=== PATIENT | male | born 1970 | race Caucasian/White ===

== ENCOUNTER 2022-04-13 22:28 | Emergency (ER) | payer MEDICARE, MEDICAID, SELFPAY ==
--- NOTE | 2022-04-13 22:36 | ED_ITS ---
HPI - Alcohol General Chief Complaint: ETOH/Substance Use Stated Complaint: ETOH Source: patient and EMS Mode of arrival: EMS Limitations: no limitations History of Present Illness HPI narrative: 51-year-old male presents via EMS for alcohol intoxication. Patient was walking around in public, visibly intoxicated, PD called EMS to have patient brought to the emergency department for evaluation. Patient has no medical complaints. Is not suicidal or homicidal. MD complaint: alcohol intoxication Last drink: Just prior to admission Chronic alcohol use: Yes Previous visits for alcohol intoxication: No Recent trauma: No Associated symptoms: denies other symptoms Treatments prior to arrival: none Related Data Allergies Allergy/AdvReac Type Severity Reaction Status Date / Time No Known Allergies Allergy Unverified 07/02/20 15:14 Review of Systems Review of Systems: Constitutional: No Fever, No Chills, visibly intoxicated ENT/Mouth: No Ear Pain, No Hoarseness, No sore throat Eyes: No Eye Pain, No Swelling, No Redness, No Foreign Body Cardiovascular: No Chest Pain, No SOB Respiratory: No Cough, No Dyspnea Gastrointestinal: No Nausea, No Vomiting, No Diarrhea, No abdominal Pain Genitourinary: No Dysuria, No Hematuria Musculoskeletal: No joint pain, No Myalgias, No Joint Swelling Skin: No Skin lacerations, No rash Neuro: No Weakness, No Numbness, No Paresthesias, No Loss of Consciousness, No Dizziness, No Headache Psych: No Anxiety/Panic, No Depression Heme/Lymph: no easy bruising, no Lymphadenopathy Endocrine: No Polyuria, No Polydipsia Yes all other systems are reviewed and are negative [facility] Past Medical History Attestation statement: The following information was validated with the patient. Source: old records reviewed Social History Social History Alcohol intake: current Advance Directives: No Physical Exam ED Vital Signs: Vital Signs - 24 hr 04/13/22 22:53 04/13/22 23:33 Temperature 99 F 98.9 F Pulse Rate 70 133 H Respiratory Rate 16 Blood Pressure 118/80 140/72 H Pulse Oximetry 99 95 Oxygen Delivery Method Room Air Room Air BMI result Body Mass Index 33.0 Appearance: Alert. Oriented X3. No acute distress. Visibly intoxicated. Eyes: Pupils equal, round and reactive to light. Sclera nonicteric. ENT: Pharynx normal. Moist mucous membranes. Neck: Normal inspection. Neck supple. CVS: Normal heart rate and rhythm. Pulses normal. Respiratory: No respiratory distress. Breath sounds normal. Abdomen: Soft and nontender. Skin: Skin warm and dry. Normal skin color. Normal skin turgor. Extremities: No lower extremity edema. Gait balanced and coordinated. Neuro: No motor deficit. No sensory deficit. Cranial nerves 2-12 intact. Course Course Course Narrative: 51-year-old male presents via EMS for public intoxication. PD called EMS to have patient brought to the emergency department for evaluation. Patient states that he drank a lot of alcohol today because his girlfriend is upset with him. He does not report suicidal or homicidal ideation. Does not want detox. Patient states that he does not have anyone that he can call for a ride home. Plan of care is to [facility]. Patient is polite, cooperative, and easily redirectable. 23:34 patient ambulatory about the unit. Gait is awkward but steady. States that he does not want detox. Even unlabored respirations. O2 sat 99% on room air. Vital signs stable and within normal limits. Patient does not have a ride home [place] [address] Plan of care is to discharge home. MDM - Alcohol Differential Diagnosis Differential diagnosis: Likely alcohol intoxication Medical Records Attestation: I reviewed the patient's medical records. Discharge Plan Discharge Clinical Impression: Alcoholic intoxication Patient Disposition: Home, Self-Care Instructions: Alcohol Intoxication (ED) Additional Instructions: Please consider detox. Thank you for choosing this emergency department for evaluation. Please follow-up with primary care physician as needed. Return to the emergency department for any new, concerning, or worsening symptoms. Interventions: ED Discharge Assessment Last Done: 04/13/22 23:48 Discharge Date/Time: 04/13/22 23:50
[2022-04-13 22:53] VITALS: BP 118/80; PULSE 70; RESP 16; TEMP 37.2; O2SAT 99; BMI 33.0
[2022-04-13 23:33] VITALS: BP 140/72; PULSE 133; TEMP 37.2; O2SAT 95
== END 2022-04-13 23:50 | disposition home or self-care (01) ==
PROVIDERS: Emergency Provider Internal Medicine
DX: F10.920 Alcohol use, unspecified with intoxication, uncomplicated (principal); Y90.9 Presence of alcohol in blood, level not specified
CPT/HCPCS: 99282; 99284

== ENCOUNTER 2022-04-17 09:11 | Inpatient (IN) | payer MEDICARE, MEDICAID, SELFPAY ==
[2022-04-17 09:24] VITALS: BP 157/92; BP 170/108; PULSE 76; PULSE 82; RESP 18; TEMP 36.9; O2SAT 98; BMI 33.0
--- NOTE | 2022-04-17 10:19 | ED.PSYCH ---
HPI - Psych General Chief Complaint: Psychiatric Symptoms Stated Complaint: PSYCH EMERGENCY PER EMS Time Seen by Provider: 04/17/22 10:19 Source: patient Mode of arrival: EMS Limitations: no limitations History of Present Illness HPI Narrative: 51-year-old male presents for feeling depressed and like she ?can not do it anymore?. There have been recent in his family, his mother past 7 months ago. Patient tells me he was on risperidone and Celexa, but stopped these meds after his mother passed. Denies suicidal ideation or homicidal ideation, but endorses hallucinations which he describes as ?hard to explain?. Patient has had a prior psychiatric hospitalization here, although he is unclear of his psychiatric diagnosis. Patient denies having a psychiatrist or therapist. Patient does endorse drinking more than 15 drinks a day, using cocaine and marijuana. Patient's last drink was last night, states that he has never had alcohol withdrawal or alcohol seizures Patient would like to get help for feeling like he can not go on in his life Related Data Allergies Allergy/AdvReac Type Severity Reaction Status Date / Time No Known Allergies Allergy Verified 04/17/22 09:30 Review of Systems Constitutional: Constitutional: Denies body ache(s), Denies chills, Denies fatigue, Denies fever(s), Denies headache(s), Denies malaise and Denies weakness Eyes: Eyes: Denies diplopia ENT: Reports Normal hearing present, Denies dizziness and Denies headache(s) Cardiovascular: Cardiovascular: Denies chest pain, Denies syncope, Denies leg edema, Denies lightheadedness, Denies Loss of Consciousness, Denies palpitations and Denies dyspnea Respiratory: Respiratory: Denies chest congestion, Denies cough and Denies dyspnea Gastrointestinal: Gastrointestinal: Denies abdominal pain, Denies hematochezia, Denies constipation, Denies diarrhea, Denies nausea and Denies vomiting Musculoskeletal: Musculoskeletal: Reports no additional musculoskeletal complaints Neurologic: Reports Normal hearing present, Denies Abnormal speech present, Denies confusion, Denies dizziness, Denies syncope, Denies headache(s), Denies Sensory deficit (Neuro) and Denies weakness Psychiatric: Psychiatric: Denies anxiety, Denies confusion, Reports depression, Reports auditory hallucinations, Reports hopelessness, Reports anhedonia, Reports visual hallucinations, Denies homicidal ideation and Denies suicidal ideation Endocrine: Endocrine: Denies fatigue and Denies palpitations PMFSH Social History Social History Alcohol intake: current Alcohol intake frequency: a few times a week Alcohol type: beer and hard liquor Patient Tobacco Use Status: Former Tobacco user Use of substances other than those prescribed or required for medical reasons: Yes Substance Use Type: Crack/Cocaine and Marijuana Substance Use Frequency: Weekly Advance Directives: No Advance Directives Information Provided: Yes Physical Exam Vital Signs: Vital Signs: Last Vital Signs Temp 98.5 F 04/17/22 09:24 Pulse 80 04/17/22 11:29 Resp 18 04/17/22 11:29 BP 147/91 H 04/17/22 11:29 Pulse Ox 97 04/17/22 11:29 O2 Del Method 04/17/22 11:29 BMI result Body Mass Index 33.0 Const: General: No confusion Nutritional Appearance: well nourished Orientation/consciousness: patient oriented x3 and No confusion Limitations: no limitations HEENT: Head: Yes normal to inspection, Yes normocephalic and Yes atraumatic Ears: hearing grossly normal bilaterally, external ears normal, TM's normal bilaterally and EAC's normal General nose exam: Normal external nose present Face and sinus: Yes normal facial exam and Yes sinuses nontender Mouth: Normal oral and palatal mucosa present Throat: Yes posterior oropharynx normal Eyes: Conjunctivae: conjunctivae normal Pupils: Equal, round and reactive pupils present EOM: EOMs intact bilaterally and No Nystagmus present Neck: Neck: Yes full ROM, Yes no lymphadenopathy and Yes supple Resp: Effort & Inspection: normal respiratory effort and able to speak in complete sentences Auscultation: clear to auscultation bilaterally, no crackles, no rales, no rhonchi and no wheezes Cardio: Rate: regular rate Rhythm: regular rhythm Heart sounds: S1 normal heart sound present and S2 normal heart sound present GI: Inspection: Yes normal to inspection Palpation (GI): Soft to palpation, nontender, no guarding and not rigid Percussion: Yes normal to percussion Auscultation: normal bowel sounds Skin: General skin exam: no rashes or lesions noted Neuro: General: patient oriented x3, gait normal, tone normal, moves all extremities and No confusion Cranial nerves: Yes CN's II-XII intact bilaterally, Yes Facial sensation intact/muscles of mastication intact, Yes Equal, round and reactive pupils present, Yes Normal accommodation reflex present, Yes Bilaterally intact EOM present, Yes Nystagmus not present, Yes Normal facial strength present, Yes Midline tongue present, Yes Normal hearing present, Yes Ability to bilaterally rotate head present, Yes Ability to bilaterally elevate shoulders present and No Nystagmus present Cognition (Neuro): normal cognition Speech: No Abnormal speech present Gait exam (Neuro): Normal gait present Motor exam (neuro): 5/5 motor strength present throughout and Pronator motor function not present Sensory Exam: No Sensory deficit (Neuro) Coordination: [id number] test normal and [id number] test normal Pupils: Normal pupillary reactivity/response: bilateral Extrem: General: Yes normal to inspection and Yes full ROM Psych: Appearance: grossly normal Mental Status: mental status grossly normal Speech and movement: Normal speech and movement present Affect: Sad affect present, Depressed mood present and Blunted affect present Attitude: cooperative Thought content: suicidality, no homicidality and Hallucination(s) present Course Course Course Narrative: 51-year-old male with a known psychiatric diagnosis who has been off his medications for 7 months since the of his mother presents for feeling depressed and like he can not go on living. Will order labs, urine, COVID consult with crisis Patient COVID negative, labs are unremarkable, urine tox screen positive for cocaine, urine shows trace blood, trace bacteria, leukocyte esterase. Will treat for UTI, will consult crisis. Reevaluation(s) Reevaluation #1: Patient placed in physician observation at this time, pending crisis evaluation Time: 13:57 MDM - Psych Lab Data Result diagrams: 04/17/22 11:16 04/17/22 11:16 Labs: Lab Results 04/17/22 04/17/22 04/17/22 Range/Units 11:16 11:16 11:16 WBC 7.0 (4.8-10.8) X10*3/uL RBC 4.73 (4.60-5.80) X10*6/uL Hgb 14.6 (14.0-18.0) g/dl Hct 42.5 (42.0-52.0) % MCV 89.9 (80.0-98.0) fL MCH 30.9 (27.0-33.0) pg MCHC 34.4 (31.0-36.0) g/dl RDW 12.3 (11.0-16.0) % Plt Count 197 (160-400) X10*3/uL MPV 10.1 (9.4-12.4) fL Immature Gran % (Auto) 0.3 (0.0-0.4) % Neut % (Auto) 58.8 (45-73) % Lymph % (Auto) 31.3 (20-40) % [place] % (Auto) 6.5 (2-11) % Eos % (Auto) 2.8 (0-4) % Baso % (Auto) 0.3 (0-2) % Lymph # (Auto) 2.2 (1.2-4.9) X10*3/uL [place] # (Auto) 0.5 (0.1-1.2) X10*3/uL Eos # (Auto) 0.2 (0.0-0.4) X10*3/uL Baso # (Auto) 0.0 (0.0-0.2) X10*3/uL Abs Immat Gran (auto) 0.02 (0.00-0.03) X10*3/uL Absolute Neuts (auto) 4.1 (2.0-8.3) x10*3/uL Absolute Nucleated RBC 0.000 (0.0-0.012) X10*3/uL Nucleated RBC % (auto) 0.0 (0.0-0.2) /100WBC Sodium 138 (135-145) mmol/L Potassium 4.4 (3.3-5.1) mmol/L Chloride 102 (96-108) mmol/L Carbon Dioxide 30 H (22-29) mmol/L Anion Gap 10 L (12-20) BUN 13 (9-16) mg/dL Creatinine 0.84 (0.5-1.4) mg/dL Estim Creat Clear Calc 127.2 Estimated GFR > 60 Random Glucose 107 (60-115) mg/dL Calcium 9.3 (8.4-10.2) mg/dL Total Bilirubin 0.7 (0.0-1.0) mg/dL AST 64 H (5-37) U/L ALT 61 H (0-40) U/L Alkaline Phosphatase 67 (39-117) U/L Total Protein 6.6 (6.5-8.0) g/dL Albumin 4.1 (3.5-5.0) g/dL Urine Color Urine Appearance Urine pH (5.0-8.0) Ur Specific Adrian (1.005-1.025) Urine Protein (NEG-TRACE) MG/DL Urine Glucose (UA) (NEG) MG/DL Urine Ketones (NEG) MG/DL Urine Blood (NEG) Urine Nitrite (NEG) Ur Leukocyte Esterase (NEG) Urine RBC (0) /HPF Urine WBC (0-4) /HPF Ur Squamous Epith Cells /LPF Urine Bacteria /LPF Urine Opiates Screen (Not Detect) Urine Fentanyl Screen (Not Detect) Ur Barbiturates Screen (Not Detect) Ur Phencyclidine Scrn (Not Detect) Ur Amphetamines Screen (Not Detect) U Benzodiazepines Scrn (Not Detect) Urine Cocaine Screen (Not Detect) U Marijuana (THC) Screen (Not Detect) COVID-19 (LESLIE) Negative (Negative) COVID-19 Clin Com See Note 04/17/22 04/17/22 Range/Units 12:49 12:49 WBC (4.8-10.8) X10*3/uL RBC (4.60-5.80) X10*6/uL Hgb (14.0-18.0) g/dl Hct (42.0-52.0) % MCV (80.0-98.0) fL MCH (27.0-33.0) pg MCHC (31.0-36.0) g/dl RDW (11.0-16.0) % Plt Count (160-400) X10*3/uL MPV (9.4-12.4) fL Immature Gran % (Auto) (0.0-0.4) % Neut % (Auto) (45-73) % Lymph % (Auto) (20-40) % [place] % (Auto) (2-11) % Eos % (Auto) (0-4) % Baso % (Auto) (0-2) % Lymph # (Auto) (1.2-4.9) X10*3/uL [place] # (Auto) (0.1-1.2) X10*3/uL Eos # (Auto) (0.0-0.4) X10*3/uL Baso # (Auto) (0.0-0.2) X10*3/uL Abs Immat Gran (auto) (0.00-0.03) X10*3/uL Absolute Neuts (auto) (2.0-8.3) x10*3/uL Absolute Nucleated RBC (0.0-0.012) X10*3/uL Nucleated RBC % (auto) (0.0-0.2) /100WBC Sodium (135-145) mmol/L Potassium (3.3-5.1) mmol/L Chloride (96-108) mmol/L Carbon Dioxide (22-29) mmol/L Anion Gap (12-20) BUN (9-16) mg/dL Creatinine (0.5-1.4) mg/dL Estim Creat Clear Calc Estimated GFR Random Glucose (60-115) mg/dL Calcium (8.4-10.2) mg/dL Total Bilirubin (0.0-1.0) mg/dL AST (5-37) U/L ALT (0-40) U/L Alkaline Phosphatase (39-117) U/L Total Protein (6.5-8.0) g/dL Albumin (3.5-5.0) g/dL Urine Color YELLOW Urine Appearance CLEAR Urine pH 6.5 (5.0-8.0) Ur Specific Adrian 1.010 (1.005-1.025) Urine Protein NEG (NEG-TRACE) MG/DL Urine Glucose (UA) NEG (NEG) MG/DL Urine Ketones NEG (NEG) MG/DL Urine Blood 1+ H (NEG) Urine Nitrite NEG (NEG) Ur Leukocyte Esterase 1+ H (NEG) Urine RBC 5-9 H (0) /HPF Urine WBC 10-14 H (0-4) /HPF Ur Squamous Epith Cells TRACE /LPF Urine Bacteria TRACE /LPF Urine Opiates Screen Not Detected (Not Detect) Urine Fentanyl Screen Not Detected (Not Detect) Ur Barbiturates Screen Not Detected (Not Detect) Ur Phencyclidine Scrn Not Detected (Not Detect) Ur Amphetamines Screen Not Detected (Not Detect) U Benzodiazepines Scrn Not Detected (Not Detect) Urine Cocaine Screen POSITIVE H (Not Detect) U Marijuana (THC) Screen Not Detected (Not Detect) COVID-19 (LESLIE) (Negative) COVID-19 Clin Com Discharge Plan Discharge Clinical Impression: Depression, Acute UTI
[2022-04-17 11:21] LABS: MANUAL DIFF FLAG NO
[2022-04-17 11:22] LABS: Basophils Percent Auto 0.3 % (0-2); Eosinophils Absolute Auto 0.2 X10*3/uL (0.0-0.4); Eosinophils Percent Auto 2.8 % (0-4); Hematocrit 42.5 % (42.0-52.0); Hemoglobin 14.6 g/dl (14.0-18.0); Imm Gran Abs Auto 0.02 X10*3/uL (0.00-0.03); Imm Gran Pct Auto 0.3 % (0.0-0.4); Lymphocytes Absolute Auto 2.2 X10*3/uL (1.2-4.9); Lymphocytes Percent Auto 31.3 % (20-40); Mean Corpuscular HGB Conc 34.4 g/dl (31.0-36.0); Mean Corpuscular Hemoglobin 30.9 pg (27.0-33.0); Mean Corpuscular Volume 89.9 fL (80.0-98.0); Mean Platelet Volume 10.1 fL (9.4-12.4); Monocytes Absolute Auto 0.5 X10*3/uL (0.1-1.2); Monocytes Percent Auto 6.5 % (2-11); Neutrophils Absolute Auto 4.1 x10*3/uL (2.0-8.3); Neutrophils Percent Auto 58.8 % (45-73); Platelet Count 197 X10*3/uL (160-400); Red Blood Count 4.73 X10*6/uL (4.60-5.80); Red Cell Distribution Width 12.3 % (11.0-16.0)
[2022-04-17 11:29] VITALS: BP 147/91; PULSE 80; RESP 18; O2SAT 97
[2022-04-17 11:37] LABS: COVID-19 Test Negative (Negative); IDNOW Serial# 16C4AD1C
[2022-04-17 11:41] LABS: Alanine Aminotransferase 61 U/L (0-40); Albumin Level 4.1 g/dL (3.5-5.0); Alkaline Phosphatase 67 U/L (39-117); Anion Gap 10 (12-20); Aspartate Amino Transferase 64 U/L (5-37); Bilirubin Total 0.7 mg/dL (0.0-1.0); Blood Urea Nitrogen 13 mg/dL (9-16); Calcium 9.3 mg/dL (8.4-10.2); Carbon Dioxide 30 mmol/L (22-29); Chloride 102 mmol/L (96-108); Creatinine Clr Calc Pharmacy 127.2; Estimated Glomerular Filt Rate > 60; Glucose Random 107 mg/dL (60-115); Potassium 4.4 mmol/L (3.3-5.1); Sodium 138 mmol/L (135-145); Total Protein 6.6 g/dL (6.5-8.0)
--- NOTE | 2022-04-17 11:54 | PC.NURSE ---
pt is alert and oriented, skin appropriate fro ethnicity, respirations even and unlabored. when pt was asked if he would like to go to sleep and not wake up pt did state that would be a nice way to go but then asked if he wanted to kill himself the pt states no. pt is speaking in a very soft quiet voice, pt is calm and cooperative
[2022-04-17 13:00] LABS: Appearance Urine CLEAR; Color Urine YELLOW; Glucose Urine UA NEG (NEG); Leukocyte Esterase Urine 1+ (NEG); Nitrite Urine NEG (NEG); PH 6.5 (5.0-8.0); UACC Culture Trigger YES; Urine Blood 1+ (NEG); Urine Ketones NEG (NEG); Urine Protein NEG (NEG-TRACE)
[2022-04-17 13:15] LABS: Amphetamine Screen Urine Not Detected (Not Detect); Barbiturates, Urine Not Detected (Not Detect); Benzodiazepines Screen Urine Not Detected (Not Detect); Cannabinoid Screen Urine Not Detected (Not Detect); Cocaine Screen Urine POSITIVE (Not Detect); Fentanyl, urine Not Detected (Not Detect); Opiate Screen Urine Not Detected (Not Detect); Phencyclidine Screen Urine Not Detected (Not Detect)
[2022-04-17 13:17] LABS: Bacteria Urine TRACE /LPF; Squamous Epithelial Cell Urine TRACE /LPF
--- NOTE | 2022-04-17 15:43 | PC.NURSE ---
smart sheet sent over to [facility]
--- NOTE | 2022-04-17 16:01 | PC.NURSE ---
care team at bedside
--- NOTE | 2022-04-17 16:34 | MHC.CARE ---
Pt was evaluated by [facility] with disposition for voluntary inpatient psychiatric admission. Per [facility] clinician- a request for an urgent med appointment will also be made on pt's behalf in the event that he opts out of inpatient admission.
[2022-04-17] MEDS: cephALEXin 500 MG CAPSULE PO ×2 (16:46→20:21)
[2022-04-18 01:38] VITALS: BP 143/87; PULSE 76; RESP 17; TEMP 36.9; O2SAT 98
--- NOTE | 2022-04-18 05:38 | PC.NURSE ---
Patient slept through the night, no distress observed/reported, behavior appropriate, off his medication, currently on antibiotic for UTI, disposition per [facility] is inpatient bed search, VSS, will continue to monitor.
--- NOTE | 2022-04-18 07:01 | PC.NURSE ---
patient appears to remain asleep at present respirations are even and unlabored patient appears in no distress
[2022-04-18] MEDS: cephALEXin 500 MG CAPSULE PO ×4 (08:30→21:04)
[2022-04-18 15:28] VITALS: BP 149/86; PULSE 87; RESP 16; TEMP 36.4; O2SAT 97
[2022-04-18 23:46] VITALS: BP 137/92; PULSE 83; RESP 16; TEMP 36; O2SAT 96
--- NOTE | 2022-04-19 | ECG_ITS ---
Test Reason : medical clearance Blood Pressure : / mmHG Vent. Rate : 093 BPM Atrial Rate : 093 BPM P-R Int : 126 ms QRS Dur : 082 ms QT Int : 330 ms P-R-T Axes : 012 025 -08 degrees QTc Int : 410 ms Normal sinus rhythm Nonspecific T wave abnormality Abnormal ECG When compared with ECG of 04-NOV-2011 19:59, Vent. rate has decreased BY 52 BPM Referred By: Angelina Santos Electronically Signed By:Colten Travis
--- NOTE | 2022-04-19 06:44 | PC.NURSE ---
Patient slept through the night, no distress observed/reported, behavior appropriate, off his medication, currently on Keflex for UTI, disposition per [facility] is inpatient bed search, VSS, will continue to monitor.
--- NOTE | 2022-04-19 07:19 | PC.NURSE ---
patient appears to remain asleep at prsent respirations are even and unlabored patient appears in no distress
--- NOTE | 2022-04-19 09:21 | PHA.MEDREC ---
Pharmacy Consult ? Medication Reconciliation Pharmacy has reviewed the medication reconciliation by Bulmaro. Called [facility] to confirm patient is on no medications. Annemarie Orta, PharmD
[2022-04-19 09:24] VITALS: BP 139/91; PULSE 106; RESP 16; TEMP 36.8; O2SAT 95
[2022-04-19] MEDS: cephALEXin 500 MG CAPSULE PO ×4 (09:56→20:46)
[2022-04-19 10:24] LABS: COVID-19 Test Negative (Negative); IDNOW Serial# 16C4AD1C
[2022-04-19] MEDS: Thiamine HCL 100 MG TABLET PO (14:43)
[2022-04-19 16:26] VITALS: BMI 32.1
[2022-04-19 16:39] VITALS: BP 164/95; PULSE 88; RESP 16; TEMP 36.5; O2SAT 96
[2022-04-19] MEDS: LORazepam 1 MG TABLET PO (16:44)
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
[2022-04-19 20:50] VITALS: BP 116/78; PULSE 94; TEMP 36.4
[2022-04-20 06:00] VITALS: BP 119/82; PULSE 91; TEMP 36.4; O2SAT 99
[2022-04-20] MEDS: Folic Acid 1 MG TABLET PO (08:45)
[2022-04-20] MEDS: cephALEXin 500 MG CAPSULE PO ×4 (08:45→20:58)
[2022-04-20] MEDS: Thiamine HCL 100 MG TABLET PO (08:45)
--- NOTE | 2022-04-20 10:25 | P.HPPS_ITS ---
HPI Date of Service: 04/20/22 Chief Complaint: DEPRESSION Sources of Information: patient interviewed, chart reviewed and crisis/core team assessment reviewed HPI Subjective Notes: [place] Warning and Conditional Voluntary Narrative: Patient is a 51-year-old male with history bipolar/schizoaffective disorder who presents for depression with vague SI in the face of being off medications and with recent significant losses. Patient says he does not want to talk about the people he recently lost (3 family members have within the past 3 months). Patient is somewhat of a vague historian. He says he was diagnosed with bipolar disorder in 2020 and Risperdal helped. Whenever he stopped it he said he would end up needing it and get on it again. Patient said he stopped taking about 7 or 8 months ago. He is unclear about when his depression started, if it was prior to losing loved ones or afterward however he endorses feeling depressed and endorses auditory hallucinations and says it is creep P when you think you at home all by yourself and that happens... He also talked about some visual hallucinations where out of no where he will see a person, but it was difficult to get patient to explain this further. When asked about SI, he said I do not know. Patient said he was on Risperdal 2 mg b.i.d. which felt enough and would like to get back on it. Patient was somewhat vague on his substance abuse. It seems that he has been drinking heavily for a few weeks possibly months. Also intermittent use of cocaine. He says he has never had any withdrawal symptoms in the past and denies any now. Patient became tearful and quiet and interview was concluded Past Psychiatric History: Past psychiatric hospitalizations likely Started on Risperdal 2 mg b.i.d. in 2020 which he says was helpful Medical Evaluation Reviewed: Yes [facility] Medical History (Updated 04/20/22 @ 17:11 by Ponce Christy MD) Alcohol abuse Cocaine abuse Schizoaffective disorder, depressive type Family History: Patient said no family psychiatric history that he knows of Social History: Born in [place]; father left when he was young and family was in poverty with little food Came to the [place] around 11 or 12 years old completed the 7th grade Substance History: Alcohol abuse since he was 12 years old; has been drinking heavily daily for weeks to months Intermittent cocaine abuse Trauma History: Deferred Diagnostics Vital Signs (24Hr): Vital Signs - 24 hr 04/19/22 16:39 04/19/22 20:50 04/20/22 06:00 Temperature 97.7 F 97.5 F 97.5 F Pulse Rate 88 94 91 Respiratory Rate 16 Blood Pressure 164/95 H 116/78 119/82 Pulse Oximetry 96 99 Oxygen Delivery Method Room Air Room Air BMI result Body Mass Index 32.1 Labs Results: 04/17/22 11:16 04/17/22 11:16 Labs: Laboratory Results - last 48 hr 04/19/22 09:59 COVID-19 ([facility]) Negative COVID-19 Clin Com See Note EKG EKG: reviewed EKG Comment: 04/19 ?QTc Int : 410 ms Meds/Allergies Meds Home Medications Medication Instructions Recorded Confirmed Type No Known Home Meds 04/17/22 04/17/22 History Allergies Allergies Allergy/AdvReac Type Severity Reaction Status Date / Time No Known Allergies Allergy Verified 04/17/22 09:30 Mental Status Exam Mental Status Exam Narrative: Pt is alert and oriented; behavior is marginally cooperative, not facing or l ooking at journalists and other writers; dressed in casual attire adequately groomed with adequate hygiene; mood is described as depressed and affect congruent, downcast, constricted, tearful and anxious; no eye contact; Speech is low volume sometimes moderating his sentences; some psychomotor retardation present; thought process is goal directed; Thought content is sadness, AH, on tx; otherwise pertinent to relevant topics; not clear about delusional content or paranoid ideations; regarding SI, says i don't know. No HI. AH present; Patients insight and judgment are impaired. Assessment & Plan Assessment & Plan (1) Schizoaffective disorder, depressive type: Status: Acute Code(s): F25.1 - Schizoaffective disorder, depressive type (2) Alcohol abuse: Status: Acute Code(s): F10.10 - Alcohol abuse, uncomplicated (3) Cocaine abuse: Status: Acute Code(s): F14.10 - Cocaine abuse, uncomplicated (4) Acute UTI: Status: Acute Code(s): N39.0 - Urinary tract infection, site not specified Plan Patient is a 51-year-old male with history bipolar/schizoaffective disorder who presents for depression with vague SI in the face of being off medications and with recent significant losses. Patient says he does not want to talk about the people he recently lost (3 family members have within the past 3 months). Patient is somewhat of a vague historian. -patient is depressed with AH; it is not clear if patient has psychotic symptoms independent of depression and schizoaffective disorder will be provisional diagnosis for now -patient wants to restart Risperdal; will titrate to 2 mg b.i.d. -no withdrawal symptoms for days now Plan: CV Q 15 minute checks Titrate Risperdal to 2 mg b.i.d. Will gather collateral Will discontinue CIWA since patient has not had any withdrawal symptoms for days now; denies history of alcohol withdrawal symptoms Patient educated on: diagnosis, medication risk/benefits and substance abuse Informed Consent: understands Reason for continued inpatient stay Substantial Risk for: harm to self and rapid decompensation
[2022-04-20 10:41] LABS: Alanine Aminotransferase 72 U/L (0-40); Albumin Level 4.7 g/dL (3.5-5.0); Alkaline Phosphatase 77 U/L (39-117); Aspartate Amino Transferase 43 U/L (5-37); Bilirubin Direct 0.3 mg/dL (0.0-0.5); Bilirubin Total 0.6 mg/dL (0.0-1.0); Cholesterol 168 mg/dL; HDL Cholesterol 50 mg/dL; LDL Cholesterol Calculated 99 mg/dl; Total Protein 7.7 g/dL (6.5-8.0); Triglycerides 99 mg/dL
[2022-04-20 10:57] LABS: Thyroid Stimulating Hormone 1.24 uIU/mL (0.32-4.0)
[2022-04-20 18:00] VITALS: BP 136/82; PULSE 102; TEMP 36.7; O2SAT 96
[2022-04-20] MEDS: risperiDONE 1 MG TABLET PO (20:58)
[2022-04-21 06:00] VITALS: BP 139/80; PULSE 98; TEMP 36.2; O2SAT 96
[2022-04-21 07:00] VITALS: BMI 32.2
[2022-04-21] MEDS: Folic Acid 1 MG TABLET PO (08:21)
[2022-04-21] MEDS: risperiDONE 1 MG TABLET PO ×2 (08:22→13:40)
[2022-04-21] MEDS: Thiamine HCL 100 MG TABLET PO (08:22)
[2022-04-21] MEDS: cephALEXin 500 MG CAPSULE PO ×4 (08:22→20:33)
--- NOTE | 2022-04-21 10:48 | P.PNPSI_ITS ---
Subjective Subjective Date of Service: 04/21/22 Reason For Visit: DEPRESSION Interim History: Patient says that he is doing a little better. He says no to suicidal ideation. He still having some auditory hallucinations but he says now it is just in the right side of his ear. He said this morning it was okay but the voices kind of crept up. Of note, patient is more spontaneously communicative and with brighter affect, better eye contact. Mental Status Exam Mental Status Exam Narrative: Pt is alert and oriented; behavior is cooperative, more engaged; dressed in casual attire adequately groomed with adequate hygiene; mood is described as little better and affect congruent, calmer, brighter; better eye contact; Speech is regular volume, rate, prosody; no psychomotor retardation present; thought process is goal directed, little distracted; Thought content is on medication, tx; otherwise pertinent to relevant topics; no delusional content or paranoid ideations expressed; denies SI/HI; AH still present; Patients insight and judgment are impaired but improving. Diagnostics Vital Signs (24Hr): Vital Signs - 24 hr 04/20/22 18:00 04/21/22 06:00 Temperature 98.0 F 97.2 F Pulse Rate 102 H 98 Blood Pressure 136/82 139/80 Pulse Oximetry 96 96 Oxygen Delivery Method Room Air Room Air BMI result Body Mass Index 32.1 Labs Results: 04/17/22 11:16 04/17/22 11:16 Labs: Laboratory Results - last 48 hr 04/20/22 08:16 Total Bilirubin 0.6 Direct Bilirubin 0.3 AST 43 H ALT 72 H Alkaline Phosphatase 77 Total Protein 7.7 Albumin 4.7 Triglycerides 99 Cholesterol 168 LDL Cholesterol, Calc 99 HDL Cholesterol 50 TSH 1.24 Free T4 1.00 Medications Medications Current Medications Acetaminophen (Acetaminophen 325 Mg Tablet) 650 mg PO Q6H PRN PRN Reason: Headache/Pain Mild Scale (1-3) Al Hydroxide/Mg Hydroxide (Magnesium Hydrox/Alum Hydrox 30 Ml Oral.Susp) 30 ml PO Q6H PRN PRN Reason: Heartburn/Nausea Cephalexin HCl (Cephalexin 500 Mg Capsule) 500 mg PO QID [facility] Stop: 04/23/22 00:00 Last Admin: 04/21/22 08:22 Dose: 500 mg Folic Acid (Folic Acid 1 Mg Tablet) 1 mg PO DAILY [facility] Last Admin: 04/21/22 08:21 Dose: 1 mg Hydroxyzine HCl (Hydroxyzine Hcl 25 Mg Tablet) 25 mg PO Q6H PRN PRN Reason: Anxiety Magnesium Hydroxide (Milk Of Magnesia 30 Ml Oral.Susp) 30 ml PO DAILY PRN PRN Reason: Constipation Nicotine Polacrilex (Nicotine Polacrilex 2 Mg Gum) 4 mg BUCCAL Q2H PRN PRN Reason: Nicotine Cravings Risperidone (Risperidone 0.5 Mg Tablet) 0.5 mg PO Q4H PRN PRN Reason: anxiety/AH Thiamine HCl (Thiamine Hcl 100 Mg Tablet) 100 mg PO DAILY [facility] Last Admin: 04/21/22 08:22 Dose: 100 mg Trazodone HCl (Trazodone Hcl 50 Mg Tablet) 50 mg PO BEDTIME PRN PRN Reason: Insomnia Allergies Allergies Allergy/AdvReac Type Severity Reaction Status Date / Time No Known Allergies Allergy Verified 04/17/22 09:30 Assessment & Plan Assessment & Plan (1) Schizoaffective disorder, depressive type: Status: Acute Code(s): F25.1 - Schizoaffective disorder, depressive type (2) Alcohol abuse: Status: Acute Code(s): F10.10 - Alcohol abuse, uncomplicated (3) Cocaine abuse: Status: Acute Code(s): F14.10 - Cocaine abuse, uncomplicated (4) Acute UTI: Status: Acute Code(s): N39.0 - Urinary tract infection, site not specified Plan Patient is a 51-year-old male with history bipolar/schizoaffective disorder who presents for depression with vague SI in the face of being off medications and with recent significant losses. Patient says he does not want to talk about the people he recently lost (3 family members have within the past 3 months). Patient is somewhat of a vague historian. -patient is depressed with AH; it is not clear if patient has psychotic symptoms independent of depression and schizoaffective disorder will be provisional diagnosis for now -patient wants to restart Risperdal; will titrate to 2 mg b.i.d. -no withdrawal symptoms for days now 04/21 Patient reports being a little better and has a noticeably brighter affect and is more willing to engage. Tolerating medications. AH remains. Talks about discharge wondering if the auditory hallucinations will ever decrease but was reminded that they were better and the past. No SI. Plan: CV Q 15 minute checks Risperdal to 2 mg b.i.d. Will gather collateral Will discontinue CIWA since patient has not had any withdrawal symptoms for days now; denies history of alcohol withdrawal symptoms I spent minutes with the patient and/or on the patient floor today, greater than?50% of which was spent counseling/coordinating care. Patient educated on: diagnosis and medication risk/benefits Informed Consent: understands Reason for contiued inpatient stay Substantial Risk for: rapid decompensation
--- NOTE | 2022-04-21 13:12 | PC.NURSE ---
Pt submitted 3 day note
[2022-04-21 18:00] VITALS: BP 127/73; PULSE 98; TEMP 35.8; O2SAT 95
[2022-04-21] MEDS: risperiDONE 2 MG TABLET PO (20:33)
[2022-04-22 06:00] VITALS: BP 131/79; PULSE 103; RESP 18; TEMP 36.3; O2SAT 97
[2022-04-22 09:26] LABS: Alanine Aminotransferase 80 U/L (0-40); Albumin Level 4.8 g/dL (3.5-5.0); Alkaline Phosphatase 75 U/L (39-117); Aspartate Amino Transferase 44 U/L (5-37); Bilirubin Direct 0.3 mg/dL (0.0-0.5); Bilirubin Total 0.4 mg/dL (0.0-1.0); Cholesterol 156 mg/dL; HDL Cholesterol 43 mg/dL; LDL Cholesterol Calculated 90 mg/dl; Total Protein 7.8 g/dL (6.5-8.0); Triglycerides 117 mg/dL
[2022-04-22 09:31] LABS: Estimated Average Glucose 111 mg/dL; Hemoglobin A1c % 5.5 %
[2022-04-22] MEDS: Folic Acid 1 MG TABLET PO (09:35)
[2022-04-22] MEDS: risperiDONE 2 MG TABLET PO ×2 (09:36→20:13)
[2022-04-22] MEDS: cephALEXin 500 MG CAPSULE PO ×4 (09:36→20:12)
[2022-04-22] MEDS: Thiamine HCL 100 MG TABLET PO (09:36)
--- NOTE | 2022-04-22 10:39 | P.PNPSI_ITS ---
Subjective Subjective Date of Service: 04/22/22 Reason For Visit: DEPRESSION Interim History: Patient reports that he is feeling better. He is still sad about the of loved ones but says he is coping with it. Still does not want to talk about it but acknowledges that staff is available if he changes his mind. Patient denies any SI and says he is sleeping well. He also says that auditory hallucinations have resolved. Mental Status Exam Mental Status Exam Narrative: Pt is alert and oriented; behavior is cooperative, more engaged; dressed in casual attire adequately groomed with adequate hygiene; mood is described as better and affect congruent, calmer, brighter; better eye contact; Speech is regular volume, rate, prosody; no psychomotor retardation present; thought process is goal directed, little distracted; Thought content is on medication, tx; otherwise pertinent to relevant topics; no delusional content or paranoid ideations expressed; denies SI/HI; No AH; Patients insight and judgment are fair. Diagnostics Vital Signs (24Hr): Vital Signs - 24 hr 04/21/22 18:00 04/22/22 06:00 Temperature 96.4 F L 97.4 F Pulse Rate 98 103 H Respiratory Rate 18 Blood Pressure 127/73 131/79 Pulse Oximetry 95 97 Oxygen Delivery Method Room Air BMI result Body Mass Index 32.2 Labs Results: 04/17/22 11:16 04/17/22 11:16 Labs: Laboratory Results - last 48 hr 04/20/22 04/22/22 04/22/22 08:16 08:15 08:15 Estimat Average Glucose 111 Hemoglobin A1c % 5.5 Total Bilirubin 0.6 0.4 Direct Bilirubin 0.3 0.3 AST 43 H 44 H ALT 72 H 80 H Alkaline Phosphatase 77 75 Total Protein 7.7 7.8 Albumin 4.7 4.8 Triglycerides 99 117 Cholesterol 168 156 LDL Cholesterol, Calc 99 90 HDL Cholesterol 50 43 TSH 1.24 Free T4 1.00 Medications Medications Current Medications Acetaminophen (Acetaminophen 325 Mg Tablet) 650 mg PO Q6H PRN PRN Reason: Headache/Pain Mild Scale (1-3) Al Hydroxide/Mg Hydroxide (Magnesium Hydrox/Alum Hydrox 30 Ml Oral.Susp) 30 ml PO Q6H PRN PRN Reason: Heartburn/Nausea Cephalexin HCl (Cephalexin 500 Mg Capsule) 500 mg PO QID [facility] Stop: 04/23/22 00:00 Last Admin: 04/22/22 09:36 Dose: 500 mg Folic Acid (Folic Acid 1 Mg Tablet) 1 mg PO DAILY [facility] Last Admin: 04/22/22 09:35 Dose: 1 mg Hydroxyzine HCl (Hydroxyzine Hcl 25 Mg Tablet) 25 mg PO Q6H PRN PRN Reason: Anxiety Magnesium Hydroxide (Milk Of Magnesia 30 Ml Oral.Susp) 30 ml PO DAILY PRN PRN Reason: Constipation Nicotine Polacrilex (Nicotine Polacrilex 2 Mg Gum) 4 mg BUCCAL Q2H PRN PRN Reason: Nicotine Cravings Risperidone (Risperidone 0.5 Mg Tablet) 0.5 mg PO Q4H PRN PRN Reason: anxiety/AH Risperidone (Risperidone 2 Mg Tablet) 2 mg PO BID [facility] Last Admin: 04/22/22 09:36 Dose: 2 mg Thiamine HCl (Thiamine Hcl 100 Mg Tablet) 100 mg PO DAILY [facility] Last Admin: 04/22/22 09:36 Dose: 100 mg Trazodone HCl (Trazodone Hcl 50 Mg Tablet) 50 mg PO BEDTIME PRN PRN Reason: Insomnia Allergies Allergies Allergy/AdvReac Type Severity Reaction Status Date / Time No Known Allergies Allergy Verified 04/17/22 09:30 Assessment & Plan Assessment & Plan (1) Schizoaffective disorder, depressive type: Status: Acute Code(s): F25.1 - Schizoaffective disorder, depressive type (2) Alcohol abuse: Status: Acute Code(s): F10.10 - Alcohol abuse, uncomplicated (3) Cocaine abuse: Status: Acute Code(s): F14.10 - Cocaine abuse, uncomplicated (4) Acute UTI: Status: Acute Code(s): N39.0 - Urinary tract infection, site not specified Plan Patient is a 51-year-old male with history bipolar/schizoaffective disorder who presents for depression with vague SI in the face of being off medications and with recent significant losses. Patient says he does not want to talk about the people he recently lost (3 family members have within the past 3 months). Patient is somewhat of a vague historian. -patient is depressed with AH; it is not clear if patient has psychotic symptoms independent of depression and schizoaffective disorder will be provisional diagnosis for now -patient wants to restart Risperdal; will titrate to 2 mg b.i.d. -no withdrawal symptoms for days now 04/21 Patient reports being a little better and has a noticeably brighter affect and is more willing to engage. Tolerating medications. AH remains. Talks about discharge wondering if the auditory hallucinations will ever decrease but was reminded that they were better and the past. No SI. 04/22 mood improving, no SI; no AH today. Patient talks about discharging Monday and if patient remains stable, assembly instructions writer agrees patient entered 3 day notice. Plan: 3 day notice Q 15 minute checks Risperdal to 2 mg b.i.d. Will discontinue CIWA since patient has not had any withdrawal symptoms for days now; denies history of alcohol withdrawal symptoms I spent minutes with the patient and/or on the patient floor today, greater than?50% of which was spent counseling/coordinating care. Reason for contiued inpatient stay Substantial Risk for: med/psych decompensation
[2022-04-22] MEDS: Acetaminophen 325 MG TABLET 650 MG PO (10:54)
[2022-04-22 11:21] LABS: Reflex LDLD? No
[2022-04-22 17:36] VITALS: BP 140/68; PULSE 102; TEMP 37.2; O2SAT 97
[2022-04-23 06:00] VITALS: BP 134/82; PULSE 100; RESP 18; TEMP 36.8; O2SAT 97
[2022-04-23] MEDS: Thiamine HCL 100 MG TABLET PO (08:41)
[2022-04-23] MEDS: Folic Acid 1 MG TABLET PO (08:41)
[2022-04-23] MEDS: risperiDONE 2 MG TABLET PO ×2 (08:41→20:06)
--- NOTE | 2022-04-23 17:08 | HO.PSYCHPN ---
Subjective Subjective Date of Service: 04/23/22 Reason For Visit: DEPRESSION Interim History: Patient continues to report mood has improved. He denies any AVH and says he is sleeping and eating well. No SI. He also feels that he is more clear minded. Staff concurs says that his affect has been brighter and he is more engaged. Patient asks about discharge Monday Mental Status Exam Mental Status Exam Narrative: Pt is alert and oriented; behavior is cooperative, more engaged; dressed in casual attire adequately groomed with adequate hygiene; mood is described as better and affect congruent, calmer, brighter; better eye contact; Speech is regular volume, rate, prosody; no psychomotor retardation present; thought process is goal directed, little distracted; Thought content is on medication, tx; otherwise pertinent to relevant topics; no delusional content or paranoid ideations expressed; denies SI/HI; No AH; Patients insight and judgment are fair. Diagnostics Vital Signs (24Hr): Vital Signs - 24 hr 04/22/22 17:36 04/23/22 06:00 Temperature 98.9 F 98.2 F Pulse Rate 102 H 100 Respiratory Rate 18 Blood Pressure 140/68 H 134/82 Pulse Oximetry 97 97 BMI result Body Mass Index 32.2 Labs Results: 04/17/22 11:16 04/17/22 11:16 Labs: Laboratory Results - last 48 hr 04/22/22 04/22/22 08:15 08:15 Estimat Average Glucose 111 Hemoglobin A1c % 5.5 Total Bilirubin 0.4 Direct Bilirubin 0.3 AST 44 H ALT 80 H Alkaline Phosphatase 75 Total Protein 7.8 Albumin 4.8 Triglycerides 117 Cholesterol 156 LDL Cholesterol, Calc 90 HDL Cholesterol 43 Medications Medications Current Medications Acetaminophen (Acetaminophen 325 Mg Tablet) 650 mg PO Q6H PRN PRN Reason: Headache/Pain Mild Scale (1-3) Last Admin: 04/22/22 10:54 Dose: 650 mg Al Hydroxide/Mg Hydroxide (Magnesium Hydrox/Alum Hydrox 30 Ml Oral.Susp) 30 ml PO Q6H PRN PRN Reason: Heartburn/Nausea Folic Acid (Folic Acid 1 Mg Tablet) 1 mg PO DAILY [facility] Last Admin: 04/23/22 08:41 Dose: 1 mg Hydroxyzine HCl (Hydroxyzine Hcl 25 Mg Tablet) 25 mg PO Q6H PRN PRN Reason: Anxiety Magnesium Hydroxide (Milk Of Magnesia 30 Ml Oral.Susp) 30 ml PO DAILY PRN PRN Reason: Constipation Nicotine Polacrilex (Nicotine Polacrilex 2 Mg Gum) 4 mg BUCCAL Q2H PRN PRN Reason: Nicotine Cravings Risperidone (Risperidone 0.5 Mg Tablet) 0.5 mg PO Q4H PRN PRN Reason: anxiety/AH Risperidone (Risperidone 2 Mg Tablet) 2 mg PO BID [facility] Last Admin: 04/23/22 08:41 Dose: 2 mg Thiamine HCl (Thiamine Hcl 100 Mg Tablet) 100 mg PO DAILY [facility] Last Admin: 04/23/22 08:41 Dose: 100 mg Trazodone HCl (Trazodone Hcl 50 Mg Tablet) 50 mg PO BEDTIME PRN PRN Reason: Insomnia Allergies Allergies Allergy/AdvReac Type Severity Reaction Status Date / Time No Known Allergies Allergy Verified 04/17/22 09:30 Assessment & Plan Assessment & Plan (1) Schizoaffective disorder, depressive type: Status: Acute Code(s): F25.1 - Schizoaffective disorder, depressive type (2) Alcohol abuse: Status: Acute Code(s): F10.10 - Alcohol abuse, uncomplicated (3) Cocaine abuse: Status: Acute Code(s): F14.10 - Cocaine abuse, uncomplicated (4) Acute UTI: Status: Acute Code(s): N39.0 - Urinary tract infection, site not specified Plan Patient is a 51-year-old male with history bipolar/schizoaffective disorder who presents for depression with vague SI in the face of being off medications and with recent significant losses. Patient says he does not want to talk about the people he recently lost (3 family members have within the past 3 months). Patient is somewhat of a vague historian. -patient is depressed with AH; it is not clear if patient has psychotic symptoms independent of depression and schizoaffective disorder will be provisional diagnosis for now -patient wants to restart Risperdal; will titrate to 2 mg b.i.d. -no withdrawal symptoms for days now 04/21 Patient reports being a little better and has a noticeably brighter affect and is more willing to engage. Tolerating medications. AH remains. Talks about discharge wondering if the auditory hallucinations will ever decrease but was reminded that they were better and the past. No SI. 04/22 mood improving, no SI; no AH today. Patient talks about discharging Monday and if patient remains stable, typewriter assembly and parts inspector agrees patient entered 3 day notice. 04/23 patient remains improving, no SI or HI or AVH. If remains stable will proceed with discharge for Monday Plan: 3 day notice Q 15 minute checks Risperdal to 2 mg b.i.d. Will discontinue CIWA since patient has not had any withdrawal symptoms for days now; denies history of alcohol withdrawal symptoms I spent minutes with the patient and/or on the patient floor today, greater than?50% of which was spent counseling/coordinating care. Patient educated on: diagnosis and medication risk/benefits Informed Consent: understands Reason for contiued inpatient stay Substantial Risk for: rapid decompensation
[2022-04-23 18:00] VITALS: BP 130/74; PULSE 99; TEMP 36.8; O2SAT 95
[2022-04-24 06:00] VITALS: BP 122/77; PULSE 98; RESP 16; TEMP 36.4; O2SAT 98
[2022-04-24] MEDS: Folic Acid 1 MG TABLET PO (08:15)
[2022-04-24] MEDS: risperiDONE 2 MG TABLET PO ×2 (08:15→20:35)
[2022-04-24] MEDS: Thiamine HCL 100 MG TABLET PO (08:15)
[2022-04-24 16:04] VITALS: BP 130/73; PULSE 119; TEMP 36.6; O2SAT 96
--- NOTE | 2022-04-24 16:12 | P.PNPSI_ITS ---
Subjective Subjective Date of Service: 04/24/22 Reason For Visit: DEPRESSION Interim History: Patient reports that he is in a good enough mood and that depression has resolved. Denies any SI; denies any AVH. Would like to leave tomorrow Mental Status Exam Mental Status Exam Narrative: Pt is alert and oriented; behavior is cooperative, more engaged; dressed in casual attire adequately groomed with adequate hygiene; mood is described as good and affect congruent, calmer, brighter; better eye contact; Speech is regular volume, rate, prosody; no psychomotor retardation present; thought process is goal directed, little distracted; Thought content is on medication, tx; otherwise pertinent to relevant topics; no delusional content or paranoid ideations expressed; denies SI/HI; No AH; Patients insight and judgment are fair. Diagnostics Vital Signs (24Hr): Vital Signs - 24 hr 04/23/22 18:00 04/24/22 06:00 04/24/22 16:04 Temperature 98.2 F 97.5 F 97.8 F Pulse Rate 99 98 119 H Respiratory Rate 16 Blood Pressure 130/74 122/77 130/73 Pulse Oximetry 95 98 96 BMI result Body Mass Index 32.2 Labs Results: 04/17/22 11:16 04/17/22 11:16 Medications Medications Current Medications Acetaminophen (Acetaminophen 325 Mg Tablet) 650 mg PO Q6H PRN PRN Reason: Headache/Pain Mild Scale (1-3) Last Admin: 04/22/22 10:54 Dose: 650 mg Al Hydroxide/Mg Hydroxide (Magnesium Hydrox/Alum Hydrox 30 Ml Oral.Susp) 30 ml PO Q6H PRN PRN Reason: Heartburn/Nausea Folic Acid (Folic Acid 1 Mg Tablet) 1 mg PO DAILY [facility] Last Admin: 04/24/22 08:15 Dose: 1 mg Hydroxyzine HCl (Hydroxyzine Hcl 25 Mg Tablet) 25 mg PO Q6H PRN PRN Reason: Anxiety Magnesium Hydroxide (Milk Of Magnesia 30 Ml Oral.Susp) 30 ml PO DAILY PRN PRN Reason: Constipation Nicotine Polacrilex (Nicotine Polacrilex 2 Mg Gum) 4 mg BUCCAL Q2H PRN PRN Reason: Nicotine Cravings Risperidone (Risperidone 0.5 Mg Tablet) 0.5 mg PO Q4H PRN PRN Reason: anxiety/AH Risperidone (Risperidone 2 Mg Tablet) 2 mg PO BID [facility] Last Admin: 04/24/22 08:15 Dose: 2 mg Thiamine HCl (Thiamine Hcl 100 Mg Tablet) 100 mg PO DAILY [facility] Last Admin: 04/24/22 08:15 Dose: 100 mg Trazodone HCl (Trazodone Hcl 50 Mg Tablet) 50 mg PO BEDTIME PRN PRN Reason: Insomnia Allergies Allergies Allergy/AdvReac Type Severity Reaction Status Date / Time No Known Allergies Allergy Verified 04/17/22 09:30 Assessment & Plan Assessment & Plan (1) Schizoaffective disorder, depressive type: Status: Acute Code(s): F25.1 - Schizoaffective disorder, depressive type (2) Alcohol abuse: Status: Acute Code(s): F10.10 - Alcohol abuse, uncomplicated (3) Cocaine abuse: Status: Acute Code(s): F14.10 - Cocaine abuse, uncomplicated (4) Acute UTI: Status: Acute Code(s): N39.0 - Urinary tract infection, site not specified Plan Patient is a 51-year-old male with history bipolar/schizoaffective disorder who presents for depression with vague SI in the face of being off medications and with recent significant losses. Patient says he does not want to talk about the people he recently lost (3 family members have within the past 3 months). Patient is somewhat of a vague historian. -patient is depressed with AH; it is not clear if patient has psychotic symptoms independent of depression and schizoaffective disorder will be provisional diagnosis for now -patient wants to restart Risperdal; will titrate to 2 mg b.i.d. -no withdrawal symptoms for days now 04/21 Patient reports being a little better and has a noticeably brighter affect and is more willing to engage. Tolerating medications. AH remains. Talks about discharge wondering if the auditory hallucinations will ever decrease but was reminded that they were better and the past. No SI. 04/22 mood improving, no SI; no AH today. Patient talks about discharging Monday and if patient remains stable, bond underwriter agrees patient entered 3 day notice. 04/23 patient remains improving, no SI or HI or AVH. If remains stable will proceed with discharge for Tuesday 04/24 depression seems to have resolved and he continued to deny any SI or AVH. Patient is not in imminent risk for harm to self or others and request for discharge honored Plan: 3 day notice Q 15 minute checks Risperdal to 2 mg b.i.d. Will discontinue CIWA since patient has not had any withdrawal symptoms for days now; denies history of alcohol withdrawal symptoms I spent minutes with the patient and/or on the patient floor today, greater than?50% of which was spent counseling/coordinating care. Patient educated on: diagnosis Informed Consent: understands Reason for contiued inpatient stay Substantial Risk for: stable for discharge
[2022-04-25] MEDS: hydrOXYzine HCL 25 MG TABLET PO (02:20)
[2022-04-25 06:00] VITALS: BP 128/82; PULSE 100; RESP 16; TEMP 36.3; O2SAT 97
[2022-04-25] MEDS: risperiDONE 2 MG TABLET PO (08:24)
[2022-04-25] MEDS: Thiamine HCL 100 MG TABLET PO (08:24)
[2022-04-25] MEDS: Folic Acid 1 MG TABLET PO (08:24)
--- NOTE | 2022-04-25 12:39 | PM.PSYDC ---
DS: Providers Provider Date of Service: 04/25/22 Date of admission: 04/19/22 13:08 Date of discharge: 04/25/22 Primary care physician: None Physician Attending physician on admission: Ponce Christy Attending physician on discharge: Ponce Christy DS: Diagnosis Discharge Diagnosis (1) Schizoaffective disorder, depressive type: Status: Acute (2) Alcohol abuse: Status: Acute (3) Cocaine abuse: Status: Acute (4) Acute UTI: Status: Acute DS: Medications Discharge Medications Home Medications: Previous Rx's Medication Instructions Recorded risperidone 2 mg tablet 2 mg PO BID 30 days #60 tabs 04/24/22 Mental Status Exam Mental Status Exam Narrative: Pt is alert and oriented; behavior is cooperative, more engaged; dressed in casual attire adequately groomed with adequate hygiene; mood is described as good and affect congruent, calmer, brighter; better eye contact; Speech is regular volume, rate, prosody; no psychomotor retardation present; thought process is goal directed, little distracted; Thought content is on medication, tx; otherwise pertinent to relevant topics; no delusional content or paranoid ideations expressed; denies SI/HI; No AH; Patients insight and judgment are fair. Data Data Completed and Pending Completed studies during hospitalization [Text1]: 04/19/22 04/20/22 04/22/22 09:59 08:16 08:15 Estimat Average Glucose Hemoglobin A1c % Total Bilirubin 0.6 0.4 Direct Bilirubin 0.3 0.3 AST 43 H 44 H ALT 72 H 80 H Alkaline Phosphatase 77 75 Total Protein 7.7 7.8 Albumin 4.7 4.8 Triglycerides 99 117 Cholesterol 168 156 LDL Cholesterol, Calc 99 90 HDL Cholesterol 50 43 TSH 1.24 Free T4 1.00 COVID-19 ([facility]) Negative COVID-19 Clin Com See Note 04/22/22 08:15 Estimat Average Glucose 111 Hemoglobin A1c % 5.5 Total Bilirubin Direct Bilirubin AST ALT Alkaline Phosphatase Total Protein Albumin Triglycerides Cholesterol LDL Cholesterol, Calc HDL Cholesterol TSH Free T4 COVID-19 ([facility]) COVID-19 Clin Com 04/17/22 Unknown Urine clean catch - Urine drew top Urine Culture - Final No growth. DS: Summary Hospital Course Hospital Course: Patient is a 51-year-old male with history bipolar/schizoaffective disorder who presents for depression with vague SI in the face of being off medications and with recent significant losses.? Patient says he does not want to talk about the people he recently lost (3 family members have within the past 3 months).? Patient is somewhat of a vague historian. On admission, patient is difficult to engage. He reports depression and auditory hallucinations. Although patient was drinking heavily prior to admission, he had no withdrawal symptoms throughout his stay. Initially he was vague about SI but this soon fully resolved. However he agreed to restart Risperdal 2 mg b.i.d. which he says has helped in the past and soon Patient symptoms began to resolve. His mood improved affect was significantly brighter and patient was willing to engage. Auditory hallucinations also resolved. Patient said that although he still sad about his loved ones having , he feels he is able to cope. Patient put in a 3 day notice wanting discharge. He mostly Kept himself on the unit but remained in Good behavioral and impulse control and was appropriate with peers and staff. Patient reported eating and sleeping well. He remained without any SI and felt ready to go home. Patient did not want any treatment for substance abuse. Patient was not in imminent risk for harm to self or others and his request for discharge honored. Time spent discussing smoking cessation with patient: 3 to 10 minutes Status at Discharge Functional status at discharge: independent ambulation Overall status at discharge: patient is back to baseline Time Spent with Patient Time attestation: Total time spent providing and/or coordinating discharge services: Time spent: Less than 30 minutes Discharge Plan Discharge Patient Disposition: Home, Self-Care Discharge Diagnosis: schizoaffective disorder, depressed type Referrals: Primary Care Physician: Dr. Grey [Other] - 04/27/22 2:15 pm (The PCP office will call you with the follow-up appointment information) Discharge Medications: New risperidone 2 mg Tablet 2 mg PO BID 30 Days Qty: 60 0RF Discharge Orders: Discharge Order (Routine); Ordered 04/25/22 Ordered By: Ponce Christy Diet: Regular diet Activity on Discharge: As tolerated Stand Alone Forms: Patient Portal Discharge page, Community Support Care Plan Goals: Maintain mood and safe behaviors Take medications as prescribed Continue to pursue sobriety Practice coping skills Continue with outpatient providers and reach out to them as needed Health Concerns: Mood stability and behaviors Sobriety Plan of Treatment: Follow up with your PCP, psychiatric provider and other outpatient providers regarding above concerns Take medications as prescribed Assessment: Risk assessment at time of discharge:? Patient was interviewed prior to discharge and found to be fully oriented and without any SI or HI. Patient has insight and demonstrates good judgment in terms of wanting to pursue treatment. Patient is not in imminent risk of harm to self or others and has a safety plan that includes presenting to the closest ER or calling 911 if feeling unsafe.? Patient has been observed closely by nursing and unit staff throughout admission; patient has not engaged in any behaviors that suggest dangerousness to self or others and has demonstrated appropriate behaviors and impulse control Discharge Date/Time: 04/25/22 13:27
== END 2022-04-25 13:27 | disposition home or self-care (01) | DRG 885 ==
LOC: HO.ED 04-19 11:28 → HO.PM5 04-19 13:13
PROVIDERS: Physician Assistant; Physician Assistant Medical; Admitting Provider Psychiatry & Neurology Psychiatry; Emergency Provider Emergency Medicine Emergency Medical Services; Visit Provider Psychiatry & Neurology Psychiatry
DX: F25.1 Schizoaffective disorder, depressive type (principal); R45.851 Suicidal ideations; N39.0 Urinary tract infection, site not specified; F10.10 Alcohol abuse, uncomplicated; F14.10 Cocaine abuse, uncomplicated; Z20.822 Contact with and (suspected) exposure to COVID-19; Z87.891 Personal history of nicotine dependence; Z79.899 Other long term (current) drug therapy
CPT/HCPCS: 36415; 80053; 80061; 80076; 80307; 81001; 81003; 83036; 84439; 84443; 85025; 87086; 87635; 93005; 99285

== ENCOUNTER 2022-05-28 17:57 | Emergency (ER) | payer MEDICARE, MEDICAID, SELFPAY ==
--- NOTE | 2022-05-28 08:49 | ECG_ITS ---
Test Reason : OVERDOSED Blood Pressure : / mmHG Vent. Rate : 108 BPM Atrial Rate : 108 BPM P-R Int : 148 ms QRS Dur : 088 ms QT Int : 344 ms P-R-T Axes : 028 016 062 degrees QTc Int : 460 ms Sinus tachycardia Nonspecific T wave abnormality Abnormal ECG When compared with ECG of 19-APR-2022 09:50, Nonspecific T wave abnormality no longer evident in Inferior leads QT has lengthened Referred By: Dontrell Nolan Electronically Signed By:MARLEN FARIAS
--- NOTE | 2022-05-28 18:13 | ED_ITS ---
HPI - Overdose General Chief Complaint: Overdose Stated Complaint: overdose/4 mg of narcan bagged Time Seen by Provider: 05/28/22 18:07 Source: patient and EMS Mode of arrival: EMS History of Present Illness HPI Narrative: 51-year-old male with past medical history of ETOH abuse, cocaine abuse, schizoaffective disorder, BIBA s/p being found unresponsive at home by . 4 mg of intranasal Narcan given by EMS with good response. Patient admits to snorting heroin, denies other illicit substances or EtOH. Denies SI/HI. Denies fall/head trauma, CP/SOB, abdominal pain, nausea/vomiting, auditory/visual hallucinations, depression complaint: accidental overdose Onset (ago): hour(s) Related Data Previous Rx's Medication Instructions Recorded risperidone 2 mg tablet 2 mg PO BID 30 days #60 tabs 04/24/22 Allergies Allergy/AdvReac Type Severity Reaction Status Date / Time No Known Allergies Allergy Verified 04/17/22 09:30 Review of Systems Review of Systems: Constitutional: No Fever, No Chills, No Night Sweats, No Fatigue, No Malaise ENT/Mouth: No Ear Pain, No Nasal Congestion, No sore throat, No Rhinorrhea Eyes: No Eye Pain, No Swelling, No Redness Cardiovascular: No Chest Pain, No SOB, No Dyspnea on Exertion, No Palpitations Respiratory: No Cough, No Sputum, No Dyspnea Gastrointestinal: No Nausea, No Vomiting, No Diarrhea, No Constipation, No Abdominal pain Genitourinary: No Dysuria, No Urinary Frequency, No Hematuria, No Flank Pain Musculoskeletal: No joint pain, No Myalgias, No Joint Swelling Skin: No Skin Lesions, No rash Neuro: No Weakness, No Dizziness, No Headache Psych: No Anxiety/Panic, No Depression, No SI/HI/AH/VH, No Social Issues Yes all other systems are reviewed and are negative Constitutional: Constitutional: Reports as per [facility] Past Medical History Attestation statement: The following information was validated with the patient. Medical History (Updated 05/28/22 @ 19:49 by MIGUEL A Small) Alcohol abuse Cocaine abuse Schizoaffective disorder, depressive type Social History Social History Household Members: Significant Other Housing: Apartment Do you presently have visiting nurse or other home services: No Alcohol intake: current Alcohol intake frequency: a few times a week Alcohol type: beer and hard liquor Patient Tobacco Use Status: Former Tobacco user Quit Date: 08/2021 Tobacco use type: Cigarette e-Cigarette/Vaping Use: Former Use Second Hand Smoke Exposure: No (girlfriend currently smokes) Substance Use Type: Crack/Cocaine and Marijuana Advance Directives: No Advance Directives Information Provided: No service: No Sexual orientation: Did not discuss Physical Exam Vital Signs: Vital Signs: Last Vital Signs Temp 98.0 F 05/28/22 18:19 Pulse 110 H 05/28/22 18:19 Resp 18 05/28/22 18:19 BP 132/60 05/28/22 18:19 Pulse Ox 96 05/28/22 18:19 O2 Del Method 05/28/22 18:19 BMI result Body Mass Index 35.2 Const: General: cooperative, no acute distress, alert and awake Orientation/consciousness: oriented to person and oriented to place Limitations: no limitations HEENT: Head: Yes normal to inspection and Yes atraumatic Ears: hearing grossly normal bilaterally General nose exam: Normal external nose present Face and sinus: Yes normal facial exam Mouth: Normal oral and palatal mucosa present Eyes: General: appearance normal, both eyes and all related structures Pupils: Pinpoint pupils bilaterally EOM: EOMs intact bilaterally Neck: Neck: Yes normal visual inspection and Yes no meningeal signs Resp: Effort & Inspection: normal respiratory effort and no respiratory distress Auscultation: clear to auscultation bilaterally, no crackles, no rales, no rhonchi and no wheezes Cardio: Rate: regular rate and tachycardic Heart sounds: S1 normal heart sound present and S2 normal heart sound present GI: Inspection: Yes normal to inspection Palpation (GI): Soft to palpation, nontender, no guarding and not rigid Skin: Rashes: no rashes Wounds: no wounds Neuro: General: oriented to person, oriented to place, gait normal, tone normal, moves all extremities, no meningeal signs and no focal motor deficits Extrem: General: Yes normal to inspection Psych: Attitude: cooperative Thought content: suicidality and no homicidality Insight: Good insight present (Psych) Course Course Course Narrative: -ethanol --patient has remained awake and alert, deferred speaking with oil recovery operator at this time. Feels safe for discharge home will call for ride. Will discharge with intranasal Narcan to go MDM - Overdose MDM Narrative Medical decision making narrative: 51-year-old male with past medical history of ETOH abuse, cocaine abuse, schizoaffective disorder, BIBA s/p being found unresponsive at home by . 4 mg of intranasal Narcan given by EMS with good response. On exam tachycardic, NAD, awake and alert, appears under the influence, no evidence of trauma. Concern for accidental overdose. Patient denies SI/HI at present. Plan: KIM, Observe and reassess Will discharge with Narcan to go Differential Diagnosis Differential diagnosis: Likely drug overdose Medical Records Attestation: I reviewed the patient's medical records. Lab Data Attestation: I reviewed the patient's lab results. Labs: Lab Results 05/28/22 Range/Units 19:31 Ethyl Alcohol 26 mg/dL Discharge Plan Discharge Clinical Impression: Accidental overdose Patient Disposition: Home, Self-Care Instructions: Adult Overdose (ED) Additional Instructions: Do not take drugs or alcohol this can kill you Follow-up with her doctor. Continue taking home prescribed medications Prescriptions: No Action risperidone 2 mg Tablet 2 mg PO BID 30 Days Qty: 60 0RF Referrals: [facility] [Provider Group]
[2022-05-28 18:19] VITALS: BP 132/60; PULSE 110; RESP 18; TEMP 36.7; O2SAT 96; BMI 35.2
[2022-05-28 19:47] LABS: Ethanol 26 mg/dL
--- NOTE | 2022-05-28 20:42 | MHC.RECOVSUP ---
? Reason for consult:Overdose o? Current location:[facility]? o? Identified substance use concern:? -? Overdose ?? Intervention: o? Community resources provided o? Harm reduction discussion ? Plan: o? Bed search in progress, detox won't accept anyone unless self sufficient. ? Additional information:RC spoke to pt agreed on detox, pt isn't able to walk currently, so detox isn't an option at this time. Pt will be provided with recovery resources that can assist in his recovery.
[2022-05-28 21:18] VITALS: BP 108/71; PULSE 93; RESP 14; O2SAT 96
[2022-05-28] MEDS: Naloxone HCl Nasal TAKE HOME 4 MG SPRAY NOSTRILALT (21:21)
--- NOTE | 2022-05-28 21:30 | PC.NURSE ---
Pt feeling dizzy, vs rechecked, vs wnl, Pt to rest on stretcher, this RN continues to monitor.
[2022-05-28 22:00] VITALS: BP 112/67; PULSE 91; RESP 16; O2SAT 97
--- NOTE | 2022-05-28 22:55 | PC.NURSE ---
Pt A+Ox3, reports feeling well and ready to go home, Pt walks with steady gait, vs wnl.
[2022-05-28 23:15] VITALS: BP 121/68; PULSE 89; RESP 14; O2SAT 98
== END 2022-05-28 23:09 | disposition home or self-care (01) ==
PROVIDERS: Physician Assistant; Emergency Provider Emergency Medicine Emergency Medical Services
DX: T40.1X1A Poisoning by heroin, accidental (unintentional), initial encounter (principal); R40.4 Transient alteration of awareness; R00.0 Tachycardia, unspecified; F14.10 Cocaine abuse, uncomplicated; F10.10 Alcohol abuse, uncomplicated; Y90.1 Blood alcohol level of 20-39 mg/100 ml; Y92.009 Unspecified place in unspecified non-institutional (private) residence as the place of occurrence of the external cause; F25.1 Schizoaffective disorder, depressive type; Z87.891 Personal history of nicotine dependence; Z79.899 Other long term (current) drug therapy
CPT/HCPCS: 36415; 82077; 93005; 99283

== ENCOUNTER 2022-06-09 19:45 | Emergency (ER) | payer MEDICARE, MEDICAID, SELFPAY ==
[2022-06-09 20:33] VITALS: BP 119/85; BP 148/88; PULSE 93; PULSE 95; RESP 16; TEMP 37.1; O2SAT 94; O2SAT 97; BMI 32.1
== END 2022-06-09 23:34 | disposition left against medical advice (07) ==
LOC: HO.ED 23:32
PROVIDERS: Emergency Provider Emergency Medicine
DX: U07.1 COVID-19 (principal); R51.9 Headache, unspecified
CPT/HCPCS: 99281

== ENCOUNTER 2022-09-27 12:59 | Emergency (ER) | payer MEDICARE, MEDICAID, SELFPAY ==
[2022-09-27 13:19] VITALS: BP 144/95; PULSE 105; RESP 18; TEMP 36.4; O2SAT 98; BMI 33.0
--- NOTE | 2022-09-27 13:21 | ED.SKABFB ---
HPI - Skin/Abscess/Foreign Bdy General Chief complaint: General Medical <MIGUEL A Soto - Last Filed: 09/27/22 13:22> Stated complaint: Lump on R Wrist No Injury <MIGUEL A Soto - Last Filed: 09/27/22 13:22> Time Seen by Provider: 09/27/22 13:38 <MIGUEL A Soto - Last Filed: 09/27/22 13:22> Source: patient <Melony Morrison NP - Last Filed: 09/27/22 14:05> Mode of arrival: ambulatory <Melony Morrison NP - Last Filed: 09/27/22 14:05> Limitations: no limitations <CRISTIAN Ghotra Last Filed: 09/27/22 14:05> History of Present Illness HPI narrative: 52-year-old male with a history of schizoaffective disorder presents with 2 months of right wrist swelling and bump noted on the wrist. Patient denies any redness, injury, trauma, paresthesias, fevers or chills. He does have pain occasionally. He is right-handed. <Melony Morrison NP - Last Filed: 09/27/22 14:05> Related Data Home medications: Previous Rx's Medication Instructions Recorded risperidone 2 mg tablet 2 mg PO BID 30 days #60 tabs 04/24/22 <MIGUEL A Soto - Last Filed: 09/27/22 13:22> Allergies/Adverse reactions: Allergies Allergy/AdvReac Type Severity Reaction Status Date / Time No Known Allergies Allergy Verified 04/17/22 09:30 <MIGUEL A Soto - Last Filed: 09/27/22 13:22> Review of Systems Review of Systems: Yes all other systems are reviewed and are negative <CRISTIAN Ghotra Last Filed: 09/27/22 14:05> Constitutional: Constitutional: Reports no additional constitutional complaints, Denies body ache(s), Denies chills, Denies fever(s), Denies headache(s) and Denies weakness <CRISTIAN Ghotra Last Filed: 09/27/22 14:05> Eyes: Eyes: Reports no additional eye complaints and Denies change in vision <Melony Morrison NP - Last Filed: 09/27/22 14:05> ENT: Reports system reviewed and no additional complaints, except as documented, Denies dizziness, Denies headache(s), Denies nasal congestion, Denies nasal discharge and Denies neck pain <Melnoy Morrison NP - Last Filed: 09/27/22 14:05> Cardiovascular: Cardiovascular: Reports no additional cardiovascular complaints, Denies chest pain, Denies leg edema and Denies dyspnea <Melony Morrison TAXONOMY TEACHER - Last Filed: 09/27/22 14:05> Respiratory: Respiratory: Reports no additional respiratory complaints, Denies cough and Denies dyspnea <Melony Morrison NP - Last Filed: 09/27/22 14:05> Gastrointestinal: Gastrointestinal: Reports no additional gastrointestinal complaints, Denies abdominal pain, Denies diarrhea, Denies nausea and Denies vomiting <Melony Morrison NP - Last Filed: 09/27/22 14:05> Genitourinary: Genitourinary: Denies urinary incontinence <Melony Morrison TAXONOMY TEACHER - Last Filed: 09/27/22 14:05> Musculoskeletal: Musculoskeletal: Reports no additional musculoskeletal complaints, Denies back pain, Denies arthralgias, Denies joint swelling, Denies neck pain, Denies numbness and Denies tingling <Melony Morrison NP - Last Filed: 09/27/22 14:05> Integumentary/Breasts: Skin/Breast: Reports system reviewed and no additional complaints, except as docu, Reports swelling, Denies erythema and Denies rash <Melony Morrison NP - Last Filed: 09/27/22 14:05> Neurologic: Reports system reviewed and no additional complaints, except as documented, Denies Abnormal speech present, Denies dizziness, Denies headache(s), Denies numbness, Denies tingling and Denies weakness <Melony Morrison NP - Last Filed: 09/27/22 14:05> PMFSH Past Medical History Attestation statement: The following information was validated with the patient. <Melony Morrison NP - Last Filed: 09/27/22 14:05> Source: old records reviewed and nursing notes reviewed <Melony Morrison NP - Last Filed: 09/27/22 14:05> Medical History: Medical History Alcohol abuse Cocaine abuse Schizoaffective disorder, depressive type <MIGUEL A Soto - Last Filed: 09/27/22 13:22> Social History Social History: Social History Household Members: Significant Other Housing: Apartment Do you presently have visiting nurse or other home services: No Alcohol intake: current Alcohol intake frequency: a few times a week Alcohol type: beer and hard liquor Patient Tobacco Use Status: Former Tobacco user Quit Date: 08/2021 Tobacco use type: Cigarette e-Cigarette/Vaping Use: Former Use Second Hand Smoke Exposure: No (girlfriend currently smokes) Substance Use Type: Crack/Cocaine and Marijuana Advance Directives: No service: No Sexual orientation: Did not discuss <MIGUEL A Soto - Last Filed: 09/27/22 13:22> Physical Exam Vital Signs: Vital Signs: Last Vital Signs Temp 97.5 F 09/27/22 13:19 Pulse 105 H 09/27/22 13:19 Resp 18 09/27/22 13:19 BP 144/95 H 09/27/22 13:19 Pulse Ox 98 09/27/22 13:19 O2 Del Method 09/27/22 13:19 BMI result Body Mass Index 33.0 <MIGUEL A Soto - Last Filed: 09/27/22 13:22> Vital Signs: Last Vital Signs Temp 97.5 F 09/27/22 13:19 Pulse 105 H 09/27/22 13:19 Resp 18 09/27/22 13:19 BP 144/95 H 09/27/22 13:19 Pulse Ox 98 09/27/22 13:19 O2 Del Method 09/27/22 13:19 BMI result Body Mass Index 33.0 <Melony Morrison NP - Last Filed: 09/27/22 14:05> Const: General: cooperative, healthy appearing, comfortable and no acute distress <Melony Morrison NP - Last Filed: 09/27/22 14:05> Orientation/consciousness: patient oriented x3 <Melony Morrison NP - Last Filed: 09/27/22 14:05> Limitations: no limitations <Melony Morrison NP - Last Filed: 09/27/22 14:05> HEENT: Head: Yes normal to inspection <Melony Morrison NP - Last Filed: 09/27/22 14:05> Ears: hearing grossly normal bilaterally <Melony Morrison NP - Last Filed: 09/27/22 14:05> General nose exam: Normal external nose present <Melony Morrison NP - Last Filed: 09/27/22 14:05> Face and sinus: Yes normal facial exam <Melony Morrison NP - Last Filed: 09/27/22 14:05> Mouth: Normal oral and palatal mucosa present <Melony Morrison NP - Last Filed: 09/27/22 14:05> Throat: Yes posterior oropharynx normal <Melony Morrison NP - Last Filed: 09/27/22 14:05> Eyes: General: appearance normal, both eyes and all related structures <Melony Morrison NP - Last Filed: 09/27/22 14:05> Pupils: Equal, round and reactive pupils present <Melony Morrison NP - Last Filed: 09/27/22 14:05> Neck: Neck: Yes normal visual inspection <Melony Morrison NP - Last Filed: 09/27/22 14:05> Chest: Chest palpation & inspection: normal inspection of the chest <Melony Morrison NP - Last Filed: 09/27/22 14:05> Resp: Effort & Inspection: normal respiratory effort <Melony Morrison NP - Last Filed: 09/27/22 14:05> Auscultation: clear to auscultation bilaterally <Melony Morrison NP - Last Filed: 09/27/22 14:05> Cardio: Rate: regular rate <Melony Morrison NP - Last Filed: 09/27/22 14:05> Rhythm: regular rhythm <Melony Morrison NP - Last Filed: 09/27/22 14:05> Peripheral pulses: Peripheral pulses 2+ throughout <Melony Morrison TAXONOMY TEACHER - Last Filed: 09/27/22 14:05> GI: Inspection: Yes normal to inspection <Melony Morrison TAXONOMY TEACHER - Last Filed: 09/27/22 14:05> Palpation (GI): Soft to palpation and nontender <Melony Morrison TAXONOMY TEACHER - Last Filed: 09/27/22 14:05> Auscultation: normal bowel sounds <Melony Morrison TAXONOMY TEACHER - Last Filed: 09/27/22 14:05> Back/Spine/Pelvis: Thoracic/Lumbar Spine: thoracic and lumbar spine normal to inspection <Melony Morrison TAXONOMY TEACHER - Last Filed: 09/27/22 14:05> Skin: General skin exam: no rashes or lesions noted <Melony Mrorison NP - Last Filed: 09/27/22 14:05> Neuro: General: patient oriented x3, no focal motor deficits and normal sensation to monofilament <Melony Morrison TAXONOMY TEACHER - Last Filed: 09/27/22 14:05> Cranial nerves: Yes Equal, round and reactive pupils present <Melony Morrison TAXONOMY TEACHER - Last Filed: 09/27/22 14:05> Cognition (Neuro): normal cognition <Melony Morrison TAXONOMY TEACHER - Last Filed: 09/27/22 14:05> Speech: No Abnormal speech present <Melony Morrison TAXONOMY TEACHER - Last Filed: 09/27/22 14:05> Gait exam (Neuro): Normal gait present <Melony Morrison TAXONOMY TEACHER - Last Filed: 09/27/22 14:05> Motor exam (neuro): 5/5 motor strength present throughout <Melony Morrison TAXONOMY TEACHER - Last Filed: 09/27/22 14:05> Extrem: Other: Over the right volar wrist there is a ganglion cyst noted 2+ radial/ulnar pulses noted. FROM of the wrist <Melony Morrison TAXONOMY TEACHER - Last Filed: 09/27/22 14:05> General: Yes normal to inspection <Melony Morrison NP - Last Filed: 09/27/22 14:05> Course Course Course Narrative: 13:20pm - 52yoM presenting to the ED c c/o of a lump to his right wrist that is progressively growing over the past few months. Nonpainful. Plan: Will order soft tissue ultrasound to evaluate for possible cyst. Patient will be sent back to the waiting room for Emergency minor care. Patient is stable. <MIGUEL A Soto - Last Filed: 09/27/22 13:22> Medical Decision Making Medical Decision Making MDM Narrative: 52-year-old male [id number] here with the swelling to the right volar wrist for several months. Exam is consistent with right ganglion wrist cyst. Patient should follow-up outpatient with Hand Orthopedics for removal if desired. In the meantime he can use Motrin or Tylenol for pain and use an Emmanuel wrap for discomfort as well. I did discuss the ultrasound was ordered from triage with the patient. At this time I do not feel that is necessary. I did offer to the patient regardless and he declined it. <Melony Morrison NP - Last Filed: 09/27/22 14:05> Differential Diagnosis Differential Diagnoses: The differential diagnosis associated with the presentation includes <Melony Morrison NP - Last Filed: 09/27/22 14:05> ganglion cyst <Melony Morrison NP - Last Filed: 09/27/22 14:05> Discharge Plan Discharge Clinical Impression: Ganglion cyst of volar aspect of right wrist <MIGUEL A Soto Last Filed: 09/27/22 13:22> Patient Disposition: Home, Self-Care <MIGUEL A Soto Last Filed: 09/27/22 13:22> Instructions: Ganglion Cysts (ED) <MIGUEL A Soto Last Filed: 09/27/22 13:22> Additional Instructions: Motrin or tylenol for pain Emmanuel wrap for discomfort Follow-up with hand surgery <MIGUEL A Soto Last Filed: 09/27/22 13:22> Prescriptions: No Action risperidone 2 mg Tablet 2 mg PO BID 30 Days Qty: 60 0RF <MIGUEL A Soto Last Filed: 09/27/22 13:22> Referrals: Edna Douglas MD [Physician] - 2 weeks <MIGUEL A Soto - Last Filed: 09/27/22 13:22> Interventions: ED Discharge Assessment Last Done: 09/27/22 13:56 <MIGUEL A Soto - Last Filed: 09/27/22 13:22> Discharge Date/Time: 09/27/22 13:58 <MIGUEL A Soto - Last Filed: 09/27/22 13:22>
== END 2022-09-27 13:58 | disposition home or self-care (01) ==
PROVIDERS: Emergency Provider Emergency Medicine
DX: M67.431 Ganglion, right wrist (principal); Z87.891 Personal history of nicotine dependence
CPT/HCPCS: 99282

== ENCOUNTER → 2022-10-19 08:26 | Outpatient (BNVA) | payer MEDICARE, MEDICAID, SELFPAY | PROVIDERS: Visit Provider Orthopaedic Surgery | DX: M67.431 Ganglion, right wrist (principal); R20.0 Anesthesia of skin | CPT/HCPCS: 99202 ==

== ENCOUNTER 2024-05-01 15:59 | Inpatient (IN) | payer MEDICARE, SELFPAY ==
--- NOTE | 2024-05-01 | ECG_ITS ---
Test Reason : chest pain Blood Pressure : / mmHG Vent. Rate : 117 BPM Atrial Rate : 117 BPM P-R Int : 132 ms QRS Dur : 096 ms QT Int : 320 ms P-R-T Axes : 046 -04 081 degrees QTc Int : 446 ms Sinus tachycardia Possible Left atrial enlargement Left ventricular hypertrophy ( R in aVL , Mehran product ) Abnormal ECG When compared with ECG of 28-MAY-2022 19:03, No significant change was found Referred By: Generic ED Physician Electronically Signed By:KASI PEREZ MD
--- NOTE | ~2024-05-01 | XR_ITS ---
EXAMINATION: CHEST 2 VIEWS CLINICAL INFORMATION: pain. COMPARISON: 10/08/2008. TECHNIQUE: PA and lateral views of the chest obtained. FINDINGS: The lungs are well expanded. No focal infiltrate, effusion, edema, or pneumothorax. Cardiac and mediastinal silhouettes are within normal limits for technique. No acute bony abnormality seen XR/XR chest 2V IMPRESSION: No evidence of acute disease
[2024-05-01 16:11] VITALS: BP 144/88; BP 147/82; PULSE 112; PULSE 126; RESP 18; TEMP 36.8; O2SAT 95; O2SAT 98; BMI 30.1
[2024-05-01 16:36] LABS: Appearance Urine Clear; Color Urine Dark Yellow; Glucose Urine UA Negative (Negative); Leukocyte Esterase Urine Small (1+) (Negative); Nitrite Urine Negative (Negative); PH 5.5 (5.0-9.0); Specific Gravity - Urine >= 1.030 (1.005-1.025); UMIC TRIGGER UACC YES; Urine Blood Trace (Negative); Urine Ketones 40 mg/dL (Negative); Urine Protein Trace mg/dL (Neg-Trace)
[2024-05-01 16:42] LABS: MANUAL DIFF FLAG NO
--- NOTE | 2024-05-01 16:42 | PC.NURSE ---
Pt belongings placed in pod locker #6
--- NOTE | 2024-05-01 16:44 | ED_ITS ---
HPI - General Adult General Chief complaint: Psychiatric Symptoms Stated complaint: SI NO PLAN Time Seen by Provider: 05/01/24 16:05 Source: patient, RN notes reviewed and old records reviewed Mode of arrival: ambulatory Limitations: no limitations History of Present Illness ED Provider: Amalia VERGARA narrative: 53-year-old male who denies any known medical issues presents for evaluation of depression and chest pain. Patient's chief complaint is increased depression with suicidal thoughts over the last few days. He states that he is feeling depression emergency because he has been feeling down after he lost his mother 1-2 years ago around this time of year Patient reports he is having suicidal thoughts but does not wish to act on them Patient states that he has had midsternal chest pain for the last 2 days. He rates the pain as dull, 6/10 The pain is constant, worse when he pushes on his chest He denies any fevers, chills, cough, shortness of breath, abdominal pain, nausea vomiting Pain does not radiate. He denies any history of cardiac disease Related Data Allergies Allergy/AdvReac Type Severity Reaction Status Date / Time No Known Allergies Allergy Verified 05/01/24 16:17 Review of Systems 2 Constitutional: Constitutional: Denies body ache(s), Denies chills and Denies fever(s) Eyes: Eyes: Denies blurry vision, Denies exophthalmos and Denies floaters ENT: Denies vertigo, Denies dizziness and Denies sore throat Cardiovascular: Cardiovascular: Reports chest pain, Reports chest pain at rest, Denies rapid heart rate, Denies edema and Denies dyspnea Respiratory: Respiratory: Denies cough and Denies dyspnea Gastrointestinal: Gastrointestinal: Denies abdominal pain, Denies nausea and Denies vomiting Genitourinary: Genitourinary: Denies dysuria Musculoskeletal: Musculoskeletal: Denies back pain Integumentary/Breasts: Skin/Breast: Denies rash Neurologic: Denies vertigo and Denies dizziness Psychiatric: Psychiatric: Reports depression and Reports suicidal ideation [facility] Past Medical History Medical History Alcohol abuse Cocaine abuse Schizoaffective disorder, depressive type Social History Social History (Updated 10/19/22 @ 08:41 by FAUSTINO Marrero) Household Members: Significant Other Housing: Apartment Do you presently have visiting nurse or other home services: No Alcohol intake: current Alcohol intake frequency: a few times a week Alcohol type: beer and hard liquor Patient Tobacco Use Status: Former Tobacco user Tobacco use type: Cigarette e-Cigarette/Vaping Use: Former Use Second Hand Smoke Exposure: No (girlfriend currently smokes) Substance Use Type: Crack/Cocaine and Marijuana Advance Directives: No Do you have a plan to hurt others: No Plan service: No Current occupational status: unemployed Current occupation: rt hand Sexual orientation: Did not discuss Physical Exam ED Vital Signs: Vital Signs - 24 hr 05/01/24 16:11 05/01/24 18:00 Temperature 98.2 F 98.7 F Pulse Rate 112 H 93 Respiratory Rate 18 18 Blood Pressure 144/88 H 109/70 Pulse Oximetry 98 95 Oxygen Delivery Method Room Air Room Air BMI result Body Mass Index 30.1 Const General: healthy appearing, comfortable, no acute distress, alert and awake Nutritional Appearance: well nourished Orientation/consciousness: patient oriented x3 HENMT Head: Yes normocephalic and Yes atraumatic Eyes Eyelids: Yes eyelids normal Conjunctivae: conjunctivae normal Sclerae: sclerae normal Corneas: corneas normal Pupils: Equal, round and reactive pupils present EOM: EOMs intact bilaterally Neck Neck: Yes full ROM Chest Other: Tenderness to palpation of the mid chest without crepitus Chest palpation & inspection: normal inspection of the chest and no crepitus Resp Effort & Inspection: normal respiratory effort, able to speak in complete sentences and not labored Cardio Rate: regular rate Rhythm: regular rhythm GI Inspection: No distended Palpation (GI): Soft to palpation, not firm, nontender, no guarding and not rigid Skin General skin exam: elasticity normal Neuro General: patient oriented x3 Cranial nerves: Yes Equal, round and reactive pupils present and Yes Bilaterally intact EOM present Cognition (Neuro): normal cognition Extrem Other: Moving all extremities well without any obvious deformities Course Reevaluation(s) Reevaluation #1: Patient's repeat troponin flat, he is medically cleared for care team evaluation at this time Time: 20:24 Medical Decision Making Medical Decision Making MDM Narrative: 53-year-old male who denies any known past medical history presents for evaluation of depression and chest pain. Patient reports increasing depression with suicidal thoughts he does not wish to act on but nevertheless is experiencing. He reports chest pain over last 2 days. Plan for cardiac workup and if and when medically cleared the patient will require care team evaluation. Differential Diagnosis Differential Diagnoses: The differential diagnosis associated with the presentation includes Depression Suicidal ideation Anxiety Chest pain Chest wall pain Lab Data 05/01/24 16:36 05/01/24 16:36 Labs: Lab Results 05/01/24 05/01/24 05/01/24 Range/Units 16:28 16:36 18:38 WBC 14.8 H (4.8-10.8) X10*3/uL RBC 5.01 (4.60-5.80) X10*6/uL Hgb 16.0 (14.0-18.0) g/dl Hct 45.7 (42.0-52.0) % MCV 91.2 (80.0-98.0) fL MCH 31.9 (27.0-33.0) pg MCHC 35.0 (31.0-36.0) g/dl RDW 13.0 (11.0-16.0) % Plt Count 205 (160-400) X10*3/uL MPV 10.3 (9.4-12.4) fL Immature Gran % (Auto) 0.2 (0.0-0.4) % Neut % (Auto) 72.2 (45-73) % Lymph % (Auto) 20.0 (20-40) % [place] % (Auto) 6.0 (2-11) % Eos % (Auto) 1.4 (0-4) % Baso % (Auto) 0.2 (0-2) % Lymph # (Auto) 3.0 (1.2-4.9) X10*3/uL [place] # (Auto) 0.9 (0.1-1.2) X10*3/uL Eos # (Auto) 0.2 (0.0-0.4) X10*3/uL Baso # (Auto) 0.0 (0.0-0.2) X10*3/uL Abs Immat Gran (auto) 0.03 (0.00-0.03) X10*3/uL Absolute Neuts (auto) 10.7 H (2.0-8.3) x10*3/uL Absolute Nucleated RBC 0.000 (0.0-0.012) X10*3/uL Nucleated RBC % (auto) 0.0 (0.0-0.2) /100WBC Sodium 143 (135-145) mmol/L Potassium 4.2 (3.3-5.1) mmol/L Chloride 107 (96-108) mmol/L Carbon Dioxide 22 (22-29) mmol/L Anion Gap 18 (12-20) BUN 19 H (9-16) mg/dL Creatinine 1.05 (0.5-1.4) mg/dL Estim Creat Clear Calc 95.3 Estimated GFR > 60 Random Glucose 88 (60-115) mg/dL Calcium 9.9 D (8.4-10.2) mg/dL Magnesium 2.0 (1.6-2.6) mg/dL Total Bilirubin 0.5 (0.0-1.0) mg/dL AST 30 (5-37) U/L ALT 31 (0-40) U/L Alkaline Phosphatase 71 (39-117) U/L Troponin I High Sens 20.6 22.6 (<3.5-35.0) ng/L Total Protein 7.5 (6.5-8.0) g/dL Albumin 4.6 (3.5-5.0) g/dL Urine Color Dark Yellow Urine Appearance Clear Urine pH 5.5 (5.0-9.0) Ur Specific [place] >= 1.030 H (1.005-1.025) Urine Protein Trace (Neg-Trace) mg/dL Urine Glucose (UA) Negative (Negative) mg/dL Urine Ketones 40 (Negative) mg/dL Urine Blood Trace H (Negative) Urine Nitrite Negative (Negative) Ur Leukocyte Esterase Small (1+) H (Negative) Urine RBC 0-2 (0-2) /HPF Urine WBC 6-10 (0-5) /HPF Ur Squamous Epith Cells 0-2 (0-2) /HPF Urine Bacteria None Seen (None Seen) Hyaline Casts >20 (0-2) /LPF Salicylates < 5.0 L (15-30) mg/dL Urine Opiates Screen Not Detected (Not Detect) Ur Buprenorphine Scrn Not Detected (Not Detect) ng/mL Ur Oxycodone Screen Not Detected (Not Detect) ng/mL Urine Methadone Screen Not Detected (Not Detect) ng/mL Urine Fentanyl Screen Not Detected (Not Detect) Acetaminophen < 3 (<30) mcg/mL Ur Barbiturates Screen Not Detected (Not Detect) Ur Phencyclidine Scrn Not Detected (Not Detect) Ur Amphetamines Screen Not Detected (Not Detect) U Benzodiazepines Scrn Not Detected (Not Detect) Urine Cocaine Screen Not Detected (Not Detect) U Marijuana (THC) Screen Not Detected (Not Detect) Ethyl Alcohol < 10 mg/dL Discharge Plan Discharge Clinical Impression: Depression with suicidal ideation, Chest pain Patient Disposition: Still a Patient Interventions: [place]-Suicide Risk Severity Scale Last Done: 05/01/24 18:57 Print Language: Uzbek
[2024-05-01 16:45] LABS: Amphetamine Screen Urine Not Detected (Not Detect); Barbiturates, Urine Not Detected (Not Detect); Benzodiazepines Screen Urine Not Detected (Not Detect); Buprenorphine Scr Not Detected (Not Detect); Cannabinoid Screen Urine Not Detected (Not Detect); Cocaine Screen Urine Not Detected (Not Detect); Fentanyl, urine Not Detected (Not Detect); Methadone Screen, Urine Not Detected (Not Detect); Opiate Screen Urine Not Detected (Not Detect); Oxycodone Screen Urine Not Detected (Not Detect); Phencyclidine Screen Urine Not Detected (Not Detect)
[2024-05-01 16:47] LABS: Basophils Percent Auto 0.2 % (0-2); Eosinophils Absolute Auto 0.2 X10*3/uL (0.0-0.4); Eosinophils Percent Auto 1.4 % (0-4); Hematocrit 45.7 % (42.0-52.0); Imm Gran Abs Auto 0.03 X10*3/uL (0.00-0.03); Imm Gran Pct Auto 0.2 % (0.0-0.4); Mean Corpuscular Hemoglobin 31.9 pg (27.0-33.0); Mean Corpuscular Volume 91.2 fL (80.0-98.0); Mean Platelet Volume 10.3 fL (9.4-12.4); Monocytes Absolute Auto 0.9 X10*3/uL (0.1-1.2); Neutrophils Absolute Auto 10.7 x10*3/uL (2.0-8.3); Neutrophils Percent Auto 72.2 % (45-73); Platelet Count 205 X10*3/uL (160-400); Red Blood Count 5.01 X10*6/uL (4.60-5.80); White Blood Count 14.8 X10*3/uL (4.8-10.8)
[2024-05-01 16:56] LABS: Bacteria Urine None Seen (None Seen); Hyaline Casts Urine >20 /LPF (0-2); RBC Urine 0-2 /HPF (0-2); Squamous Epithelial Cell Urine 0-2 /HPF (0-2); UACC Culture Trigger YES
[2024-05-01 16:59] LABS: Acetaminophen LAB < 3 mcg/mL (<30); Alanine Aminotransferase 31 U/L (0-40); Albumin Level 4.6 g/dL (3.5-5.0); Alkaline Phosphatase 71 U/L (39-117); Anion Gap 18 (12-20); Aspartate Amino Transferase 30 U/L (5-37); Bilirubin Total 0.5 mg/dL (0.0-1.0); Blood Urea Nitrogen 19 mg/dL (9-16); Calcium 9.9 mg/dL (8.4-10.2); Carbon Dioxide 22 mmol/L (22-29); Chloride 107 mmol/L (96-108); Creatinine Clr Calc Pharmacy 95.3; Estimated Glomerular Filt Rate > 60; Ethanol < 10 mg/dL; Glucose Random 88 mg/dL (60-115); Potassium 4.2 mmol/L (3.3-5.1); Salicylate < 5.0 mg/dL (15-30); Sodium 143 mmol/L (135-145); Total Protein 7.5 g/dL (6.5-8.0)
[2024-05-01 17:05] LABS: Troponin-I High Sensitivity 20.6 ng/L (<3.5-35.0)
[2024-05-01 18:00] VITALS: BP 109/70; PULSE 93; RESP 18; TEMP 37.1; O2SAT 95
[2024-05-01 19:05] LABS: Troponin-I High Sensitivity 22.6 ng/L (<3.5-35.0)
--- NOTE | 2024-05-01 19:38 | PC.NURSE ---
this rn assumed care of pt, pt a&ox4, respirations even and unlabored. pt denying si/hi at this time, reports having a bad day prior to arrival and denies these thoughts at this time.
[2024-05-02 03:34] VITALS: BP 118/68; PULSE 85; RESP 16; TEMP 36.8; O2SAT 97
[2024-05-02 09:30] VITALS: BP 133/76; PULSE 82; RESP 18; TEMP 36.5; O2SAT 97
--- NOTE | 2024-05-02 10:44 | PC.NURSE ---
assumed care of pt at 0700, pt calm and resting quietly in room, requested items for shower - pt showered and changed into clean sravan. reporting vague SI, plan for inpt bedsearch.
[2024-05-02 14:44] VITALS: BP 115/71; PULSE 78; RESP 18; TEMP 37.2; O2SAT 96
--- NOTE | 2024-05-02 15:08 | PC.NURSE ---
RN-RN report given.
[2024-05-02 16:01] VITALS: BP 138/83; PULSE 83; RESP 18; TEMP 36.8; O2SAT 96
[2024-05-02 16:02] VITALS: BMI 30.7
--- NOTE | 2024-05-02 17:56 | PC.ADMIT ---
Pt admitted to [facility] from ED pod with diagnosis of schizoaffective disorder and depression. Per crisis? he arrived at? [facility] ED? 05/01 by ambulance? endorsing suicidal ideation with no plan or intent. He denies current suicidal ideation but reports it has been something on his mind lately and that the thoughts ?come and go?.? He was last on [facility] in 2021 for SI secondary to the of his mother. Pt has a hx of suicide attempt ?years ago? but declined to elaborate. He is not taking? any medication, seeing a psychiatrist, or therapist. Per crisis he also? engages in binge drinking episodes once per month, and reported that for 1 week out of the month he drinks an 18 packs of beer. Pt told TW that he last had 1 nip 3 days ago. Tox screen and BAL negative but reports having a history of cocaine use though not recently.? Pt reports he recently got off? probation for domestic violence. Pt participative in the admission process. Skin and safety check done and unremarkable. He is? calm, soft spoken, avoiding? eye contact and looking down when speaking with TW.? He declined to sign a CV with Dr Christy and is here on a 12B. Currently denies SI/HI/AVH. On 15 min checks for safety.?
[2024-05-02 21:00] VITALS: BP 129/78; PULSE 64; RESP 16; TEMP 36.4; O2SAT 97
[2024-05-03 08:00] VITALS: BP 123/80; PULSE 60; RESP 18; TEMP 36.4; O2SAT 97
[2024-05-03 09:45] LABS: Magnesium 2.1 mg/dL (1.6-2.6); Triglycerides 83 mg/dL (<150)
[2024-05-03 09:46] LABS: Cholesterol 159 mg/dL (<200); HDL Cholesterol 45 mg/dL (>40); LDL Cholesterol Calculated 98 mg/dL (<100)
[2024-05-03 10:13] LABS: Free T4 (Free Thyroxine) 0.86 ng/dL (0.71-1.85); Thyroid Stimulating Hormone 0.65 uIU/mL (0.32-4.0)
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
[2024-05-03 14:58] LABS: Estimated Average Glucose 103 mg/dL; Hemoglobin A1c % 5.2 % (<6.0)
[2024-05-03 15:20] LABS: Folate 14.1 ng/mL (> or = 4.0); Vitamin B12 418 pg/mL (200-900)
[2024-05-03 20:00] VITALS: BP 133/69; PULSE 86; RESP 18; TEMP 36.4; O2SAT 97
[2024-05-04 08:00] VITALS: BP 121/69; PULSE 72; RESP 16; TEMP 36.3; O2SAT 96
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
[2024-05-04 20:00] VITALS: PULSE 75; RESP 16; TEMP 36.4; O2SAT 97
[2024-05-05 08:00] VITALS: BP 105/67; PULSE 76; RESP 18; TEMP 36.9; O2SAT 97
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
[2024-05-05 20:00] VITALS: BP 128/71; PULSE 74; TEMP 36.4; O2SAT 98
[2024-05-06 08:00] VITALS: BP 146/79; PULSE 68; RESP 16; TEMP 36.4; O2SAT 97
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
[2024-05-06 20:00] VITALS: BP 121/88; PULSE 88; TEMP 36.9; O2SAT 96
[2024-05-07 08:00] VITALS: BP 131/72; PULSE 77; RESP 18; TEMP 36.4; O2SAT 98
--- NOTE | 2024-05-07 11:42 | PM.PSYDC ---
DS: Providers Provider Date of Service: 05/07/24 Date of admission: 05/02/24 14:36 Date of discharge: 05/07/24 Primary care physician: Marion Grey MD Admitting clinician: Carola Soliz Attending physician on admission: Marshall Draper Attending physician on discharge: Marshall Draper Discharging clinician: Carola Soliz DS: Diagnosis Discharge Diagnosis (1) Schizoaffective disorder, depressive type: Status: Acute (2) Alcohol abuse: Status: Acute DS: Medications Discharge Medications Home Medications: Home Medications ?Medication ?Instructions ?Recorded ?Confirmed No Known Home Meds 05/02/24 05/02/24 Mental Status Exam Mental Status Exam Patient Appearance: Appropriate Patient Orientation: Person, Place, Time and Situation Level of Consciousness: Alert Patient Behavior: Talkative Mood Description: Flat Affect Description: Flat Patient Cognition Impaired: No Ability to Follow Directions: Fair Speech Pattern: Spontaneous Speech and Soft-Spoken Memory Description: Episodic Impaired Hallucinations: None (denies) Delusions: Not Present Thought Content: positive for [place] and positive for Circumstantial Judgement: Good Data Data Completed and Pending Completed studies during hospitalization [Text1]: 05/01/24 05/01/24 05/01/24 16:28 16:36 18:38 WBC 14.8 H RBC 5.01 Hgb 16.0 Hct 45.7 MCV 91.2 MCH 31.9 MCHC 35.0 RDW 13.0 Plt Count 205 MPV 10.3 Immature Gran % (Auto) 0.2 Neut % (Auto) 72.2 Lymph % (Auto) 20.0 [place]ison % (Auto) 6.0 Eos % (Auto) 1.4 Baso % (Auto) 0.2 Lymph # (Auto) 3.0 Addison # (Auto) 0.9 Eos # (Auto) 0.2 Baso # (Auto) 0.0 Abs Immat Gran (auto) 0.03 Absolute Neuts (auto) 10.7 H Absolute Nucleated RBC 0.000 Nucleated RBC % (auto) 0.0 Sodium 143 Potassium 4.2 Chloride 107 Carbon Dioxide 22 Anion Gap 18 BUN 19 H Creatinine 1.05 Estim Creat Clear Calc 95.3 Estimated GFR > 60 Random Glucose 88 Estimat Average Glucose Hemoglobin A1c % Calcium 9.9 D Magnesium 2.0 Total Bilirubin 0.5 AST 30 ALT 31 Alkaline Phosphatase 71 Troponin I High Sens 20.6 22.6 Total Protein 7.5 Albumin 4.6 Triglycerides Cholesterol LDL Cholesterol, Calc HDL Cholesterol Vitamin B12 Folate TSH Free T4 Urine Color Dark Yellow Urine Appearance Clear Urine pH 5.5 Ur Specific [place] >= 1.030 H Urine Protein Trace Urine Glucose (UA) Negative Urine Ketones 40 Urine Blood Trace H Urine Nitrite Negative Ur Leukocyte Esterase Small (1+) H Urine RBC 0-2 Urine WBC 6-10 Ur Squamous Epith Cells 0-2 Urine Bacteria None Seen Hyaline Casts >20 Salicylates < 5.0 L Urine Opiates Screen Not Detected Ur Buprenorphine Scrn Not Detected Ur Oxycodone Screen Not Detected Urine Methadone Screen Not Detected Urine Fentanyl Screen Not Detected Acetaminophen < 3 Ur Barbiturates Screen Not Detected Ur Phencyclidine Scrn Not Detected Ur Amphetamines Screen Not Detected U Benzodiazepines Scrn Not Detected Urine Cocaine Screen Not Detected U Marijuana (THC) Screen Not Detected Ethyl Alcohol < 10 05/03/24 08:30 WBC RBC Hgb Hct MCV MCH MCHC RDW Plt Count MPV Immature Gran % (Auto) Neut % (Auto) Lymph % (Auto) [place] % (Auto) Eos % (Auto) Baso % (Auto) Lymph # (Auto) [place] # (Auto) Eos # (Auto) Baso # (Auto) Abs Immat Gran (auto) Absolute Neuts (auto) Absolute Nucleated RBC Nucleated RBC % (auto) Sodium Potassium Chloride Carbon Dioxide Anion Gap BUN Creatinine Estim Creat Clear Calc Estimated GFR Random Glucose Estimat Average Glucose 103 Hemoglobin A1c % 5.2 Calcium Magnesium 2.1 Total Bilirubin AST ALT Alkaline Phosphatase Troponin I High Sens Total Protein Albumin Triglycerides 83 Cholesterol 159 LDL Cholesterol, Calc 98 HDL Cholesterol 45 Vitamin B12 418 Folate 14.1 TSH 0.65 Free T4 0.86 Urine Color Urine Appearance Urine pH Ur Specific [place] Urine Protein Urine Glucose (UA) Urine Ketones Urine Blood Urine Nitrite Ur Leukocyte Esterase Urine RBC Urine WBC Ur Squamous Epith Cells Urine Bacteria Hyaline Casts Salicylates Urine Opiates Screen Ur Buprenorphine Scrn Ur Oxycodone Screen Urine Methadone Screen Urine Fentanyl Screen Acetaminophen Ur Barbiturates Screen Ur Phencyclidine Scrn Ur Amphetamines Screen U Benzodiazepines Scrn Urine Cocaine Screen U Marijuana (THC) Screen Ethyl Alcohol 05/01/24 16:59 Urine clean catch - Clean Catch Midstream Urine Culture - Final No growth. Imaging Diagnostic Imaging Impressions Chest X-Ray 05/01/24 17:51 IMPRESSION: No evidence of acute disease DS: Summary Hospital Course Hospital Course: Admission to adult psychiatry for exacerbation of schizoaffective disorder, depressed, alcohol abuse with SI. Identifies precipitants as of mother in 2021 and recent of sister's which has brought back some of the grief of mothers passing. Pt has had some discord with partner Nilay (she is currently in respite with [facility]) and pt reports he is completing probation for anger issues which is stressful. Pt admitted on a Section XIIB. He declined medication and left upon expiration of Section XIIB. He denied SI/HI/AH/VH sx of psychosis or gabo. Status at Discharge Functional status at discharge: independent ambulation Overall status at discharge: patient is progressing back to baseline Time Spent with Patient Time attestation: Total time managing care of this patient today ____ minutes. Time spent: Less than 30 minutes Discharge Plan Discharge Anticipated Discharge Date/Time: 05/07/24 12:00 Patient Disposition: Home, Self-Care Discharge Diagnosis: Schizoaffective Disorder, Depressed Alcohol Use Disorder Referrals: Marion Grey MD [Primary Care Provider] - 1 Week (pt. refused pcp appointment.) Discharge Medications: No Action No Known Home Meds Discharge Orders: Discharge Order (Routine); Ordered 05/07/24 Ordered By: Carola Soliz Diet: Advance to usual diet Activity on Discharge: As tolerated Stand Alone Forms: Patient Portal Discharge page, Community Support Print Language: Upper Sorbian Care Plan Goals: Mood and Behavioral Stabilization Health Concerns: Mood and Behavioral Stabilization Plan of Treatment: Declines at this time Assessment: Scheduled discharge as Section XIIB expires. Discharge Date/Time: 05/07/24 11:22
== END 2024-05-07 11:22 | disposition home or self-care (01) | DRG 885 ==
LOC: HO.ED 05-02 06:19 → HO.PM5 05-02 14:49
PROVIDERS: Physician Assistant; Admitting Provider Clinical Nurse Specialist Psychiatric/Mental Health, Adult; Emergency Provider Internal Medicine; PCP Internal Medicine; Visit Provider Clinical Nurse Specialist Psychiatric/Mental Health, Adult
DX: F25.1 Schizoaffective disorder, depressive type (principal); R45.851 Suicidal ideations; F10.10 Alcohol abuse, uncomplicated; Z87.891 Personal history of nicotine dependence
CPT/HCPCS: 36415; 71046; 80053; 80061; 80143; 80179; 80307; 81001; 82607; 82746; 83036; 83735; 84439; 84443; 84484; 85025; 87086; 93005; 99285; S9485

== ENCOUNTER → 2024-05-01 16:32 | Outpatient (BNV) | payer MEDICARE, SELFPAY | PROVIDERS: Emergency Provider Internal Medicine; PCP Internal Medicine; Visit Provider Internal Medicine Cardiovascular Disease | DX: R07.9 Chest pain, unspecified (principal) | CPT/HCPCS: 93010 ==

== ENCOUNTER → 2024-05-02 14:36 | Outpatient (BNV) | payer OTHER, SELFPAY | PROVIDERS: Admitting Provider Clinical Nurse Specialist Psychiatric/Mental Health, Adult; Emergency Provider Internal Medicine; PCP Internal Medicine; Visit Provider Clinical Nurse Specialist Psychiatric/Mental Health, Adult | DX: F25.1 Schizoaffective disorder, depressive type (principal); F10.10 Alcohol abuse, uncomplicated | CPT/HCPCS: 90792; 99231; 99238 ==

== ENCOUNTER 2024-06-28 17:54 | Inpatient (IN) | payer MEDICARE, OTHER, SELFPAY ==
[2024-06-28 17:59] VITALS: BP 114/74; PULSE 129; RESP 20; TEMP 37; O2SAT 95; BMI 28.1
--- NOTE | 2024-06-28 17:59 | ED.PSYCH ---
HPI - Psych General Chief Complaint: Psychiatric Symptoms Stated Complaint: crisis Time Seen by Provider: 06/28/24 22:10 Source: patient Mode of arrival: ambulatory Limitations: no limitations History of Present Illness ED Provider: Dr. Laxmi Hathaway HPI Narrative: Patient comes to the emergency room complaining of suicidal ideation. Patient denies plan. Patient states that he has been drinking daily. Patient states that he has a lot of life stressors. Patient avoiding to talk and avoiding eye contact. Related Data Home Medications ?Medication ?Instructions ?Recorded ?Confirmed No Known Home Meds 05/02/24 05/02/24 Allergies Allergy/AdvReac Type Severity Reaction Status Date / Time No Known Allergies Allergy Verified 06/28/24 18:03 Review of Systems Review of Systems: Constitutional : No Weight loss, No Fever, No Chills, No Night Sweats, No Fatigue, No Malaise ENT/Mouth : No Hearing loss, No Ear Pain, No Nasal Congestion, No Sinus Pain, No Hoarseness, No sore throat, No Rhinorrhea, No Swallowing Difficulty Eyes: No Eye Pain, No Swelling, No Redness, No Foreign Body, No Discharge, No Vision Changes Cardiovascular : No Chest Pain, No SOB, No Dyspnea on Exertion, No Orthopnea, No Edema, No Palpitations Respiratory : No Cough, No Sputum, No Wheezing, No Smoke Exposure, No Dyspnea Gastrointestinal : No Nausea, No Vomiting, No Diarrhea, No Constipation, No abdominal Pain, No Hematochezia, No Melena Genitourinary : no irregular bleeding, No Dysuria, No Urinary Frequency, No Hematuria, No Urinary Incontinence, No Urgency, No Flank Pain, No Urinary Flow Changes, No Hesitancy Musculoskeletal : No joint pain, No Myalgias, No Joint Swelling Skin : No Skin Lesions, No rash Neuro : No Weakness, No Numbness, No Paresthesias, No Loss of Consciousness, No Dizziness, No Headache Psych : No Anxiety/Panic, complaining of vague SI with no plan, no HI, admits to ETOH Heme/Lymph: No Bruising, No Bleeding,No Lymphadenopathy Endocrine : No Polyuria, No Polydipsia, No Temperature Intolerance PMFSH Past Medical History Medical History Alcohol abuse Schizoaffective disorder, depressive type Cocaine abuse Social History Social History (Updated 10/19/22 @ 08:41 by NICHOLAS Marrero Household Members: Significant Other Housing: Apartment Do you presently have visiting nurse or other home services: No Alcohol intake: current Alcohol intake frequency: 3 or more drinks per day Alcohol type: beer Patient Tobacco Use Status: Former Tobacco user Tobacco use type: Cigarette Smoked in Last 30 Days: Yes e-Cigarette/Vaping Use: Former Use Second Hand Smoke Exposure: No (girlfriend currently smokes) Use of substances other than those prescribed or required for medical reasons: Yes Substance Use Type: Marijuana Advance Directives: No Advance Directives Information Provided: No Do you have a plan to hurt others: No Plan service: No Current occupational status: unemployed Current occupation: rt hand Sexual orientation: Straight/Heterosexual Physical Exam Vital Signs: Vital Signs: Last Vital Signs Temp 98 F 06/28/24 21:22 Pulse 89 06/28/24 21:22 Resp 16 06/28/24 21:22 BP 106/67 06/28/24 21:22 Pulse Ox 96 06/28/24 21:22 O2 Del Method Room Air 06/28/24 21:22 BMI result Body Mass Index 28.1 Const: Other: Appearance: Alert. Oriented X3. No acute distress. Eyes: Pupils equal, round and reactive to light. ENT: Pharynx normal. Neck: Normal inspection. Neck supple. No lymph nodes noted. No crepitus CVS: Normal heart rate and rhythm. Pulses normal. Normal S1 and S2 Respiratory: No respiratory distress. Breath sounds normal. No Wheezing. No rales Abdomen: Soft and nontender. No rigidity. No distention. Skin: Skin warm and dry. Normal skin color. Normal skin turgor. Extremities: No lower extremity edema. No Lacerations. No Rash Neuro: Oriented X 3. No motor deficit. No sensory deficit. Moving all extremities. No slurred speech. CN 2 through 12 grossly intact Psych: calm, cooperative with the voices talking, avoids eye contact Course Course Course Narrative: This is a Rapid Medical Examination (RME) performed by Dilan Reyes PA-C in triage. Full HPI, ROS, assessment and treatment plan per primary provider in the Main ED. 53 yo male hx of schizoaffective disorder, alcohol use disorder, cocaine use disorder here w/ depression and SI. reports recent eviction from his house. Admits to daily etoh consumption. cannot quantify amount, states as much as I can get my hands on . reports last drink [employer] in ED. denies physical concerns. +avoiding eye contact. whispering to self. Plan: labs, UA, UDS, care team eval Medical Decision Making Medical Decision Making MDM Narrative: My interpretation of labs, normal hematology and chemistry. Patient's urinalysis has blood white blood cells and trace leukocyte esterase. However, patient has had this in the past, microbiology report did not show any bacterial growth. Patient has no UTI symptoms. Antibiotic is not indicated at this time. -, care team consult pending -physician observation started at 22:40 Differential Diagnosis Differential Diagnoses: The differential diagnosis associated with the presentation includes (Anxiety, depression, schizophrenia, polysubstance abuse) Admission/Observation Consideration of admission/observation: Escalation of care including admission/observation considered (Patient is under physician observation) Lab Data 06/28/24 18:30 06/28/24 18:30 Labs: Lab Results 06/28/24 Range/Units 18:30 WBC 10.9 H (4.8-10.8) X10*3/uL RBC 5.03 (4.60-5.80) X10*6/uL Hgb 16.1 (14.0-18.0) g/dl Hct 46.2 (42.0-52.0) % MCV 91.8 (80.0-98.0) fL MCH 32.0 (27.0-33.0) pg MCHC 34.8 (31.0-36.0) g/dl RDW 13.0 (11.0-16.0) % Plt Count 230 (160-400) X10*3/uL MPV 10.0 (9.4-12.4) fL Immature Gran % (Auto) 0.2 (0.0-0.4) % Neut % (Auto) 58.2 (45-73) % Lymph % (Auto) 34.8 (20-40) % [place] % (Auto) 5.4 (2-11) % Eos % (Auto) 1.0 (0-4) % Baso % (Auto) 0.4 (0-2) % Lymph # (Auto) 3.8 (1.2-4.9) X10*3/uL [place] # (Auto) 0.6 (0.1-1.2) X10*3/uL Eos # (Auto) 0.1 (0.0-0.4) X10*3/uL Baso # (Auto) 0.0 (0.0-0.2) X10*3/uL Abs Immat Gran (auto) 0.02 (0.00-0.03) X10*3/uL Absolute Neuts (auto) 6.3 (2.0-8.3) x10*3/uL Absolute Nucleated RBC 0.000 (0.0-0.012) X10*3/uL Nucleated RBC % (auto) 0.0 (0.0-0.2) /100WBC Sodium 142 (135-145) mmol/L Potassium 4.0 (3.3-5.1) mmol/L Chloride 106 (96-108) mmol/L Carbon Dioxide 25 (22-29) mmol/L Anion Gap 15 (12-20) BUN 15 (9-16) mg/dL Creatinine 1.02 (0.5-1.4) mg/dL Estim Creat Clear Calc 89.3 Estimated GFR > 60 Random Glucose 84 (60-115) mg/dL Calcium 10.4 H (8.4-10.2) mg/dL Magnesium 2.0 (1.6-2.6) mg/dL Total Bilirubin 0.4 (0.0-1.0) mg/dL AST 65 H (5-37) U/L ALT 61 H (0-40) U/L Alkaline Phosphatase 69 (39-117) U/L Total Protein 7.7 (6.5-8.0) g/dL Albumin 4.7 (3.5-5.0) g/dL Urine Color Dark Yellow Urine Appearance Clear Urine pH 5.5 (5.0-9.0) Ur Specific [place] >= 1.030 H (1.005-1.025) Urine Protein Negative (Neg-Trace) mg/dL Urine Glucose (UA) Negative (Negative) mg/dL Urine Ketones Trace (Negative) mg/dL Urine Blood Small (1+) H (Negative) Urine Nitrite Negative (Negative) Ur Leukocyte Esterase Trace H (Negative) Urine RBC 11-20 H (0-2) /HPF Urine WBC 11-20 H (0-5) /HPF Ur Squamous Epith Cells 0-2 (0-2) /HPF Urine Bacteria None Seen (None Seen) Hyaline Casts 3-5 (0-2) /LPF Salicylates < 5.0 L (15-30) mg/dL Urine Opiates Screen Not Detected (Not Detect) Ur Buprenorphine Scrn Not Detected (Not Detect) ng/mL Ur Oxycodone Screen Not Detected (Not Detect) ng/mL Urine Methadone Screen Not Detected (Not Detect) ng/mL Urine Fentanyl Screen Not Detected (Not Detect) Acetaminophen < 3 (<30) mcg/mL Ur Barbiturates Screen Not Detected (Not Detect) Ur Phencyclidine Scrn Not Detected (Not Detect) Ur Amphetamines Screen Not Detected (Not Detect) U Benzodiazepines Scrn Not Detected (Not Detect) Urine Cocaine Screen Not Detected (Not Detect) U Marijuana (THC) Screen Not Detected (Not Detect) Ethyl Alcohol 54 mg/dL Critical Care Time Critical Care Time Critical Care Time: Yes Total Critical Care Time: 30 Attestation: I have personally provided critical care time. Time includes review of lab data, radiology results, discussion with consultants, and monitoring for potential decompensation. Intervention performed as documented. Discharge Plan Discharge Clinical Impression: Suicidal ideation Patient Disposition: Still a Patient Prescriptions: No Action No Known Home Meds Interventions: [place]-Suicide Risk Severity Scale Last Done: 06/28/24 18:35 Print Language: Kinyarwanda
[2024-06-28 18:43] LABS: MANUAL DIFF FLAG NO
[2024-06-28 18:46] LABS: Basophils Percent Auto 0.4 % (0-2); Eosinophils Absolute Auto 0.1 X10*3/uL (0.0-0.4); Hematocrit 46.2 % (42.0-52.0); Hemoglobin 16.1 g/dl (14.0-18.0); Imm Gran Abs Auto 0.02 X10*3/uL (0.00-0.03); Imm Gran Pct Auto 0.2 % (0.0-0.4); Lymphocytes Absolute Auto 3.8 X10*3/uL (1.2-4.9); Lymphocytes Percent Auto 34.8 % (20-40); Mean Corpuscular HGB Conc 34.8 g/dl (31.0-36.0); Mean Corpuscular Volume 91.8 fL (80.0-98.0); Monocytes Absolute Auto 0.6 X10*3/uL (0.1-1.2); Monocytes Percent Auto 5.4 % (2-11); Neutrophils Absolute Auto 6.3 x10*3/uL (2.0-8.3); Neutrophils Percent Auto 58.2 % (45-73); Platelet Count 230 X10*3/uL (160-400); Red Blood Count 5.03 X10*6/uL (4.60-5.80); White Blood Count 10.9 X10*3/uL (4.8-10.8)
[2024-06-28 18:48] LABS: Appearance Urine Clear; Color Urine Dark Yellow; Glucose Urine UA Negative (Negative); Leukocyte Esterase Urine Trace (Negative); Nitrite Urine Negative (Negative); PH 5.5 (5.0-9.0); Specific Gravity - Urine >= 1.030 (1.005-1.025); UMIC TRIGGER UACC YES; Urine Blood Small (1+) (Negative); Urine Ketones Trace mg/dL (Negative); Urine Protein Negative (Neg-Trace)
[2024-06-28 18:50] LABS: Bacteria Urine None Seen (None Seen); Squamous Epithelial Cell Urine 0-2 /HPF (0-2); UACC Culture Trigger YES
[2024-06-28 19:01] LABS: Amphetamine Screen Urine Not Detected (Not Detect); Barbiturates, Urine Not Detected (Not Detect); Benzodiazepines Screen Urine Not Detected (Not Detect); Buprenorphine Scr Not Detected (Not Detect); Cannabinoid Screen Urine Not Detected (Not Detect); Cocaine Screen Urine Not Detected (Not Detect); Fentanyl, urine Not Detected (Not Detect); Methadone Screen, Urine Not Detected (Not Detect); Opiate Screen Urine Not Detected (Not Detect); Oxycodone Screen Urine Not Detected (Not Detect); Phencyclidine Screen Urine Not Detected (Not Detect)
[2024-06-28 19:02] LABS: Alanine Aminotransferase 61 U/L (0-40); Albumin Level 4.7 g/dL (3.5-5.0); Alkaline Phosphatase 69 U/L (39-117); Anion Gap 15 (12-20); Aspartate Amino Transferase 65 U/L (5-37); Bilirubin Total 0.4 mg/dL (0.0-1.0); Blood Urea Nitrogen 15 mg/dL (9-16); Calcium 10.4 mg/dL (8.4-10.2); Carbon Dioxide 25 mmol/L (22-29); Chloride 106 mmol/L (96-108); Creatinine Clr Calc Pharmacy 89.3; Estimated Glomerular Filt Rate > 60; Ethanol 54 mg/dL; Glucose Random 84 mg/dL (60-115); Sodium 142 mmol/L (135-145); Total Protein 7.7 g/dL (6.5-8.0)
[2024-06-28 19:04] LABS: Acetaminophen LAB < 3 mcg/mL (<30); Salicylate < 5.0 mg/dL (15-30)
[2024-06-28 21:22] VITALS: BP 106/67; PULSE 89; RESP 16; TEMP 36.6; O2SAT 96
[2024-06-29 02:14] VITALS: BP 114/68; PULSE 72; RESP 16; TEMP 36.7; O2SAT 95
[2024-06-29 06:41] VITALS: RESP 16
--- NOTE | 2024-06-29 11:29 | MHC.EDTECH ---
Patient ambulated to bathroom, showered .ADL done , lined cleaned. RN aware
[2024-06-29 14:00] VITALS: BP 128/80; PULSE 72; RESP 16; TEMP 37.1; O2SAT 97
--- NOTE | 2024-06-29 17:00 | MHC.EDTECH ---
Patient ambulate to bathroom, patient ask for towels and soap to shower while patient showered, I clean patient room and changed bedding. Nurse aware
[2024-06-30 06:07] VITALS: BP 126/79; PULSE 69; RESP 17; TEMP 36.3; O2SAT 94
--- NOTE | 2024-06-30 15:43 | PHA.MEDREC ---
Addendum entered by Laurence Mendiola RPh 06/30/24 15:45: reviewed by [facility]. Original Note: Pharmacy Consult ? Medication Reconciliation Pharmacy has completed the medication reconciliation. Reviewed med rec done by nursing. Care team assessment note reports patient has not taken his psychiatric medications for 2 years.
[2024-06-30 16:02] VITALS: BP 127/78; PULSE 80; RESP 18; TEMP 36.6; O2SAT 100
[2024-06-30 21:04] VITALS: BP 115/67; PULSE 76; RESP 18; TEMP 36.3; O2SAT 96
[2024-06-30] MEDS: Acetaminophen 325 MG TABLET 650 MG PO (21:18)
[2024-06-30 22:43] VITALS: RESP 18
--- NOTE | 2024-06-30 23:26 | PC.NURSE ---
Assumed care of pt. Pt sleeping, easily rousable, no acute distress at this time.
--- NOTE | 2024-07-01 | ECG_ITS ---
Test Reason : check for qt prolongation Blood Pressure : / mmHG Vent. Rate : 071 BPM Atrial Rate : 071 BPM P-R Int : 144 ms QRS Dur : 096 ms QT Int : 370 ms P-R-T Axes : 016 -02 024 degrees QTc Int : 402 ms Normal sinus rhythm Nonspecific T wave abnormality Abnormal ECG When compared with ECG of 01-MAY-2024 16:32, Vent. rate has decreased BY 46 BPM Nonspecific T wave abnormality now evident in Referred By: Generic ED Physician Electronically Signed By:KASI PEREZ MD
[2024-07-01 06:00] VITALS: RESP 16
[2024-07-01 12:46] VITALS: BP 120/82; PULSE 71; RESP 14; TEMP 36.2; O2SAT 98
[2024-07-01] MEDS: Thiamine HCL 100 MG TABLET PO (15:58)
[2024-07-01 16:29] VITALS: BMI 30.5
[2024-07-01 16:38] VITALS: BP 141/76; PULSE 83; RESP 20; TEMP 36.6; O2SAT 97
--- NOTE | 2024-07-01 17:58 | PC.ADMIT ---
This is one of multiple admissions for this 53 y.o. male to a Behavioral Health unit at [facility]. Has had 4 previous admissions to , with last admission April 2024; 1st admission to this unit. Referred by [facility] Care Team with Dx of Schizoaffective D.O, depressive type, Unspecified Anxiety D/O, Alcohol Use D/O, severe. Nurse to nurse done with [facility] ED Pod prior to admission. Arrived on unit at 1630 and placed on 15 min safety checks. Admission orders received from Heather Lewis. Arrived on unit on Section 12A. Signed Conditional Voluntary after meeting with Dr Christy. Skin check/supervisor policy change clerks done upon admission to unit with 2 staff present. Precipitating events to admission: pt presented to [facility] ED due to increasing depression and SI. Reports stressors as homelessness and separation from long time significant other. States [facility] has placed girlfriend/ in an unknown facility to separate them; intake indicates [facility]. Reports often feeling neglected, not appreciated by girlfriend. States [facility] frequently tells him he needs to leave place where girlfriend is, knowing he has no where to go. States this upsets him, causing him tears. Reports daily etoh use prior to admission to ED. last use 06/28/24. Difficulty during admission process remaining on topic, responding to questions asked. Required questions to be asked multiple ways and stated at times, I'm not answering right am I. Denies need for endocrinology physician, stating mind doesn't always work right. Reports use of 12-18 beers daily. States on 06/28/24 drank 2 25 ounce beers and 1 20/20 wine. CIWA score of 1, denies s/sx etoh withdrawal. ETOH 54 in ED 06/28/24. Reports daily marijuana use, last use 06/22/24 per pt. Reports no meds x 2-3 yrs. Med reconciliation done in ED. Denies current SI/HI, denies AH/VH. States few months ago he had dropped his phone in water, phone but he still heard conversation in right ear. States it sometimes gets feeling it may happen in left ear, but it always happens in right ear. States this is not AH. Rates depression #2, anxiety #4 on scale 1-10(10 worse).
[2024-07-01 20:00] VITALS: BP 128/65; PULSE 82; RESP 16; TEMP 36.3; O2SAT 96
[2024-07-01] MEDS: Acetaminophen 325 MG TABLET 650 MG PO (20:31)
[2024-07-01] MEDS: LORazepam 1 MG TABLET PO (20:32)
--- NOTE | 2024-07-01 23:31 | PC.NURSE ---
CRISSYWA repeated. 0 score. decline risperdal ''I need to think about it''
[2024-07-02 08:00] VITALS: BP 129/73; PULSE 86; RESP 16; TEMP 36.7; O2SAT 97
[2024-07-02] MEDS: Thiamine HCL 100 MG TABLET PO (08:16)
[2024-07-02 09:12] LABS: Estimated Average Glucose 108 mg/dL; Hemoglobin A1c % 5.4 % (<6.0)
[2024-07-02 09:21] LABS: Alanine Aminotransferase 42 U/L (0-40); Albumin Level 4.6 g/dL (3.5-5.0); Alkaline Phosphatase 67 U/L (39-117); Anion Gap 11 (12-20); Aspartate Amino Transferase 28 U/L (5-37); Bilirubin Total 0.5 mg/dL (0.0-1.0); Blood Urea Nitrogen 15 mg/dL (9-16); Calcium 9.7 mg/dL (8.4-10.2); Carbon Dioxide 28 mmol/L (22-29); Chloride 106 mmol/L (96-108); Cholesterol 160 mg/dL (<200); Estimated Glomerular Filt Rate > 60; Glucose Fasting 94 mg/dL (60-99); HDL Cholesterol 48 mg/dL (>40); LDL Cholesterol Calculated 94 mg/dL (<100); Potassium 4.5 mmol/L (3.3-5.1); Sodium 140 mmol/L (135-145); Total Protein 7.7 g/dL (6.5-8.0); Triglycerides 90 mg/dL (<150)
[2024-07-02 09:37] LABS: Thyroid Stimulating Hormone 1.13 uIU/mL (0.32-4.0)
[2024-07-02 09:43] LABS: Vitamin B12 534 pg/mL (200-900)
--- NOTE | 2024-07-02 11:46 | P.HPPS_ITS ---
HPI Date of Service: 07/02/24 Chief Complaint: SI HPI Narrative: per CARE team rosangela pt self-presented to [facility] c/o depression with SI, no plan (but later endorsed plan but would not divulge what it was). c/o homelessness and separation from long-term partner as stressors. states he has been off psych meds for two years and has no outpt treaters. reported excessive alcohol consumption as coping strategy. reporting seeing angry faces all around him and feeling that someone or something is out to get him. on interview with MD, pt presents as above. c/o paranoid delusions as well as VH. Hx is taken, medications for Sx are discussed. for unknown reasons pt does not wish to take risperidone. he does agree to zyprexa for psychotic Sx and lithium for mood instability and lability. Past Psychiatric History: Past psychiatric hospitalizations : Reports most recent in 2021. about 10-15 lifetime. SA: reports more than 3. MRE 3-4 yrs ago. SIB: reports h/o cutting, MRE more than 10 years ago. HIB: denies Started on Risperdal 2 mg b.i.d. in 2020 which he says was helpful OP: Denies current treaters. has been off meds for the past 2 years, so has been out of Tx for more than 2 years. states he was last being seen at [facility]. Sx hx: AH, VH, Paranoia Medical Evaluation Reviewed: Yes [facility] Medical History Alcohol abuse Schizoaffective disorder, depressive type Cocaine abuse Family History: Patient said no family psychiatric history that he knows of Reports maternal family is prone to CVA types of illness Social History: Born in [place]; father left when he was young and family was in poverty with little food Came to the [place] around 11 or 12 years old completed the 7th grade Currently not working, on SSI Has one living brother and one child in his 30's whom he has met x 2 Relationship with Madelyn since age 19, whose daughter works with [facility]-states he is not close with her daughter. recently lost his apartment, about a month [employer], per his report. Substance History: tobacco - 1-2 ppd alcohol - daily, 6+ drinks. cannabis - daily cocaine - occasional use opioids - denies benzos - denies states, i don't use any illegal drugs. Trauma History: Affirms through and family losses Diagnostics Vital Signs (24Hr): Vital Signs - 24 hr 07/01/24 12:46 07/01/24 16:38 07/01/24 20:00 Temperature 97.2 F 97.8 F 97.3 F Pulse Rate 71 83 82 Respiratory Rate 14 20 16 Blood Pressure 120/82 141/76 H 128/65 Pulse Oximetry 98 97 96 Oxygen Delivery Method Room Air Room Air Room Air 07/02/24 08:00 Temperature 98.0 F Pulse Rate 86 Respiratory Rate 16 Blood Pressure 129/73 Pulse Oximetry 97 Oxygen Delivery Method Room Air BMI result Body Mass Index 30.5 Labs 06/28/24 18:30 07/02/24 08:34 Labs: Laboratory Results - last 48 hr 07/02/24 08:34 Sodium 140 Potassium 4.5 Chloride 106 Carbon Dioxide 28 Anion Gap 11 L BUN 15 Creatinine 0.89 Estim Creat Clear Calc 113.0 Estimated GFR > 60 Fasting Glucose 94 Estimat Average Glucose 108 Hemoglobin A1c % 5.4 Calcium 9.7 D Total Bilirubin 0.5 AST 28 ALT 42 H Alkaline Phosphatase 67 Total Protein 7.7 Albumin 4.6 Triglycerides 90 Cholesterol 160 LDL Cholesterol, Calc 94 HDL Cholesterol 48 Vitamin B12 534 TSH 1.13 Meds/Allergies Meds Home Medications ?Medication ?Instructions ?Recorded ?Confirmed ?Type No Known Home Meds 05/02/24 06/29/24 History Allergies Allergies Allergy/AdvReac Type Severity Reaction Status Date / Time No Known Allergies Allergy Verified 06/28/24 18:03 Mental Status Exam Mental Status Exam Narrative: Pt is alert and oriented; behavior is marginally cooperative, poor eye contact; dressed in casual attire adequately groomed with adequate hygiene; mood is described as it's been fine. a lot better, and affect constricted; Speech is low loudness sometimes moderating his sentences; thought process is goal directed; Thought content is notable for paranoid delusions; denies SI/SIBI/HI/AVH. Assessment & Plan Assessment & Plan (1) Schizoaffective disorder, depressive type: Status: Acute Code(s): F25.1 - Schizoaffective disorder, depressive type (2) Alcohol abuse: Status: Acute Code(s): F10.10 - Alcohol abuse, uncomplicated (3) Cocaine abuse: Status: Acute Code(s): F14.10 - Cocaine abuse, uncomplicated Plan ativan per CIWA for alcohol withdrawal. start lithium 600 BID for mood instability. start zyprexa 10 at HS for psychotic Sx. Patient educated on: medication risk/benefits and substance abuse Reason for continued inpatient stay Substantial Risk for: harm to self and inability to function Statement Statement: I have reviewed the history and physical and performed a pertinent examination on my patient. No changes have occurred unless specified. If the History and Physical was not performed prior to admission, the Hospitalist's service will be consulted for completing the admission physical. Time Spent With Patient Time: Total time managing care of this patient today __55__ minutes.
[2024-07-02] MEDS: Lithium Carbonate ER 300 MG TABLET.ER 600 MG PO ×2 (12:42→20:35)
[2024-07-02] MEDS: OLANZapine 10 MG TABLET PO (20:36)
[2024-07-02] MEDS: Acetaminophen 325 MG TABLET 650 MG PO (20:36)
[2024-07-02 20:39] VITALS: BP 124/72; PULSE 82; RESP 14; TEMP 36.7; O2SAT 97
[2024-07-03 07:10] VITALS: BP 120/69; PULSE 82; RESP 18; TEMP 36.3; O2SAT 98
[2024-07-03] MEDS: Thiamine HCL 100 MG TABLET PO (09:13)
[2024-07-03] MEDS: Lithium Carbonate ER 300 MG TABLET.ER 600 MG PO ×2 (09:13→21:33)
[2024-07-03 09:18] VITALS: BP 120/69; PULSE 82; RESP 18; TEMP 36.3; O2SAT 98
--- NOTE | 2024-07-03 10:20 | MHC.RECOVRN ---
?AUDIT-C Brief Intervention this audit was done on 07/02 Pt had positive screen for unhealthy alcohol use on admission, subsequently met with t/w to discuss alcohol use and recovery supports/options. Pt voices concern regarding alcohol use and is aware that drinking at unhealthy levels is known to increase risk of alcohol related health problems. Pt reports 1 liter a day of vodka. Pt expresses how alcohol use has impacted health, including negative impact on life . Discussed risk reduction strategies including drinking below the recommended limit. Provided pt with written resources including information on inpatient and outpatient treatment, MARIS[facility], harm reduction, and recovery coaching. Pt refuses to talk about dischcarge plan placing blanket over his head. Pt provided with t/w contact information if questions or concerns arise. Denies other questions or concerns at this time.
--- NOTE | 2024-07-03 15:33 | P.PNPSI_ITS ---
Subjective Subjective Date of Service: 07/03/24 Reason For Visit: SI Interim History: calm, cooperative. reports he slept well and feels fine. terse, evasive. per staff, blunted. took meds. disorganized thoughts. c/o AVH, vague. difficult to engage with in conversation. low CIWA scores. Mental Status Exam Mental Status Exam Narrative: Pt is alert and oriented; behavior is superficially cooperative, fair eye contact; dressed in casual attire adequately groomed with adequate hygiene; mood is described as fine, and affect constricted; Speech is low loudness; thought process is goal directed and linear; Thought content is notable for no paranoid delusions today; no SI/SIBI/HI/AVH expressed. Diagnostics Vital Signs (24Hr): Vital Signs - 24 hr 07/02/24 20:39 07/03/24 07:10 07/03/24 09:18 Temperature 98.1 F 97.3 F 97.3 F Pulse Rate 82 82 82 Respiratory Rate 14 18 18 Blood Pressure 124/72 120/69 120/69 Pulse Oximetry 97 98 98 Oxygen Delivery Method Room Air Room Air Room Air BMI result Body Mass Index 30.5 Labs 06/28/24 18:30 07/02/24 08:34 Labs: Laboratory Results - last 48 hr 07/02/24 08:34 Sodium 140 Potassium 4.5 Chloride 106 Carbon Dioxide 28 Anion Gap 11 L BUN 15 Creatinine 0.89 Estim Creat Clear Calc 113.0 Estimated GFR > 60 Fasting Glucose 94 Estimat Average Glucose 108 Hemoglobin A1c % 5.4 Calcium 9.7 D Total Bilirubin 0.5 AST 28 ALT 42 H Alkaline Phosphatase 67 Total Protein 7.7 Albumin 4.6 Triglycerides 90 Cholesterol 160 LDL Cholesterol, Calc 94 HDL Cholesterol 48 Vitamin B12 534 TSH 1.13 Medications Medications Current Medications Acetaminophen (Acetaminophen 325 Mg Tablet) 650 mg PO Q6H PRN PRN Reason: Headache/Pain Mild Scale (1-3) Last Admin: 07/02/24 20:36 Dose: 650 mg Al Hydroxide/Mg Hydroxide (Magnesium Hydrox/Alum Hydrox 30 Ml Oral.Susp) 30 ml PO Q6H PRN PRN Reason: Heartburn/Nausea Hydroxyzine HCl (Hydroxyzine Hcl 25 Mg Tablet) 25 mg PO Q6H PRN PRN Reason: Anxiety [place] Carbonate ([place] Carbonate Er 300 Mg Tablet.Er) 600 mg PO BID [facility] Last Admin: 07/03/24 09:13 Dose: 600 mg Magnesium Hydroxide (Milk Of Magnesia 30 Ml Oral.Susp) 30 ml PO DAILY PRN PRN Reason: Constipation Olanzapine (Olanzapine 5 Mg Tablet) 5 mg PO TID PRN PRN Reason: agitation Olanzapine (Olanzapine 10 Mg Tablet) 10 mg PO BEDTIME [facility] Last Admin: 07/02/24 20:36 Dose: 10 mg Thiamine HCl (Thiamine Hcl 100 Mg Tablet) 100 mg PO DAILY [facility] Last Admin: 07/03/24 09:13 Dose: 100 mg Allergies Allergies Allergy/AdvReac Type Severity Reaction Status Date / Time No Known Allergies Allergy Verified 06/28/24 18:03 Assessment & Plan Assessment & Plan (1) Schizoaffective disorder, depressive type: Status: Acute Code(s): F25.1 - Schizoaffective disorder, depressive type (2) Alcohol abuse: Status: Acute Code(s): F10.10 - Alcohol abuse, uncomplicated (3) Cocaine abuse: Status: Acute Code(s): F14.10 - Cocaine abuse, uncomplicated Plan 07/02: ativan per CIWA for alcohol withdrawal. start lithium 600 BID for mood instability. start zyprexa 10 at HS for psychotic Sx. 07/03: terse, evasive. less irritable than yesterday, perhaps a tad less paranoid. CIWAs very low; DC ativan PRN and CIWA protocol. Reason for continued inpatient stay Substantial Risk for: harm to self, harm to others, inability to function and rapid decompensation Time Spent With Patient Time: Total time managing care of this patient today __25__ minutes.
[2024-07-03 20:00] VITALS: BP 115/67; PULSE 87; RESP 16; TEMP 36.7; O2SAT 97
[2024-07-03] MEDS: OLANZapine 10 MG TABLET PO (21:33)
[2024-07-04 07:00] VITALS: BMI 30.2
[2024-07-04 07:45] VITALS: BP 139/77; PULSE 89; RESP 16; TEMP 36.8; O2SAT 98
[2024-07-04] MEDS: Lithium Carbonate ER 300 MG TABLET.ER 600 MG PO ×2 (08:53→21:30)
[2024-07-04] MEDS: Thiamine HCL 100 MG TABLET PO (08:54)
--- NOTE | 2024-07-04 14:11 | HO.PSYCHPN ---
Subjective Subjective Date of Service: 07/04/24 Reason For Visit: SI Interim History: calm, cooperative. denies AH. reports only when he is alone now does he have some paranoia that something else malevolent is in the room. per staff, endorsing anx/dep. flat, withdrawn. +AH, seeing shadows. watching TV, peasant. social. slept 8 hours. Mental Status Exam Mental Status Exam Narrative: Pt is alert and oriented; behavior is superficially cooperative, fair eye contact; dressed in casual attire adequately groomed with adequate hygiene; mood is euthymic, and affect mildly flexible; Speech is low loudness; thought process is goal directed and linear; Thought content is notable for paranoid delusions today; no SI/SIBI/HI/VH expressed. denies AH. Diagnostics Vital Signs (24Hr): Vital Signs - 24 hr 07/03/24 20:00 07/04/24 07:45 Temperature 98.0 F 98.2 F Pulse Rate 87 89 Respiratory Rate 16 16 Blood Pressure 115/67 139/77 Pulse Oximetry 97 98 Oxygen Delivery Method Room Air Room Air BMI result Body Mass Index 30.2 Labs 06/28/24 18:30 07/02/24 08:34 Medications Medications Current Medications Acetaminophen (Acetaminophen 325 Mg Tablet) 650 mg PO Q6H PRN PRN Reason: Headache/Pain Mild Scale (1-3) Last Admin: 07/02/24 20:36 Dose: 650 mg Al Hydroxide/Mg Hydroxide (Magnesium Hydrox/Alum Hydrox 30 Ml Oral.Susp) 30 ml PO Q6H PRN PRN Reason: Heartburn/Nausea Hydroxyzine HCl (Hydroxyzine Hcl 25 Mg Tablet) 25 mg PO Q6H PRN PRN Reason: Anxiety [place] Carbonate ([place] Carbonate Er 300 Mg Tablet.Er) 600 mg PO BID COUNT [facility]CLUDES [facility] Last Admin: 07/04/24 08:53 Dose: 600 mg Magnesium Hydroxide (Milk Of Magnesia 30 Ml Oral.Susp) 30 ml PO DAILY PRN PRN Reason: Constipation Olanzapine (Olanzapine 5 Mg Tablet) 5 mg PO TID PRN PRN Reason: agitation Olanzapine (Olanzapine 10 Mg Tablet) 10 mg PO BEDTIME [facility] Last Admin: 07/03/24 21:33 Dose: 10 mg Thiamine HCl (Thiamine Hcl 100 Mg Tablet) 100 mg PO DAILY COUNT [facility]CLUD[facility] Last Admin: 07/04/24 08:54 Dose: 100 mg Allergies Allergies Allergy/AdvReac Type Severity Reaction Status Date / Time No Known Allergies Allergy Verified 06/28/24 18:03 Assessment & Plan Assessment & Plan (1) Schizoaffective disorder, depressive type: Status: Acute Code(s): F25.1 - Schizoaffective disorder, depressive type (2) Alcohol abuse: Status: Acute Code(s): F10.10 - Alcohol abuse, uncomplicated (3) Cocaine abuse: Status: Acute Code(s): F14.10 - Cocaine abuse, uncomplicated Plan 07/02: ativan per CIWA for alcohol withdrawal. start lithium 600 BID for mood instability. start zyprexa 10 at HS for psychotic Sx. 07/03: terse, evasive. less irritable than yesterday, perhaps a tad less paranoid. CIWAs very low; DC ativan PRN and CIWA protocol. 07/04: more engageable today. denies AH, only senses malevolent entity in the room, or similar, when he is alone. continue current mgmt. Reason for continued inpatient stay Substantial Risk for: harm to self, inability to function and rapid decompensation Time Spent With Patient Time: Total time managing care of this patient today __25__ minutes.
[2024-07-04] MEDS: Acetaminophen 325 MG TABLET 650 MG PO ×2 (15:01→21:31)
[2024-07-04 19:55] VITALS: BP 135/77; PULSE 89; RESP 18; TEMP 36.5; O2SAT 98
[2024-07-04] MEDS: OLANZapine 10 MG TABLET PO (21:30)
[2024-07-04] MEDS: OLANZapine 5 MG TABLET PO (21:31)
[2024-07-05 07:38] VITALS: BP 129/79; PULSE 80; RESP 14; TEMP 37.2; O2SAT 99
[2024-07-05] MEDS: Lithium Carbonate ER 300 MG TABLET.ER 600 MG PO ×2 (09:24→20:32)
[2024-07-05] MEDS: Thiamine HCL 100 MG TABLET PO (09:24)
--- NOTE | 2024-07-05 14:28 | HO.PSYCHPN ---
Subjective Subjective Date of Service: 07/05/24 Reason For Visit: SI Interim History: c/o cramps in his legs at night. agreeable to start Mg supplementation. agreeable to monday labs. may want D on monday. per staff, taking meds. watching TV. using headphones. soft speech. attend 1 group. slept 7 hours. c/o leg cramps. Mental Status Exam Mental Status Exam Narrative: Pt is alert and oriented; behavior is superficially cooperative, fair eye contact; dressed in casual attire adequately groomed with adequate hygiene; mood is euthymic, and affect mildly flexible; Speech is low loudness; thought process is goal directed and linear; Thought content is notable for no expressed paranoid delusions; no SI/SIBI/HI/AVH expressed. Diagnostics Vital Signs (24Hr): Vital Signs - 24 hr 07/04/24 19:55 07/05/24 07:38 Temperature 97.7 F 99.0 F Pulse Rate 89 80 Respiratory Rate 18 14 Blood Pressure 135/77 129/79 Pulse Oximetry 98 99 Oxygen Delivery Method Room Air Room Air BMI result Body Mass Index 30.2 Labs 06/28/24 18:30 07/02/24 08:34 Medications Medications Current Medications Acetaminophen (Acetaminophen 325 Mg Tablet) 650 mg PO Q6H PRN PRN Reason: Headache/Pain Mild Scale (1-3) Last Admin: 07/04/24 21:31 Dose: 650 mg Al Hydroxide/Mg Hydroxide (Magnesium Hydrox/Alum Hydrox 30 Ml Oral.Susp) 30 ml PO Q6H PRN PRN Reason: Heartburn/Nausea Hydroxyzine HCl (Hydroxyzine Hcl 25 Mg Tablet) 25 mg PO Q6H PRN PRN Reason: Anxiety [place] Carbonate ([place] Carbonate Er 300 Mg Tablet.Er) 600 mg PO BID [facility] Last Admin: 07/05/24 09:24 Dose: 600 mg Magnesium Hydroxide (Milk Of Magnesia 30 Ml Oral.Susp) 30 ml PO DAILY PRN PRN Reason: Constipation Magnesium Oxide (Magnesium Oxide 400 Mg Tablet) 400 mg PO BEDTIME [facility] Olanzapine (Olanzapine 5 Mg Tablet) 5 mg PO TID PRN PRN Reason: agitation Last Admin: 07/04/24 21:31 Dose: 5 mg Olanzapine (Olanzapine 10 Mg Tablet) 10 mg PO BEDTIME [facility] Last Admin: 07/04/24 21:30 Dose: 10 mg Thiamine HCl (Thiamine Hcl 100 Mg Tablet) 100 mg PO DAILY [facility] Last Admin: 07/05/24 09:24 Dose: 100 mg Trolamine Salicylate (Trolamine Salicylate 10 % Cream 85 Gm Tube) 1 appl TOPICAL QID PRN; Protocol PRN Reason: ache/spasm Allergies Allergies Allergy/AdvReac Type Severity Reaction Status Date / Time No Known Allergies Allergy Verified 06/28/24 18:03 Assessment & Plan Assessment & Plan (1) Schizoaffective disorder, depressive type: Status: Acute Code(s): F25.1 - Schizoaffective disorder, depressive type (2) Alcohol abuse: Status: Acute Code(s): F10.10 - Alcohol abuse, uncomplicated (3) Cocaine abuse: Status: Acute Code(s): F14.10 - Cocaine abuse, uncomplicated Plan 07/02: ativan per CIWA for alcohol withdrawal. start lithium 600 BID for mood instability. start zyprexa 10 at HS for psychotic Sx. 07/03: terse, evasive. less irritable than yesterday, perhaps a tad less paranoid. CIWAs very low; DC ativan PRN and CIWA protocol. 07/04: more engageable today. denies AH, only senses malevolent entity in the room, or similar, when he is alone. continue current mgmt. 07/05: continues more engageable. c/o leg cramps, started Mg. no other complaints or requests. possibly will discharge monday. labs ordered for monday NOC. Reason for continued inpatient stay Substantial Risk for: harm to self, inability to function and rapid decompensation Time Spent With Patient Time: Total time managing care of this patient today __25__ minutes.
[2024-07-05 20:00] VITALS: BP 140/72; PULSE 88; RESP 16; TEMP 36.6; O2SAT 98
[2024-07-05] MEDS: Magnesium Oxide 400 MG TABLET PO (20:31)
[2024-07-05] MEDS: OLANZapine 10 MG TABLET PO (20:32)
[2024-07-06 08:11] VITALS: BP 132/77; PULSE 80; RESP 18; TEMP 36.8; O2SAT 97
[2024-07-06 08:25] VITALS: BP 132/77; PULSE 80; RESP 18; TEMP 36.8; O2SAT 97
[2024-07-06] MEDS: Thiamine HCL 100 MG TABLET PO (08:43)
[2024-07-06] MEDS: Lithium Carbonate ER 300 MG TABLET.ER 600 MG PO ×2 (08:43→20:22)
--- NOTE | 2024-07-06 09:29 | P.PNPSI_ITS ---
Subjective Subjective Date of Service: 07/06/24 Reason For Visit: SI Subjective Notes: Conditional Voluntary Interim History: Patient was seen and discussed in rounds today. Records and plans were reviewed. He has been stable and is doing better and magnesium has been of some help with his cramps. Mostly isolative with minimal social interactions. He is compliant with meds. No complaints or side effects. No changes were made today Review of Systems Review of Systems Leg cramps Yes all other systems are reviewed and are negative Mental Status Exam Mental Status Exam Narrative: In today's visit he is alert, oriented and pleasant. Soft-spoken speech. Minimal eye contact. Affect is appropriate and constricted. No acute signs of psychosis. No delusions. No SI/HI. Cognitively intact. Judgment is intact Diagnostics Vital Signs (24Hr): Vital Signs - 24 hr 07/05/24 20:00 07/06/24 08:11 07/06/24 08:25 Temperature 97.9 F 98.2 F 98.2 F Pulse Rate 88 80 80 Respiratory Rate 16 18 18 Blood Pressure 140/72 H 132/77 132/77 Pulse Oximetry 98 97 97 Oxygen Delivery Method Room Air Room Air BMI result Body Mass Index 30.2 Labs 06/28/24 18:30 07/02/24 08:34 Medications Medications Current Medications Acetaminophen (Acetaminophen 325 Mg Tablet) 650 mg PO Q6H PRN PRN Reason: Headache/Pain Mild Scale (1-3) Last Admin: 07/04/24 21:31 Dose: 650 mg Al Hydroxide/Mg Hydroxide (Magnesium Hydrox/Alum Hydrox 30 Ml Oral.Susp) 30 ml PO Q6H PRN PRN Reason: Heartburn/Nausea Hydroxyzine HCl (Hydroxyzine Hcl 25 Mg Tablet) 25 mg PO Q6H PRN PRN Reason: Anxiety [place] Carbonate ([place] Carbonate Er 300 Mg Tablet.Er) 600 mg PO BID [facility] Last Admin: 07/06/24 08:43 Dose: 600 mg Magnesium Hydroxide (Milk Of Magnesia 30 Ml Oral.Susp) 30 ml PO DAILY PRN PRN Reason: Constipation Magnesium Oxide (Magnesium Oxide 400 Mg Tablet) 400 mg PO BEDTIME [facility] Last Admin: 07/05/24 20:31 Dose: 400 mg Olanzapine (Olanzapine 5 Mg Tablet) 5 mg PO TID PRN PRN Reason: agitation Last Admin: 07/04/24 21:31 Dose: 5 mg Olanzapine (Olanzapine 10 Mg Tablet) 10 mg PO BEDTIME [facility] Last Admin: 07/05/24 20:32 Dose: 10 mg Thiamine HCl (Thiamine Hcl 100 Mg Tablet) 100 mg PO DAILY [facility] Last Admin: 07/06/24 08:43 Dose: 100 mg Trolamine Salicylate (Trolamine Salicylate 10 % Cream 85 Gm Tube) 1 appl TOPICAL QID PRN; Protocol PRN Reason: ache/spasm Allergies Allergies Allergy/AdvReac Type Severity Reaction Status Date / Time No Known Allergies Allergy Verified 06/28/24 18:03 Assessment & Plan Assessment & Plan (1) Schizoaffective disorder, depressive type: Status: Acute Code(s): F25.1 - Schizoaffective disorder, depressive type (2) Alcohol abuse: Status: Acute Code(s): F10.10 - Alcohol abuse, uncomplicated (3) Cocaine abuse: Status: Acute Code(s): F14.10 - Cocaine abuse, uncomplicated Plan 07/02: ativan per CIWA for alcohol withdrawal. start lithium 600 BID for mood instability. start zyprexa 10 at HS for psychotic Sx. 07/03: terse, evasive. less irritable than yesterday, perhaps a tad less paranoid. CIWAs very low; DC ativan PRN and CIWA protocol. 07/04: more engageable today. denies AH, only senses malevolent entity in the room, or similar, when he is alone. continue current mgmt. 07/05: continues more engageable. c/o leg cramps, started Mg. no other complaints or requests. possibly will discharge monday. labs ordered for monday NOC. 07/06: Continue current regimen and plans Reason for continued inpatient stay Substantial Risk for: med/psych decompensation Time Spent With Patient Time: Total time managing care of this patient today ____ minutes.
[2024-07-06 20:00] VITALS: BP 149/77; PULSE 94; RESP 16; TEMP 36.9; O2SAT 96
[2024-07-06] MEDS: OLANZapine 10 MG TABLET PO (20:22)
[2024-07-06] MEDS: Magnesium Oxide 400 MG TABLET PO (20:22)
[2024-07-07 08:00] VITALS: BP 119/67; PULSE 87; RESP 16; TEMP 36.6; O2SAT 98
[2024-07-07] MEDS: Thiamine HCL 100 MG TABLET PO (08:52)
[2024-07-07] MEDS: Lithium Carbonate ER 300 MG TABLET.ER 600 MG PO ×2 (08:52→20:44)
--- NOTE | 2024-07-07 09:59 | HO.PSYCHPN ---
Subjective Subjective Date of Service: 07/07/24 Reason For Visit: SI Subjective Notes: Conditional Voluntary Interim History: Patient was seen and discussed in rounds today. Records and plans were reviewed. He has been stable with blunt affect. He is med compliant. No complaints or side effects. Using his headphones at most times. No behavioral issues. Eating and sleeping adequately. No changes were made today Review of Systems Review of Systems Yes all other systems are reviewed and are negative Mental Status Exam Mental Status Exam Narrative: In today's visit he is alert, oriented and pleasant. Soft-spoken speech. Minimal eye contact. Affect is appropriate and constricted. No acute signs of psychosis. No delusions. No SI/HI. Cognitively intact. Judgment is intact Diagnostics Vital Signs (24Hr): Vital Signs - 24 hr 07/06/24 20:00 07/07/24 08:00 Temperature 98.5 F 97.8 F Pulse Rate 94 87 Respiratory Rate 16 16 Blood Pressure 149/77 H 119/67 Pulse Oximetry 96 98 Oxygen Delivery Method Room Air Room Air BMI result Body Mass Index 30.2 Labs 06/28/24 18:30 07/02/24 08:34 Medications Medications Current Medications Acetaminophen (Acetaminophen 325 Mg Tablet) 650 mg PO Q6H PRN PRN Reason: Headache/Pain Mild Scale (1-3) Last Admin: 07/04/24 21:31 Dose: 650 mg Al Hydroxide/Mg Hydroxide (Magnesium Hydrox/Alum Hydrox 30 Ml Oral.Susp) 30 ml PO Q6H PRN PRN Reason: Heartburn/Nausea Hydroxyzine HCl (Hydroxyzine Hcl 25 Mg Tablet) 25 mg PO Q6H PRN PRN Reason: Anxiety [place] Carbonate ([place] Carbonate Er 300 Mg Tablet.Er) 600 mg PO BID [facility] Last Admin: 07/07/24 08:52 Dose: 600 mg Magnesium Hydroxide (Milk Of Magnesia 30 Ml Oral.Susp) 30 ml PO DAILY PRN PRN Reason: Constipation Magnesium Oxide (Magnesium Oxide 400 Mg Tablet) 400 mg PO BEDTIME [facility] Last Admin: 07/06/24 20:22 Dose: 400 mg Olanzapine (Olanzapine 5 Mg Tablet) 5 mg PO TID PRN PRN Reason: agitation Last Admin: 07/04/24 21:31 Dose: 5 mg Olanzapine (Olanzapine 10 Mg Tablet) 10 mg PO BEDTIME [facility] Last Admin: 07/06/24 20:22 Dose: 10 mg Thiamine HCl (Thiamine Hcl 100 Mg Tablet) 100 mg PO DAILY [facility] Last Admin: 07/07/24 08:52 Dose: 100 mg Trolamine Salicylate (Trolamine Salicylate 10 % Cream 85 Gm Tube) 1 appl TOPICAL QID PRN; Protocol PRN Reason: ache/spasm Allergies Allergies Allergy/AdvReac Type Severity Reaction Status Date / Time No Known Allergies Allergy Verified 06/28/24 18:03 Assessment & Plan Assessment & Plan (1) Schizoaffective disorder, depressive type: Status: Acute Code(s): F25.1 - Schizoaffective disorder, depressive type (2) Alcohol abuse: Status: Acute Code(s): F10.10 - Alcohol abuse, uncomplicated (3) Cocaine abuse: Status: Acute Code(s): F14.10 - Cocaine abuse, uncomplicated Plan 07/02: ativan per CIWA for alcohol withdrawal. start lithium 600 BID for mood instability. start zyprexa 10 at HS for psychotic Sx. 07/03: terse, evasive. less irritable than yesterday, perhaps a tad less paranoid. CIWAs very low; DC ativan PRN and CIWA protocol. 07/04: more engageable today. denies AH, only senses malevolent entity in the room, or similar, when he is alone. continue current mgmt. 07/05: continues more engageable. c/o leg cramps, started Mg. no other complaints or requests. possibly will discharge monday. labs ordered for monday NOC. 07/06: Continue current regimen and plans 07/07: Continue current regimen and plans 07/07: Continue current regimen and plans Reason for continued inpatient stay Substantial Risk for: med/psych decompensation Time Spent With Patient Time: Total time managing care of this patient today ____ minutes.
[2024-07-07 20:00] VITALS: BP 136/78; PULSE 89; RESP 18; TEMP 36.6; O2SAT 96
[2024-07-07] MEDS: Magnesium Oxide 400 MG TABLET PO (20:44)
[2024-07-07] MEDS: OLANZapine 10 MG TABLET PO (20:46)
[2024-07-07 20:56] LABS: Lithium 0.51 mmol/L (0.60-1.20)
[2024-07-07 21:07] LABS: Anion Gap 17 (12-20); Blood Urea Nitrogen 18 mg/dL (9-16); Calcium 9.8 mg/dL (8.4-10.2); Carbon Dioxide 21 mmol/L (22-29); Chloride 105 mmol/L (96-108); Creatinine Clr Calc Pharmacy 100.2; Estimated Glomerular Filt Rate > 60; Glucose Random 143 mg/dL (60-115); Potassium 3.6 mmol/L (3.3-5.1); Sodium 139 mmol/L (135-145)
[2024-07-08 08:00] VITALS: BP 136/84; PULSE 64; RESP 16; TEMP 36.7; O2SAT 99
[2024-07-08] MEDS: Lithium Carbonate ER 300 MG TABLET.ER 600 MG PO (09:06)
[2024-07-08] MEDS: Thiamine HCL 100 MG TABLET PO (09:07)
--- NOTE | 2024-07-08 10:17 | PM.PSYDC ---
DS: Providers Provider Date of Service: 07/08/24 Date of admission: 07/01/24 15:56 Primary care physician: None Physician Consults: 07/01/24 17:21 Addiction Medicine Routine Consulting Provider: Addiction Covering Reason for consultation: Scored high on etoh assessment Has provider been notified: Yes DS: Diagnosis Discharge Diagnosis (1) Schizoaffective disorder, depressive type: Status: Acute (2) Alcohol abuse: Status: Acute (3) Cocaine abuse: Status: Acute DS: Medications Discharge Medications Home Medications: Home Medications ?Medication ?Instructions ?Recorded ?Confirmed No Known Home Meds 05/02/24 06/29/24 Previous Rx's ?Medication ?Instructions ?Recorded lithium carbonate 300 mg 600 mg (2 x 300 mg) PO BID 30 days 07/08/24 tablet,extended release #120 tabs magnesium oxide 400 mg (241.3 mg 400 mg PO BEDTIME 30 days #30 tabs 07/08/24 magnesium) tablet olanzapine 10 mg tablet 10 mg PO BEDTIME 30 days #30 tabs 07/08/24 Mental Status Exam Mental Status Exam Narrative: Pt is alert and oriented; behavior is superficially cooperative, fair eye contact; dressed in casual attire adequately groomed with adequate hygiene; mood is regular, and affect mildly flexible; Speech is low loudness; thought process is goal directed and linear; Thought content is notable for no expressed paranoid delusions; no SI/SIBI/HI/AVH. Data Data Completed and Pending Completed studies during hospitalization [Text1]: 07/02/24 07/07/24 08:34 20:31 Sodium 140 139 Potassium 4.5 3.6 Chloride 106 105 Carbon Dioxide 28 21 L Anion Gap 11 L 17 BUN 15 18 H Creatinine 0.89 1.00 Estim Creat Clear Calc 113.0 100.2 Estimated GFR > 60 > 60 Random Glucose 143 H Fasting Glucose 94 Estimat Average Glucose 108 Hemoglobin A1c % 5.4 Calcium 9.7 D 9.8 Total Bilirubin 0.5 AST 28 ALT 42 H Alkaline Phosphatase 67 Total Protein 7.7 Albumin 4.6 Triglycerides 90 Cholesterol 160 LDL Cholesterol, Calc 94 HDL Cholesterol 48 Vitamin B12 534 TSH 1.13 [place] 0.51 L 06/28/24 18:51 Urine clean catch - Clean Catch Midstream Urine Culture - Final No growth. DS: Summary Hospital Course Hospital Course: per 07/02 admission note: HPI Narrative: per CARE team eval, pt self-presented to [facility] c/o depression with SI, no plan (but later endorsed plan but would not divulge what it was). c/o homelessness and separation from long-term partner as stressors. states he has been off psych meds for two years and has no outpt treaters. reported excessive alcohol consumption as coping strategy. reporting seeing angry faces all around him and feeling that someone or something is out to get him. on interview with , pt presents as above. c/o paranoid delusions as well as VH. Hx is taken, medications for Sx are discussed. for unknown reasons pt does not wish to take risperidone. he does agree to zyprexa for psychotic Sx and lithium for mood instability and lability. Past Psychiatric History: Past psychiatric hospitalizations : Reports most recent in 2021. about 10-15 lifetime. SA: reports more than 3. MRE 3-4 yrs ago. SIB: reports h/o cutting, MRE more than 10 years ago. HIB: denies Started on Risperdal 2 mg b.i.d. in 2020 which he says was helpful OP: Denies current treaters. has been off meds for the past 2 years, so has been out of Tx for more than 2 years. states he was last being seen at [facility]. Sx hx: AH, VH, Paranoia Medical Evaluation Reviewed: Yes [facility] Medical History Alcohol abuse Schizoaffective disorder, depressive type Cocaine abuse Family History: Patient said no family psychiatric history that he knows of Reports maternal family is prone to CVA types of illness Social History: Born in [place]; father left when he was young and family was in poverty with little food Came to the [place] around 11 or 12 years old completed the 7th grade Currently not working, on SSI Has one living brother and one child in his 30's whom he has met x 2 Relationship with Madelyn since age 19, whose daughter works with [facility]-states he is not close with her daughter. recently lost his apartment, about a month [employer], per his report. Substance History: tobacco - 1-2 ppd alcohol - daily, 6+ drinks. cannabis - daily cocaine - occasional use opioids - denies benzos - denies states, i don't use any illegal drugs. Trauma History: Affirms through and family losses Precis: 07/02: ativan per CIWA for alcohol withdrawal. start lithium 600 BID for mood instability. start zyprexa 10 at HS for psychotic Sx. 07/03: terse, evasive. less irritable than yesterday, perhaps a tad less paranoid. CIWAs very low; DC ativan PRN and CIWA protocol. 07/04: more engageable today. denies AH, only senses malevolent entity in the room, or similar, when he is alone. continue current mgmt. 07/05: continues more engageable. c/o leg cramps, started Mg. no other complaints or requests. possibly will discharge monday. labs ordered for monday NOC. 07/06: Continue current regimen and plans 07/07: Continue current regimen and plans 07/08: calm, cooperative, pleasant. planning to discharge tomorrow. meds reviewed, reconciled, prescribed. 07/09: continues safe and stable. discharged as per plan. Time Spent with Patient Time attestation: Total time managing care of this patient today __35__ minutes. Discharge Plan Discharge Anticipated Discharge Date/Time: 07/08/24 13:30 Patient Disposition: Half-Way Discharge Diagnosis: Schizoaffective Disorder, Bipolar Type Referrals: Half-Way: [facility] [Other] - 07/08/24 3:00 pm (Knock on the door when you arrive; you will have to complete an application, do an interview and complete a tox screen/breathalyzer . If all goes well, you are able to stay up to 60 days. ) Count Includes [facility]: [facility] [Other] - 1 Week (Walk-in or call anytime, M- 8am-8pm, or Mon and Monday 9am-5pm, to request to complete an intake four outpatient services ) [facility] [Provider Group] - 1 Week ([facility] has been added to patients chart. Please call [phone] for follow up appt.) Discharge Medications: New olanzapine 10 mg Tablet 10 mg PO BEDTIME 30 Days Qty: 30 0RF lithium carbonate 300 mg Tablet Extended Release 600 mg PO BID 30 Days Qty: 120 0RF magnesium oxide 400 mg (241.3 mg magnesium) Tablet 400 mg PO BEDTIME 30 Days Qty: 30 0RF No Action No Known Home Meds Discharge Orders: Discharge Order (Routine); Ordered 07/08/24 Ordered By: Salvador Avila Diet: Advance to usual diet Activity on Discharge: As tolerated Stand Alone Forms: Patient Portal Discharge page, Community Support Print Language: Ethiopian Care Plan Goals: remain safe and stable in the outpatient treatment setting Health Concerns: none Plan of Treatment: take medications as prescribed, attend appointments as scheduled Assessment: not at imminent risk of harm to self or others Discharge Date/Time: 07/08/24 13:40
== END 2024-07-08 13:40 | disposition home or self-care (01) | DRG 885 ==
LOC: HO.ED 06-29 03:07 → HO.PADLT16 07-01 16:12
PROVIDERS: Physician Assistant Medical; Admitting Provider Social Worker; Emergency Provider Emergency Medicine; Visit Provider Psychiatry & Neurology Psychiatry
DX: F25.1 Schizoaffective disorder, depressive type (principal); R45.851 Suicidal ideations; F10.10 Alcohol abuse, uncomplicated; F14.10 Cocaine abuse, uncomplicated; F17.210 Nicotine dependence, cigarettes, uncomplicated; Z71.6 Tobacco abuse counseling; Y90.2 Blood alcohol level of 40-59 mg/100 ml; Z91.52 Personal history of nonsuicidal self-harm; Z91.51 Personal history of suicidal behavior; Z79.899 Other long term (current) drug therapy
CPT/HCPCS: 36415; 80048; 80053; 80061; 80143; 80178; 80179; 80307; 81001; 82607; 83036; 83735; 84443; 85025; 87086; 93005; 99285; S9485

== ENCOUNTER → 2024-07-01 07:39 | Outpatient (BNV) | payer MEDICARE, SELFPAY | PROVIDERS: Emergency Provider Emergency Medicine; Visit Provider Internal Medicine Cardiovascular Disease | DX: R94.31 Abnormal electrocardiogram [ECG] [EKG] (principal) | CPT/HCPCS: 93010 ==

== ENCOUNTER → 2024-07-01 15:56 | Outpatient (BNV) | payer MEDICARE, SELFPAY | PROVIDERS: Admitting Provider Social Worker; Emergency Provider Emergency Medicine; Visit Provider Psychiatry & Neurology Psychiatry | DX: F25.1 Schizoaffective disorder, depressive type (principal); F14.10 Cocaine abuse, uncomplicated; F10.10 Alcohol abuse, uncomplicated | CPT/HCPCS: 90792; 99231; 99232; 99239 ==

== ENCOUNTER 2024-07-11 09:11 | Emergency (ER) | payer MEDICARE, SELFPAY ==
--- NOTE | 2024-07-11 09:22 | ED.ALCOHOL ---
HPI - Alcohol General Chief Complaint: Psychiatric Symptoms Stated Complaint: Crisis Time Seen by Provider: 07/11/24 09:20 Source: patient and EMS Mode of arrival: EMS Limitations: no limitations History of Present Illness HPI narrative: 53 year old female PMH alcoholism, schizophrenia, bipolar presents to the ER for SI and and alcohol intoxication recently discharged from . He has been homeless only been home for 4 days he denies SI but states he has had some bad thoughts does not that things are going well and feels like he needs a re-evaluation. MD complaint: alcohol intoxication Related Data Previous Rx's ?Medication ?Instructions ?Recorded lithium carbonate 300 mg 600 mg (2 x 300 mg) PO BID 30 days 07/08/24 tablet,extended release #120 tabs magnesium oxide 400 mg (241.3 mg 400 mg PO BEDTIME 30 days #30 tabs 07/08/24 magnesium) tablet olanzapine 10 mg tablet 10 mg PO BEDTIME 30 days #30 tabs 07/08/24 Allergies Allergy/AdvReac Type Severity Reaction Status Date / Time No Known Allergies Allergy Verified 07/11/24 09:25 Review of Systems Review of Systems: Review of systems: General: Patient denies any fever chills recent illness or falls Musculoskeletal: Denies back pain or body aches or other injuries HEENT: denies headache, runny nose, ear pain Respiratory: denies shortness of breath, cough Cardiovascular: no chest pain or palpitations : denies dysuria, frequency Abdomen: no nausea vomiting denies abdominal pain Extremities: no swelling, no pain Skin: no diaphoresis Yes all other systems are reviewed and are negative [facility] Past Medical History Medical History Alcohol abuse Schizoaffective disorder, depressive type Cocaine abuse Social History Social History (Updated 10/19/22 @ 08:41 by Sinai Hayward CCM) Household Members: None Housing: Homeless Do you presently have visiting nurse or other home services: No Alcohol intake: current Alcohol intake frequency: 3 or more drinks per day Alcohol type: beer Patient Tobacco Use Status: Current everyday Tobacco user Tobacco use type: Cigarette Smoked in Last 30 Days: Yes e-Cigarette/Vaping Use: Former Use Second Hand Smoke Exposure: Yes (yes when spouse smokes) Use of substances other than those prescribed or required for medical reasons: No Substance Use Type: Marijuana Advance Directives: No Advance Directives Information Provided: Yes Do you have a plan to hurt others: No Plan service: No Current occupational status: unemployed Current occupation: rt hand Sexual orientation: Straight/Heterosexual Physical Exam ED Vital Signs: Vital Signs - 24 hr 07/11/24 09:24 07/11/24 09:27 Temperature 99.7 F Pulse Rate 106 H Respiratory Rate 16 16 Blood Pressure 158/96 H Pulse Oximetry 95 Oxygen Delivery Method Room Air BMI result Body Mass Index 27.4 General: Well-appearing well-nourished in no signs of distress HEENT: Normocephalic atraumatic Neck: No signs of JVD, no masses no tenderness or lymphadenopathy Cardiovascular: Regular rate and rhythm Respiratory: Clear to auscultation bilaterally Abdomen: Soft nontender no masses Extremities: Normal pedal pulses no signs of edema Skin: Dry warm no rashes Back: No tenderness full ROM Course Course Course Narrative: Patient was seen by care team around 11:00 o'clock and was deemed safe to go for respite care. Patient will have a ride around 16 30 today patient is happy with the plan Medical Decision Making Medical Decision Making [facility] Narrative: Flu like his homelessness is playing a big role in this he denies any recent alcohol use I will have the patient evaluated Differential Diagnosis Differential Diagnoses: The differential diagnosis associated with the presentation includes I will check labs and have the patient seen by care team Consult Healthcare Provider Management of the patient was discussed with: Bicycle [facility] and Behavioral Health Provider Lab Data [facility] Lab Attestation statement: I reviewed the patient's lab results. 07/11/24 09:19 07/11/24 09:19 Labs: Lab Results 07/11/24 Range/Units 09:19 WBC 10.5 (4.8-10.8) X10*3/uL RBC 4.63 (4.60-5.80) X10*6/uL Hgb 14.9 (14.0-18.0) g/dl Hct 41.4 L (42.0-52.0) % MCV 89.4 (80.0-98.0) fL MCH 32.2 (27.0-33.0) pg MCHC 36.0 (31.0-36.0) g/dl RDW 12.6 (11.0-16.0) % Plt Count 205 (160-400) X10*3/uL MPV 10.0 (9.4-12.4) fL Immature Gran % (Auto) 0.3 (0.0-0.4) % Neut % (Auto) 61.9 (45-73) % Lymph % (Auto) 29.7 (20-40) % [place] % (Auto) 5.8 (2-11) % Eos % (Auto) 2.0 (0-4) % Baso % (Auto) 0.3 (0-2) % Lymph # (Auto) 3.1 (1.2-4.9) X10*3/uL [place] # (Auto) 0.6 (0.1-1.2) X10*3/uL Eos # (Auto) 0.2 (0.0-0.4) X10*3/uL Baso # (Auto) 0.0 (0.0-0.2) X10*3/uL Abs Immat Gran (auto) 0.03 (0.00-0.03) X10*3/uL Absolute Neuts (auto) 6.5 (2.0-8.3) x10*3/uL Absolute Nucleated RBC 0.000 (0.0-0.012) X10*3/uL Nucleated RBC % (auto) 0.0 (0.0-0.2) /100WBC Sodium 142 (135-145) mmol/L Potassium 3.6 (3.3-5.1) mmol/L Chloride 106 (96-108) mmol/L Carbon Dioxide 29 (22-29) mmol/L Anion Gap 11 L (12-20) BUN 14 (9-16) mg/dL Creatinine 0.88 (0.5-1.4) mg/dL Estim Creat Clear Calc 96.0 Estimated GFR > 60 Random Glucose 100 (60-115) mg/dL Calcium 9.1 D (8.4-10.2) mg/dL Total Bilirubin 0.4 (0.0-1.0) mg/dL AST 96 H (5-37) U/L ALT 111 H (0-40) U/L Alkaline Phosphatase 72 (39-117) U/L Total Protein 6.9 (6.5-8.0) g/dL Albumin 4.2 (3.5-5.0) g/dL Ethyl Alcohol < 10 mg/dL Discharge Plan Discharge Clinical Impression: Schizoaffective disorder, depressive type, Homeless Patient Disposition: Xfer Other Transfer Details: Respite care Prescriptions: No Action olanzapine 10 mg Tablet 10 mg PO BEDTIME 30 Days Qty: 30 0RF lithium carbonate 300 mg Tablet Extended Release 600 mg PO BID 30 Days Qty: 120 0RF magnesium oxide 400 mg (241.3 mg magnesium) Tablet 400 mg PO BEDTIME 30 Days Qty: 30 0RF Interventions: [place]-Suicide Risk Severity Scale Last Done: 07/11/24 09:28 Print Language: Frisian
[2024-07-11 09:24] VITALS: BP 158/96; PULSE 106; RESP 16; TEMP 37.6; O2SAT 95; BMI 27.4
[2024-07-11 09:26] LABS: MANUAL DIFF FLAG NO
[2024-07-11 09:27] VITALS: RESP 16
[2024-07-11 09:27] LABS: Basophils Percent Auto 0.3 % (0-2); Eosinophils Absolute Auto 0.2 X10*3/uL (0.0-0.4); Hematocrit 41.4 % (42.0-52.0); Hemoglobin 14.9 g/dl (14.0-18.0); Imm Gran Abs Auto 0.03 X10*3/uL (0.00-0.03); Imm Gran Pct Auto 0.3 % (0.0-0.4); Lymphocytes Absolute Auto 3.1 X10*3/uL (1.2-4.9); Lymphocytes Percent Auto 29.7 % (20-40); Mean Corpuscular Hemoglobin 32.2 pg (27.0-33.0); Mean Corpuscular Volume 89.4 fL (80.0-98.0); Monocytes Absolute Auto 0.6 X10*3/uL (0.1-1.2); Monocytes Percent Auto 5.8 % (2-11); Neutrophils Absolute Auto 6.5 x10*3/uL (2.0-8.3); Neutrophils Percent Auto 61.9 % (45-73); Platelet Count 205 X10*3/uL (160-400); Red Blood Count 4.63 X10*6/uL (4.60-5.80); Red Cell Distribution Width 12.6 % (11.0-16.0); White Blood Count 10.5 X10*3/uL (4.8-10.8)
[2024-07-11 09:56] LABS: Alanine Aminotransferase 111 U/L (0-40); Albumin Level 4.2 g/dL (3.5-5.0); Alkaline Phosphatase 72 U/L (39-117); Anion Gap 11 (12-20); Aspartate Amino Transferase 96 U/L (5-37); Bilirubin Total 0.4 mg/dL (0.0-1.0); Blood Urea Nitrogen 14 mg/dL (9-16); Calcium 9.1 mg/dL (8.4-10.2); Carbon Dioxide 29 mmol/L (22-29); Chloride 106 mmol/L (96-108); Estimated Glomerular Filt Rate > 60; Ethanol < 10 mg/dL; Glucose Random 100 mg/dL (60-115); Potassium 3.6 mmol/L (3.3-5.1); Sodium 142 mmol/L (135-145); Total Protein 6.9 g/dL (6.5-8.0)
--- NOTE | 2024-07-11 10:58 | PC.NURSE ---
Pts bike is located under the stairs of [address] [place] [address]
--- NOTE | 2024-07-11 11:22 | MHC.CARE ---
Pt does not meet IPLOC at this time. He will be referred to [facility] as they have 2 male beds today. If Pt is not accepted to ACCS he may be re-evaluated and/or discharged with referrals as he does not currently present as an imminent risk at this time and denies SI, HI, and LINDA
--- NOTE | 2024-07-11 12:34 | MHC.CARE ---
Pt has been accepted to [facility] for 4:30pm. He will need a Lyft to [address] at that time.
[2024-07-11 16:23] VITALS: BP 139/77; PULSE 67; RESP 16; TEMP 37.2; O2SAT 98
== END 2024-07-11 16:25 | disposition other institution (70) ==
PROVIDERS: Emergency Provider Student in an Organized Health Care Education/Training Program
DX: F25.1 Schizoaffective disorder, depressive type (principal); F10.129 Alcohol abuse with intoxication, unspecified; Z51.81 Encounter for therapeutic drug level monitoring; Z59.00 Homelessness unspecified; Z79.899 Other long term (current) drug therapy
CPT/HCPCS: 36415; 80053; 80307; 85025; 99285; S9485

== ENCOUNTER 2024-07-22 17:02 | Emergency (ER) | payer MEDICARE, SELFPAY ==
[2024-07-22 17:18] VITALS: BP 137/83; PULSE 100; RESP 19; TEMP 36.8; O2SAT 99; BMI 32.6
--- NOTE | 2024-07-22 17:20 | ED.SKABFB ---
HPI - Skin/Abscess/Foreign Bdy General Chief complaint: General Medical Stated complaint: facial rash Time Seen by Provider: 07/22/24 17:20 Source: patient Mode of arrival: ambulatory Limitations: no limitations History of Present Illness ED Provider: Kateryna Hughes PA-C HPI narrative: 53-year-old male with history of schizoaffective disorder, cocaine use, alcohol use who presents to the ER for evaluation of a burning, itching, red and yellow colored rash on his face, mostly located on either side of his nose. He reports it started a couple of days ago and has been getting worse. no new lotions, soaps, detergents or exposures that he can think of. no fevers. no drainage. MD complaint: rash Onset (ago): day(s) Location: face Severity: moderate Quality: burning and pruritic Relieving factors: none Exacerbating factors: none Context: none Associated symptoms: denies other symptoms Treatments prior to arrival: none Related Data Previous Rx's ?Medication ?Instructions ?Recorded lithium carbonate 300 mg 600 mg (2 x 300 mg) PO BID 30 days 07/08/24 tablet,extended release #120 tabs magnesium oxide 400 mg (241.3 mg 400 mg PO BEDTIME 30 days #30 tabs 07/08/24 magnesium) tablet olanzapine 10 mg tablet 10 mg PO BEDTIME 30 days #30 tabs 07/08/24 doxycycline hyclate 100 mg tablet 100 mg PO BID #14 tabs 07/22/24 mupirocin 2 % topical ointment 1 appl topical BID #22 grams 07/22/24 Allergies Allergy/AdvReac Type Severity Reaction Status Date / Time No Known Allergies Allergy Verified 07/22/24 17:19 Review of Systems Review of Systems: Yes all other systems are reviewed and are negative [facility] Past Medical History Medical History Alcohol abuse Schizoaffective disorder, depressive type Cocaine abuse Social History Social History (Updated 10/19/22 @ 08:41 by FAUSTINO Marrero) Household Members: None Housing: Homeless Do you presently have visiting nurse or other home services: No Alcohol intake: current Alcohol intake frequency: 3 or more drinks per day Alcohol type: beer Patient Tobacco Use Status: Current everyday Tobacco user Tobacco use type: Cigarette e-Cigarette/Vaping Use: Former Use Second Hand Smoke Exposure: Yes (yes when spouse smokes) Substance Use Type: Marijuana Advance Directives: No Advance Directives Information Provided: No Do you have a plan to hurt others: No Plan service: No Current occupational status: unemployed Current occupation: rt hand Sexual orientation: Straight/Heterosexual Physical Exam Vital Signs: Vital Signs: Last Vital Signs Temp 98.3 F 07/22/24 17:25 Pulse 100 07/22/24 17:25 Resp 19 07/22/24 17:25 BP 137/83 07/22/24 17:25 Pulse Ox 99 07/22/24 17:25 O2 Del Method Room Air 07/22/24 17:25 BMI result Body Mass Index 32.6 Appearance: Alert. Oriented X3. No acute distress. HEENT: normoephalic, atraumatic, normal inspection of the eyes and surrounding structures. CVS: Normal heart rate and rhythm. Pulses normal. Respiratory: No respiratory distress. Skin: Skin warm and dry. Normal skin color. Normal skin turgor. nasolabial folds with a yellow crusting rash with underlying red flat, raw base. mildly warm to touch and tender Extremities: normal external inspection, no peripheral edema Neuro: Oriented X 3. grossly normal, flat affect Medical Decision Making Medical Decision Making MDM Narrative: 53-year-old male presents to the ER for evaluation of a dry, burning, itchy rash on his nasolabial folds for the last few days. There is yellow crusting on examination. No known exposures. Examination and clinical presentation are most consistent with impetigo. No urticarial rash or significant swelling to suggest allergic reaction or contact dermatitis. Will treat with p.o. and oral antibiotics. Encouraged follow-up with his primary care doctor as well as Dermatology if no improvement. Differential Diagnosis Differential Diagnoses: The differential diagnosis associated with the presentation includes roseaca, impetigo, cellulitis, malar rash, contact dermatitis External Record Review External record reviewed: Outpatient record and Prior outpatient labs Prescription Management I considered prescription management with: Antibiotic Chronic Conditions Patient?s care impacted by: Other (Schizoaffective disorder) Critical Care Time Critical Care Time Critical Care Time: No Discharge Plan Discharge Clinical Impression: Impetigo Patient Disposition: Home, Self-Care Instructions: Impetigo (DC) Additional Instructions: Use the prescribed ointment on your face for the next 1 week, use it 2 to 3 times a day. Take the prescribed antibiotic as directed. Take the antibiotic with food. Do not be in the direct sunlight wire on this antibiotic, it can cause worsening rash. You can take Benadryl as needed for itching. Use cool compresses to the area as needed for itching and burning. Recommend following up with Dermatology if no improvement in your symptoms. [facility] is in [place] - phone # If you develop new or worsening symptoms call 911 or come back to the ER for further evaluation. Prescriptions: New doxycycline hyclate 100 mg tablet 100 mg PO BID Qty: 14 0RF mupirocin 2 % ointment 1 appl topical BID Qty: 22 0RF No Action olanzapine 10 mg Tablet 10 mg PO BEDTIME 30 Days Qty: 30 0RF lithium carbonate 300 mg Tablet Extended Release 600 mg PO BID 30 Days Qty: 120 0RF magnesium oxide 400 mg (241.3 mg magnesium) Tablet 400 mg PO BEDTIME 30 Days Qty: 30 0RF Interventions: ED Discharge Assessment Last Done: 07/22/24 17:25 Discharge Date/Time: 07/22/24 17:26 Print Language: Bengali
[2024-07-22 17:25] VITALS: BP 137/83; PULSE 100; RESP 19; TEMP 36.8; O2SAT 99
== END 2024-07-22 17:26 | disposition home or self-care (01) ==
PROVIDERS: Emergency Provider Emergency Medicine
DX: L01.00 Impetigo, unspecified (principal); F17.210 Nicotine dependence, cigarettes, uncomplicated
CPT/HCPCS: 99282; 99283

== ENCOUNTER 2024-08-03 09:24 | Emergency (ER) | payer MEDICARE, SELFPAY ==
[2024-08-03 09:28] VITALS: BP 127/92; PULSE 92; RESP 16; TEMP 36.9; O2SAT 98; BMI 31.2
--- NOTE | 2024-08-03 09:58 | ED_ITS ---
HPI - Psych General Chief Complaint: Psychiatric Symptoms Stated Complaint: requesting eval Time Seen by Provider: 08/03/24 09:58 Source: patient Mode of arrival: ambulatory Limitations: no limitations History of Present Illness ED Provider: Kateryna Hughes PA-C HPI Narrative: 53-year-old male with history of polysubstance abuse, schizoaffective disorder who is recently admitted to in June presents the ER for evaluation of worsening depression. He states he has been overwhelmed being homeless for the last few months. He is currently sleeping in someone's car. He states he has been overwhelmed with his medications and stopped taking them several days ago. Unsure of the medications that he takes. He goes to several pharmacies. He denies any current suicidal or homicidal thoughts. MD complaint: feels depressed and anxiety Onset (ago): week(s) Duration: constant and getting worse History of same: Yes Relieving factors: medication Exacerbating factors: none Context: not taking psychiatric medications and significant life stressor Associated psychiatric symptoms: depression Associated symptoms: confusion Treatments prior to arrival: none Related Data Previous Rx's ?Medication ?Instructions ?Recorded lithium carbonate 300 mg 600 mg (2 x 300 mg) PO BID 30 days 07/08/24 tablet,extended release #120 tabs magnesium oxide 400 mg (241.3 mg 400 mg PO BEDTIME 30 days #30 tabs 07/08/24 magnesium) tablet olanzapine 10 mg tablet 10 mg PO BEDTIME 30 days #30 tabs 07/08/24 doxycycline hyclate 100 mg tablet 100 mg PO BID #14 tabs 07/22/24 mupirocin 2 % topical ointment 1 appl topical BID #22 grams 07/22/24 Allergies Allergy/AdvReac Type Severity Reaction Status Date / Time No Known Allergies Allergy Verified 08/03/24 09:32 Review of Systems 2 Review of Systems: Yes all other systems are reviewed and are negative [facility] Past Medical History Medical History Alcohol abuse Schizoaffective disorder, depressive type Cocaine abuse Social History Social History (Updated 10/19/22 @ 08:41 by FAUSTINO Marrero) Household Members: None Housing: Homeless Do you presently have visiting nurse or other home services: No Alcohol intake: current Alcohol intake frequency: 3 or more drinks per day Alcohol type: beer Patient Tobacco Use Status: Current everyday Tobacco user Tobacco use type: Cigarette e-Cigarette/Vaping Use: Former Use Second Hand Smoke Exposure: Yes (yes when spouse smokes) Substance Use Type: Marijuana Advance Directives: No service: No Current occupational status: unemployed Current occupation: rt hand Sexual orientation: Straight/Heterosexual Physical Exam 2 Vital Signs: Vital Signs: Last Vital Signs Temp 98.4 F 08/03/24 09:28 Pulse 92 08/03/24 09:28 Resp 16 08/03/24 09:28 BP 127/92 H 08/03/24 09:28 Pulse Ox 98 08/03/24 09:28 O2 Del Method Room Air 08/03/24 09:28 BMI result Body Mass Index 31.2 Appearance: Alert. Oriented X3. No acute distress. Head: normocephalic, atraumatic. Eyes: Pupils equal, round and reactive to light. ENT: Pharynx normal. No tonsillar swelling or exudate. Neck: Normal inspection. Neck supple. CVS: Normal heart rate and rhythm. Pulses normal. Respiratory: No respiratory distress. Breath sounds normal. Abdomen: Soft and nontender. +BS x4 Skin: Skin warm and dry. Normal skin color. Normal skin turgor. No rashes. Extremities: No lower extremity edema. No joint swelling. Neuro/psych: Oriented X 3. No motor deficit. No sensory deficit. CN II-XII intact. Normal speech and cognition. Flat affect. Briefly makes eye contact and answers questions, does not elaborate. Not suicidal. Does not appear to be responding to any internal stimuli Course Reevaluation(s) Reevaluation #1: Patient is medically cleared. His lithium level is undetectable. He has been not taking his meds for several days now. Will need to discuss with psychiatry safe way to and reinitiate. Psych consult placed. Physician observation started at 12:08. Patient placed in physician observation because patient is awaiting CARE team evaluation for the possible need of inpatient psych admission. Psychiatry consult pending At the time observation was started patient's vital signs were stable. Patient is alert and oriented. Neuro exam is non-focal. CV: RRR and lungs are clear. Will continue to monitor. Time: 12:08 Reevaluation #2: Psychiatry waiting on lithium dosing. They are recommending 300 mg 2 times per day to start. Pharmacy also contacted for help with med reconciliation as patient is unreliable and unaware of what medications he takes. Formal care team evaluation is still pending. Disposition is to be determined. Will continue to monitor. Time: 15:12 Medical Decision Making Medical Decision Making [facility] Narrative: 53-year-old homeless male with history of schizoaffective disorder, polysubstance abuse who presents to the ER for evaluation of worsening depression in the setting of medication noncompliance. He denies any suicidal thoughts. He is reporting feeling confused and overwhelmed. He states he stopped taking his meds several days ago. [place] level is not detectable. No major metabolic derangement. Psych consult pending, care team pending. Differential Diagnosis Differential Diagnoses: The differential diagnosis associated with the presentation includes substance induced mood disorder, acute psychosis, schizophrenia, schizoaffective disorder, PTSD, bipolar disorder, major depression with psychotic features Admission/Observation Consideration of admission/observation: Escalation of care including admission/observation considered Lab Data [facility] Lab Attestation statement: I reviewed the patient's lab results. No major metabolic derangement 08/03/24 10:19 08/03/24 10:19 Labs: Lab Results 08/03/24 08/03/24 Range/Units 10:19 13:30 WBC 7.0 (4.8-10.8) X10*3/uL RBC 4.55 L (4.60-5.80) X10*6/uL Hgb 14.6 (14.0-18.0) g/dl Hct 41.5 L (42.0-52.0) % MCV 91.2 (80.0-98.0) fL MCH 32.1 (27.0-33.0) pg MCHC 35.2 (31.0-36.0) g/dl RDW 13.0 (11.0-16.0) % Plt Count 208 (160-400) X10*3/uL MPV 9.8 (9.4-12.4) fL Immature Gran % (Auto) 0.1 (0.0-0.4) % Neut % (Auto) 53.6 (45-73) % Lymph % (Auto) 35.6 (20-40) % [place] % (Auto) 6.7 (2-11) % Eos % (Auto) 3.4 (0-4) % Baso % (Auto) 0.6 (0-2) % Lymph # (Auto) 2.5 (1.2-4.9) X10*3/uL [place] # (Auto) 0.5 (0.1-1.2) X10*3/uL Eos # (Auto) 0.2 (0.0-0.4) X10*3/uL Baso # (Auto) 0.0 (0.0-0.2) X10*3/uL Abs Immat Gran (auto) 0.01 (0.00-0.03) X10*3/uL Absolute Neuts (auto) 3.8 (2.0-8.3) x10*3/uL Absolute Nucleated RBC 0.000 (0.0-0.012) X10*3/uL Nucleated RBC % (auto) 0.0 (0.0-0.2) /100WBC Sodium 141 (135-145) mmol/L Potassium 4.0 (3.3-5.1) mmol/L Chloride 107 (96-108) mmol/L Carbon Dioxide 28 (22-29) mmol/L Anion Gap 10 L (12-20) BUN 14 (9-16) mg/dL Creatinine 0.80 (0.5-1.4) mg/dL Estim Creat Clear Calc 127.1 Estimated GFR > 60 Random Glucose 94 (60-115) mg/dL Calcium 8.9 (8.4-10.2) mg/dL Magnesium 2.0 (1.6-2.6) mg/dL Total Bilirubin 0.5 (0.0-1.0) mg/dL Direct Bilirubin 0.2 (0.0-0.5) mg/dL AST 29 (5-37) U/L ALT 28 (0-40) U/L Alkaline Phosphatase 69 (39-117) U/L Total Protein 6.6 (6.5-8.0) g/dL Albumin 4.2 (3.5-5.0) g/dL Urine Color Yellow Urine Appearance Clear Urine pH 5.5 (5.0-9.0) Ur Specific [place] 1.025 (1.005-1.025) Urine Protein Negative (Neg-Trace) mg/dL Urine Glucose (UA) Negative (Negative) mg/dL Urine Ketones Negative (Negative) mg/dL Urine Blood Trace H (Negative) Urine Nitrite Negative (Negative) Ur Leukocyte Esterase Trace H (Negative) Urine RBC 6-10 H (0-2) /HPF Urine WBC 6-10 H (0-5) /HPF Ur Squamous Epith Cells 0-2 (0-2) /HPF Urine Bacteria None Seen (None Seen) Hyaline Casts 0-2 (0-2) /LPF Urine Opiates Screen Not Detected (Not Detect) Ur Buprenorphine Scrn Not Detected (Not Detect) ng/mL Ur Oxycodone Screen Not Detected (Not Detect) ng/mL Urine Methadone Screen Not Detected (Not Detect) ng/mL Urine Fentanyl Screen Not Detected (Not Detect) Ur Barbiturates Screen Not Detected (Not Detect) Ur Phencyclidine Scrn Not Detected (Not Detect) Ur Amphetamines Screen Not Detected (Not Detect) U Benzodiazepines Scrn Not Detected (Not Detect) [place] < 0.10 L (0.60-1.20) mmol/L Urine Cocaine Screen POSITIVE H (Not Detect) U Marijuana (THC) Screen POSITIVE H (Not Detect) Ethyl Alcohol < 10 mg/dL External Record Review External record reviewed: Inpatient record, Outpatient record, Prior outpatient labs and Prior outpatient radiology Prescription Management I considered prescription management with: Other (Antipsychotic) Chronic Conditions Patient?s care impacted by: Other (Schizoaffective disorder, polysubstance abuse) Critical Care Time Critical Care Time Critical Care Time: No Discharge Plan Discharge Clinical Impression: Schizoaffective disorder, depressive type Patient Disposition: Still a Patient Prescriptions: No Action olanzapine 10 mg Tablet 10 mg PO BEDTIME 30 Days Qty: 30 0RF lithium carbonate 300 mg Tablet Extended Release 600 mg PO BID 30 Days Qty: 120 0RF magnesium oxide 400 mg (241.3 mg magnesium) Tablet 400 mg PO BEDTIME 30 Days Qty: 30 0RF doxycycline hyclate 100 mg tablet 100 mg PO BID Qty: 14 0RF mupirocin 2 % ointment 1 appl topical BID Qty: 22 0RF Interventions: [place]-Suicide Risk Severity Scale Last Done: 08/03/24 12:45 Print Language: Stateless
[2024-08-03 10:26] LABS: MANUAL DIFF FLAG NO
[2024-08-03 10:27] LABS: Basophils Percent Auto 0.6 % (0-2); Eosinophils Absolute Auto 0.2 X10*3/uL (0.0-0.4); Eosinophils Percent Auto 3.4 % (0-4); Hematocrit 41.5 % (42.0-52.0); Hemoglobin 14.6 g/dl (14.0-18.0); Imm Gran Abs Auto 0.01 X10*3/uL (0.00-0.03); Imm Gran Pct Auto 0.1 % (0.0-0.4); Lymphocytes Absolute Auto 2.5 X10*3/uL (1.2-4.9); Lymphocytes Percent Auto 35.6 % (20-40); Mean Corpuscular HGB Conc 35.2 g/dl (31.0-36.0); Mean Corpuscular Hemoglobin 32.1 pg (27.0-33.0); Mean Corpuscular Volume 91.2 fL (80.0-98.0); Mean Platelet Volume 9.8 fL (9.4-12.4); Monocytes Absolute Auto 0.5 X10*3/uL (0.1-1.2); Monocytes Percent Auto 6.7 % (2-11); Neutrophils Absolute Auto 3.8 x10*3/uL (2.0-8.3); Neutrophils Percent Auto 53.6 % (45-73); Platelet Count 208 X10*3/uL (160-400); Red Blood Count 4.55 X10*6/uL (4.60-5.80)
[2024-08-03 10:50] LABS: Lithium < 0.10 mmol/L (0.60-1.20)
[2024-08-03 11:00] LABS: Alanine Aminotransferase 28 U/L (0-40); Albumin Level 4.2 g/dL (3.5-5.0); Alkaline Phosphatase 69 U/L (39-117); Anion Gap 10 (12-20); Aspartate Amino Transferase 29 U/L (5-37); Bilirubin Direct 0.2 mg/dL (0.0-0.5); Bilirubin Total 0.5 mg/dL (0.0-1.0); Blood Urea Nitrogen 14 mg/dL (9-16); Calcium 8.9 mg/dL (8.4-10.2); Carbon Dioxide 28 mmol/L (22-29); Chloride 107 mmol/L (96-108); Creatinine Clr Calc Pharmacy 127.1; Estimated Glomerular Filt Rate > 60; Ethanol < 10 mg/dL; Glucose Random 94 mg/dL (60-115); Sodium 141 mmol/L (135-145); Total Protein 6.6 g/dL (6.5-8.0)
--- NOTE | 2024-08-03 11:53 | P.EN_ITS ---
Documented by User: Carola Soliz APRN 08/03/24 11:55 Event Note Date of Service: 08/03/24 Event Note: Asked by team to recommend dosage parameters for [place] re-start for pt. History of 600 mg bid with reported non compliance for ~3-5 days, level <0.10, renal function WNL, TSH WNL 06/2024. Suggest 300 mg bid to begin retitration. Time Spent With Patient Time: Total time managing care of this patient today ____ minutes. Documented by User: Marshall Draper MD 08/05/24 20:29 Event Note Date of Service: 08/05/24
--- NOTE | 2024-08-03 12:52 | PC.NURSE ---
Pt calm and coraperative, pt awaiting to be seen by kellen at this time. Pt is unable to tell this RN what medications he takes/is suppose to be taking. Pt also reports he stopped taking his mediations in June because it was too much to manage and he got rid of them
[2024-08-03 13:41] LABS: Appearance Urine Clear; Color Urine Yellow; Glucose Urine UA Negative (Negative); Leukocyte Esterase Urine Trace (Negative); Nitrite Urine Negative (Negative); PH 5.5 (5.0-9.0); Specific Gravity - Urine 1.025 (1.005-1.025); UMIC TRIGGER UACC YES; Urine Blood Trace (Negative); Urine Ketones Negative (Negative); Urine Protein Negative (Neg-Trace)
[2024-08-03 13:44] LABS: Bacteria Urine None Seen (None Seen); Hyaline Casts Urine 0-2 /LPF (0-2); Squamous Epithelial Cell Urine 0-2 /HPF (0-2); UACC Culture Trigger YES
--- NOTE | 2024-08-03 13:49 | MHC.CARE ---
Pt is an [facility]S (respite) bedsearch. Provider consulted. Referral faxed to [facility], confirmed referral received and activated at 1:50 pm. Spoke with [facility].
[2024-08-03 13:52] LABS: Amphetamine Screen Urine Not Detected (Not Detect); Barbiturates, Urine Not Detected (Not Detect); Benzodiazepines Screen Urine Not Detected (Not Detect); Buprenorphine Scr Not Detected (Not Detect); Cannabinoid Screen Urine POSITIVE (Not Detect); Cocaine Screen Urine POSITIVE (Not Detect); Fentanyl, urine Not Detected (Not Detect); Methadone Screen, Urine Not Detected (Not Detect); Opiate Screen Urine Not Detected (Not Detect); Oxycodone Screen Urine Not Detected (Not Detect); Phencyclidine Screen Urine Not Detected (Not Detect)
--- NOTE | 2024-08-03 15:07 | MHC.CARE ---
Called [facility] @ 3:07pm- Gabriel Aguiar at [facility], pt has been clinically approved for ACCS. Referral being reviewed by HYUN
[2024-08-03] MEDS: Lithium Carbonate 300 MG TABLET PO ×2 (15:33→21:43)
--- NOTE | 2024-08-03 15:43 | PHA.MEDREC ---
Addendum entered by Mitzi Diaz RPh 08/03/24 16:27: MED REC REVIEWED BY CLAYTON Original Note: Pharmacy Consult ? Medication Reconciliation Pharmacy has completed the medication reconciliation. Patient not taking any of their medications (stopped medications themselves). Prior to medication discontinuation, patient was on olanzapine 10 mg bedtime, magnesium oxide 400 mg bedtime, and lithium carbonate 600 mg BID.
--- NOTE | 2024-08-03 17:14 | MHC.CARE ---
Pt accepted for placement at [facility] in [place] for tomorrow (08/04/24) with a 10am arrival.
[2024-08-03 18:09] VITALS: BP 114/67; PULSE 72; RESP 16; O2SAT 97
--- NOTE | 2024-08-04 02:34 | PC.NURSE ---
Attempted to give pt trazodone but pt sleeping. med returned to [facility].
[2024-08-04 02:55] VITALS: BP 122/69; PULSE 70; RESP 18; TEMP 36.7; O2SAT 98
--- NOTE | 2024-08-04 02:56 | MHC.EDTECH ---
This tech took over care of patient at 0200AM,rounded and introduced self to patient,vitals taken,patient ambulated to the bathroom with a steady gait,
--- NOTE | 2024-08-04 07:07 | PC.NURSE ---
Pt awake/alert/ Breakfast provided. Remains calm and cooperative. Awaits transport to respite for 1000. Ambulatory to bathroom as needed
[2024-08-04] MEDS: Lithium Carbonate 300 MG TABLET PO (08:54)
[2024-08-04 09:34] VITALS: BP 113/70; PULSE 78; RESP 16; TEMP 36.9; O2SAT 96
[2024-08-04 09:35] VITALS: BP 113/70; PULSE 78; RESP 16; TEMP 36.9; O2SAT 96
--- NOTE | 2024-08-04 11:24 | MHC.CARE ---
Pt Lyfted to [facility] for 10AM, prescription for [place] sent to [facility] [place] per [facility] requests.
== END 2024-08-04 10:12 | disposition other institution (70) ==
PROVIDERS: Physician Assistant; Emergency Provider Emergency Medicine; PCP Internal Medicine
DX: F25.1 Schizoaffective disorder, depressive type (principal); F41.9 Anxiety disorder, unspecified; F14.10 Cocaine abuse, uncomplicated; F19.10 Other psychoactive substance abuse, uncomplicated; F10.10 Alcohol abuse, uncomplicated; Y90.0 Blood alcohol level of less than 20 mg/100 ml; Z91.148 Patient's other noncompliance with medication regimen for other reason; Z59.02 Unsheltered homelessness; F17.210 Nicotine dependence, cigarettes, uncomplicated
CPT/HCPCS: 36415; 80048; 80076; 80178; 80307; 81001; 83735; 85025; 87086; 99285; S9485

== ENCOUNTER 2024-08-17 08:08 | Emergency (ER) | payer MEDICARE, SELFPAY ==
--- NOTE | ~2024-08-17 | US_ITS ---
EXAMINATION: US TRIPLEX LOWER EXTREMITY, BILATERAL CLINICAL INFORMATION: Bilateral lower extremity swelling COMPARISON: None available. TECHNIQUE: Color-flow triplex imaging with spectral analysis and compression Doppler were performed on the bilateral lower extremities. FINDINGS: Respiratory variation, normal compression and augmented flow are noted throughout the bilateral lower extremities. The visualized common femoral vein, superficial femoral vein, profunda femoral vein, popliteal vein and midcalf peroneal and posterior tibial venous segments show no evidence of deep venous thrombosis bilaterally. There is no Davidson's cyst. US/US venous duplex LE BI IMPRESSION: No evidence of deep venous thrombosis involving the bilateral lower extremities. Electronically signed by: Philomena Laird MD 08/17/2024 09:13 AM EDT RP
[2024-08-17 08:17] VITALS: BP 142/74; BP 170/118; PULSE 74; PULSE 80; RESP 18; TEMP 36.9; O2SAT 97; O2SAT 99; BMI 25.1
--- NOTE | 2024-08-17 08:25 | ED_ITS ---
HPI - General Adult General Chief complaint: General Medical Stated complaint: SWOLLEN FEET,HOMELESS,,OUTSIDE ALLNIGHT Time Seen by Provider: 08/17/24 08:10 Source: patient and EMS Mode of arrival: EMS Limitations: no limitations History of Present Illness ED Provider: Chetna WHITE HPI narrative: This is a 53-year-old male history of suicidal ideation, schizoaffective disorder, depressive type, alcohol abuse, cocaine abuse, homelessness presenting to the emergency department with bilateral lower extremity feet swelling, he reports he has been walking or over the past week as he is recently homeless, since he has been walking so often he is noted that his feet are swollen. Not particularly painful do swollen. He denies chest pain, shortness breath, trauma, nausea, vomiting, abdominal pain, history of PE or DVT, hypercoagulable disorders. Related Data Previous Rx's ?Medication ?Instructions ?Recorded lithium carbonate 300 mg capsule 300 mg PO BID #10 caps 08/04/24 Allergies Allergy/AdvReac Type Severity Reaction Status Date / Time No Known Allergies Allergy Verified 08/17/24 08:20 Review of Systems 2 Review of Systems: Yes all other systems are reviewed and are negative [facility] Past Medical History Attestation statement: The following information was validated with the patient. Source: old records reviewed and nursing notes reviewed Medical History Alcohol abuse Schizoaffective disorder, depressive type Cocaine abuse Social History Social History (Updated 10/19/22 @ 08:41 by Sinai Hayward [facility]) Household Members: None Housing: Homeless Do you presently have visiting nurse or other home services: No Alcohol intake: current Alcohol intake frequency: 0-2 drinks per day Alcohol type: beer Patient Tobacco Use Status: Current everyday Tobacco user Tobacco use type: Cigarette Smoked in Last 30 Days: No e-Cigarette/Vaping Use: Former Use Second Hand Smoke Exposure: Yes (yes when spouse smokes) Use of substances other than those prescribed or required for medical reasons: No Substance Use Type: Marijuana Advance Directives: No Advance Directives Information Provided: Yes Do you have a plan to hurt others: No Plan service: No Current occupational status: unemployed Current occupation: rt hand Sexual orientation: Straight/Heterosexual Physical Exam ED Vital Signs: Vital Signs - 24 hr 08/17/24 08:17 Temperature 98.4 F Pulse Rate 74 Respiratory Rate 18 Blood Pressure 142/74 H Pulse Oximetry 99 Oxygen Delivery Method Room Air BMI result Body Mass Index 25.1 vss Appearance: Alert.? Oriented X3.? No acute distress.? Head: Normocephalic, atraumatic, no step-offs or deformities Eyes: Pupils equal, round and reactive to light.? Neck: Normal inspection.? Neck supple.? CVS: Normal heart rate and rhythm.? Pulses normal.? Respiratory: No respiratory distress.? Breath sounds normal.? Abdomen: Soft and nontender.? Skin: Skin warm and dry.? Normal skin color.? Normal skin turgor.? Extremities: No lower extremity edema.? No calf ttp. 5/5 strength to bilateral upper and lower extremities 2+ dorsalis pedis, anterior tibialis posterior tibialis pulses equal bilateral. Normal distal sensation. Neuro: Oriented X 3.? No motor deficit.? No sensory deficit. CN 2-12 intact Course Reevaluation(s) Reevaluation #1: CBC no acute findings needing intervention. Chemistry with no acute findings needing intervention. Normal albumin. Ultrasound venous duplex bilateral lower extremities with no evidence of a DVT. Patient eating and drinking. Feeling well. Will have him follow up with PCP for lower extremity edema. Educated patient on diagnosis and treatment plan, answered all question, patient verbalizes understanding. At this time patient will be discharged home, advised to return with new or worsening symptoms. Educated on worrisome signs and symptoms and when to return. At this time I feel comfortable discharge home. Time: 09:29 Medical Decision Making Medical Decision Making [facility] Narrative: [id number] 53-year-old male presents with bilateral lower extremity swelling ongoing for the past week, reports increased walking is recently homeless. Physical exam benign. 2+ dorsalis pedis, anterior tibialis, posterior tibialis pulses equal bilateral. Normal distal sensation. History and physical exam are concerning for dependent edema, unlikely DVT, arterial occlusion. Will rule out metabolic derangements. Plan labs, imaging. Differential Diagnosis Differential Diagnoses: The differential diagnosis associated with the presentation includes History and physical exam are concerning for dependent edema, unlikely DVT, arterial occlusion. Will rule out metabolic derangements. Admission/Observation Consideration of admission/observation: Escalation of care including admission/observation considered Lab Data 08/17/24 08:36 08/17/24 08:36 Labs: Lab Results 08/17/24 Range/Units 08:36 WBC 6.9 (4.8-10.8) X10*3/uL RBC 4.56 L (4.60-5.80) X10*6/uL Hgb 14.7 (14.0-18.0) g/dl Hct 42.1 (42.0-52.0) % MCV 92.3 (80.0-98.0) fL MCH 32.2 (27.0-33.0) pg MCHC 34.9 (31.0-36.0) g/dl RDW 12.9 (11.0-16.0) % Plt Count 193 (160-400) X10*3/uL MPV 9.7 (9.4-12.4) fL Immature Gran % (Auto) 0.1 (0.0-0.4) % Neut % (Auto) 46.8 (45-73) % Lymph % (Auto) 41.9 H (20-40) % [place] % (Auto) 6.4 (2-11) % Eos % (Auto) 4.4 H (0-4) % Baso % (Auto) 0.4 (0-2) % Lymph # (Auto) 2.9 (1.2-4.9) X10*3/uL [place] # (Auto) 0.4 (0.1-1.2) X10*3/uL Eos # (Auto) 0.3 (0.0-0.4) X10*3/uL Baso # (Auto) 0.0 (0.0-0.2) X10*3/uL Abs Immat Gran (auto) 0.01 (0.00-0.03) X10*3/uL Absolute Neuts (auto) 3.2 (2.0-8.3) x10*3/uL Absolute Nucleated RBC 0.000 (0.0-0.012) X10*3/uL Nucleated RBC % (auto) 0.0 (0.0-0.2) /100WBC PT 11.6 (10.9-12.4) SEC INR 1.0 (0.9-1.1) Sodium 146 H (135-145) mmol/L Potassium 4.2 (3.3-5.1) mmol/L Chloride 110 H (96-108) mmol/L Carbon Dioxide 29 (22-29) mmol/L Anion Gap 11 L (12-20) BUN 13 (9-16) mg/dL Creatinine 0.83 (0.5-1.4) mg/dL Estim Creat Clear Calc 114.2 Estimated GFR > 60 Random Glucose 87 (60-115) mg/dL Calcium 9.3 (8.4-10.2) mg/dL Magnesium 2.0 (1.6-2.6) mg/dL Total Bilirubin 0.4 (0.0-1.0) mg/dL AST 34 (5-37) U/L ALT 42 H (0-40) U/L Alkaline Phosphatase 59 (39-117) U/L Total Protein 6.8 (6.5-8.0) g/dL Albumin 4.1 (3.5-5.0) g/dL Independent Interpretation I performed an independent interpretation of an: Ultrasound Radiology Impression Discussion of test interpretation with radiology: I have reviewed the radiologist's reading. External Record Review External record reviewed: Inpatient record, Office record, Outpatient record, Prior outpatient labs, Prior outpatient radiology, Primary care record and Outside ED record Chronic Conditions Patient?s care impacted by: Other (alcohol abuse, cocaine use disorder ) Discharge Plan Discharge Clinical Impression: Edema, Homeless Patient Disposition: Home, Self-Care Instructions: Edema (ED) Additional Instructions: Take your medications as prescribed. If you were prescribed antibiotics today, it is important that you take your medication to their entirety, do not skip any doses, do not finish them early. Follow-up with your primary care provider this week. Return to the emergency department with new or worsening symptoms. Such as fevers, chills, chest pain, shortness of breath, nausea, vomiting, dizziness, headache, vision changes, lethargy In case of emergency call 911 US/US venous duplex LE BI IMPRESSION: No evidence of deep venous thrombosis involving the bilateral lower extremities. Prescriptions: No Action lithium carbonate 300 mg capsule 300 mg PO BID Qty: 10 0RF Referrals: Physician,Unknown J [Primary Care Provider] - 2 days Print Language: Bulgarian
[2024-08-17 08:41] LABS: MANUAL DIFF FLAG NO
[2024-08-17 08:45] LABS: Basophils Percent Auto 0.4 % (0-2); Eosinophils Absolute Auto 0.3 X10*3/uL (0.0-0.4); Eosinophils Percent Auto 4.4 % (0-4); Hematocrit 42.1 % (42.0-52.0); Hemoglobin 14.7 g/dl (14.0-18.0); Imm Gran Abs Auto 0.01 X10*3/uL (0.00-0.03); Imm Gran Pct Auto 0.1 % (0.0-0.4); Lymphocytes Absolute Auto 2.9 X10*3/uL (1.2-4.9); Lymphocytes Percent Auto 41.9 % (20-40); Mean Corpuscular HGB Conc 34.9 g/dl (31.0-36.0); Mean Corpuscular Hemoglobin 32.2 pg (27.0-33.0); Mean Corpuscular Volume 92.3 fL (80.0-98.0); Mean Platelet Volume 9.7 fL (9.4-12.4); Monocytes Absolute Auto 0.4 X10*3/uL (0.1-1.2); Monocytes Percent Auto 6.4 % (2-11); Neutrophils Absolute Auto 3.2 x10*3/uL (2.0-8.3); Neutrophils Percent Auto 46.8 % (45-73); Platelet Count 193 X10*3/uL (160-400); Red Blood Count 4.56 X10*6/uL (4.60-5.80); Red Cell Distribution Width 12.9 % (11.0-16.0); White Blood Count 6.9 X10*3/uL (4.8-10.8)
[2024-08-17 08:48] LABS: Prothrombin Time 11.6 SEC (10.9-12.4)
[2024-08-17 08:58] LABS: Alanine Aminotransferase 42 U/L (0-40); Albumin Level 4.1 g/dL (3.5-5.0); Alkaline Phosphatase 59 U/L (39-117); Anion Gap 11 (12-20); Aspartate Amino Transferase 34 U/L (5-37); Bilirubin Total 0.4 mg/dL (0.0-1.0); Blood Urea Nitrogen 13 mg/dL (9-16); Calcium 9.3 mg/dL (8.4-10.2); Carbon Dioxide 29 mmol/L (22-29); Chloride 110 mmol/L (96-108); Creatinine Clr Calc Pharmacy 114.2; Estimated Glomerular Filt Rate > 60; Glucose Random 87 mg/dL (60-115); Potassium 4.2 mmol/L (3.3-5.1); Sodium 146 mmol/L (135-145); Total Protein 6.8 g/dL (6.5-8.0)
[2024-08-17 09:57] LABS: B Type Natriuretic Peptide 36 pg/mL (<100)
[2024-08-17 10:00] VITALS: BP 105/57; PULSE 76; RESP 19; TEMP 36.9; O2SAT 97
[2024-08-17 10:36] VITALS: BP 105/57; PULSE 76; RESP 19; TEMP 36.9; O2SAT 97
== END 2024-08-17 10:36 | disposition home or self-care (01) ==
PROVIDERS: Physician Assistant; Emergency Provider Emergency Medicine Emergency Medical Services
DX: R60.0 Localized edema (principal); Z59.00 Homelessness unspecified; F25.1 Schizoaffective disorder, depressive type; F14.10 Cocaine abuse, uncomplicated; F10.10 Alcohol abuse, uncomplicated; Y90.9 Presence of alcohol in blood, level not specified; F17.210 Nicotine dependence, cigarettes, uncomplicated; Z79.899 Other long term (current) drug therapy
CPT/HCPCS: 36415; 80053; 83735; 83880; 85025; 85610; 93970; 99284

== ENCOUNTER 2024-08-26 16:38 | Inpatient (IN) | payer MEDICARE, SELFPAY ==
[2024-08-26 16:44] VITALS: BP 131/66; PULSE 89; RESP 20; TEMP 37.2; O2SAT 97; BMI 36.3
--- NOTE | 2024-08-26 16:48 | ED.GENADULT ---
HPI - General Adult General Chief complaint: Psychiatric Symptoms Stated complaint: Psychiatric Evaluation Time Seen by Provider: 08/26/24 17:13 Source: patient Mode of arrival: ambulatory Limitations: no limitations History of Present Illness ED Provider: Dr. Laxmi Hathaway HPI narrative: Patient comes to the emergency room complaining of increased suicidal thoughts. According to the patient he is homeless, has been sleeping under bridges. Patient has considered jumping of bridges. Patient reports that he has been trying to get a card with money unit from the [employer], keeps calling but they will not give him money to pay his rent and now his homeless. Patient states that this is making him feel suicidal. Related Data Previous Rx's ?Medication ?Instructions ?Recorded lithium carbonate 300 mg capsule 300 mg PO BID #10 caps 08/04/24 Allergies Allergy/AdvReac Type Severity Reaction Status Date / Time No Known Allergies Allergy Verified 08/26/24 16:46 Review of Systems Review of Systems: Constitutional : No Weight loss, No Fever, No Chills, No Night Sweats, No Fatigue, No Malaise ENT/Mouth : No Hearing loss, No Ear Pain, No Nasal Congestion, No Sinus Pain, No Hoarseness, No sore throat, No Rhinorrhea, No Swallowing Difficulty Eyes: No Eye Pain, No Swelling, No Redness, No Foreign Body, No Discharge, No Vision Changes Cardiovascular : No Chest Pain, No SOB, No Dyspnea on Exertion, No Orthopnea, No Edema, No Palpitations Respiratory : No Cough, No Sputum, No Wheezing, No Smoke Exposure, No Dyspnea Gastrointestinal : No Nausea, No Vomiting, No Diarrhea, No Constipation, No abdominal Pain, No Hematochezia, No Melena Genitourinary : no irregular bleeding, No Dysuria, No Urinary Frequency, No Hematuria, No Urinary Incontinence, No Urgency, No Flank Pain, No Urinary Flow Changes, No Hesitancy Musculoskeletal : No joint pain, No Myalgias, No Joint Swelling Skin : No Skin Lesions, No rash Neuro : No Weakness, No Numbness, No Paresthesias, No Loss of Consciousness, No Dizziness, No Headache Psych : Complaining of anxiety and depression, SI, no HI Heme/Lymph: No Bruising, No Bleeding,No Lymphadenopathy Endocrine : No Polyuria, No Polydipsia, No Temperature Intolerance PMFSH Past Medical History Medical History Alcohol abuse Schizoaffective disorder, depressive type Cocaine abuse Social History Social History (Updated 10/19/22 @ 08:41 by Sinai Hayward [facility]) Household Members: None Housing: Homeless Do you presently have visiting nurse or other home services: No Alcohol intake: current Alcohol intake frequency: 0-2 drinks per day Alcohol type: beer Patient Tobacco Use Status: Current everyday Tobacco user Tobacco use type: Cigarette Smoked in Last 30 Days: No e-Cigarette/Vaping Use: Former Use Second Hand Smoke Exposure: Yes (yes when spouse smokes) Use of substances other than those prescribed or required for medical reasons: No Substance Use Type: Marijuana Advance Directives: No Advance Directives Information Provided: No service: No Current occupational status: unemployed Current occupation: rt hand Sexual orientation: Straight/Heterosexual Physical Exam ED Vital Signs: Vital Signs - 24 hr 08/26/24 16:44 08/26/24 17:37 Temperature 98.9 F Pulse Rate 89 Respiratory Rate 20 16 Blood Pressure 131/66 Pulse Oximetry 97 Oxygen Delivery Method Room Air BMI result Body Mass Index 36.3 Const Other: Appearance: Alert. Oriented X3. No acute distress. Eyes: Pupils equal, round and reactive to light. ENT: Pharynx normal. Neck: Normal inspection. Neck supple. No lymph nodes noted. No crepitus CVS: Normal heart rate and rhythm. Pulses normal. Normal S1 and S2 Respiratory: No respiratory distress. Breath sounds normal. No Wheezing. No rales Abdomen: Soft and nontender. No rigidity. No distention. Skin: Skin warm and dry. Normal skin color. Normal skin turgor. Extremities: No lower extremity edema. No Lacerations. No Rash Neuro: Oriented X 3. No motor deficit. No sensory deficit. Moving all extremities. No slurred speech. CN 2 through 12 grossly intact Psych: calm, cooperative, normal affect Course Course Course Narrative: RME performed by Ping Loera PA-C. Patient is a 54 year old assigned male at presenting to the emergency department with suicidal ideation. Patient states he continues to walk around a lot and every time he comes to a bridge, he's considering jumping off of it. Detailed physical exam and review of systems are deferred to the assistant manager/embalmer. Labs ordered. finish rolls operator made aware of patient. Medical Decision Making Medical Decision Making MDM Narrative: My interpretation of labs. Hematology and chemistry at baseline, urinalysis shows moderate amount of blood and white blood cell counts elevated which is chronic for the patient. Upon discharge, patient will likely need to be referred to Urology for chronic hematuria. Urine toxicology positive for marijuana Differential Diagnosis Differential Diagnoses: The differential diagnosis associated with the presentation includes (Anxiety, depression, polysubstance abuse, alcohol abuse) Admission/Observation Consideration of admission/observation: Escalation of care including admission/observation considered (Patient waiting to be seen by the care team) Lab Data MDM Lab Attestation statement: I reviewed the patient's lab results. 08/26/24 17:50 08/26/24 17:50 Labs: Lab Results 08/26/24 Range/Units 17:50 WBC 9.0 (4.8-10.8) X10*3/uL RBC 4.66 (4.60-5.80) X10*6/uL Hgb 15.1 (14.0-18.0) g/dl Hct 42.2 (42.0-52.0) % MCV 90.6 (80.0-98.0) fL MCH 32.4 (27.0-33.0) pg MCHC 35.8 (31.0-36.0) g/dl RDW 12.7 (11.0-16.0) % Plt Count 204 (160-400) X10*3/uL MPV 10.2 (9.4-12.4) fL Immature Gran % (Auto) 0.2 (0.0-0.4) % Neut % (Auto) 54.5 (45-73) % Lymph % (Auto) 36.9 (20-40) % [place] % (Auto) 6.0 (2-11) % Eos % (Auto) 2.1 (0-4) % Baso % (Auto) 0.3 (0-2) % Lymph # (Auto) 3.3 (1.2-4.9) X10*3/uL [place] # (Auto) 0.5 (0.1-1.2) X10*3/uL Eos # (Auto) 0.2 (0.0-0.4) X10*3/uL Baso # (Auto) 0.0 (0.0-0.2) X10*3/uL Abs Immat Gran (auto) 0.02 (0.00-0.03) X10*3/uL Absolute Neuts (auto) 4.9 (2.0-8.3) x10*3/uL Absolute Nucleated RBC 0.000 (0.0-0.012) X10*3/uL Nucleated RBC % (auto) 0.0 (0.0-0.2) /100WBC Sodium 139 (135-145) mmol/L Potassium 3.7 (3.3-5.1) mmol/L Chloride 105 (96-108) mmol/L Carbon Dioxide 25 (22-29) mmol/L Anion Gap 13 (12-20) BUN 11 (9-16) mg/dL Creatinine 0.91 (0.5-1.4) mg/dL Estim Creat Clear Calc 105.0 Estimated GFR > 60 Random Glucose 87 (60-115) mg/dL Calcium 9.5 (8.4-10.2) mg/dL Total Bilirubin 0.4 (0.0-1.0) mg/dL AST 28 (5-37) U/L ALT 25 (0-40) U/L Alkaline Phosphatase 63 (39-117) U/L Total Protein 7.0 (6.5-8.0) g/dL Albumin 4.2 (3.5-5.0) g/dL Urine Color Yellow Urine Appearance Clear Urine pH 5.5 (5.0-9.0) Ur Specific [place] 1.020 (1.005-1.025) Urine Protein Negative (Neg-Trace) mg/dL Urine Glucose (UA) Negative (Negative) mg/dL Urine Ketones Trace (Negative) mg/dL Urine Blood Moderate (2+) H (Negative) Urine Nitrite Negative (Negative) Ur Leukocyte Esterase Small (1+) H (Negative) Urine RBC 11-20 H (0-2) /HPF Urine WBC 21-50 H (0-5) /HPF Ur Squamous Epith Cells 0-2 (0-2) /HPF Urine Bacteria None Seen (None Seen) Hyaline Casts 0-2 (0-2) /LPF Salicylates < 5.0 L (15-30) mg/dL Urine Opiates Screen Not Detected (Not Detect) Ur Buprenorphine Scrn Not Detected (Not Detect) ng/mL Ur Oxycodone Screen Not Detected (Not Detect) ng/mL Urine Methadone Screen Not Detected (Not Detect) ng/mL Urine Fentanyl Screen Not Detected (Not Detect) Acetaminophen < 3 (<30) mcg/mL Ur Barbiturates Screen Not Detected (Not Detect) Ur Phencyclidine Scrn Not Detected (Not Detect) Ur Amphetamines Screen Not Detected (Not Detect) U Benzodiazepines Scrn Not Detected (Not Detect) Urine Cocaine Screen Not Detected (Not Detect) U Marijuana (THC) Screen POSITIVE H (Not Detect) Ethyl Alcohol < 10 mg/dL COVID-19 ([facility]) Negative (Negative) COVID-19 Clin Com See Note Discharge Plan Discharge Clinical Impression: Depression Patient Disposition: Still a Patient Prescriptions: No Action lithium carbonate 300 mg capsule 300 mg PO BID Qty: 10 0RF Interventions: [place]-Suicide Risk Severity Scale Last Done: 08/26/24 17:37 Print Language: Colombian
--- NOTE | 2024-08-26 16:49 | ECG_ITS ---
Test Reason : crisis Blood Pressure : / mmHG Vent. Rate : 084 BPM Atrial Rate : 084 BPM P-R Int : 146 ms QRS Dur : 100 ms QT Int : 364 ms P-R-T Axes : 016 -17 085 degrees QTc Int : 430 ms Normal sinus rhythm Minimal voltage criteria for LVH, may be normal variant ( Mehran product ) Nonspecific T wave abnormality Abnormal ECG When compared with ECG of 01-JUL-2024 07:39, Nonspecific T wave abnormality no longer evident in Inferior leads Referred By: Ping Loera Electronically Signed By:Colten Travis
--- NOTE | 2024-08-26 17:36 | PC.NURSE ---
Patient comes to the ED today reporting SI. He reports increasing life stressors including being homeless have led to him feeling increasingly suicidal. Pt is calm and cooperative, offering no complaints at this time
[2024-08-26 17:37] VITALS: RESP 16
[2024-08-26 17:55] LABS: MANUAL DIFF FLAG NO
[2024-08-26 17:57] LABS: Basophils Percent Auto 0.3 % (0-2); Eosinophils Absolute Auto 0.2 X10*3/uL (0.0-0.4); Eosinophils Percent Auto 2.1 % (0-4); Hematocrit 42.2 % (42.0-52.0); Hemoglobin 15.1 g/dl (14.0-18.0); Imm Gran Abs Auto 0.02 X10*3/uL (0.00-0.03); Imm Gran Pct Auto 0.2 % (0.0-0.4); Lymphocytes Absolute Auto 3.3 X10*3/uL (1.2-4.9); Lymphocytes Percent Auto 36.9 % (20-40); Mean Corpuscular HGB Conc 35.8 g/dl (31.0-36.0); Mean Corpuscular Hemoglobin 32.4 pg (27.0-33.0); Mean Corpuscular Volume 90.6 fL (80.0-98.0); Mean Platelet Volume 10.2 fL (9.4-12.4); Monocytes Absolute Auto 0.5 X10*3/uL (0.1-1.2); Neutrophils Absolute Auto 4.9 x10*3/uL (2.0-8.3); Neutrophils Percent Auto 54.5 % (45-73); Platelet Count 204 X10*3/uL (160-400); Red Blood Count 4.66 X10*6/uL (4.60-5.80); Red Cell Distribution Width 12.7 % (11.0-16.0)
[2024-08-26 17:58] LABS: Appearance Urine Clear; Color Urine Yellow; Glucose Urine UA Negative (Negative); Leukocyte Esterase Urine Small (1+) (Negative); Nitrite Urine Negative (Negative); PH 5.5 (5.0-9.0); UMIC TRIGGER UA YES; Urine Blood Moderate (2+) (Negative); Urine Ketones Trace mg/dL (Negative); Urine Protein Negative (Neg-Trace)
[2024-08-26 18:02] LABS: Bacteria Urine None Seen (None Seen); Hyaline Casts Urine 0-2 /LPF (0-2); Squamous Epithelial Cell Urine 0-2 /HPF (0-2); WBC Urine 21-50 /HPF (0-5)
[2024-08-26 18:07] LABS: Amphetamine Screen Urine Not Detected (Not Detect); Barbiturates, Urine Not Detected (Not Detect); Benzodiazepines Screen Urine Not Detected (Not Detect); Buprenorphine Scr Not Detected (Not Detect); Cannabinoid Screen Urine POSITIVE (Not Detect); Cocaine Screen Urine Not Detected (Not Detect); Fentanyl, urine Not Detected (Not Detect); Methadone Screen, Urine Not Detected (Not Detect); Opiate Screen Urine Not Detected (Not Detect); Oxycodone Screen Urine Not Detected (Not Detect); Phencyclidine Screen Urine Not Detected (Not Detect)
[2024-08-26 18:15] LABS: COVID-19 Test Negative (Negative); IDNOW Serial# 08D9AD1C
[2024-08-26 18:16] LABS: Alanine Aminotransferase 25 U/L (0-40); Albumin Level 4.2 g/dL (3.5-5.0); Alkaline Phosphatase 63 U/L (39-117); Anion Gap 13 (12-20); Aspartate Amino Transferase 28 U/L (5-37); Bilirubin Total 0.4 mg/dL (0.0-1.0); Blood Urea Nitrogen 11 mg/dL (9-16); Calcium 9.5 mg/dL (8.4-10.2); Carbon Dioxide 25 mmol/L (22-29); Chloride 105 mmol/L (96-108); Estimated Glomerular Filt Rate > 60; Ethanol < 10 mg/dL; Glucose Random 87 mg/dL (60-115); Potassium 3.7 mmol/L (3.3-5.1); Sodium 139 mmol/L (135-145)
--- NOTE | 2024-08-26 18:38 | PC.NURSE ---
PA aware of elevated BP. Pt received nighttime clonidine early to control BP
[2024-08-26 18:57] LABS: Acetaminophen LAB < 3 mcg/mL (<30); Salicylate < 5.0 mg/dL (15-30)
--- NOTE | 2024-08-27 06:03 | PC.NURSE ---
Patient slept through the night, no distress observed/reported, disposition per care team is section 12 in patient bed search, no behavior and safety concerns at this time, will continue to monitor.
[2024-08-27 06:21] VITALS: BP 103/62; PULSE 87; RESP 17; TEMP 36.9; O2SAT 95
--- NOTE | 2024-08-27 07:26 | PC.NURSE ---
Assumed care of patient at 0645, patient appears to be in no apparent distress this am, calm and cooperative, ambulating with steady gait around BH pod. Continue plan of care for inpatient bedsearch at this time
[2024-08-27 13:45] VITALS: BP 119/64; PULSE 82; TEMP 36.4; O2SAT 97; BMI 29.6
--- NOTE | 2024-08-27 18:32 | PC.ADMIT ---
Mr. Nathaniel Grier was admitted from the POD on a 12B to M5, 516-1 at 1335 for depression and suicidal ideation. He is a 54 year old male that reports he and his spouse recently became homeless for reasons he he was vague about except to share that he thought that, CHD was causing problems for them at their apartment. The patient reports a long history of suicidal ideation with, many attempts , but states that his last attempt was, years ago , and he is unable to recall the details. He reports living on the streets for the last 2+ months and was from his spouse at the time they became homeless. He said he believes that this was CHD's doing. When asked why they might have done this, he reports he has no idea, and denies any history of domestic violence or other potential contributing factors. Mr. Grier denies any history of A/V hallucinations, self injurious behavior, assaultiveness or homicidal ideation. He was cooperative with the skin/ safety check which was unremarkable except for some mild acne on his mid torso. He was also cooperative with the admission process. Mr. Grier is currently endorsing SI but reports that he is save on the unit and will let staff know if that should change. He reports a history of almost daily cannabis use, with his most recent use prior to admission. Tox screen positive of cannabis only. He reports drinking alcohol, as much as I can, whenever I can , but was unsure when his last drink was. He also denies ever having physical symptoms of alcohol withdrawal. He reports that he is an occasional tobacco smoker who smokes whenever he can afford to buy cigarettes, and smoked a full pack just prior to admission. Mr. Grier was offered and declined the flu vaccine. He is aware that a smoking cessation consult was put in and he will be seen by staff from Respiratory to discuss his readiness to quit smoking. He signed a CV and is on 15 minute safety checks.
[2024-08-27 20:00] VITALS: BP 120/62; PULSE 73; RESP 16; TEMP 36.7; O2SAT 98
[2024-08-27] MEDS: Acetaminophen 325 MG TABLET 650 MG PO (20:27)
[2024-08-27] MEDS: OLANZapine 10 MG TABLET PO (20:27)
[2024-08-28 08:00] VITALS: BP 110/65; PULSE 78; RESP 16; TEMP 36.4; O2SAT 99
--- NOTE | 2024-08-28 08:53 | HO.PSYADMNOT ---
HPI Date of Service: 08/28/24 Chief Complaint: Schizoaffective disorder,depressed si Sources of Information: patient interviewed, chart reviewed and crisis/core team assessment reviewed HPI Subjective Notes: [place] Warning, Conditional Voluntary and 3 Day Narrative: Patient is a 54-year-old male with history schizoaffective disorder, bipolar type who presents for depression with SI in the face of being off medications and?substance?abuse.??Patient?guarded?and?hesitant?to?discuss?much.?? Vague?regarding?AH;?endorses?paranoid?thinking?but?again?vague. Says was drinking alcohol but quit a week ago. Reports depression worsened so self-presented. Pt wants to get back on medication that was started at last admission, [place], Mag oxide and zyprexa Patient seen on 08/27/2024 Past Psychiatric History: Past psychiatric hospitalizations : Reports most recent in 2021. about 10-15 lifetime. SA: reports more than 3. MRE 3-4 yrs ago. SIB: reports h/o cutting, MRE more than 10 years ago. HIB: denies Started on Risperdal 2 mg b.i.d. in 2020 which he says was helpful OP: Denies current treaters. has been off meds for the past 2 years, so has been out of Tx for more than 2 years. states he was last being seen at [facility]. Sx hx: AH, VH, Paranoia Medical Evaluation Reviewed: Yes My interpretation of labs. Hematology and chemistry at baseline, urinalysis shows moderate amount of blood and white blood cell counts elevated which is chronic for the patient. Upon discharge, patient will likely need to be referred to Urology for chronic hematuria. [facility] Medical History Alcohol abuse Schizoaffective disorder, depressive type Cocaine abuse Family History: Patient said no family psychiatric history that he knows of Reports maternal family is prone to CVA types of illness Social History: Born in [place]; father left when he was young and family was in poverty with little food Came to the [place] around 11 or 12 years old completed the 7th grade Currently not working, on SSI Has one living brother and one child in his 30's whom he has met x 2 Relationship with Madelyn since age 19, whose daughter works with [employer]-states he is not close with her daughter. 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 Substance History: etoh/cocaine use disorder; was drinking regularly but quit 1 week ago Trauma History: Affirms through and family losses Diagnostics Vital Signs (24Hr): Vital Signs - 24 hr 08/27/24 13:45 08/27/24 20:00 08/28/24 08:00 Temperature 97.6 F 98.0 F 97.5 F Pulse Rate 82 73 78 Respiratory Rate 16 16 Blood Pressure 119/64 120/62 110/65 Pulse Oximetry 97 98 99 Oxygen Delivery Method Room Air Room Air Room Air BMI result Body Mass Index 29.6 Labs 08/26/24 17:50 08/26/24 17:50 Labs: Laboratory Results - last 48 hr 08/26/24 17:50 WBC 9.0 RBC 4.66 Hgb 15.1 Hct 42.2 MCV 90.6 MCH 32.4 MCHC 35.8 RDW 12.7 Plt Count 204 MPV 10.2 Immature Gran % (Auto) 0.2 Neut % (Auto) 54.5 Lymph % (Auto) 36.9 [place] % (Auto) 6.0 Eos % (Auto) 2.1 Baso % (Auto) 0.3 Lymph # (Auto) 3.3 [place] # (Auto) 0.5 Eos # (Auto) 0.2 Baso # (Auto) 0.0 Abs Immat Gran (auto) 0.02 Absolute Neuts (auto) 4.9 Absolute Nucleated RBC 0.000 Nucleated RBC % (auto) 0.0 Sodium 139 Potassium 3.7 Chloride 105 Carbon Dioxide 25 Anion Gap 13 BUN 11 Creatinine 0.91 Estim Creat Clear Calc 105.0 Estimated GFR > 60 Random Glucose 87 Calcium 9.5 Total Bilirubin 0.4 AST 28 ALT 25 Alkaline Phosphatase 63 Total Protein 7.0 Albumin 4.2 Urine Color Yellow Urine Appearance Clear Urine pH 5.5 Ur Specific [place] 1.020 Urine Protein Negative Urine Glucose (UA) Negative Urine Ketones Trace Urine Blood Moderate (2+) H Urine Nitrite Negative Ur Leukocyte Esterase Small (1+) H Urine RBC 11-20 H Urine WBC 21-50 H Ur Squamous Epith Cells 0-2 Urine Bacteria None Seen Hyaline Casts 0-2 Salicylates < 5.0 L Urine Opiates Screen Not Detected Ur Buprenorphine Scrn Not Detected Ur Oxycodone Screen Not Detected Urine Methadone Screen Not Detected Urine Fentanyl Screen Not Detected Acetaminophen < 3 Ur Barbiturates Screen Not Detected Ur Phencyclidine Scrn Not Detected Ur Amphetamines Screen Not Detected U Benzodiazepines Scrn Not Detected Urine Cocaine Screen Not Detected U Marijuana (THC) Screen POSITIVE H Ethyl Alcohol < 10 COVID-19 ([facility]IE) Negative COVID-19 Clin Com See Note Meds/Allergies Meds Home Medications ?Medication ?Instructions ?Recorded ?Confirmed ?Type olanzapine 10 mg tablet 10 mg PO BEDTIME 08/27/24 08/27/24 History Allergies Allergies Allergy/AdvReac Type Severity Reaction Status Date / Time No Known Allergies Allergy Verified 08/26/24 16:46 Mental Status Exam Mental Status Exam Narrative: Pt is alert and oriented; behavior is marginally cooperative, poor eye contact; dressed in casual attire, unkempt, poor hygiene; mood is described as ok and affect blunted to constricted; Speech is with some latency, soft volume; sometimes muttering but normal rate/prosody; thought process is goal directed; Thought content is with paranoid delusions; denies SI/HI; vaugue on AH but seems internally preoccupied. Judgment/insight impaired. Assessment & Plan Assessment & Plan (1) Schizoaffective disorder, depressive type: Status: Acute Code(s): F25.1 - Schizoaffective disorder, depressive type (2) Alcohol abuse: Status: Acute Code(s): F10.10 - Alcohol abuse, uncomplicated Plan Patient is a 54-year-old male with history schizoaffective disorder, bipolar type who presents for depression with SI in the face of being off medications and?substance?abuse.??Patient?guarded?and?hesitant?to?discuss?much.?? Vague?regarding?AH;?endorses?paranoid?thinking?but?again?vague. Says was drinking alcohol but quit a week ago. Reports depression worsened so self-presented. Pt wants to get back on medication that was started at last admission, [place], Mag oxide and zyprexa formulation: hx of psychotic illness; wants to get back on recent medication Plan: CV q15min Restart [place] Restart Mag oxide Restart Zyrpexa unlikely need for CIWA Hematology and chemistry at baseline, urinalysis shows moderate amount of blood and white blood cell counts elevated which is chronic for the patient. Upon discharge, patient will likely need to be referred to Urology for chronic hematuria. Patient educated on: diagnosis, medication risk/benefits and substance abuse Informed Consent: understands Reason for continued inpatient stay Substantial Risk for: rapid decompensation and med/psych decompensation Statement Statement: I have reviewed the history and physical and performed a pertinent examination on my patient. No changes have occurred unless specified. If the History and Physical was not performed prior to admission, the Hospitalist's service will be consulted for completing the admission physical. Time Spent With Patient Time: Total time managing care of this patient today ____ minutes.
[2024-08-28 09:21] LABS: Estimated Average Glucose 103 mg/dL; Hemoglobin A1C 140.6542 umol/L; Hemoglobin A1c % 5.2 % (<6.0); Total Hemoglobin (HGBA1C) 4230.1807 umol/L
[2024-08-28] MEDS: Magnesium Oxide 400 MG TABLET 200 MG PO (09:21)
[2024-08-28] MEDS: Lithium Carbonate ER 300 MG TABLET.ER PO (09:22)
[2024-08-28 09:27] LABS: Cholesterol 157 mg/dL (<200); HDL Cholesterol 46 mg/dL (>40); LDL Cholesterol Calculated 96 mg/dL (<100); Magnesium 2.1 mg/dL (1.6-2.6); Triglycerides 77 mg/dL (<150)
[2024-08-28 09:43] LABS: Free T4 (Free Thyroxine) 0.98 ng/dL (0.71-1.85); Thyroid Stimulating Hormone 1.35 uIU/mL (0.32-4.0)
[2024-08-28 09:56] LABS: Folate 13.7 ng/mL (> or = 4.0); Vitamin B12 392 pg/mL (200-900)
[2024-08-28 11:57] VITALS: BP 106/60; PULSE 88; RESP 16; TEMP 36.9; O2SAT 96
[2024-08-28 15:42] LABS: Appearance Urine Clear; Color Urine Yellow; Glucose Urine UA Negative (Negative); Leukocyte Esterase Urine Negative (Negative); Nitrite Urine Negative (Negative); UMIC TRIGGER UACC YES; Urine Blood Trace (Negative); Urine Ketones Negative (Negative); Urine Protein Negative (Neg-Trace)
[2024-08-28 15:45] LABS: Bacteria Urine None Seen (None Seen); Hyaline Casts Urine 0-2 /LPF (0-2); Squamous Epithelial Cell Urine 0-2 /HPF (0-2); WBC Urine 0-5 /HPF (0-5)
[2024-08-28 20:00] VITALS: BP 123/76; PULSE 91; TEMP 36.7; O2SAT 97
[2024-08-28] MEDS: OLANZapine 10 MG TABLET PO (22:11)
[2024-08-29 00:30] VITALS: BP 116/72; PULSE 68; TEMP 36.6
[2024-08-29 04:30] VITALS: BP 110/65; PULSE 57; TEMP 36.9
[2024-08-29 07:00] VITALS: BMI 29.4
[2024-08-29 08:00] VITALS: BP 126/78; PULSE 82; RESP 18; TEMP 36.5; O2SAT 97
[2024-08-29 20:00] VITALS: BP 135/65; PULSE 88; RESP 16; TEMP 2.4; TEMP 36.4; O2SAT 97
[2024-08-29] MEDS: OLANZapine 10 MG TABLET PO (21:54)
[2024-08-29] MEDS: Lithium Carbonate ER 300 MG TABLET.ER 1200 MG PO (21:54)
[2024-08-29] MEDS: Magnesium Oxide 400 MG TABLET PO (21:54)
--- NOTE | 2024-08-29 22:57 | P.PNPSI_ITS ---
Subjective Subjective Date of Service: 08/29/24 Reason For Visit: Schizoaffective disorder,depressed si Interim History: Met?with?patient;?discussed?with?team? P atient?remains?a?little?guarded?but?more?open.??Says?tolerating?medications?well and wants to continue. H ad?discussed?urinary?symptoms.??Patient?denies?any?dysuria;?says?he?has?been?uri nating?overall? more?often?than?usual?which?has?been?going?on?or?several?weeks?or?longer. ?Patient?said?he?had?a?cystoscopy?about?2?years?ago?that?was?unremarkable.??Agre es?to?UA now. Mental Status Exam Mental Status Exam Narrative: Pt is alert and oriented; behavior is more cooperative, less guarded, isolating to room; dressed in casual attire, unkempt, marginal hygiene; eye contact improved; mood is described as ok and affect blunted to constricted; Speech is still with some latency, soft volume; sometimes muttering but normal rate/prosody; thought process is goal directed; Thought content is with paranoid delusions; denies SI/HI; vaugue on AH but seems internally preoccupied. Judgment/insight impaired. Diagnostics Vital Signs (24Hr): Vital Signs - 24 hr 08/29/24 00:30 08/29/24 04:30 08/29/24 08:00 Temperature 97.8 F 98.4 F 97.7 F Pulse Rate 68 57 82 Respiratory Rate 18 Blood Pressure 116/72 110/65 126/78 Pulse Oximetry 97 Oxygen Delivery Method Room Air BMI result Body Mass Index 29.4 Labs 08/26/24 17:50 08/26/24 17:50 Labs: Laboratory Results - last 48 hr 08/28/24 08/28/24 08:48 15:20 Estimat Average Glucose 103 Hemoglobin A1c % 5.2 Magnesium 2.1 Triglycerides 77 Cholesterol 157 LDL Cholesterol, Calc 96 HDL Cholesterol 46 Vitamin B12 392 Folate 13.7 TSH 1.35 Free T4 0.98 Urine Color Yellow Urine Appearance Clear Urine pH 7.0 Ur Specific [place] 1.020 Urine Protein Negative Urine Glucose (UA) Negative Urine Ketones Negative Urine Blood Trace H Urine Nitrite Negative Ur Leukocyte Esterase Negative Urine RBC 11-20 H Urine WBC 0-5 Ur Squamous Epith Cells 0-2 Urine Bacteria None Seen Hyaline Casts 0-2 Medications Medications Current Medications Acetaminophen (Acetaminophen 325 Mg Tablet) 650 mg PO Q6H PRN PRN Reason: Headache/Pain Mild Scale (1-3) Last Admin: 08/27/24 20:27 Dose: 650 mg Al Hydroxide/Mg Hydroxide (Magnesium Hydrox/Alum Hydrox 30 Ml Oral.Susp) 30 ml PO Q6H PRN PRN Reason: Heartburn/Nausea Hydroxyzine HCl (Hydroxyzine Hcl 25 Mg Tablet) 25 mg PO Q6H PRN PRN Reason: Anxiety [place] Carbonate ([place] Carbonate Er 300 Mg Tablet.Er) 1,200 mg PO BEDTIME [facility] Last Admin: 08/29/24 21:54 Dose: 1,200 mg Lorazepam (Lorazepam 1 Mg Tablet) 1 mg PO Q2H PRN PRN Reason: CIWA 6-10 Lorazepam (Lorazepam 1 Mg Tablet) 2 mg PO Q2H PRN PRN Reason: CIWA 11 and above Magnesium Hydroxide (Milk Of Magnesia 30 Ml Oral.Susp) 30 ml PO DAILY PRN PRN Reason: Constipation Magnesium Oxide (Magnesium Oxide 400 Mg Tablet) 400 mg PO BEDTIME [facility] Last Admin: 08/29/24 21:54 Dose: 400 mg Nicotine (Nicotine 21 Mg Patch.Td24) 21 mg TRANSDERMA DAILY PRN PRN Reason: Nicotine Cravings Nicotine Polacrilex (Nicotine Polacrilex 2 Mg Gum) 4 mg BUCCAL Q2H PRN PRN Reason: Nicotine Cravings Olanzapine (Olanzapine 10 Mg Tablet) 10 mg PO BEDTIME [facility] Last Admin: 08/29/24 21:54 Dose: 10 mg Trazodone HCl (Trazodone Hcl 50 Mg Tablet) 50 mg PO BEDTIME MRX1 PRN PRN Reason: Insomnia Allergies Allergies Allergy/AdvReac Type Severity Reaction Status Date / Time No Known Allergies Allergy Verified 08/26/24 16:46 Assessment & Plan Assessment & Plan (1) Schizoaffective disorder, depressive type: Status: Acute Code(s): F25.1 - Schizoaffective disorder, depressive type (2) Alcohol abuse: Status: Acute Code(s): F10.10 - Alcohol abuse, uncomplicated (3) Hematuria: Status: Acute Code(s): R31.9 - Hematuria, unspecified Plan Patient is a 54-year-old male with history schizoaffective disorder, bipolar type who presents for depression with SI in the face of being off medications and?substance?abuse.??Patient?guarded?and?hesitant?to?discuss?much.?? Vague?regarding?AH;?endorses?paranoid?thinking?but?again?vague. Says was drinking alcohol but quit a week ago. Reports depression worsened so self- presented. Pt wants to get back on medication that was started at last admission, [place], Mag oxide and zyprexa formulation: hx of psychotic illness; wants to get back on recent medication Hospital course: 08/29 Patient?remains?a?little?guarded?but?more?open.??Says?tolerating?medications?wel l and wants to continue. H ad?discussed?urinary?symptoms.??Patient?denies?any?dysuria;?says?he?has?been?uri nating?overall? more?often?than?usual?which?has?been?going?on?or?several?weeks?or?longer. ?Patient?said?he?had?a?cystoscopy?about?2?years?ago?that?was?unremarkable.??Agre es?to?UA now. Plan: CV q15min Continue?[place]?ER?1200?mg?q.h.s. (switched?from?b.i.d.?for?help?with?adherence) Continue?Mag?oxide?400?mg?q.h.s. Continue?Zyprexa?10?mg?q.h.s. [facility] Hematology and chemistry at baseline, urinalysis shows moderate amount of blood and white blood cell counts elevated which is chronic for the patient. Upon discharge, patient will likely need to be referred to Urology for chronic hematuria. Patient educated on: diagnosis, medication risk/benefits and medical condition Informed Consent: understands Reason for continued inpatient stay Substantial Risk for: rapid decompensation Time Spent With Patient Time: Total time managing care of this patient today ____ minutes.
[2024-08-30] VITALS: BP 138/68; PULSE 94; RESP 14; O2SAT 96
[2024-08-30 04:00] VITALS: BP 140/68; PULSE 70; RESP 14; TEMP 2.8; TEMP 37; O2SAT 97
[2024-08-30 08:00] VITALS: BP 131/84; PULSE 84; RESP 16; TEMP 36.8; O2SAT 99
[2024-08-30 20:00] VITALS: BP 112/60; PULSE 70; RESP 20; TEMP 36.8; O2SAT 99
[2024-08-30] MEDS: Lithium Carbonate ER 300 MG TABLET.ER 1200 MG PO (22:32)
[2024-08-30] MEDS: Magnesium Oxide 400 MG TABLET PO (22:33)
[2024-08-30] MEDS: OLANZapine 10 MG TABLET PO (22:33)
[2024-08-31 08:00] VITALS: BP 156/76; PULSE 82; RESP 16; TEMP 36.9; O2SAT 99
--- NOTE | 2024-08-31 10:21 | HO.PSYCHPN ---
Subjective Subjective Date of Service: 08/31/24 Reason For Visit: Schizoaffective disorder,depressed si Subjective Notes: Conditional Voluntary Healthcare Proxy: No Guardianship: No Medical Problems Affecting Mental Status: No Interim History: Patient was seen and discussed in rounds today. Records and plans were reviewed. He continues to be mostly isolative with minimal social interactions. Some paranoia has been observed. He has been medication compliant. No complaints or side effects. Eating and sleeping well. No changes were made today Review of Systems Review of Systems Yes all other systems are reviewed and are negative Mental Status Exam Mental Status Exam Narrative: In today's visit he is alert, oriented and pleasant. Normal speech. Good eye contact. Affect is appropriate and stable. No signs of acute psychosis. Cognitively is grossly intact. No SI. Judgment is intact Diagnostics Vital Signs (24Hr): Vital Signs - 24 hr 08/30/24 20:00 08/31/24 08:00 Temperature 98.2 F 98.4 F Pulse Rate 70 82 Respiratory Rate 20 16 Blood Pressure 112/60 156/76 H Pulse Oximetry 99 99 Oxygen Delivery Method Room Air Room Air BMI result Body Mass Index 29.4 Labs 08/26/24 17:50 08/26/24 17:50 Medications Medications Current Medications Acetaminophen (Acetaminophen 325 Mg Tablet) 650 mg PO Q6H PRN PRN Reason: Headache/Pain Mild Scale (1-3) Last Admin: 08/27/24 20:27 Dose: 650 mg Al Hydroxide/Mg Hydroxide (Magnesium Hydrox/Alum Hydrox 30 Ml Oral.Susp) 30 ml PO Q6H PRN PRN Reason: Heartburn/Nausea Hydroxyzine HCl (Hydroxyzine Hcl 25 Mg Tablet) 25 mg PO Q6H PRN PRN Reason: Anxiety [place] Carbonate ([place] Carbonate Er 300 Mg Tablet.Er) 1,200 mg PO BEDTIME [facility] Last Admin: 08/30/24 22:32 Dose: 1,200 mg Magnesium Hydroxide (Milk Of Magnesia 30 Ml Oral.Susp) 30 ml PO DAILY PRN PRN Reason: Constipation Magnesium Oxide (Magnesium Oxide 400 Mg Tablet) 400 mg PO BEDTIME [facility] Last Admin: 08/30/24 22:33 Dose: 400 mg Nicotine (Nicotine 21 Mg Patch.Td24) 21 mg TRANSDERMA DAILY PRN PRN Reason: Nicotine Cravings Nicotine Polacrilex (Nicotine Polacrilex 2 Mg Gum) 4 mg BUCCAL Q2H PRN PRN Reason: Nicotine Cravings Olanzapine (Olanzapine 10 Mg Tablet) 10 mg PO BEDTIME [facility] Last Admin: 08/30/24 22:33 Dose: 10 mg Trazodone HCl (Trazodone Hcl 50 Mg Tablet) 50 mg PO BEDTIME MRX1 PRN PRN Reason: Insomnia Allergies Allergies Allergy/AdvReac Type Severity Reaction Status Date / Time No Known Allergies Allergy Verified 08/26/24 16:46 Assessment & Plan Assessment & Plan (1) Depression: Status: Acute Code(s): F32.A - Depression, unspecified Plan 08/31: Continue current regimen and plans for stabilization and medication management Reason for continued inpatient stay Substantial Risk for: med/psych decompensation Time Spent With Patient Time: Total time managing care of this patient today ____ minutes.
--- NOTE | 2024-08-31 12:08 | HO.PSYCHPN ---
Subjective Subjective Date of Service: 08/30/24 Reason For Visit: Schizoaffective disorder,depressed si Interim History: late entry note for pt seen on 08/30; discussed with team pt says he's feeling better; he says he was worrying about people being after him, but says this is less so; he denies AVH. Says he' was feeling mad inside, about mistakes made in his history, but says less so. Mental Status Exam Mental Status Exam Narrative: Pt is alert and oriented; behavior is cooperative, more engaged; still isolating to room but out in milue more often; dressed in casual attire, unkempt, marginal hygiene; eye contact appropriate; mood is described as better and affect more naturally expressive; Speech is normal volume, rate, prosody; thought process is goal directed; Thought content about life history, treatment; denies SI/HI; denies AH and seems much less internally preoccupied. Judgment/insight impaired but improving. Diagnostics Vital Signs (24Hr): Vital Signs - 24 hr 08/30/24 20:00 08/31/24 08:00 Temperature 98.2 F 98.4 F Pulse Rate 70 82 Respiratory Rate 20 16 Blood Pressure 112/60 156/76 H Pulse Oximetry 99 99 Oxygen Delivery Method Room Air Room Air BMI result Body Mass Index 29.4 Labs 08/26/24 17:50 08/26/24 17:50 Medications Medications Current Medications Acetaminophen (Acetaminophen 325 Mg Tablet) 650 mg PO Q6H PRN PRN Reason: Headache/Pain Mild Scale (1-3) Last Admin: 08/27/24 20:27 Dose: 650 mg Al Hydroxide/Mg Hydroxide (Magnesium Hydrox/Alum Hydrox 30 Ml Oral.Susp) 30 ml PO Q6H PRN PRN Reason: Heartburn/Nausea Hydroxyzine HCl (Hydroxyzine Hcl 25 Mg Tablet) 25 mg PO Q6H PRN PRN Reason: Anxiety [place] Carbonate ([place] Carbonate Er 300 Mg Tablet.Er) 1,200 mg PO BEDTIME [facility] Last Admin: 08/30/24 22:32 Dose: 1,200 mg Magnesium Hydroxide (Milk Of Magnesia 30 Ml Oral.Susp) 30 ml PO DAILY PRN PRN Reason: Constipation Magnesium Oxide (Magnesium Oxide 400 Mg Tablet) 400 mg PO BEDTIME [facility] Last Admin: 08/30/24 22:33 Dose: 400 mg Nicotine (Nicotine 21 Mg Patch.Td24) 21 mg TRANSDERMA DAILY PRN PRN Reason: Nicotine Cravings Nicotine Polacrilex (Nicotine Polacrilex 2 Mg Gum) 4 mg BUCCAL Q2H PRN PRN Reason: Nicotine Cravings Olanzapine (Olanzapine 10 Mg Tablet) 10 mg PO BEDTIME [facility] Last Admin: 08/30/24 22:33 Dose: 10 mg Trazodone HCl (Trazodone Hcl 50 Mg Tablet) 50 mg PO BEDTIME MRX1 PRN PRN Reason: Insomnia Allergies Allergies Allergy/AdvReac Type Severity Reaction Status Date / Time No Known Allergies Allergy Verified 08/26/24 16:46 Assessment & Plan Assessment & Plan (1) Schizoaffective disorder, depressive type: Status: Acute Code(s): F25.1 - Schizoaffective disorder, depressive type (2) Alcohol abuse: Status: Acute Code(s): F10.10 - Alcohol abuse, uncomplicated (3) Hematuria: Status: Acute Code(s): R31.9 - Hematuria, unspecified Plan Patient is a 54-year-old male with history schizoaffective disorder, bipolar type who presents for depression with SI in the face of being off medications and?substance?abuse.??Patient?guarded?and?hesitant?to?discuss?much.?? Vague?regarding?AH;?endorses?paranoid?thinking?but?again?vague. Says was drinking alcohol but quit a week ago. Reports depression worsened so self-presented. Pt wants to get back on medication that was started at last admission, [place], Mag oxide and zyprexa formulation: hx of psychotic illness; wants to get back on recent medication Hospital course: 08/29 Patient?remains?a?little?guarded?but?more?open.??Says?tolerating?medications?well and wants to continue. Had?discussed?urinary?symptoms.??Patient?denies?any?dysuria;?says?he?has?been?urinating?overall? more?often?than?usual?which?has?been?going?on?or?several?weeks?or?longer. ?Patient?said?he?had?a?cystoscopy?about?2?years?ago?that?was?unremarkable.??Agrees?to?UA now. 08/30 pt says he's feeling better; he says he was worrying about people being after him, but says this is less so; he denies AVH. Says he' was feeling mad inside, about mistakes made in his history, but says less so. -UA with hematura; but no concern for UTI Plan: CV q15min Continue?[place]?ER?1200?mg?q.h.s. (switched?from?b.i.d.?for?help?with?adherence) Continue?Mag?oxide?400?mg?q.h.s. Continue?Zyprexa?10?mg?q.h.s. [facility] Hematology and chemistry at baseline, urinalysis shows moderate amount of blood and white blood cell counts elevated which is chronic for the patient. Upon discharge, patient will likely need to be referred to Urology for chronic hematuria. Patient educated on: diagnosis and medication risk/benefits Informed Consent: understands Reason for continued inpatient stay Substantial Risk for: rapid decompensation Time Spent With Patient Time: Total time managing care of this patient today ____ minutes.
[2024-08-31 19:44] VITALS: BP 125/72; PULSE 95; RESP 18; TEMP 36.3; O2SAT 96
[2024-08-31] MEDS: Lithium Carbonate ER 300 MG TABLET.ER 1200 MG PO (21:15)
[2024-08-31] MEDS: OLANZapine 10 MG TABLET PO (21:16)
[2024-08-31] MEDS: hydrOXYzine HCL 25 MG TABLET PO (21:16)
[2024-08-31] MEDS: Magnesium Oxide 400 MG TABLET PO (21:16)
[2024-09-01 07:56] VITALS: BP 142/77; PULSE 83; RESP 16; TEMP 36.4; O2SAT 99
--- NOTE | 2024-09-01 10:00 | HO.PSYCHPN ---
Subjective Subjective Date of Service: 09/01/24 Reason For Visit: Schizoaffective disorder,depressed si Subjective Notes: Conditional Voluntary Interim History: Patient was seen and discussed in rounds today. Records and plans were reviewed. He continues to be somewhat guarded and on the periphery. He was asking about when he can be discharged and I told him that he needs to discuss that with his treatment team and could not be done over this weekend. No complaints or side effects. Eating and sleeping adequately. No changes were made today Review of Systems Review of Systems Yes all other systems are reviewed and are negative Mental Status Exam Mental Status Exam Narrative: In today's visit he is alert, oriented and pleasant. Normal speech. Moderate eye contact. Affect is appropriate and constricted. No acute signs of psychosis. Able to move all his limbs. Cognitively is grossly intact. No SI. No abnormalities of gait. Judgment is intact Diagnostics Vital Signs (24Hr): Vital Signs - 24 hr 08/31/24 19:44 09/01/24 07:56 Temperature 97.4 F 97.5 F Pulse Rate 95 83 Respiratory Rate 18 16 Blood Pressure 125/72 142/77 H Pulse Oximetry 96 99 Oxygen Delivery Method Room Air Room Air BMI result Body Mass Index 29.4 Labs 08/26/24 17:50 08/26/24 17:50 Medications Medications Current Medications Acetaminophen (Acetaminophen 325 Mg Tablet) 650 mg PO Q6H PRN PRN Reason: Headache/Pain Mild Scale (1-3) Last Admin: 08/27/24 20:27 Dose: 650 mg Al Hydroxide/Mg Hydroxide (Magnesium Hydrox/Alum Hydrox 30 Ml Oral.Susp) 30 ml PO Q6H PRN PRN Reason: Heartburn/Nausea Hydroxyzine HCl (Hydroxyzine Hcl 25 Mg Tablet) 25 mg PO Q6H PRN PRN Reason: Anxiety Last Admin: 08/31/24 21:16 Dose: 25 mg [place] Carbonate ([place] Carbonate Er 300 Mg Tablet.Er) 1,200 mg PO BEDTIME [facility] Last Admin: 08/31/24 21:15 Dose: 1,200 mg Magnesium Hydroxide (Milk Of Magnesia 30 Ml Oral.Susp) 30 ml PO DAILY PRN PRN Reason: Constipation Magnesium Oxide (Magnesium Oxide 400 Mg Tablet) 400 mg PO BEDTIME [facility] Last Admin: 08/31/24 21:16 Dose: 400 mg Nicotine (Nicotine 21 Mg Patch.Td24) 21 mg TRANSDERMA DAILY PRN PRN Reason: Nicotine Cravings Nicotine Polacrilex (Nicotine Polacrilex 2 Mg Gum) 4 mg BUCCAL Q2H PRN PRN Reason: Nicotine Cravings Olanzapine (Olanzapine 10 Mg Tablet) 10 mg PO BEDTIME [facility] Last Admin: 08/31/24 21:16 Dose: 10 mg Trazodone HCl (Trazodone Hcl 50 Mg Tablet) 50 mg PO BEDTIME MRX1 PRN PRN Reason: Insomnia Allergies Allergies Allergy/AdvReac Type Severity Reaction Status Date / Time No Known Allergies Allergy Verified 08/26/24 16:46 Assessment & Plan Assessment & Plan (1) Schizoaffective disorder, depressive type: Status: Acute Code(s): F25.1 - Schizoaffective disorder, depressive type (2) Alcohol abuse: Status: Acute Code(s): F10.10 - Alcohol abuse, uncomplicated (3) Hematuria: Status: Acute Code(s): R31.9 - Hematuria, unspecified Plan Patient is a 54-year-old male with history schizoaffective disorder, bipolar type who presents for depression with SI in the face of being off medications and?substance?abuse.??Patient?guarded?and?hesitant?to?discuss?much.?? Vague?regarding?AH;?endorses?paranoid?thinking?but?again?vague. Says was drinking alcohol but quit a week ago. Reports depression worsened so self-presented. Pt wants to get back on medication that was started at last admission, [place], Mag oxide and zyprexa formulation: hx of psychotic illness; wants to get back on recent medication Hospital course: 08/29 Patient?remains?a?little?guarded?but?more?open.??Says?tolerating?medications?well and wants to continue. Had?discussed?urinary?symptoms.??Patient?denies?any?dysuria;?says?he?has?been?urinating?overall? more?often?than?usual?which?has?been?going?on?or?several?weeks?or?longer. ?Patient?said?he?had?a?cystoscopy?about?2?years?ago?that?was?unremarkable.??Agrees?to?UA now. 08/30 pt says he's feeling better; he says he was worrying about people being after him, but says this is less so; he denies AVH. Says he' was feeling mad inside, about mistakes made in his history, but says less so. -UA with hematura; but no concern for UTI 09/01: Continue current regimen and plans for stabilization and medication management Plan: CV q15min Continue?[place]?ER?1200?mg?q.h.s. (switched?from?b.i.d.?for?help?with?adherence) Continue?Mag?oxide?400?mg?q.h.s. Continue?Zyprexa?10?mg?q.h.s. [facility] Hematology and chemistry at baseline, urinalysis shows moderate amount of blood and white blood cell counts elevated which is chronic for the patient. Upon discharge, patient will likely need to be referred to Urology for chronic hematuria. Reason for continued inpatient stay Substantial Risk for: med/psych decompensation Time Spent With Patient Time: Total time managing care of this patient today ____ minutes.
[2024-09-01 20:00] VITALS: BP 129/79; PULSE 94; TEMP 36.6; O2SAT 96
[2024-09-01] MEDS: OLANZapine 10 MG TABLET PO (22:08)
[2024-09-01] MEDS: Magnesium Oxide 400 MG TABLET PO (22:08)
[2024-09-01] MEDS: Lithium Carbonate ER 300 MG TABLET.ER 1200 MG PO (22:09)
[2024-09-01] MEDS: Acetaminophen 325 MG TABLET 650 MG PO (22:17)
[2024-09-01] MEDS: hydrOXYzine HCL 25 MG TABLET PO (22:17)
[2024-09-02 08:26] VITALS: BP 120/68; PULSE 84; TEMP 36.7; O2SAT 98
--- NOTE | 2024-09-02 09:54 | P.PNPSI_ITS ---
Subjective Subjective Date of Service: 09/02/24 Reason For Visit: Schizoaffective disorder,depressed si Interim History: Met with patient; discussed with team; reviewed chart Patient says he is doing okay. Still struggling with depression and upsetting thoughts about the past. Discussed medication management and patient agrees to increase Zyprexa. Asks about help getting to a retirement Mental Status Exam Mental Status Exam Narrative: Pt is alert and oriented; behavior is cooperative, mostly keeps to himself but overall more engaged and out in milue; dressed in casual attire, unkempt, marginal hygiene; eye contact appropriate; mood is described as ok and affect more naturally expressive, but a little downcast; Speech is normal volume, rate, prosody; thought process is goal directed; Thought content about life history, treatment; denies SI/HI; denies AH and seems much less internally preoccupied. Judgment/insight impaired fair Diagnostics Vital Signs (24Hr): Vital Signs - 24 hr 09/01/24 20:00 09/02/24 08:26 Temperature 97.8 F 98.1 F Pulse Rate 94 84 Blood Pressure 129/79 120/68 Pulse Oximetry 96 98 Oxygen Delivery Method Room Air Room Air BMI result Body Mass Index 29.4 Labs 08/26/24 17:50 09/03/24 08:34 Medications Medications Current Medications Acetaminophen (Acetaminophen 325 Mg Tablet) 650 mg PO Q6H PRN PRN Reason: Headache/Pain Mild Scale (1-3) Last Admin: 09/01/24 22:17 Dose: 650 mg Al Hydroxide/Mg Hydroxide (Magnesium Hydrox/Alum Hydrox 30 Ml Oral.Susp) 30 ml PO Q6H PRN PRN Reason: Heartburn/Nausea Hydroxyzine HCl (Hydroxyzine Hcl 25 Mg Tablet) 25 mg PO Q6H PRN PRN Reason: Anxiety Last Admin: 09/01/24 22:17 Dose: 25 mg [place] Carbonate ([place] Carbonate Er 300 Mg Tablet.Er) 1,200 mg PO BEDTIME [facility] Last Admin: 09/01/24 22:09 Dose: 1,200 mg Magnesium Hydroxide (Milk Of Magnesia 30 Ml Oral.Susp) 30 ml PO DAILY PRN PRN Reason: Constipation Magnesium Oxide (Magnesium Oxide 400 Mg Tablet) 400 mg PO BEDTIME [facility] Last Admin: 09/01/24 22:08 Dose: 400 mg Nicotine (Nicotine 21 Mg Patch.Td24) 21 mg TRANSDERMA DAILY PRN PRN Reason: Nicotine Cravings Nicotine Polacrilex (Nicotine Polacrilex 2 Mg Gum) 4 mg BUCCAL Q2H PRN PRN Reason: Nicotine Cravings Olanzapine (Olanzapine 10 Mg Tablet) 10 mg PO BEDTIME [facility] Last Admin: 09/01/24 22:08 Dose: 10 mg Trazodone HCl (Trazodone Hcl 50 Mg Tablet) 50 mg PO BEDTIME MRX1 PRN PRN Reason: Insomnia Allergies Allergies Allergy/AdvReac Type Severity Reaction Status Date / Time No Known Allergies Allergy Verified 08/26/24 16:46 Assessment & Plan Assessment & Plan (1) Schizoaffective disorder, depressive type: Status: Acute Code(s): F25.1 - Schizoaffective disorder, depressive type (2) Alcohol abuse: Status: Acute Code(s): F10.10 - Alcohol abuse, uncomplicated (3) Hematuria: Status: Acute Code(s): R31.9 - Hematuria, unspecified Plan Patient is a 54-year-old male with history schizoaffective disorder, bipolar type who presents for depression with SI in the face of being off medications and?substance?abuse.??Patient?guarded?and?hesitant?to?discuss?much.?? Vague?regarding?AH;?endorses?paranoid?thinking?but?again?vague. Says was drinking alcohol but quit a week ago. Reports depression worsened so self- presented. Pt wants to get back on medication that was started at last admission, [place], Mag oxide and zyprexa formulation: hx of psychotic illness; wants to get back on recent medication Hospital course: 08/29 Patient?remains?a?little?guarded?but?more?open.??Says?tolerating?medications?wel l and wants to continue. H ad?discussed?urinary?symptoms.??Patient?denies?any?dysuria;?says?he?has?been?uri nating?overall? more?often?than?usual?which?has?been?going?on?or?several?weeks?or?longer. ?Patient?said?he?had?a?cystoscopy?about?2?years?ago?that?was?unremarkable.??Agre es?to?UA now. 08/30 pt says he's feeling better; he says he was worrying about people being after him, but says this is less so; he denies AVH. Says he' was feeling mad inside, about mistakes made in his history, but says less so. -UA with hematura; but no concern for UTI 09/02 patient has overall improved but remains depressed and has having a hard time calming his mind; agrees to increase Zyprexa; lithium level/ labs ordered for tomorrow Plan: CV q15min Continue?[place]?ER?1200?mg?q.h.s. (switched?from?b.i.d.?for?help?with?adherence) -labs ordered Continue?Mag?oxide?400?mg?q.h.s. Increase to?Zyprexa?15 mg q.h.s. [facility] Hematology and chemistry at baseline, urinalysis shows moderate amount of blood and white blood cell counts elevated which is chronic for the patient. Upon discharge, patient will likely need to be referred to Urology for chronic hematuria. Patient educated on: diagnosis and medication risk/benefits Informed Consent: understands Reason for continued inpatient stay Substantial Risk for: stable for discharge and rapid decompensation Time Spent With Patient Time: Total time managing care of this patient today ____ minutes.
[2024-09-02 20:00] VITALS: BP 123/58; PULSE 96; RESP 16; TEMP 36.8; O2SAT 97
[2024-09-02] MEDS: Magnesium Oxide 400 MG TABLET PO (21:47)
[2024-09-02] MEDS: Lithium Carbonate ER 300 MG TABLET.ER 1200 MG PO (21:47)
[2024-09-02] MEDS: OLANZapine 7.5 MG TABLET 15 MG PO (21:56)
[2024-09-03 09:11] LABS: Lithium 0.79 mmol/L (0.60-1.20)
[2024-09-03 09:20] LABS: Anion Gap 6 (12-20); Carbon Dioxide 32 mmol/L (22-29); Chloride 107 mmol/L (96-108); Potassium 4.1 mmol/L (3.3-5.1); Sodium 141 mmol/L (135-145)
[2024-09-03 09:34] VITALS: BP 119/62; PULSE 85; TEMP 36.5; O2SAT 98
[2024-09-03 09:40] LABS: TSH reflex Free T4 1.53 uIU/mL (0.32-4.0)
--- NOTE | 2024-09-03 15:18 | HO.PSYCHPN ---
Subjective Subjective Date of Service: 09/03/24 Reason For Visit: Schizoaffective disorder,depressed si Interim History: Met with patient; discussed with team Patient said that he is feeling a little better; would like to proceed with discharge planning. [place] level WNL; associated labs WNL Mental Status Exam Mental Status Exam Narrative: Pt is alert and oriented; behavior is cooperative, mostly keeps to himself but overall more engaged and out in [place]; dressed in casual attire, unkempt, marginal hygiene; eye contact appropriate; mood is described as ok and affect more naturally expressive; Speech is normal volume, rate, prosody; thought process is goal directed; Thought content about life history, treatment; denies SI/HI; denies AH and seems much less internally preoccupied. Judgment/insight impaired fair Diagnostics Vital Signs (24Hr): Vital Signs - 24 hr 09/02/24 20:00 09/03/24 09:34 Temperature 98.2 F 97.7 F Pulse Rate 96 85 Respiratory Rate 16 Blood Pressure 123/58 L 119/62 Pulse Oximetry 97 98 Oxygen Delivery Method Room Air Room Air BMI result Body Mass Index 29.4 Labs 08/26/24 17:50 09/03/24 08:34 Labs: Laboratory Results - last 48 hr 09/03/24 08:34 Sodium 141 Potassium 4.1 Chloride 107 Carbon Dioxide 32 H Anion Gap 6 L TSH 1.53 [place] 0.79 Medications Medications Current Medications Acetaminophen (Acetaminophen 325 Mg Tablet) 650 mg PO Q6H PRN PRN Reason: Headache/Pain Mild Scale (1-3) Last Admin: 09/01/24 22:17 Dose: 650 mg Al Hydroxide/Mg Hydroxide (Magnesium Hydrox/Alum Hydrox 30 Ml Oral.Susp) 30 ml PO Q6H PRN PRN Reason: Heartburn/Nausea Hydroxyzine HCl (Hydroxyzine Hcl 25 Mg Tablet) 25 mg PO Q6H PRN PRN Reason: Anxiety Last Admin: 09/01/24 22:17 Dose: 25 mg [place] Carbonate ([place] Carbonate Er 300 Mg Tablet.Er) 1,200 mg PO BEDTIME ZACH Last Admin: 09/02/24 21:47 Dose: 1,200 mg Magnesium Hydroxide (Milk Of Magnesia 30 Ml Oral.Susp) 30 ml PO DAILY PRN PRN Reason: Constipation Magnesium Oxide (Magnesium Oxide 400 Mg Tablet) 400 mg PO BEDTIME ZACH Last Admin: 09/02/24 21:47 Dose: 400 mg Nicotine (Nicotine 21 Mg Patch.Td24) 21 mg TRANSDERMA DAILY PRN PRN Reason: Nicotine Cravings Nicotine Polacrilex (Nicotine Polacrilex 2 Mg Gum) 4 mg BUCCAL Q2H PRN PRN Reason: Nicotine Cravings Olanzapine (Olanzapine 7.5 Mg Tablet) 15 mg PO BEDTIME ZACH Last Admin: 09/02/24 21:56 Dose: 15 mg Trazodone HCl (Trazodone Hcl 50 Mg Tablet) 50 mg PO BEDTIME MRX1 PRN PRN Reason: Insomnia Allergies Allergies Allergy/AdvReac Type Severity Reaction Status Date / Time No Known Allergies Allergy Verified 08/26/24 16:46 Assessment & Plan Assessment & Plan (1) Schizoaffective disorder, depressive type: Status: Acute Code(s): F25.1 - Schizoaffective disorder, depressive type (2) Alcohol abuse: Status: Acute Code(s): F10.10 - Alcohol abuse, uncomplicated (3) Hematuria: Status: Acute Code(s): R31.9 - Hematuria, unspecified Plan Patient is a 54-year-old male with history schizoaffective disorder, bipolar type who presents for depression with SI in the face of being off medications and?substance?abuse.??Patient?guarded?and?hesitant?to?discuss?much.?? Vague?regarding?AH;?endorses?paranoid?thinking?but?again?vague. Says was drinking alcohol but quit a week ago. Reports depression worsened so self-presented. Pt wants to get back on medication that was started at last admission, [place], Mag oxide and zyprexa formulation: hx of psychotic illness; wants to get back on recent medication Hospital course: 08/29 Patient?remains?a?little?guarded?but?more?open.??Says?tolerating?medications?well and wants to continue. Had?discussed?urinary?symptoms.??Patient?denies?any?dysuria;?says?he?has?been?urinating?overall? more?often?than?usual?which?has?been?going?on?or?several?weeks?or?longer. ?Patient?said?he?had?a?cystoscopy?about?2?years?ago?that?was?unremarkable.??Agrees?to?UA now. 08/30 pt says he's feeling better; he says he was worrying about people being after him, but says this is less so; he denies AVH. Says he' was feeling mad inside, about mistakes made in his history, but says less so. -UA with hematura; but no concern for UTI 09/02 patient has overall improved but remains depressed and has having a hard time calming his mind; agrees to increase Zyprexa; lithium level/ labs ordered for tomorrow 09/03 Patient said that he is feeling a little better; would like to proceed with discharge planning. Dickens level WNL; associated labs WNL Plan: CV q15min Continue?Dickens?ER?1200?mg?q.h.s. (switched?from?b.i.d.?for?help?with?adherence) -labs ordered Continue?Mag?oxide?400?mg?q.h.s. Increase to?Zyprexa?15 mg q.h.s. [facility] Hematology and chemistry at baseline, urinalysis shows moderate amount of blood and white blood cell counts elevated which is chronic for the patient. Upon discharge, patient will likely need to be referred to Urology for chronic hematuria. Patient educated on: diagnosis and medication risk/benefits Informed Consent: understands Reason for continued inpatient stay Substantial Risk for: stable for discharge Time Spent With Patient Time: Total time managing care of this patient today ____ minutes.
[2024-09-03 20:00] VITALS: BP 129/73; PULSE 91; TEMP 36.8; O2SAT 96
[2024-09-03] MEDS: Lithium Carbonate ER 300 MG TABLET.ER 1200 MG PO (21:41)
[2024-09-03] MEDS: OLANZapine 7.5 MG TABLET 15 MG PO (21:41)
[2024-09-03] MEDS: Magnesium Oxide 400 MG TABLET PO (21:41)
[2024-09-04 07:52] VITALS: BP 104/51; PULSE 77; RESP 16; TEMP 36.6; O2SAT 96
--- NOTE | 2024-09-04 09:04 | P.PNPSI_ITS ---
Subjective Subjective Date of Service: 09/04/24 Reason For Visit: Schizoaffective disorder,depressed si Interim History: Met with patient; discussed with team Diagnostics Vital Signs (24Hr): Vital Signs - 24 hr 09/03/24 09:34 09/03/24 20:00 09/04/24 07:52 Temperature 97.7 F 98.3 F 97.8 F Pulse Rate 85 91 77 Respiratory Rate 16 Blood Pressure 119/62 129/73 104/51 L Pulse Oximetry 98 96 96 Oxygen Delivery Method Room Air Room Air Room Air BMI result Body Mass Index 29.4 Labs 08/26/24 17:50 09/03/24 08:34 Labs: Laboratory Results - last 48 hr 09/03/24 08:34 Sodium 141 Potassium 4.1 Chloride 107 Carbon Dioxide 32 H Anion Gap 6 L TSH 1.53 [place] 0.79 Medications Medications Current Medications Acetaminophen (Acetaminophen 325 Mg Tablet) 650 mg PO Q6H PRN PRN Reason: Headache/Pain Mild Scale (1-3) Last Admin: 09/01/24 22:17 Dose: 650 mg Al Hydroxide/Mg Hydroxide (Magnesium Hydrox/Alum Hydrox 30 Ml Oral.Susp) 30 ml PO Q6H PRN PRN Reason: Heartburn/Nausea Hydroxyzine HCl (Hydroxyzine Hcl 25 Mg Tablet) 25 mg PO Q6H PRN PRN Reason: Anxiety Last Admin: 09/01/24 22:17 Dose: 25 mg [place] Carbonate ([place] Carbonate Er 300 Mg Tablet.Er) 1,200 mg PO BEDTIME ZACH Last Admin: 09/03/24 21:41 Dose: 1,200 mg Magnesium Hydroxide (Milk Of Magnesia 30 Ml Oral.Susp) 30 ml PO DAILY PRN PRN Reason: Constipation Magnesium Oxide (Magnesium Oxide 400 Mg Tablet) 400 mg PO BEDTIME [facility] Last Admin: 09/03/24 21:41 Dose: 400 mg Nicotine (Nicotine 21 Mg Patch.Td24) 21 mg TRANSDERMA DAILY PRN PRN Reason: Nicotine Cravings Nicotine Polacrilex (Nicotine Polacrilex 2 Mg Gum) 4 mg BUCCAL Q2H PRN PRN Reason: Nicotine Cravings Olanzapine (Olanzapine 7.5 Mg Tablet) 15 mg PO BEDTIME ZACH Last Admin: 09/03/24 21:41 Dose: 15 mg Trazodone HCl (Trazodone Hcl 50 Mg Tablet) 50 mg PO BEDTIME MRX1 PRN PRN Reason: Insomnia Allergies Allergies Allergy/AdvReac Type Severity Reaction Status Date / Time No Known Allergies Allergy Verified 08/26/24 16:46 Assessment & Plan Assessment & Plan (1) Schizoaffective disorder, depressive type: Status: Acute Code(s): F25.1 - Schizoaffective disorder, depressive type (2) Alcohol abuse: Status: Acute Code(s): F10.10 - Alcohol abuse, uncomplicated (3) Hematuria: Status: Acute Code(s): R31.9 - Hematuria, unspecified Plan Patient is a 54-year-old male with history schizoaffective disorder, bipolar type who presents for depression with SI in the face of being off medications and?substance?abuse.??Patient?guarded?and?hesitant?to?discuss?much.?? Vague?regarding?AH;?endorses?paranoid?thinking?but?again?vague. Says was drinking alcohol but quit a week ago. Reports depression worsened so self- presented. Pt wants to get back on medication that was started at last admission, [place], Mag oxide and zyprexa formulation: hx of psychotic illness; wants to get back on recent medication Hospital course: 08/29 Patient?remains?a?little?guarded?but?more?open.??Says?tolerating?medications?wel l and wants to continue. H ad?discussed?urinary?symptoms.??Patient?denies?any?dysuria;?says?he?has?been?uri nating?overall? more?often?than?usual?which?has?been?going?on?or?several?weeks?or?longer. ?Patient?said?he?had?a?cystoscopy?about?2?years?ago?that?was?unremarkable.??Agre es?to?UA now. 08/30 pt says he's feeling better; he says he was worrying about people being after him, but says this is less so; he denies AVH. Says he' was feeling mad inside, about mistakes made in his history, but says less so. -UA with hematura; but no concern for UTI 09/02 patient has overall improved but remains depressed and has having a hard time calming his mind; agrees to increase Zyprexa; lithium level/ labs ordered for tomorrow 09/03 Patient said that he is feeling a little better; would like to proceed with discharge planning. [place] level WNL; associated labs WNL Plan: CV q15min Continue?[place]?ER?1200?mg?q.h.s. (switched?from?b.i.d.?for?help?with?adherence) -labs ordered Continue?Mag?oxide?400?mg?q.h.s. Increase to?Zyprexa?15 mg q.h.s. [facility] Hematology and chemistry at baseline, urinalysis shows moderate amount of blood and white blood cell counts elevated which is chronic for the patient. Upon discharge, patient will likely need to be referred to Urology for chronic hematuria. Time Spent With Patient Time: Total time managing care of this patient today ____ minutes.
[2024-09-04 20:00] VITALS: BP 119/59; PULSE 86; RESP 16; TEMP 36.9; O2SAT 97
[2024-09-04] MEDS: OLANZapine 7.5 MG TABLET 15 MG PO (21:51)
[2024-09-04] MEDS: Magnesium Oxide 400 MG TABLET PO (21:51)
[2024-09-04] MEDS: Lithium Carbonate ER 300 MG TABLET.ER 1200 MG PO (21:51)
[2024-09-05 08:00] VITALS: BP 149/63; PULSE 82; TEMP 36.7; O2SAT 96
--- NOTE | 2024-09-05 19:16 | P.PNPSI_ITS ---
Subjective Subjective Date of Service: 09/05/24 Reason For Visit: Schizoaffective disorder,depressed si Diagnostics Vital Signs (24Hr): Vital Signs - 24 hr 09/04/24 20:00 09/05/24 08:00 Temperature 98.4 F 98.1 F Pulse Rate 86 82 Respiratory Rate 16 Blood Pressure 119/59 L 149/63 H Pulse Oximetry 97 96 Oxygen Delivery Method Room Air Room Air BMI result Body Mass Index 29.4 Labs 08/26/24 17:50 09/03/24 08:34 Medications Medications Current Medications Acetaminophen (Acetaminophen 325 Mg Tablet) 650 mg PO Q6H PRN PRN Reason: Headache/Pain Mild Scale (1-3) Last Admin: 09/01/24 22:17 Dose: 650 mg Al Hydroxide/Mg Hydroxide (Magnesium Hydrox/Alum Hydrox 30 Ml Oral.Susp) 30 ml PO Q6H PRN PRN Reason: Heartburn/Nausea Hydroxyzine HCl (Hydroxyzine Hcl 25 Mg Tablet) 25 mg PO Q6H PRN PRN Reason: Anxiety Last Admin: 09/01/24 22:17 Dose: 25 mg Black Carbonate (Black Carbonate Er 300 Mg Tablet.Er) 1,200 mg PO BEDTIME ZACH Last Admin: 09/04/24 21:51 Dose: 1,200 mg Magnesium Hydroxide (Milk Of Magnesia 30 Ml Oral.Susp) 30 ml PO DAILY PRN PRN Reason: Constipation Magnesium Oxide (Magnesium Oxide 400 Mg Tablet) 400 mg PO BEDTIME [facility] Last Admin: 09/04/24 21:51 Dose: 400 mg Nicotine (Nicotine 21 Mg Patch.Td24) 21 mg TRANSDERMA DAILY PRN PRN Reason: Nicotine Cravings Nicotine Polacrilex (Nicotine Polacrilex 2 Mg Gum) 4 mg BUCCAL Q2H PRN PRN Reason: Nicotine Cravings Olanzapine (Olanzapine 7.5 Mg Tablet) 15 mg PO BEDTIME [facility]ACH Last Admin: 09/04/24 21:51 Dose: 15 mg Trazodone HCl (Trazodone Hcl 50 Mg Tablet) 50 mg PO BEDTIME MRX1 PRN PRN Reason: Insomnia Allergies Allergies Allergy/AdvReac Type Severity Reaction Status Date / Time No Known Allergies Allergy Verified 08/26/24 16:46 Assessment & Plan Assessment & Plan (1) Schizoaffective disorder, depressive type: Status: Acute Code(s): F25.1 - Schizoaffective disorder, depressive type (2) Alcohol abuse: Status: Acute Code(s): F10.10 - Alcohol abuse, uncomplicated (3) Hematuria: Status: Acute Code(s): R31.9 - Hematuria, unspecified Plan Patient is a 54-year-old male with history schizoaffective disorder, bipolar type who presents for depression with SI in the face of being off medications and?substance?abuse.??Patient?guarded?and?hesitant?to?discuss?much.?? Vague?regarding?AH;?endorses?paranoid?thinking?but?again?vague. Says was drinking alcohol but quit a week ago. Reports depression worsened so self- presented. Pt wants to get back on medication that was started at last admission, [place], Mag oxide and zyprexa formulation: hx of psychotic illness; wants to get back on recent medication Hospital course: 08/29 Patient?remains?a?little?guarded?but?more?open.??Says?tolerating?medications?wel l and wants to continue. H ad?discussed?urinary?symptoms.??Patient?denies?any?dysuria;?says?he?has?been?uri nating?overall? more?often?than?usual?which?has?been?going?on?or?several?weeks?or?longer. ?Patient?said?he?had?a?cystoscopy?about?2?years?ago?that?was?unremarkable.??Agre es?to?UA now. 08/30 pt says he's feeling better; he says he was worrying about people being after him, but says this is less so; he denies AVH. Says he' was feeling mad inside, about mistakes made in his history, but says less so. -UA with hematura; but no concern for UTI 09/02 patient has overall improved but remains depressed and has having a hard time calming his mind; agrees to increase Zyprexa; lithium level/ labs ordered for tomorrow 09/03 Patient said that he is feeling a little better; would like to proceed with discharge planning. Black level WNL; associated labs WNL Plan: CV q15min Continue?Black?ER?1200?mg?q.h.s. (switched?from?b.i.d.?for?help?with?adherence) -labs ordered Continue?Mag?oxide?400?mg?q.h.s. Increase to?Zyprexa?15 mg q.h.s. [facility] Hematology and chemistry at baseline, urinalysis shows moderate amount of blood and white blood cell counts elevated which is chronic for the patient. Upon discharge, patient will likely need to be referred to Urology for chronic hematuria. Time Spent With Patient Time: Total time managing care of this patient today ____ minutes.
[2024-09-05 20:00] VITALS: BP 120/70; PULSE 96; RESP 18; TEMP 36.7; O2SAT 97
[2024-09-05] MEDS: OLANZapine 7.5 MG TABLET 15 MG PO (20:57)
[2024-09-05] MEDS: Magnesium Oxide 400 MG TABLET PO (20:57)
[2024-09-05] MEDS: Lithium Carbonate ER 300 MG TABLET.ER 1200 MG PO (20:57)
[2024-09-06 08:00] VITALS: BP 120/80; PULSE 88; RESP 18; TEMP 36.8; O2SAT 98
--- NOTE | 2024-09-06 09:26 | P.DS_ITS ---
DS: Providers Provider Date of Service: 09/06/24 Date of admission: 08/27/24 12:25 Date of discharge: 09/06/24 Primary care physician: None Physician DS: Diagnosis Discharge Diagnosis (1) Schizoaffective disorder, depressive type: Status: Acute (2) Alcohol abuse: Status: Acute (3) Hematuria: Status: Acute DS: Medications Discharge Medications Home Medications: Previous Rx's ?Medication ?Instructions ?Recorded hydroxyzine HCl 25 mg tablet 25 mg PO Q6H PRN Anxiety 30 days 09/06/24 #30 tabs lithium carbonate 300 mg 1,200 mg (4 x 300 mg) PO BEDTIME 09/06/24 tablet,extended release 30 days #120 tabs magnesium oxide 400 mg (241.3 mg 400 mg PO BEDTIME 30 days #30 tabs 09/06/24 magnesium) tablet olanzapine 15 mg tablet 15 mg PO BEDTIME 30 days #30 tabs 09/06/24 Data Data Completed and Pending Completed studies during hospitalization [Text1]: 09/03/24 08:34 Sodium 141 Potassium 4.1 Chloride 107 Carbon Dioxide 32 H Anion Gap 6 L TSH 1.53 [place] 0.79 DS: Summary Time Spent with Patient Time attestation: Total time managing care of this patient today ____ minutes. Discharge Plan Discharge Anticipated Discharge Date/Time: 09/06/24 11:50 Patient Disposition: [facility] Discharge Diagnosis: schizoaffective disorder, depressed type Referrals: [facility] [Other] - 09/13/24 (Please call for your appointments if you have not heard in 1 week ) [facility] Walk in [Other] - 3-5 Days (Walk in hours are from 10am-12pm weekdays, if you need immediate care please go to the walk in hours and they can set you up with an urgent care appointment ) Physician,None [Primary Care Provider] - 1 Week Discharge Medications: New hydroxyzine HCl 25 mg Tablet 25 mg PO Q6H PRN (Reason: Anxiety) 30 Days Qty: 30 0RF lithium carbonate 300 mg Tablet Extended Release 1,200 mg PO BEDTIME 30 Days Qty: 120 0RF magnesium oxide 400 mg (241.3 mg magnesium) Tablet 400 mg PO BEDTIME 30 Days Qty: 30 0RF Changed olanzapine 15 mg tablet 15 mg PO BEDTIME 30 Days Qty: 30 0RF Discharge Orders: Discharge Order (Routine); Ordered 09/06/24 Ordered By: Ponce Christy Diet: Regular diet Activity on Discharge: As tolerated Stand Alone Forms: Patient Portal Discharge page Print Language: Congolese Care Plan Goals: Maintain mood and safe behaviors Take medications as prescribed Continue to pursue sobriety Practice coping skills Continue with outpatient providers and reach out to them as needed Health Concerns: Mood stability and behaviors Sobriety Chronic hematuria Plan of Treatment: Follow up with your PCP, psychiatric provider and other outpatient providers regarding above concerns Follow-up with urologist regarding chronic hematuria; appointment scheduled Take medications as prescribed Assessment: Risk assessment at time of discharge:? Patient was interviewed prior to discharge and found to be fully oriented and without any SI or HI. Patient has improved insight and judgment and wants to continue treatment. Patient is not in imminent risk of harm to self or others and has a safety plan that includes presenting to the closest ER or calling 911 if feeling unsafe.? Patient has been observed closely by nursing and unit staff throughout admission; patient has not engaged in any behaviors that suggest dangerousness to self or others and has demonstrated appropriate behaviors and impulse control
== END 2024-09-06 11:06 | disposition home or self-care (01) | DRG 885 ==
LOC: HO.ED 19:53 → HO.PM5 08-27 12:33
PROVIDERS: Physician Assistant Medical; Admitting Provider Clinical Nurse Specialist Psychiatric/Mental Health, Adult; Emergency Provider Emergency Medicine; Visit Provider Psychiatry & Neurology Psychiatry
DX: F25.1 Schizoaffective disorder, depressive type (principal); R45.851 Suicidal ideations; Z59.02 Unsheltered homelessness; F17.210 Nicotine dependence, cigarettes, uncomplicated; R31.9 Hematuria, unspecified; Z71.6 Tobacco abuse counseling; Z20.822 Contact with and (suspected) exposure to COVID-19; F10.10 Alcohol abuse, uncomplicated; Z79.899 Other long term (current) drug therapy
CPT/HCPCS: 36415; 80051; 80053; 80061; 80143; 80178; 80179; 80307; 81001; 82607; 82746; 83036; 83735; 84439; 84443; 85025; 87635; 93005; 99285; S9485

== ENCOUNTER → 2024-08-26 16:49 | Outpatient (BNV) | payer MEDICARE, SELFPAY | PROVIDERS: Admitting Provider Clinical Nurse Specialist Psychiatric/Mental Health, Adult; Emergency Provider Emergency Medicine; Visit Provider Internal Medicine Cardiovascular Disease | DX: R94.31 Abnormal electrocardiogram [ECG] [EKG] (principal) | CPT/HCPCS: 93010 ==

== ENCOUNTER → 2024-08-27 12:25 | Outpatient (BNV) | payer MEDICARE, SELFPAY | PROVIDERS: Admitting Provider Clinical Nurse Specialist Psychiatric/Mental Health, Adult; Emergency Provider Emergency Medicine; Visit Provider Psychiatry & Neurology Psychiatry | DX: F25.1 Schizoaffective disorder, depressive type (principal); F10.10 Alcohol abuse, uncomplicated; R31.9 Hematuria, unspecified | CPT/HCPCS: 90792; 99231; 99232 ==

== ENCOUNTER 2024-09-28 20:49 | Emergency (ER) | payer MEDICARE, SELFPAY ==
--- NOTE | 2024-09-28 | ECG_ITS ---
Test Reason : SI Blood Pressure : / mmHG Vent. Rate : 093 BPM Atrial Rate : 093 BPM P-R Int : 146 ms QRS Dur : 098 ms QT Int : 346 ms P-R-T Axes : 018 001 055 degrees QTc Int : 430 ms Normal sinus rhythm Minimal voltage criteria for LVH, may be normal variant ( Brick product ) Nonspecific T wave abnormality Abnormal ECG When compared with ECG of 26-AUG-2024 17:41, No significant change was found Referred By: Generic ED Physician Electronically Signed By:KASI PEREZ MD
[2024-09-28 20:51] VITALS: BP 147/79; PULSE 104; RESP 16; TEMP 36.3; O2SAT 100; BMI 29.4
--- NOTE | 2024-09-28 21:24 | ED.PSYCH ---
HPI - Psych General Chief Complaint: Psychiatric Symptoms Stated Complaint: crisis/evaluation Time Seen by Provider: 09/28/24 21:04 Source: patient Mode of arrival: ambulatory Limitations: no limitations History of Present Illness ED Provider: Dr. Laxmi Hathaway HPI Narrative: Patient comes to the emergency room complaining of anxiety, depression, alcohol intoxication and suicidal thoughts. Patient states that earlier today he drank beer today. Patient states that he is struggling with his 's health worsening his anxiety. According to the patient the has a cardiac condition and she is not doing well. When I spoke to the patient, he did not disclose any plans of hurting himself. However, per triage, the patient said that he had some ?crazy thoughts? but denied ?wanting to act out on them?. Patient complaining of chronic neuropathy bilaterally lower extremities Related Data Previous Rx's ?Medication ?Instructions ?Recorded hydroxyzine HCl 25 mg tablet 25 mg PO Q6H PRN Anxiety 30 days 09/06/24 #30 tabs lithium carbonate 300 mg 1,200 mg (4 x 300 mg) PO BEDTIME 09/06/24 tablet,extended release 30 days #120 tabs magnesium oxide 400 mg (241.3 mg 400 mg PO BEDTIME 30 days #30 tabs 09/06/24 magnesium) tablet olanzapine 15 mg tablet 15 mg PO BEDTIME 30 days #30 tabs 09/06/24 Allergies Allergy/AdvReac Type Severity Reaction Status Date / Time No Known Allergies Allergy Verified 09/28/24 20:54 Review of Systems Review of Systems: Constitutional : No Weight loss, No Fever, No Chills, No Night Sweats, No Fatigue, No Malaise ENT/Mouth : No Hearing loss, No Ear Pain, No Nasal Congestion, No Sinus Pain, No Hoarseness, No sore throat, No Rhinorrhea, No Swallowing Difficulty Eyes: No Eye Pain, No Swelling, No Redness, No Foreign Body, No Discharge, No Vision Changes Cardiovascular : No Chest Pain, No SOB, No Dyspnea on Exertion, No Orthopnea, No Edema, No Palpitations Respiratory : No Cough, No Sputum, No Wheezing, No Smoke Exposure, No Dyspnea Gastrointestinal : No Nausea, No Vomiting, No Diarrhea, No Constipation, No abdominal Pain, No Hematochezia, No Melena Genitourinary : no irregular bleeding, No Dysuria, No Urinary Frequency, No Hematuria, No Urinary Incontinence, No Urgency, No Flank Pain, No Urinary Flow Changes, No Hesitancy Musculoskeletal : No joint pain, No Myalgias, No Joint Swelling Skin : No Skin Lesions, No rash Neuro : No Weakness, No Numbness, No Loss of Consciousness, No Dizziness, No Headache, complaining of chronic bilateral lower extremity neuropathy Psych : Complaining of anxiety, depression, vague SI, no HI, struggling with his being sick Heme/Lymph: No Bruising, No Bleeding,No Lymphadenopathy Endocrine : No Polyuria, No Polydipsia, No Temperature Intolerance [facility] Past Medical History Medical History Hematuria Alcohol abuse Schizoaffective disorder, depressive type Cocaine abuse Social History Social History (Updated 10/19/22 @ 08:41 by Sinai Hayward [facility]) Household Members: None Household Members Other:: up until 2 months ago, lived with spouse in an apartment in [place]; now Housing: Homeless Do you presently have visiting nurse or other home services: No Alcohol intake: current Alcohol intake frequency: a few times a week Alcohol type: beer Patient Tobacco Use Status: Current someday Tobacco user Tobacco use type: Cigarette Cigarettes Per Day: 2 Years Smoked: unsure Smoked in Last 30 Days: Yes e-Cigarette/Vaping Use: Never Used Second Hand Smoke Exposure: Yes (yes when spouse smokes) Use of substances other than those prescribed or required for medical reasons: Yes Substance Use Type: Marijuana Substance Use Frequency: Daily Last Used Substance: Hours (ago) Advance Directives: No Advance Directives Information Provided: No service: No Current occupational status: unemployed Current occupation: rt hand Sexual orientation: Straight/Heterosexual Physical Exam Vital Signs: Vital Signs: Last Vital Signs Temp 97.3 F 09/28/24 20:51 Pulse 104 H 09/28/24 20:51 Resp 16 09/28/24 20:51 BP 147/79 H 09/28/24 20:51 Pulse Ox 100 09/28/24 20:51 O2 Del Method Room Air 09/28/24 20:51 BMI result Body Mass Index 29.4 Const: Other: Appearance: Alert. Oriented X3. No acute distress. Seems intoxicated Eyes: Pupils equal, round and reactive to light. ENT: Pharynx normal. Neck: Normal inspection. Neck supple. No lymph nodes noted. No crepitus CVS: Normal heart rate and rhythm. Pulses normal. Normal S1 and S2 Respiratory: No respiratory distress. Breath sounds normal. No Wheezing. No rales Abdomen: Soft and nontender. No rigidity. No distention. Skin: Skin warm and dry. Normal skin color. Normal skin turgor. Extremities: No lower extremity edema. No Lacerations. No Rash Neuro: Oriented X 3. No motor deficit. No sensory deficit. Moving all extremities. No slurred speech. CN 2 through 12 grossly intact Psych: calm, cooperative, normal affect Medical Decision Making Medical Decision Making MDM Narrative: Patient's vitals are stable. My interpretation of EKG: Normal sinus rhythm, heart rate 93, no ST segment depression or elevation, T-wave inversion, QTC 430 -patient refusing blood work -we will reassess when patient becomes more sober. Physician observation started at 21:25 Differential Diagnosis Differential Diagnoses: The differential diagnosis associated with the presentation includes (Anxiety, depression, polysubstance abuse) Admission/Observation Consideration of admission/observation: Escalation of care including admission/observation considered (Patient is on physician observation) Lab Data 09/28/24 21:42 09/28/24 21:42 Labs: Lab Results 09/28/24 09/28/24 Range/Units 21:42 21:47 WBC 8.4 (4.8-10.8) X10*3/uL RBC 4.65 (4.60-5.80) X10*6/uL Hgb 14.8 (14.0-18.0) g/dl Hct 41.6 L (42.0-52.0) % MCV 89.5 (80.0-98.0) fL MCH 31.8 (27.0-33.0) pg MCHC 35.6 (31.0-36.0) g/dl RDW 12.2 (11.0-16.0) % Plt Count 193 (160-400) X10*3/uL MPV 9.7 (9.4-12.4) fL Immature Gran % (Auto) 0.2 (0.0-0.4) % Neut % (Auto) 62.5 (45-73) % Lymph % (Auto) 28.6 (20-40) % [place] % (Auto) 7.1 (2-11) % Eos % (Auto) 1.4 (0-4) % Baso % (Auto) 0.2 (0-2) % Lymph # (Auto) 2.4 (1.2-4.9) X10*3/uL [place] # (Auto) 0.6 (0.1-1.2) X10*3/uL Eos # (Auto) 0.1 (0.0-0.4) X10*3/uL Baso # (Auto) 0.0 (0.0-0.2) X10*3/uL Abs Immat Gran (auto) 0.02 (0.00-0.03) X10*3/uL Absolute Neuts (auto) 5.3 (2.0-8.3) x10*3/uL Absolute Nucleated RBC 0.000 (0.0-0.012) X10*3/uL Nucleated RBC % (auto) 0.0 (0.0-0.2) /100WBC Urine Color Yellow Urine Appearance Clear Urine pH 5.5 (5.0-9.0) Ur Specific [place] 1.010 (1.005-1.025) Urine Protein Negative (Neg-Trace) mg/dL Urine Glucose (UA) Negative (Negative) mg/dL Urine Ketones Negative (Negative) mg/dL Urine Blood Small (1+) H (Negative) Urine Nitrite Negative (Negative) Ur Leukocyte Esterase Large (3+) H (Negative) Critical Care Time Critical Care Time Critical Care Time: Yes Total Critical Care Time: 35 Attestation: I have personally provided critical care time. Time includes review of lab data, radiology results, discussion with consultants, and monitoring for potential decompensation. Intervention performed as documented. Discharge Plan Discharge Clinical Impression: Anxiety and depression, Alcohol intoxication Patient Disposition: Still a Patient Prescriptions: No Action hydroxyzine HCl 25 mg Tablet 25 mg PO Q6H PRN (Reason: Anxiety) 30 Days Qty: 30 0RF lithium carbonate 300 mg Tablet Extended Release 1,200 mg PO BEDTIME 30 Days Qty: 120 0RF magnesium oxide 400 mg (241.3 mg magnesium) Tablet 400 mg PO BEDTIME 30 Days Qty: 30 0RF olanzapine 15 mg tablet 15 mg PO BEDTIME 30 Days Qty: 30 0RF Interventions: [place]-Suicide Risk Severity Scale Last Done: 09/28/24 21:45 Print Language: Armenian
--- NOTE | 2024-09-28 21:35 | MHC.EDTECH ---
patient refuses blood work after EKG done
[2024-09-28 21:53] LABS: MANUAL DIFF FLAG NO
[2024-09-28 21:54] LABS: Basophils Percent Auto 0.2 % (0-2); Eosinophils Absolute Auto 0.1 X10*3/uL (0.0-0.4); Eosinophils Percent Auto 1.4 % (0-4); Hematocrit 41.6 % (42.0-52.0); Hemoglobin 14.8 g/dl (14.0-18.0); Imm Gran Abs Auto 0.02 X10*3/uL (0.00-0.03); Imm Gran Pct Auto 0.2 % (0.0-0.4); Lymphocytes Absolute Auto 2.4 X10*3/uL (1.2-4.9); Lymphocytes Percent Auto 28.6 % (20-40); Mean Corpuscular HGB Conc 35.6 g/dl (31.0-36.0); Mean Corpuscular Hemoglobin 31.8 pg (27.0-33.0); Mean Corpuscular Volume 89.5 fL (80.0-98.0); Mean Platelet Volume 9.7 fL (9.4-12.4); Monocytes Absolute Auto 0.6 X10*3/uL (0.1-1.2); Monocytes Percent Auto 7.1 % (2-11); Neutrophils Absolute Auto 5.3 x10*3/uL (2.0-8.3); Neutrophils Percent Auto 62.5 % (45-73); Platelet Count 193 X10*3/uL (160-400); Red Blood Count 4.65 X10*6/uL (4.60-5.80); Red Cell Distribution Width 12.2 % (11.0-16.0); White Blood Count 8.4 X10*3/uL (4.8-10.8)
[2024-09-28 21:55] LABS: Appearance Urine Clear; Color Urine Yellow; Glucose Urine UA Negative (Negative); Leukocyte Esterase Urine Large (3+) (Negative); Nitrite Urine Negative (Negative); PH 5.5 (5.0-9.0); UMIC TRIGGER UACC YES; Urine Blood Small (1+) (Negative); Urine Ketones Negative (Negative); Urine Protein Negative (Neg-Trace)
[2024-09-28 22:05] LABS: Amphetamine Screen Urine Not Detected (Not Detect); Barbiturates, Urine Not Detected (Not Detect); Benzodiazepines Screen Urine Not Detected (Not Detect); Buprenorphine Scr Not Detected (Not Detect); Cannabinoid Screen Urine POSITIVE (Not Detect); Cocaine Screen Urine Not Detected (Not Detect); Fentanyl, urine Not Detected (Not Detect); Methadone Screen, Urine Not Detected (Not Detect); Opiate Screen Urine Not Detected (Not Detect); Oxycodone Screen Urine Not Detected (Not Detect); Phencyclidine Screen Urine Not Detected (Not Detect)
[2024-09-28 22:07] LABS: Bacteria Urine None Seen (None Seen); Hyaline Casts Urine 0-2 /LPF (0-2); Squamous Epithelial Cell Urine 0-2 /HPF (0-2); UACC Culture Trigger YES; WBC Urine >50 /HPF (0-5)
[2024-09-28 22:09] LABS: Alanine Aminotransferase 28 U/L (0-40); Albumin Level 4.1 g/dL (3.5-5.0); Alkaline Phosphatase 68 U/L (39-117); Anion Gap 11 (12-20); Aspartate Amino Transferase 30 U/L (5-37); Bilirubin Total 0.3 mg/dL (0.0-1.0); Blood Urea Nitrogen 12 mg/dL (9-16); Carbon Dioxide 28 mmol/L (22-29); Chloride 106 mmol/L (96-108); Estimated Glomerular Filt Rate > 60; Ethanol < 10 mg/dL; Glucose Random 163 mg/dL (60-115); Potassium 3.7 mmol/L (3.3-5.1); Sodium 141 mmol/L (135-145); Total Protein 6.9 g/dL (6.5-8.0)
[2024-09-29 06:20] VITALS: BP 111/82; PULSE 74; RESP 16; TEMP 36.6; O2SAT 97
--- NOTE | 2024-09-29 07:15 | PC.NURSE ---
Assumed care of patient at 0645, patient appears to be in no apparent distress at this time, calm and cooperative, ate breakfast and is now resting on couch in 8. Continue plan of care for CARE team evaluation
[2024-09-29] MEDS: cefuroxime axetiL 250 MG TABLET PO (09:26)
[2024-09-29] MEDS: Lithium Carbonate ER 300 MG TABLET.ER 600 MG PO (09:26)
--- NOTE | 2024-09-29 11:18 | PHA.MEDREC ---
Pharmacy Consult ? Medication Reconciliation Pharmacy has completed the medication reconciliation. Spoke to pt to confirm meds. Takes lithium 1200 mg PM.
[2024-09-29 12:59] VITALS: BP 108/92; PULSE 77; RESP 16; TEMP 36.6; O2SAT 97
== END 2024-09-29 13:11 | disposition home or self-care (01) ==
PROVIDERS: Emergency Provider Emergency Medicine
DX: F41.9 Anxiety disorder, unspecified (principal); F25.1 Schizoaffective disorder, depressive type; F10.120 Alcohol abuse with intoxication, uncomplicated; Y90.0 Blood alcohol level of less than 20 mg/100 ml; R45.851 Suicidal ideations; F14.10 Cocaine abuse, uncomplicated; F17.210 Nicotine dependence, cigarettes, uncomplicated; Z72.89 Other problems related to lifestyle; Z63.6 Dependent relative needing care at home; Z79.899 Other long term (current) drug therapy
CPT/HCPCS: 36415; 80053; 80307; 81001; 83735; 85025; 87086; 93005; 99285

== ENCOUNTER → 2024-09-28 21:23 | Outpatient (BNV) | payer MEDICARE, SELFPAY | PROVIDERS: Emergency Provider Emergency Medicine; Visit Provider Internal Medicine Cardiovascular Disease | DX: R94.31 Abnormal electrocardiogram [ECG] [EKG] (principal) | CPT/HCPCS: 93010 ==

== ENCOUNTER 2024-10-07 17:32 | Inpatient (IN) | payer MEDICARE, OTHER, SELFPAY ==
[2024-10-07 17:34] VITALS: BP 154/93; PULSE 111; RESP 20; TEMP 36.8; O2SAT 96
--- NOTE | 2024-10-07 17:39 | ED.GENADULT ---
HPI - General Adult General Chief complaint: Psychiatric Symptoms Stated complaint: Crisis Time Seen by Provider: 10/07/24 18:23 Source: patient Mode of arrival: ambulatory Limitations: no limitations History of Present Illness ED Provider: DR. Chanel HPI narrative: A 54-year-old male walked into the ED for evaluation of depression and SI. Patient currently is homeless and have no place to go to feeling depressed, hopeless, helpless, positive for suicidal ideation without a specific plans, currently do not hear voices. Patient admit to drinking alcohol and smoking cannabis declined using any other drugs. Related Data Home Medications ?Medication ?Instructions ?Recorded ?Confirmed lithium carbonate 300 mg 1,200 mg PO BEDTIME 09/29/24 10/07/24 tablet,extended release Previous Rx's ?Medication ?Instructions ?Recorded olanzapine 15 mg tablet 15 mg PO BEDTIME 30 days #30 tabs 09/06/24 Allergies Allergy/AdvReac Type Severity Reaction Status Date / Time No Known Allergies Allergy Verified 10/07/24 17:37 Review of Systems Review of Systems: All other systems are reviewed and are negative Constitutional: Reports as per HPI and Reports no additional constitutional complaints Eyes: Reports as per HPI and Reports no additional eye complaints Reports system reviewed and no additional complaints, except as documented Cardiovascular: Reports as per HPI and Reports no additional cardiovascular complaints Respiratory: Reports as per HPI and Reports no additional respiratory complaints Gastrointestinal: Reports as per HPI and Reports no additional gastrointestinal complaints Genitourinary: Reports no additional female genitourinary complaints Musculoskeletal: Reports no additional musculoskeletal complaints Skin/Breast: Reports system reviewed and no additional complaints, except as docu Psychiatric: Reports no additional psychiatric complaints Endocrine: Reports no additional endocrine complaints Hematologic/Lymphatic: Reports no additional hematologic/lymphatic complaints Allergic/Immunologic: Reports no additional allergic/immunologic complaints Reports system reviewed and no additional complaints, except as documented and Reports Abnormal speech present [facility] Past Medical History Medical History Hematuria Alcohol abuse Schizoaffective disorder, depressive type Cocaine abuse Social History Social History Household Members: None Household Members Other:: up until 2 months ago, lived with spouse in an apartment in [place]; now Housing: Homeless Do you presently have visiting nurse or other home services: No Alcohol intake: current Alcohol intake frequency: a few times a month Alcohol type: beer Patient Tobacco Use Status: Current someday Tobacco user Tobacco use type: Cigarette Cigarettes Per Day: 2 Years Smoked: unsure Smoked in Last 30 Days: Yes e-Cigarette/Vaping Use: Never Used Second Hand Smoke Exposure: Yes (yes when spouse smokes) Use of substances other than those prescribed or required for medical reasons: Yes Substance Use Type: Marijuana Substance Use Frequency: Daily Advance Directives: No Advance Directives Information Provided: No Do you have a plan to hurt others: Vague service: No Current occupational status: unemployed Current occupation: rt hand Sexual orientation: Straight/Heterosexual Physical Exam ED Vital Signs: Vital Signs - 24 hr 10/07/24 17:34 10/07/24 17:45 10/08/24 04:18 Temperature 98.3 F 98.0 F Pulse Rate 111 H 79 Respiratory Rate 20 16 17 Blood Pressure 154/93 H 118/68 Pulse Oximetry 96 96 Oxygen Delivery Method Room Air Room Air BMI result Body Mass Index 30.0 Vital signs have been reviewed and appear to be correct. Blood pressure elevated. Heart rate normal. Respiratory rate normal. Temperature normal. Oxygen saturation normal. Appearance: Alert. Oriented X3. No acute distress. Head: Normal external exam. Normocephalic. Atraumatic. No [place] signs noted. No raccoon eyes noted Eyes: PERRLA. EOMI. Conjunctiva and sclera normal. Eyelids normal. ENT: TM's Normal. Pharynx normal. Uvula midline. Moist mucous membranes. No trismus noted. No drooling noted. No muffled voice noted. Neck: Normal inspection. Neck supple. FROM. No adenopathy. Thyroid Normal. No meningeal signs. No neck mass noted. CVS: Normal heart rate and rhythm. Heart sound normal. No murmurs noted. Pulses normal throughout. Respiratory: No respiratory distress. Painless inspiration. Breath sounds normal. No wheezes/rales/rhonchi noted. Chest nontender. No accessory muscle usage noted or decreased air movement noted. Abdomen: Soft and nontender. Bowel sounds normal in all 4 quadrants. No distention noted. No organomegaly noted. No visible injury noted. Back: No CVA tenderness. Full range of motion noted. Skin: Skin warm and dry. Normal skin color. Normal skin turgor. No rashes/lesions/lacerations noted. Extremities: No lower extremity edema. Extremities exhibit normal range of motion. Extremities nontender. Neuro: Oriented X 3. Cranial nerve exam: II-XII are grossly intact No motor deficit. No sensory deficit. Reflexes normal. Patient Orientation: Person, Place, Time and Situation, okay hygiene and grooming. Fair eye contact, attentive, no tics or tremors. Level of Consciousness: Awake, Appropriate and Alert Patient Behavior: Appropriate, Guarded, Cooperative and Anxious Mood Description: Constricted, Blunted and Apprehensive Affect Description: Constricted, Blunted and Apprehensive Patient Cognition Impaired: No Ability to Follow Directions: Excellent Speech Pattern: Clear, Appropriate and Spontaneous Speech, nonpressured, spontaneous with regular rate and rhythm, normal volume and prosody. No dysarthria. Memory Description: Intact, Immediate Intact and Short Term Intact Hallucinations: None Delusions: Not Present Thought Process: Intact Thought Content: positive for Intact, positive for suicidal ideation, denies Homicidal Ideation. Depressive Symptoms: Not present. Judgement and Insight: Limited but adequate. Course Course Course Narrative: RME: 53 year male presents to ED for SI homicidal ideation. Patient noncompliant with his meds. Labs care team consult placed. Patient to be brought to the POD. Reevaluation(s) Reevaluation #1: Medically cleared, start the patient on physician observation, await for care team evaluation and disposition. UTI will start on cefuroxime. Time: 19:30 Medications Administered Generic Name Dose Route Start Last Admin Trade Name Freq PRN Reason Stop Dose Admin Cefuroxime Axetil 250 mg 10/07/24 21:00 10/08/24 09:16 Cefuroxime Axetil 250 Mg Tablet PO 10/14/24 09:01 250 mg BID ZACH Administration Medical Decision Making Differential Diagnosis Differential Diagnoses: The differential diagnosis associated with the presentation includes (SI, HI, acute psychosis, medical clearance, electrolyte derangement, severe anemia, substance abuse, alcohol intoxication.) Admission/Observation Consideration of admission/observation: Escalation of care including admission/observation considered Lab Data MDM Lab Attestation statement: I reviewed the patient's lab results. 10/07/24 18:46 10/07/24 18:47 Labs: Lab Results 10/07/24 10/07/24 10/07/24 Range/Units 18:18 18:46 18:47 WBC 9.0 (4.8-10.8) X10*3/uL RBC 4.45 L (4.60-5.80) X10*6/uL Hgb 14.2 (14.0-18.0) g/dl Hct 40.6 L (42.0-52.0) % MCV 91.2 (80.0-98.0) fL MCH 31.9 (27.0-33.0) pg MCHC 35.0 (31.0-36.0) g/dl RDW 12.5 (11.0-16.0) % Plt Count 201 (160-400) X10*3/uL MPV 9.7 (9.4-12.4) fL Immature Gran % (Auto) 0.2 (0.0-0.4) % Neut % (Auto) 51.2 (45-73) % Lymph % (Auto) 39.4 (20-40) % [place] % (Auto) 5.9 (2-11) % Eos % (Auto) 3.1 (0-4) % Baso % (Auto) 0.2 (0-2) % Lymph # (Auto) 3.6 (1.2-4.9) X10*3/uL [place] # (Auto) 0.5 (0.1-1.2) X10*3/uL Eos # (Auto) 0.3 (0.0-0.4) X10*3/uL Baso # (Auto) 0.0 (0.0-0.2) X10*3/uL Abs Immat Gran (auto) 0.02 (0.00-0.03) X10*3/uL Absolute Neuts (auto) 4.6 (2.0-8.3) x10*3/uL Absolute Nucleated RBC 0.000 (0.0-0.012) X10*3/uL Nucleated RBC % (auto) 0.0 (0.0-0.2) /100WBC Sodium 143 (135-145) mmol/L Potassium 3.7 (3.3-5.1) mmol/L Chloride 107 (96-108) mmol/L Carbon Dioxide 30 H (22-29) mmol/L Anion Gap 10 L (12-20) BUN 15 (9-16) mg/dL Creatinine 0.88 (0.5-1.4) mg/dL Estim Creat Clear Calc 112.2 Estimated GFR > 60 Random Glucose 80 (60-115) mg/dL Calcium 8.7 (8.4-10.2) mg/dL Total Bilirubin 0.3 (0.0-1.0) mg/dL AST 31 (5-37) U/L ALT 22 (0-40) U/L Alkaline Phosphatase 61 (39-117) U/L Total Protein 6.6 (6.5-8.0) g/dL Albumin 3.8 (3.5-5.0) g/dL Urine Color Yellow Urine Appearance Clear Urine pH 5.5 (5.0-9.0) Ur Specific [place] 1.015 (1.005-1.025) Urine Protein Negative (Neg-Trace) mg/dL Urine Glucose (UA) Negative (Negative) mg/dL Urine Ketones Negative (Negative) mg/dL Urine Blood Small (1+) H (Negative) Urine Nitrite Negative (Negative) Ur Leukocyte Esterase Small (1+) H (Negative) Urine RBC 3-5 H (0-2) /HPF Urine WBC 11-20 H (0-5) /HPF Ur Squamous Epith Cells 0-2 (0-2) /HPF Urine Bacteria None Seen (None Seen) Hyaline Casts 0-2 (0-2) /LPF Urine Opiates Screen Not Detected (Not Detect) Ur Buprenorphine Scrn Not Detected (Not Detect) ng/mL Ur Oxycodone Screen Not Detected (Not Detect) ng/mL Urine Methadone Screen Not Detected (Not Detect) ng/mL Urine Fentanyl Screen Not Detected (Not Detect) Ur Barbiturates Screen Not Detected (Not Detect) Ur Phencyclidine Scrn Not Detected (Not Detect) Ur Amphetamines Screen Not Detected (Not Detect) U Benzodiazepines Scrn Not Detected (Not Detect) [place] (0.60-1.20) mmol/L Urine Cocaine Screen Not Detected (Not Detect) U Marijuana (THC) Screen Not Detected (Not Detect) Ethyl Alcohol < 10 mg/dL 10/07/24 Range/Units 20:24 WBC (4.8-10.8) X10*3/uL RBC (4.60-5.80) X10*6/uL Hgb (14.0-18.0) g/dl Hct (42.0-52.0) % MCV (80.0-98.0) fL MCH (27.0-33.0) pg MCHC (31.0-36.0) g/dl RDW (11.0-16.0) % Plt Count (160-400) X10*3/uL MPV (9.4-12.4) fL Immature Gran % (Auto) (0.0-0.4) % Neut % (Auto) (45-73) % Lymph % (Auto) (20-40) % [place] % (Auto) (2-11) % Eos % (Auto) (0-4) % Baso % (Auto) (0-2) % Lymph # (Auto) (1.2-4.9) X10*3/uL [place] # (Auto) (0.1-1.2) X10*3/uL Eos # (Auto) (0.0-0.4) X10*3/uL Baso # (Auto) (0.0-0.2) X10*3/uL Abs Immat Gran (auto) (0.00-0.03) X10*3/uL Absolute Neuts (auto) (2.0-8.3) x10*3/uL Absolute Nucleated RBC (0.0-0.012) X10*3/uL Nucleated RBC % (auto) (0.0-0.2) /100WBC Sodium (135-145) mmol/L Potassium (3.3-5.1) mmol/L Chloride (96-108) mmol/L Carbon Dioxide (22-29) mmol/L Anion Gap (12-20) BUN (9-16) mg/dL Creatinine (0.5-1.4) mg/dL Estim Creat Clear Calc Estimated GFR Random Glucose (60-115) mg/dL Calcium (8.4-10.2) mg/dL Total Bilirubin (0.0-1.0) mg/dL AST (5-37) U/L ALT (0-40) U/L Alkaline Phosphatase (39-117) U/L Total Protein (6.5-8.0) g/dL Albumin (3.5-5.0) g/dL Urine Color Urine Appearance Urine pH (5.0-9.0) Ur Specific [place] (1.005-1.025) Urine Protein (Neg-Trace) mg/dL Urine Glucose (UA) (Negative) mg/dL Urine Ketones (Negative) mg/dL Urine Blood (Negative) Urine Nitrite (Negative) Ur Leukocyte Esterase (Negative) Urine RBC (0-2) /HPF Urine WBC (0-5) /HPF Ur Squamous Epith Cells (0-2) /HPF Urine Bacteria (None Seen) Hyaline Casts (0-2) /LPF Urine Opiates Screen (Not Detect) Ur Buprenorphine Scrn (Not Detect) ng/mL Ur Oxycodone Screen (Not Detect) ng/mL Urine Methadone Screen (Not Detect) ng/mL Urine Fentanyl Screen (Not Detect) Ur Barbiturates Screen (Not Detect) Ur Phencyclidine Scrn (Not Detect) Ur Amphetamines Screen (Not Detect) U Benzodiazepines Scrn (Not Detect) [place] < 0.10 L (0.60-1.20) mmol/L Urine Cocaine Screen (Not Detect) U Marijuana (THC) Screen (Not Detect) Ethyl Alcohol mg/dL Discharge Plan Discharge Clinical Impression: Depression, Suicidal ideation, Acute UTI Patient Disposition: Still a Patient Prescriptions: No Action olanzapine 15 mg tablet 15 mg PO BEDTIME 30 Days Qty: 30 0RF lithium carbonate 300 mg tablet extended release 1,200 mg PO BEDTIME Interventions: [place]-Suicide Risk Severity Scale Last Done: 10/07/24 17:45 Print Language: Turkmen
--- NOTE | 2024-10-07 17:40 | PC.NURSE ---
Report called to HYUN Coe. Pt. from triage immediately to pod for both SI/HI thoughts. income tax return preparer to pod.
[2024-10-07 17:45] VITALS: RESP 16
[2024-10-07 18:30] LABS: Appearance Urine Clear; Color Urine Yellow; Glucose Urine UA Negative (Negative); Leukocyte Esterase Urine Small (1+) (Negative); Nitrite Urine Negative (Negative); PH 5.5 (5.0-9.0); Specific Gravity - Urine 1.015 (1.005-1.025); UMIC TRIGGER UACC YES; Urine Blood Small (1+) (Negative); Urine Ketones Negative (Negative); Urine Protein Negative (Neg-Trace)
[2024-10-07 18:41] LABS: Amphetamine Screen Urine Not Detected (Not Detect); Barbiturates, Urine Not Detected (Not Detect); Benzodiazepines Screen Urine Not Detected (Not Detect); Buprenorphine Scr Not Detected (Not Detect); Cannabinoid Screen Urine Not Detected (Not Detect); Cocaine Screen Urine Not Detected (Not Detect); Fentanyl, urine Not Detected (Not Detect); Methadone Screen, Urine Not Detected (Not Detect); Opiate Screen Urine Not Detected (Not Detect); Oxycodone Screen Urine Not Detected (Not Detect); Phencyclidine Screen Urine Not Detected (Not Detect)
[2024-10-07 18:45] LABS: Bacteria Urine None Seen (None Seen); Hyaline Casts Urine 0-2 /LPF (0-2); Squamous Epithelial Cell Urine 0-2 /HPF (0-2); UACC Culture Trigger YES
[2024-10-07 18:52] LABS: MANUAL DIFF FLAG NO
[2024-10-07 18:53] LABS: Basophils Percent Auto 0.2 % (0-2); Eosinophils Absolute Auto 0.3 X10*3/uL (0.0-0.4); Eosinophils Percent Auto 3.1 % (0-4); Hematocrit 40.6 % (42.0-52.0); Hemoglobin 14.2 g/dl (14.0-18.0); Imm Gran Abs Auto 0.02 X10*3/uL (0.00-0.03); Imm Gran Pct Auto 0.2 % (0.0-0.4); Lymphocytes Absolute Auto 3.6 X10*3/uL (1.2-4.9); Lymphocytes Percent Auto 39.4 % (20-40); Mean Corpuscular Hemoglobin 31.9 pg (27.0-33.0); Mean Corpuscular Volume 91.2 fL (80.0-98.0); Mean Platelet Volume 9.7 fL (9.4-12.4); Monocytes Absolute Auto 0.5 X10*3/uL (0.1-1.2); Monocytes Percent Auto 5.9 % (2-11); Neutrophils Absolute Auto 4.6 x10*3/uL (2.0-8.3); Neutrophils Percent Auto 51.2 % (45-73); Platelet Count 201 X10*3/uL (160-400); Red Blood Count 4.45 X10*6/uL (4.60-5.80); Red Cell Distribution Width 12.5 % (11.0-16.0)
[2024-10-07 19:08] LABS: Alanine Aminotransferase 22 U/L (0-40); Albumin Level 3.8 g/dL (3.5-5.0); Alkaline Phosphatase 61 U/L (39-117); Anion Gap 10 (12-20); Aspartate Amino Transferase 31 U/L (5-37); Bilirubin Total 0.3 mg/dL (0.0-1.0); Blood Urea Nitrogen 15 mg/dL (9-16); Calcium 8.7 mg/dL (8.4-10.2); Carbon Dioxide 30 mmol/L (22-29); Chloride 107 mmol/L (96-108); Creatinine Clr Calc Pharmacy 112.2; Estimated Glomerular Filt Rate > 60; Ethanol < 10 mg/dL; Glucose Random 80 mg/dL (60-115); Potassium 3.7 mmol/L (3.3-5.1); Sodium 143 mmol/L (135-145); Total Protein 6.6 g/dL (6.5-8.0)
[2024-10-07 20:58] LABS: Lithium < 0.10 mmol/L (0.60-1.20)
[2024-10-07] MEDS: cefuroxime axetiL 250 MG TABLET PO (21:55)
--- NOTE | 2024-10-08 | ECG_ITS ---
Test Reason : CHECK PROLONG QT Blood Pressure : / mmHG Vent. Rate : 077 BPM Atrial Rate : 077 BPM P-R Int : 158 ms QRS Dur : 104 ms QT Int : 368 ms P-R-T Axes : 009 -02 055 degrees QTc Int : 416 ms Normal sinus rhythm Minimal voltage criteria for LVH, may be normal variant ( Mehran product ) Nonspecific T wave abnormality Abnormal ECG When compared with ECG of 28-SEP-2024 21:23, Nonspecific T wave abnormality now evident in Inferior leads Referred By: Farrukh Chanel Electronically Signed By:Colten Travis
[2024-10-08 04:18] VITALS: BP 118/68; PULSE 79; RESP 17; TEMP 36.7; O2SAT 96
--- NOTE | 2024-10-08 06:55 | PC.NURSE ---
Assumed care of patient at 0645, patient appears to be in no apparent distress this am, resting in bed, respirations even and unlabored. Continue plan of care for IPLOC
[2024-10-08] MEDS: cefuroxime axetiL 250 MG TABLET PO ×2 (09:16→20:47)
--- NOTE | 2024-10-08 12:01 | PHA.MEDREC ---
Addendum entered by Mark Gordon RPh 10/08/24 12:33: MED REC CHECKED BY [facility] Original Note: Pharmacy Consult ? Medication Reconciliation Pharmacy reviewed med rec done by nursing. Claims match what was confirmed on med rec.
[2024-10-08 12:02] VITALS: RESP 16
[2024-10-08 14:16] VITALS: BP 131/76; PULSE 76; RESP 15; TEMP 37; O2SAT 97; BMI 29.6
[2024-10-08 16:03] LABS: Alanine Aminotransferase 24 U/L (0-40); Albumin Level 4.1 g/dL (3.5-5.0); Alkaline Phosphatase 66 U/L (39-117); Anion Gap 11 (12-20); Aspartate Amino Transferase 24 U/L (5-37); Bilirubin Total 0.3 mg/dL (0.0-1.0); Blood Urea Nitrogen 20 mg/dL (9-16); Calcium 9.4 mg/dL (8.4-10.2); Carbon Dioxide 27 mmol/L (22-29); Chloride 106 mmol/L (96-108); Creatinine Clr Calc Pharmacy 110.2; Estimated Glomerular Filt Rate > 60; Glucose Random 91 mg/dL (60-115); Sodium 140 mmol/L (135-145); Total Protein 7.2 g/dL (6.5-8.0)
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
[2024-10-08] MEDS: Throat Lozenge, Medicated LOZENGE 1 LOZENGE MUCOUS MEM ×2 (17:47→21:00)
[2024-10-08 20:00] VITALS: BP 127/76; PULSE 80; RESP 16; TEMP 36.7; O2SAT 97
[2024-10-08] MEDS: Lithium Carbonate ER 300 MG TABLET.ER PO (20:47)
[2024-10-08] MEDS: OLANZapine 7.5 MG TABLET 15 MG PO (20:48)
[2024-10-08] MEDS: hydrOXYzine HCL 25 MG TABLET PO (21:00)
[2024-10-08] MEDS: Acetaminophen 325 MG TABLET 650 MG PO (21:01)
[2024-10-09 07:10] VITALS: BP 121/69; PULSE 80; RESP 14; TEMP 36.5; O2SAT 95
[2024-10-09] MEDS: cefuroxime axetiL 250 MG TABLET PO ×2 (09:05→23:10)
[2024-10-09] MEDS: Nicotine 21 MG PATCH.TD24 TRANSDERMA (09:06)
--- NOTE | 2024-10-09 09:27 | HO.PSYADMNOT ---
HPI Date of Service: 10/09/24 Chief Complaint: Crisis/SI Sources of Information: patient interviewed, chart reviewed and crisis/core team assessment reviewed HPI Subjective Notes: Conditional Voluntary Healthcare Proxy: No Guardianship: No Medical Problems Affecting Mental Status: No Narrative: Nathaniel is a 54-year-old , unemployed (social security), father of 1. He is currently homeless and self presented to the emergency room because of having thoughts of jumping off of a bridge or doing a crime to be confronted by others or the police. He denies any recent episodes of self-harm but had 1 in the 90s. He has been irregular with his medications which includes lithium carbonate 300 mg nightly and Zyprexa 15 mg nightly. He is a poor historian. He also has been under a lot of external stressors. 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 He will recently lost his wallet with all his cards. He does use marijuana almost daily and alcohol when available. Past Psychiatric History: Past psychiatric hospitalizations : Reports most recent in 2021. about 10-15 lifetime. SA: reports more than 3. MRE 3-4 yrs ago. SIB: reports h/o cutting, MRE more than 10 years ago. HIB: denies Started on Risperdal 2 mg b.i.d. in 2020 which he says was helpful OP: Denies current treaters. has been off meds for the past 2 years, so has been out of Tx for more than 2 years. states he was last being seen at [facility]. Sx hx: AH, VH, Paranoia Medical Evaluation Reviewed: Yes (Was treated with Ceftin in the emergency room and is continued for UTI) FOR[facility]LY [facility], [facility] Medical History Hematuria Alcohol abuse Schizoaffective disorder, depressive type Cocaine abuse Family History: Patient said no family psychiatric history that he knows of Reports maternal family is prone to CVA types of illness Social History: Born in [place]; father left when he was young and family was in poverty with little food Came to the [place] around 11 or 12 years old completed the 7th grade Currently not working, on SSI Has one living brother and one child in his 30's whom he has met x 2 Relationship with Madelyn since age 19, whose daughter works with [employer]-states he is not close with her daughter. recently lost his apartment, about a month [employer], per his report. Substance History: Marijuana and alcohol Trauma History: Affirms through and family losses Diagnostics Vital Signs (24Hr): Vital Signs - 24 hr 10/08/24 12:02 10/08/24 14:16 10/08/24 20:00 Temperature 98.6 F 98.0 F Pulse Rate 76 80 Respiratory Rate 16 15 16 Blood Pressure 131/76 127/76 Pulse Oximetry 97 97 Oxygen Delivery Method Room Air Room Air 10/09/24 07:10 Temperature 97.7 F Pulse Rate 80 Respiratory Rate 14 Blood Pressure 121/69 Pulse Oximetry 95 Oxygen Delivery Method Room Air BMI result Body Mass Index 29.6 Labs 10/07/24 18:46 10/08/24 15:38 Labs: Laboratory Results - last 48 hr 10/07/24 10/07/24 10/07/24 18:18 18:46 18:47 WBC 9.0 RBC 4.45 L Hgb 14.2 Hct 40.6 L MCV 91.2 MCH 31.9 MCHC 35.0 RDW 12.5 Plt Count 201 MPV 9.7 Immature Gran % (Auto) 0.2 Neut % (Auto) 51.2 Lymph % (Auto) 39.4 [place] % (Auto) 5.9 Eos % (Auto) 3.1 Baso % (Auto) 0.2 Lymph # (Auto) 3.6 [place] # (Auto) 0.5 Eos # (Auto) 0.3 Baso # (Auto) 0.0 Abs Immat Gran (auto) 0.02 Absolute Neuts (auto) 4.6 Absolute Nucleated RBC 0.000 Nucleated RBC % (auto) 0.0 Sodium 143 Potassium 3.7 Chloride 107 Carbon Dioxide 30 H Anion Gap 10 L BUN 15 Creatinine 0.88 Estim Creat Clear Calc 112.2 Estimated GFR > 60 Random Glucose 80 Calcium 8.7 Total Bilirubin 0.3 AST 31 ALT 22 Alkaline Phosphatase 61 Total Protein 6.6 Albumin 3.8 Urine Color Yellow Urine Appearance Clear Urine pH 5.5 Ur Specific Coin 1.015 Urine Protein Negative Urine Glucose (UA) Negative Urine Ketones Negative Urine Blood Small (1+) H Urine Nitrite Negative Ur Leukocyte Esterase Small (1+) H Urine RBC 3-5 H Urine WBC 11-20 H Ur Squamous Epith Cells 0-2 Urine Bacteria None Seen Hyaline Casts 0-2 Urine Opiates Screen Not Detected Ur Buprenorphine Scrn Not Detected Ur Oxycodone Screen Not Detected Urine Methadone Screen Not Detected Urine Fentanyl Screen Not Detected Ur Barbiturates Screen Not Detected Ur Phencyclidine Scrn Not Detected Ur Amphetamines Screen Not Detected U Benzodiazepines Scrn Not Detected [place] Urine Cocaine Screen Not Detected U Marijuana (THC) Screen Not Detected Ethyl Alcohol < 10 10/07/24 10/08/24 20:24 15:38 WBC RBC Hgb Hct MCV MCH MCHC RDW Plt Count MPV Immature Gran % (Auto) Neut % (Auto) Lymph % (Auto) [place] % (Auto) Eos % (Auto) Baso % (Auto) Lymph # (Auto) [place] # (Auto) Eos # (Auto) Baso # (Auto) Abs Immat Gran (auto) Absolute Neuts (auto) Absolute Nucleated RBC Nucleated RBC % (auto) Sodium 140 Potassium 4.0 Chloride 106 Carbon Dioxide 27 Anion Gap 11 L BUN 20 H Creatinine 0.89 Estim Creat Clear Calc 110.2 Estimated GFR > 60 Random Glucose 91 Calcium 9.4 D Total Bilirubin 0.3 AST 24 ALT 24 Alkaline Phosphatase 66 Total Protein 7.2 Albumin 4.1 Urine Color Urine Appearance Urine pH Ur Specific Coin Urine Protein Urine Glucose (UA) Urine Ketones Urine Blood Urine Nitrite Ur Leukocyte Esterase Urine RBC Urine WBC Ur Squamous Epith Cells Urine Bacteria Hyaline Casts Urine Opiates Screen Ur Buprenorphine Scrn Ur Oxycodone Screen Urine Methadone Screen Urine Fentanyl Screen Ur Barbiturates Screen Ur Phencyclidine Scrn Ur Amphetamines Screen U Benzodiazepines Scrn [place] < 0.10 L Urine Cocaine Screen U Marijuana (THC) Screen Ethyl Alcohol Meds/Allergies Meds Home Medications ?Medication ?Instructions ?Recorded ?Confirmed ?Type lithium carbonate 300 mg 1,200 mg PO BEDTIME 09/29/24 10/07/24 History tablet,extended release Allergies Allergies Allergy/AdvReac Type Severity Reaction Status Date / Time No Known Allergies Allergy Verified 10/07/24 17:37 Mental Status Exam Mental Status Exam Narrative: Nathaniel was seen the morning after his admission. He is alert, oriented and pleasant. Speech is soft-spoken. Little to no eye contact. Affect is appropriate and subdued. He is able to respond to questions briefly with no elaboration and spontaneity. He is not able to give much of historical information but only in response to questions. He admits to feeling depressed. Affect is subdued and constricted. He denies any AVH. He admits to feelings of fearfulness. No delusions. He is able to move all limbs. No gait abnormalities. Cognitively he has slow thought processes. Judgment is intact Assessment & Plan Assessment & Plan (1) Schizoaffective disorder, depressive type: Status: Acute Code(s): F25.1 - Schizoaffective disorder, depressive type Plan Nathaniel meets criteria for IP LOC for safety and stabilization. Current medications were continued with no changes. He is being treated for UTI. He is admitted under a conditional voluntary status. Patient educated on: diagnosis, medication risk/benefits and substance abuse Reason for continued inpatient stay Substantial Risk for: harm to self Statement Statement: I have reviewed the history and physical and performed a pertinent examination on my patient. No changes have occurred unless specified. If the History and Physical was not performed prior to admission, the Hospitalist's service will be consulted for completing the admission physical. Time Spent With Patient Time: Total time managing care of this patient today ____ minutes.
[2024-10-09] MEDS: Nicotine Polacrilex 2 MG GUM 4 MG BUCCAL (09:34)
[2024-10-09 09:48] LABS: Cholesterol 167 mg/dL (<200); HDL Cholesterol 50 mg/dL (>40); LDL Cholesterol Calculated 98 mg/dL (<100); Triglycerides 99 mg/dL (<150)
[2024-10-09 10:05] LABS: COVID-19 Test Negative (Negative); IDNOW Serial# 58CA691E
[2024-10-09] MEDS: Throat Lozenge, Medicated LOZENGE 1 LOZENGE MUCOUS MEM (16:48)
[2024-10-09 20:28] VITALS: BP 117/66; PULSE 98; TEMP 37.3; O2SAT 96
[2024-10-09] MEDS: OLANZapine 7.5 MG TABLET 15 MG PO (23:11)
[2024-10-09] MEDS: Lithium Carbonate ER 300 MG TABLET.ER PO (23:11)
[2024-10-09] MEDS: Acetaminophen 325 MG TABLET 650 MG PO (23:17)
[2024-10-10 07:00] VITALS: BMI 29.1
[2024-10-10 07:38] VITALS: BP 111/68; PULSE 101; RESP 16; TEMP 36.8; O2SAT 96
[2024-10-10] MEDS: Nicotine 21 MG PATCH.TD24 TRANSDERMA (09:20)
[2024-10-10] MEDS: cefuroxime axetiL 250 MG TABLET PO ×2 (09:20→20:53)
--- NOTE | 2024-10-10 15:32 | P.PNPSI_ITS ---
Subjective Subjective Date of Service: 10/10/24 Reason For Visit: Crisis/SI Interim History: calm, cooperative. soft-spoken. c/o URI Sx. aware COVID NEG. no other complaints, feels meds regimen is good. per staff, COVID NEG. +dep/SI. attended 1 group. slept well. Mental Status Exam Mental Status Exam Narrative: Pt is alert and oriented; behavior is superficially cooperative, poor eye contact; dressed in casual attire adequately groomed with adequate hygiene; mood is depressed; affect is constricted; Speech is soft; thought process is goal directed and linear; Thought content is notable for no expressed paranoid delusions; no SI/SIBI/HI/AVH expressed. Diagnostics Vital Signs (24Hr): Vital Signs - 24 hr 10/09/24 20:28 10/10/24 07:38 Temperature 99.1 F 98.2 F Pulse Rate 98 101 H Respiratory Rate 16 Blood Pressure 117/66 111/68 Pulse Oximetry 96 96 Oxygen Delivery Method Room Air Room Air BMI result Body Mass Index 29.6 Labs 10/07/24 18:46 10/08/24 15:38 Labs: Laboratory Results - last 48 hr 10/08/24 10/09/24 10/09/24 15:38 08:35 09:38 Sodium 140 Potassium 4.0 Chloride 106 Carbon Dioxide 27 Anion Gap 11 L BUN 20 H Creatinine 0.89 Estim Creat Clear Calc 110.2 Estimated GFR > 60 Random Glucose 91 Calcium 9.4 D Total Bilirubin 0.3 AST 24 ALT 24 Alkaline Phosphatase 66 Total Protein 7.2 Albumin 4.1 Triglycerides 99 Cholesterol 167 LDL Cholesterol, Calc 98 HDL Cholesterol 50 COVID-19 ([facility]) Negative COVID-19 Clin Com See Note Medications Medications Current Medications Acetaminophen (Acetaminophen 325 Mg Tablet) 650 mg PO Q6H PRN PRN Reason: Headache/Pain Mild Scale (1-3) Last Admin: 10/09/24 23:17 Dose: 650 mg Al Hydroxide/Mg Hydroxide (Magnesium Hydrox/Alum Hydrox 30 Ml Oral.Susp) 30 ml PO Q6H PRN PRN Reason: Heartburn/Nausea Benzocaine (Throat Lozenge, Medicated Lozenge) 1 lozenge MUCOUS MEM Q2H PRN PRN Reason: Sore Throat Last Admin: 10/09/24 16:48 Dose: 1 lozenge Cefuroxime Axetil (Cefuroxime Axetil 250 Mg Tablet) 250 mg PO BID [facility] Stop: 10/14/24 09:01 Last Admin: 10/10/24 09:20 Dose: 250 mg Hydroxyzine HCl (Hydroxyzine Hcl 25 Mg Tablet) 25 mg PO Q6H PRN PRN Reason: Anxiety Last Admin: 10/08/24 21:00 Dose: 25 mg [place] Carbonate ([place] Carbonate Er 300 Mg Tablet.Er) 300 mg PO BEDTIME [facility] Last Admin: 10/09/24 23:11 Dose: 300 mg Magnesium Hydroxide (Milk Of Magnesia 30 Ml Oral.Susp) 30 ml PO DAILY PRN PRN Reason: Constipation Nicotine (Nicotine 21 Mg Patch.Td24) 21 mg TRANSDERMA DAILY [facility] Last Admin: 10/10/24 09:20 Dose: 21 mg Nicotine Polacrilex (Nicotine Polacrilex 2 Mg Gum) 4 mg BUCCAL Q2H PRN PRN Reason: Nicotine Cravings Last Admin: 10/09/24 09:34 Dose: 4 mg Olanzapine (Olanzapine 7.5 Mg Tablet) 15 mg PO BEDTIME [facility] Last Admin: 10/09/24 23:11 Dose: 15 mg Trazodone HCl (Trazodone Hcl 50 Mg Tablet) 50 mg PO BEDTIME MRX1 PRN PRN Reason: Insomnia Allergies Allergies Allergy/AdvReac Type Severity Reaction Status Date / Time No Known Allergies Allergy Verified 10/07/24 17:37 Assessment & Plan Assessment & Plan (1) Schizoaffective disorder, depressive type: Status: Acute Code(s): F25.1 - Schizoaffective disorder, depressive type Plan 10/09: Current medications were continued with no changes. He is being treated for UTI. He is admitted under a conditional voluntary status. 10/10: feels regimen is helpful. continue current mgmt. poor eye contact, very soft spoken. Reason for continued inpatient stay Substantial Risk for: harm to self and inability to function Time Spent With Patient Time: Total time managing care of this patient today __25__ minutes.
[2024-10-10 19:50] VITALS: BP 122/73; PULSE 99; RESP 18; TEMP 36.8; O2SAT 98
[2024-10-10] MEDS: Lithium Carbonate ER 300 MG TABLET.ER PO (20:53)
[2024-10-10] MEDS: OLANZapine 7.5 MG TABLET 15 MG PO (20:53)
[2024-10-10] MEDS: Throat Lozenge, Medicated LOZENGE 1 LOZENGE MUCOUS MEM (21:00)
[2024-10-11 07:44] VITALS: BP 125/68; PULSE 85; RESP 16; TEMP 36.6; O2SAT 98
[2024-10-11] MEDS: Nicotine 21 MG PATCH.TD24 TRANSDERMA (08:26)
[2024-10-11] MEDS: cefuroxime axetiL 250 MG TABLET PO ×2 (08:27→21:01)
--- NOTE | 2024-10-11 13:28 | HO.PSYCHPN ---
Subjective Subjective Date of Service: 10/11/24 Reason For Visit: Crisis/SI Subjective Notes: Conditional Voluntary Interim History: Keeping to self. active on unit. Patient reports feeling okay today; he reports sleeping well. denies SI/HI/VH/AH. Discussed possible d/c on Monday if continues to improve; pt reports he plans on riding his bike to the senior care in [place] or contacting his friend who allows him to stay in the garage after discharge. Continue current tx plan. Medication Compliance: Yes Side effects from medications: No Attending Groups: Intermittent Review of Systems Constitutional: Reports as per HPI Eyes: Reports as per HPI Reports as per HPI Cardiovascular: Reports as per HPI Respiratory: Reports as per HPI Gastrointestinal: Reports as per HPI Genitourinary: Reports as per HPI Musculoskeletal: Reports as per HPI Skin/Breast: Reports as per HPI Reports as per HPI Psychiatric: Reports as per HPI Endocrine: Reports as per HPI Hematologic/Lymphatic: Reports as per HPI Allergic/Immunologic: Reports as per HPI Mental Status Exam Mental Status Exam Narrative: Pt is alert and oriented; behavior is cooperative, calm; dressed in casual attire; mood is described as okay ; eye contact appropriate; Speech is normal rate, volume and not pressured; thought process is organized; Thought content is on tx; otherwise pertinent to relevant topics and without any delusional content, paranoid ideations or grandiosity; denies SI/HI/VH/AH. Diagnostics Vital Signs (24Hr): Vital Signs - 24 hr 10/10/24 19:50 10/11/24 07:44 Temperature 98.2 F 97.9 F Pulse Rate 99 85 Respiratory Rate 18 16 Blood Pressure 122/73 125/68 Pulse Oximetry 98 98 Oxygen Delivery Method Room Air Room Air BMI result Body Mass Index 29.1 Labs 10/07/24 18:46 10/08/24 15:38 Medications Medications Current Medications Acetaminophen (Acetaminophen 325 Mg Tablet) 650 mg PO Q6H PRN PRN Reason: Headache/Pain Mild Scale (1-3) Last Admin: 10/09/24 23:17 Dose: 650 mg Al Hydroxide/Mg Hydroxide (Magnesium Hydrox/Alum Hydrox 30 Ml Oral.Susp) 30 ml PO Q6H PRN PRN Reason: Heartburn/Nausea Benzocaine (Throat Lozenge, Medicated Lozenge) 1 lozenge MUCOUS MEM Q2H PRN PRN Reason: Sore Throat Last Admin: 10/10/24 21:00 Dose: 1 lozenge Cefuroxime Axetil (Cefuroxime Axetil 250 Mg Tablet) 250 mg PO BID [facility] Stop: 10/14/24 09:01 Last Admin: 10/11/24 08:27 Dose: 250 mg Hydroxyzine HCl (Hydroxyzine Hcl 25 Mg Tablet) 25 mg PO Q6H PRN PRN Reason: Anxiety Last Admin: 10/08/24 21:00 Dose: 25 mg [place] Carbonate ([place] Carbonate Er 300 Mg Tablet.Er) 300 mg PO BEDTIME [facility] Last Admin: 10/10/24 20:53 Dose: 300 mg Magnesium Hydroxide (Milk Of Magnesia 30 Ml Oral.Susp) 30 ml PO DAILY PRN PRN Reason: Constipation Nicotine (Nicotine 21 Mg Patch.Td24) 21 mg TRANSDERMA DAILY [facility] Last Admin: 10/11/24 08:26 Dose: 21 mg Nicotine Polacrilex (Nicotine Polacrilex 2 Mg Gum) 4 mg BUCCAL Q2H PRN PRN Reason: Nicotine Cravings Last Admin: 10/09/24 09:34 Dose: 4 mg Olanzapine (Olanzapine 7.5 Mg Tablet) 15 mg PO BEDTIME [facility] Last Admin: 10/10/24 20:53 Dose: 15 mg Trazodone HCl (Trazodone Hcl 50 Mg Tablet) 50 mg PO BEDTIME MRX1 PRN PRN Reason: Insomnia Allergies Allergies Allergy/AdvReac Type Severity Reaction Status Date / Time No Known Allergies Allergy Verified 10/07/24 17:37 Assessment & Plan Assessment & Plan (1) Schizoaffective disorder, depressive type: Status: Acute Code(s): F25.1 - Schizoaffective disorder, depressive type Plan 10/09: Current medications were continued with no changes. He is being treated for UTI. He is admitted under a conditional voluntary status. 10/10: feels regimen is helpful. continue current mgmt. poor eye contact, very soft spoken. 10/11: Keeping to self. active on unit. Patient reports feeling okay today; he reports sleeping well. denies SI/HI/VH/AH. Discussed possible d/c on Monday if continues to improve; pt reports he plans on riding his bike to the senior care in [place] or contacting his friend who allows him to stay in the garage after discharge. Continue current tx plan. Patient educated on: diagnosis and medication risk/benefits Reason for continued inpatient stay Substantial Risk for: med/psych decompensation Time Spent With Patient Time: Total time managing care of this patient today _20___ minutes.
[2024-10-11 20:00] VITALS: BP 120/73; PULSE 99; RESP 16; TEMP 36.4; O2SAT 96
[2024-10-11] MEDS: Lithium Carbonate ER 300 MG TABLET.ER PO (21:01)
[2024-10-11] MEDS: OLANZapine 7.5 MG TABLET 15 MG PO (21:01)
[2024-10-11] MEDS: Throat Lozenge, Medicated LOZENGE 1 LOZENGE MUCOUS MEM (21:02)
[2024-10-11] MEDS: hydrOXYzine HCL 25 MG TABLET PO (21:02)
[2024-10-12 07:52] VITALS: BP 122/60; PULSE 89; RESP 16; TEMP 36.7; O2SAT 98
[2024-10-12] MEDS: Nicotine 21 MG PATCH.TD24 TRANSDERMA (09:29)
[2024-10-12] MEDS: cefuroxime axetiL 250 MG TABLET PO ×2 (09:30→20:16)
--- NOTE | 2024-10-12 10:37 | P.PNPSI_ITS ---
Subjective Subjective Date of Service: 10/12/24 Reason For Visit: Crisis/SI Interim History: Patient seen and discussed. He is mostly keeping to self. Visible on unit. He reports feeling OK. Denies depression or anxiety today. Feels medications are helpful. He reports sleeping well. denies SI/HI/VH/AH. Possible d/c on Monday if continues to improve; Continue current tx plan. Review of Systems Review of Systems Upper respiratory symptoms Yes all other systems are reviewed and are negative Constitutional: Reports as per HPI Eyes: Reports as per HPI Reports as per HPI Cardiovascular: Reports as per HPI Respiratory: Reports as per HPI Gastrointestinal: Reports as per HPI Genitourinary: Reports as per HPI Musculoskeletal: Reports as per HPI Skin/Breast: Reports as per HPI Reports as per HPI Psychiatric: Reports as per HPI Endocrine: Reports as per HPI Hematologic/Lymphatic: Reports as per HPI Allergic/Immunologic: Reports as per HPI Mental Status Exam Mental Status Exam Narrative: Pt is alert and oriented; behavior is cooperative, calm; dressed in casual attire; mood is described as okay ; eye contact appropriate; Speech is normal rate, volume and not pressured; thought process is organized; Thought content is on tx; otherwise pertinent to relevant topics and without any delusional content, paranoid ideations or grandiosity; denies SI/HI/VH/AH. Diagnostics Vital Signs (24Hr): Vital Signs - 24 hr 10/11/24 20:00 10/12/24 07:52 Temperature 97.5 F 98.1 F Pulse Rate 99 89 Respiratory Rate 16 16 Blood Pressure 120/73 122/60 Pulse Oximetry 96 98 Oxygen Delivery Method Room Air Room Air BMI result Body Mass Index 29.1 Labs 10/07/24 18:46 10/08/24 15:38 Medications Medications Current Medications Acetaminophen (Acetaminophen 325 Mg Tablet) 650 mg PO Q6H PRN PRN Reason: Headache/Pain Mild Scale (1-3) Last Admin: 10/09/24 23:17 Dose: 650 mg Al Hydroxide/Mg Hydroxide (Magnesium Hydrox/Alum Hydrox 30 Ml Oral.Susp) 30 ml PO Q6H PRN PRN Reason: Heartburn/Nausea Benzocaine (Throat Lozenge, Medicated Lozenge) 1 lozenge MUCOUS MEM Q2H PRN PRN Reason: Sore Throat Last Admin: 10/11/24 21:02 Dose: 1 lozenge Cefuroxime Axetil (Cefuroxime Axetil 250 Mg Tablet) 250 mg PO BID [facility] Stop: 10/14/24 09:01 Last Admin: 10/12/24 09:30 Dose: 250 mg Hydroxyzine HCl (Hydroxyzine Hcl 25 Mg Tablet) 25 mg PO Q6H PRN PRN Reason: Anxiety Last Admin: 10/11/24 21:02 Dose: 25 mg Lactic Acid (Ammonium Lactate 12 % Cream 140 Gm Tube) 1 appl TOPICAL BID PRN; Protocol PRN Reason: Dry Skin [place] Carbonate ([place] Carbonate Er 300 Mg Tablet.Er) 300 mg PO BEDTIME [facility] Last Admin: 10/11/24 21:01 Dose: 300 mg Magnesium Hydroxide (Milk Of Magnesia 30 Ml Oral.Susp) 30 ml PO DAILY PRN PRN Reason: Constipation Nicotine (Nicotine 21 Mg Patch.Td24) 21 mg TRANSDERMA DAILY [facility] Last Admin: 10/12/24 09:29 Dose: 21 mg Nicotine Polacrilex (Nicotine Polacrilex 2 Mg Gum) 4 mg BUCCAL Q2H PRN PRN Reason: Nicotine Cravings Last Admin: 10/09/24 09:34 Dose: 4 mg Olanzapine (Olanzapine 7.5 Mg Tablet) 15 mg PO BEDTIME [facility] Last Admin: 10/11/24 21:01 Dose: 15 mg Trazodone HCl (Trazodone Hcl 50 Mg Tablet) 50 mg PO BEDTIME MRX1 PRN PRN Reason: Insomnia Allergies Allergies Allergy/AdvReac Type Severity Reaction Status Date / Time No Known Allergies Allergy Verified 10/07/24 17:37 Assessment & Plan Assessment & Plan (1) Schizoaffective disorder, depressive type: Status: Acute Code(s): F25.1 - Schizoaffective disorder, depressive type Plan 10/09: Current medications were continued with no changes. He is being treated for UTI. He is admitted under a conditional voluntary status. 10/10: feels regimen is helpful. continue current mgmt. poor eye contact, very soft spoken. 10/11: Keeping to self. active on unit. Patient reports feeling okay today; he reports sleeping well. denies SI/HI/VH/AH. Discussed possible d/c on Monday if continues to improve; pt reports he plans on riding his bike to the custodial in [place] or contacting his friend who allows him to stay in the garage after discharge. Continue current tx plan. 10/12: Continue current management and treatment plan. Reason for continued inpatient stay Substantial Risk for: harm to self, inability to function and rapid decompensation Time Spent With Patient Time: Total time managing care of this patient today ____ minutes.
[2024-10-12] MEDS: Throat Lozenge, Medicated LOZENGE 1 LOZENGE MUCOUS MEM ×2 (16:30→20:16)
[2024-10-12 20:00] VITALS: BP 134/74; PULSE 90; RESP 16; TEMP 36.7; O2SAT 96
[2024-10-12] MEDS: OLANZapine 7.5 MG TABLET 15 MG PO (20:15)
[2024-10-12] MEDS: hydrOXYzine HCL 25 MG TABLET PO (20:16)
[2024-10-12] MEDS: Lithium Carbonate ER 300 MG TABLET.ER PO (20:16)
[2024-10-13 07:35] VITALS: BP 119/69; PULSE 95; RESP 14; TEMP 36.6; O2SAT 96
[2024-10-13] MEDS: Nicotine 21 MG PATCH.TD24 TRANSDERMA (09:10)
[2024-10-13] MEDS: cefuroxime axetiL 250 MG TABLET PO ×2 (09:10→21:02)
--- NOTE | 2024-10-13 09:58 | HO.PSYCHPN ---
Subjective Subjective Date of Service: 10/13/24 Reason For Visit: Crisis/SI Interim History: Patient seen and discussed. He reports feeling OK. He is mostly keeping to self. Visible on unit. Denies depression or anxiety today. Feels medications are helpful. He reports sleeping well. denies SI/HI/VH/AH. Possible d/c on Monday if continues to improve. Review of Systems Review of Systems Upper respiratory symptoms Yes all other systems are reviewed and are negative Constitutional: Reports as per HPI Eyes: Reports as per HPI Reports as per HPI Cardiovascular: Reports as per HPI Respiratory: Reports as per HPI Gastrointestinal: Reports as per HPI Genitourinary: Reports as per HPI Musculoskeletal: Reports as per HPI Skin/Breast: Reports as per HPI Reports as per HPI Psychiatric: Reports as per HPI Endocrine: Reports as per HPI Hematologic/Lymphatic: Reports as per HPI Allergic/Immunologic: Reports as per HPI Mental Status Exam Mental Status Exam Narrative: Pt is alert and oriented; behavior is cooperative, calm; dressed in casual attire; mood is described as okay ; eye contact appropriate; Speech is normal rate, volume and not pressured; thought process is organized; Thought content is on tx; otherwise pertinent to relevant topics and without any delusional content, paranoid ideations or grandiosity; denies SI/HI/VH/AH. Diagnostics Vital Signs (24Hr): Vital Signs - 24 hr 10/12/24 20:00 10/13/24 07:35 Temperature 98.1 F 97.9 F Pulse Rate 90 95 Respiratory Rate 16 14 Blood Pressure 134/74 119/69 Pulse Oximetry 96 96 Oxygen Delivery Method Room Air Room Air BMI result Body Mass Index 29.1 Labs 10/07/24 18:46 10/08/24 15:38 Medications Medications Current Medications Acetaminophen (Acetaminophen 325 Mg Tablet) 650 mg PO Q6H PRN PRN Reason: Headache/Pain Mild Scale (1-3) Last Admin: 10/09/24 23:17 Dose: 650 mg Al Hydroxide/Mg Hydroxide (Magnesium Hydrox/Alum Hydrox 30 Ml Oral.Susp) 30 ml PO Q6H PRN PRN Reason: Heartburn/Nausea Benzocaine (Throat Lozenge, Medicated Lozenge) 1 lozenge MUCOUS MEM Q2H PRN PRN Reason: Sore Throat Last Admin: 10/12/24 20:16 Dose: 1 lozenge Cefuroxime Axetil (Cefuroxime Axetil 250 Mg Tablet) 250 mg PO BID [facility] Stop: 10/14/24 09:01 Last Admin: 10/13/24 09:10 Dose: 250 mg Hydroxyzine HCl (Hydroxyzine Hcl 25 Mg Tablet) 25 mg PO Q6H PRN PRN Reason: Anxiety Last Admin: 10/12/24 20:16 Dose: 25 mg Lactic Acid (Ammonium Lactate 12 % Cream 140 Gm Tube) 1 appl TOPICAL BID PRN; Protocol PRN Reason: Dry Skin [place] Carbonate ([place] Carbonate Er 300 Mg Tablet.Er) 300 mg PO BEDTIME ZACH Last Admin: 10/12/24 20:16 Dose: 300 mg Magnesium Hydroxide (Milk Of Magnesia 30 Ml Oral.Susp) 30 ml PO DAILY PRN PRN Reason: Constipation Nicotine (Nicotine 21 Mg Patch.Td24) 21 mg TRANSDERMA DAILY [facility] Last Admin: 10/13/24 09:10 Dose: 21 mg Nicotine Polacrilex (Nicotine Polacrilex 2 Mg Gum) 4 mg BUCCAL Q2H PRN PRN Reason: Nicotine Cravings Last Admin: 10/09/24 09:34 Dose: 4 mg Olanzapine (Olanzapine 7.5 Mg Tablet) 15 mg PO BEDTIME [facility] Last Admin: 10/12/24 20:15 Dose: 15 mg Trazodone HCl (Trazodone Hcl 50 Mg Tablet) 50 mg PO BEDTIME MRX1 PRN PRN Reason: Insomnia Allergies Allergies Allergy/AdvReac Type Severity Reaction Status Date / Time No Known Allergies Allergy Verified 10/07/24 17:37 Assessment & Plan Assessment & Plan (1) Schizoaffective disorder, depressive type: Status: Acute Code(s): F25.1 - Schizoaffective disorder, depressive type Plan 10/09: Current medications were continued with no changes. He is being treated for UTI. He is admitted under a conditional voluntary status. 10/10: feels regimen is helpful. continue current mgmt. poor eye contact, very soft spoken. 10/11: Keeping to self. active on unit. Patient reports feeling okay today; he reports sleeping well. denies SI/HI/VH/AH. Discussed possible d/c on Monday if continues to improve; pt reports he plans on riding his bike to the [facility] in [place] or contacting his friend who allows him to stay in the garage after discharge. Continue current tx plan. 10/12: Continue current management and treatment plan. 10/13: Continue current management and treatment plan. Reason for continued inpatient stay Substantial Risk for: harm to self, inability to function and rapid decompensation Time Spent With Patient Time: Total time managing care of this patient today ____ minutes.
[2024-10-13 20:00] VITALS: BP 130/77; PULSE 95; RESP 14; TEMP 36.8; O2SAT 98
[2024-10-13] MEDS: Lithium Carbonate ER 300 MG TABLET.ER PO (21:02)
[2024-10-13] MEDS: OLANZapine 7.5 MG TABLET 15 MG PO (21:02)
[2024-10-13] MEDS: hydrOXYzine HCL 25 MG TABLET PO (21:02)
[2024-10-13] MEDS: Throat Lozenge, Medicated LOZENGE 1 LOZENGE MUCOUS MEM (21:06)
[2024-10-14 07:40] VITALS: BP 114/53; PULSE 67; RESP 18; TEMP 36.6; O2SAT 96
[2024-10-14] MEDS: cefuroxime axetiL 250 MG TABLET PO (08:43)
[2024-10-14] MEDS: Nicotine 21 MG PATCH.TD24 TRANSDERMA (08:44)
--- NOTE | 2024-10-14 09:29 | P.DS_ITS ---
DS: Providers Provider Date of Service: 10/14/24 Date of admission: 10/08/24 12:12 Date of discharge: 10/14/24 Primary care physician: Lili Physician Attending physician on admission: Evi Velez Attending physician on discharge: Marshall Draper Discharging clinician: Sonja Hunt DS: Diagnosis Discharge Diagnosis (1) Schizoaffective disorder, depressive type: Status: Acute DS: Medications Discharge Medications Home Medications: Home Medications ?Medication ?Instructions ?Recorded ?Confirmed lithium carbonate 300 mg 1,200 mg PO BEDTIME 09/29/24 10/07/24 tablet,extended release Previous Rx's ?Medication ?Instructions ?Recorded olanzapine 15 mg tablet 15 mg PO BEDTIME 30 days #30 tabs 09/06/24 Mental Status Exam Mental Status Exam Narrative: Pt is alert and oriented; behavior is cooperative, calm; dressed in casual attire; mood is described as good ; eye contact appropriate; Speech is normal rate, volume and not pressured; thought process is organized; Thought content is on tx; otherwise pertinent to relevant topics and without any delusional content, paranoid ideations or grandiosity; denies SI/HI/VH/AH. Data Data Completed and Pending Completed studies during hospitalization [Text1]: 10/07/24 10/07/24 10/07/24 18:18 18:46 18:47 WBC 9.0 RBC 4.45 L Hgb 14.2 Hct 40.6 L MCV 91.2 MCH 31.9 MCHC 35.0 RDW 12.5 Plt Count 201 MPV 9.7 Immature Gran % (Auto) 0.2 Neut % (Auto) 51.2 Lymph % (Auto) 39.4 [place] % (Auto) 5.9 Eos % (Auto) 3.1 Baso % (Auto) 0.2 Lymph # (Auto) 3.6 [place] # (Auto) 0.5 Eos # (Auto) 0.3 Baso # (Auto) 0.0 Abs Immat Gran (auto) 0.02 Absolute Neuts (auto) 4.6 Absolute Nucleated RBC 0.000 Nucleated RBC % (auto) 0.0 Sodium 143 Potassium 3.7 Chloride 107 Carbon Dioxide 30 H Anion Gap 10 L BUN 15 Creatinine 0.88 Estim Creat Clear Calc 112.2 Estimated GFR > 60 Random Glucose 80 Calcium 8.7 Total Bilirubin 0.3 AST 31 ALT 22 Alkaline Phosphatase 61 Total Protein 6.6 Albumin 3.8 Triglycerides Cholesterol LDL Cholesterol, Calc HDL Cholesterol Urine Color Yellow Urine Appearance Clear Urine pH 5.5 Ur Specific Ida 1.015 Urine Protein Negative Urine Glucose (UA) Negative Urine Ketones Negative Urine Blood Small (1+) H Urine Nitrite Negative Ur Leukocyte Esterase Small (1+) H Urine RBC 3-5 H Urine WBC 11-20 H Ur Squamous Epith Cells 0-2 Urine Bacteria None Seen Hyaline Casts 0-2 Urine Opiates Screen Not Detected Ur Buprenorphine Scrn Not Detected Ur Oxycodone Screen Not Detected Urine Methadone Screen Not Detected Urine Fentanyl Screen Not Detected Ur Barbiturates Screen Not Detected Ur Phencyclidine Scrn Not Detected Ur Amphetamines Screen Not Detected U Benzodiazepines Scrn Not Detected Winger Urine Cocaine Screen Not Detected U Marijuana (THC) Screen Not Detected Ethyl Alcohol < 10 COVID-19 (LESLIE) COVID-19 [employer] 10/07/24 10/08/24 10/09/24 20:24 15:38 08:35 WBC RBC Hgb Hct MCV MCH MCHC RDW Plt Count MPV Immature Gran % (Auto) Neut % (Auto) Lymph % (Auto) [place] % (Auto) Eos % (Auto) Baso % (Auto) Lymph # (Auto) [place] # (Auto) Eos # (Auto) Baso # (Auto) Abs Immat Gran (auto) Absolute Neuts (auto) Absolute Nucleated RBC Nucleated RBC % (auto) Sodium 140 Potassium 4.0 Chloride 106 Carbon Dioxide 27 Anion Gap 11 L BUN 20 H Creatinine 0.89 Estim Creat Clear Calc 110.2 Estimated GFR > 60 Random Glucose 91 Calcium 9.4 D Total Bilirubin 0.3 AST 24 ALT 24 Alkaline Phosphatase 66 Total Protein 7.2 Albumin 4.1 Triglycerides 99 Cholesterol 167 LDL Cholesterol, Calc 98 HDL Cholesterol 50 Urine Color Urine Appearance Urine pH Ur Specific Ida Urine Protein Urine Glucose (UA) Urine Ketones Urine Blood Urine Nitrite Ur Leukocyte Esterase Urine RBC Urine WBC Ur Squamous Epith Cells Urine Bacteria Hyaline Casts Urine Opiates Screen Ur Buprenorphine Scrn Ur Oxycodone Screen Urine Methadone Screen Urine Fentanyl Screen Ur Barbiturates Screen Ur Phencyclidine Scrn Ur Amphetamines Screen U Benzodiazepines Scrn Winger < 0.10 L Urine Cocaine Screen U Marijuana (THC) Screen Ethyl Alcohol COVID-19 (LESLIE) COVID-19 [employer] 10/09/24 09:38 WBC RBC Hgb Hct MCV MCH MCHC RDW Plt Count MPV Immature Gran % (Auto) Neut % (Auto) Lymph % (Auto) [place] % (Auto) Eos % (Auto) Baso % (Auto) Lymph # (Auto) [place] # (Auto) Eos # (Auto) Baso # (Auto) Abs Immat Gran (auto) Absolute Neuts (auto) Absolute Nucleated RBC Nucleated RBC % (auto) Sodium Potassium Chloride Carbon Dioxide Anion Gap BUN Creatinine Estim Creat Clear Calc Estimated GFR Random Glucose Calcium Total Bilirubin AST ALT Alkaline Phosphatase Total Protein Albumin Triglycerides Cholesterol LDL Cholesterol, Calc HDL Cholesterol Urine Color Urine Appearance Urine pH Ur Specific Ida Urine Protein Urine Glucose (UA) Urine Ketones Urine Blood Urine Nitrite Ur Leukocyte Esterase Urine RBC Urine WBC Ur Squamous Epith Cells Urine Bacteria Hyaline Casts Urine Opiates Screen Ur Buprenorphine Scrn Ur Oxycodone Screen Urine Methadone Screen Urine Fentanyl Screen Ur Barbiturates Screen Ur Phencyclidine Scrn Ur Amphetamines Screen U Benzodiazepines Scrn Winger Urine Cocaine Screen U Marijuana (THC) Screen Ethyl Alcohol COVID-19 (LESLIE) Negative COVID-19 Clin Com See Note 10/07/24 Unknown Urine clean catch - Clean Catch Midstream Urine Culture - Final DS: Summary Hospital Course Hospital Course: Nathaniel is a 54-year-old , unemployed (social security), father of 1. He is currently homeless and self presented to the emergency room because of having thoughts of jumping off of a bridge or doing a crime to be confronted by others or the police. He denies any recent episodes of self-harm but had 1 in the 90s. He has been irregular with his medications which includes lithium carbonate 300 mg nightly and Zyprexa 15 mg nightly. He is a poor historian. He also has been under a lot of external stressors. 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 He will recently lost his wallet with all his cards. He does use marijuana almost daily and alcohol when available. Nathaniel meets criteria for IP LOC for safety and stabilization. Current medications were continued with no changes. He is being treated for UTI. He is admitted under a conditional voluntary status. Current medications were continued with no changes. He is being treated for UTI. He is admitted under a conditional voluntary status. feels regimen is helpful. continue current mgmt. poor eye contact, very soft spoken. Keeping to self. active on unit. Patient reports feeling okay today; he reports sleeping well. denies SI/HI/VH/AH. Discussed possible d/c on Monday if continues to improve; pt reports he plans on riding his bike to the senior care in [place] or contacting his friend who allows him to stay in the garage after discharge. Continue current tx plan. Patient reports feeling good and ready to leave ; pt reports he plans on going to the senior care in [place]. denies SI/HI/VH/AH. He plans on following up with outpatient providers. Time spent discussing smoking cessation with patient: 3 to 10 minutes Status at Discharge Cognitive/behavioral status at discharge: Patient was interviewed prior to discharge and found to be fully oriented and without SI or HI. Patient has insight and demonstrates good judgment in terms of wanting to pursue treatment. Patient has a safety plan that includes presenting to the closest ER or calling 911 if feeling unsafe. Functional status at discharge: independent ambulation Overall status at discharge: patient is back to baseline Time Spent with Patient Time attestation: Total time managing care of this patient today _20___ minutes. Time spent: Less than 30 minutes Discharge Plan Discharge Anticipated Discharge Date/Time: 10/14/24 11:00 Patient Disposition: Fdc Discharge Diagnosis: Schizoaffective d/o Referrals: [employer] walk in Hours [Other] - 1 Week (walk in hours are Monday-Monday 8am-8pm Bring your discharge paperwork with you.) [facility] [Other] - 1 Week (Cydney Plunkett [id number] Call for help wit transportation, housing and food) [facility] [Provider Group] - 1 Week (Patient may use walk in clinic as needed for immediate medical attention ) Discharge Medications: New lithium carbonate 300 mg Tablet Extended Release 300 mg PO BEDTIME 30 Days Qty: 30 0RF Continued olanzapine 15 mg tablet 15 mg PO BEDTIME 30 Days Qty: 30 0RF Discontinued lithium carbonate 300 mg tablet extended release 1,200 mg PO BEDTIME Discharge Orders: Discharge Order (Routine); Ordered 10/14/24 Ordered By: Sonja Hunt Diet: Regular diet Activity on Discharge: As tolerated Stand Alone Forms: Patient Portal Discharge page, Community Support Print Language: Cambodian Care Plan Goals: Maintain mood and safe behaviors Take medications as prescribed Continue to pursue sobriety Practice coping skills Continue with outpatient providers and reach out to them as needed Health Concerns: Mood stability and behaviors Sobriety Plan of Treatment: Follow up with your PCP, psychiatric provider and other outpatient providers regarding above concerns Take medications as prescribed Assessment: Patient was interviewed prior to discharge and found to be fully oriented and without SI or HI. Patient has insight and demonstrates good judgment in terms of wanting to pursue treatment. Patient has a safety plan that includes presenting to the closest ER or calling 911 if feeling unsafe. Discharge Date/Time: 10/14/24 11:03
[2024-10-14 10:14] LABS: Lithium 0.15 mmol/L (0.60-1.20)
[2024-10-14 10:19] LABS: Anion Gap 8 (12-20); Blood Urea Nitrogen 14 mg/dL (9-16); Carbon Dioxide 29 mmol/L (22-29); Chloride 107 mmol/L (96-108); Creatinine Clr Calc Pharmacy 117.3; Estimated Glomerular Filt Rate > 60; Potassium 4.3 mmol/L (3.3-5.1); Sodium 140 mmol/L (135-145)
[2024-10-14] MEDS: Naloxone HCl Nasal TAKE HOME 4 MG SPRAY 8 MG NOSTRILALT (11:23)
--- NOTE | 2024-10-14 11:32 | PC.NURSE ---
Patient easily engaged. Reports mood is stable, denies depression, endorses feeling mildly anxious regarding discharge. Planning to go to [facility] from hospital. Denies SI/HI plan or intent at this time. Denies perceptual disturbances, no overt psychosis or expressed delusions. Discharge instructions reviewed with patient, reports understanding. Medications reviewed with patient, received from hospital pharmacy and given to patient. Take home Narcan provided to patient for discharge, instructions provided reports understanding. Follow up care reviewed, reports understanding. Crisis numbers provided to patient. All belongings taken with patient.
== END 2024-10-14 11:03 | disposition home or self-care (01) | DRG 885 ==
LOC: HO.ED 18:37 → HO.PADLT16 10-08 12:33
PROVIDERS: Physician Assistant; Psychiatry & Neurology Psychiatry; Admitting Provider Registered Nurse; Emergency Provider Emergency Medicine; Responsible Provider Registered Nurse; Visit Provider Psychiatry & Neurology Psychiatry
DX: F25.1 Schizoaffective disorder, depressive type (principal); R45.851 Suicidal ideations; Z59.02 Unsheltered homelessness; F17.210 Nicotine dependence, cigarettes, uncomplicated; Z71.6 Tobacco abuse counseling; Z20.822 Contact with and (suspected) exposure to COVID-19; Z79.899 Other long term (current) drug therapy
CPT/HCPCS: 36415; 80051; 80053; 80061; 80178; 80307; 81001; 82565; 84520; 85025; 87086; 87635; 93005; 99285

== ENCOUNTER 2024-10-08 12:12 | Outpatient (BNV) | payer MEDICARE, SELFPAY | END 2024-10-08 12:17 | PROVIDERS: Admitting Provider Registered Nurse; Emergency Provider Emergency Medicine; Responsible Provider Registered Nurse; Visit Provider Internal Medicine Cardiovascular Disease | DX: R94.31 Abnormal electrocardiogram [ECG] [EKG] (principal) | CPT/HCPCS: 93010 ==

== ENCOUNTER → 2024-10-08 12:12 | Outpatient (BNV) | payer MEDICARE, SELFPAY | PROVIDERS: Admitting Provider Registered Nurse; Emergency Provider Emergency Medicine; Responsible Provider Registered Nurse; Visit Provider Psychiatry & Neurology Psychiatry | DX: F25.1 Schizoaffective disorder, depressive type (principal) | CPT/HCPCS: 90792; 99231; 99238 ==

== ENCOUNTER 2024-10-31 03:29 | Emergency (ER) | payer OTHER, SELFPAY ==
[2024-10-31 03:31] VITALS: BP 190/100; PULSE 100; O2SAT 96
[2024-10-31 03:48] VITALS: BP 136/78; PULSE 70; RESP 18; TEMP 36.4; O2SAT 97; BMI 30.1
--- NOTE | 2024-10-31 08:54 | ED.GENADULT ---
HPI - General Adult General Chief complaint: General Medical Stated complaint: cold hand and back pain Time Seen by Provider: 10/31/24 08:52 Source: patient, RN notes reviewed and old records reviewed Mode of arrival: ambulatory Limitations: no limitations History of Present Illness ED Provider: Tara VERGARA narrative: Patient is a 54-year-old male currently experiencing homelessness with past medical history of schizoaffective disorder, cocaine use disorder, alcohol use disorder, depression presenting to the emergency department with complaint of bilateral hand and foot pain expressing concern for frostbite. States pain is worst in feet. Denies numbness, tingling. complaint: hand and foot pain Onset (ago): hour(s) Treatments prior to arrival: none Related Data Previous Rx's ?Medication ?Instructions ?Recorded lithium carbonate 300 mg 300 mg PO BEDTIME 30 days #30 tabs 10/14/24 tablet,extended release olanzapine 15 mg tablet 15 mg PO BEDTIME 30 days #30 tabs 24 Allergies Allergy/AdvReac Type Severity Reaction Status Date / Time No Known Allergies Allergy Verified 10/31/24 03:51 Review of Systems Review of Systems: As per HPI Yes all other systems are reviewed and are negative Constitutional: Constitutional: Reports as per HPI PMFSH Past Medical History Medical History Hematuria Alcohol abuse Schizoaffective disorder, depressive type Cocaine abuse Social History Social History Household Members: None Household Members Other:: up until 2 months ago, lived with spouse in an apartment in [place]; now Housing: Homeless Do you presently have visiting nurse or other home services: No Alcohol intake: current Alcohol intake frequency: a few times a month Alcohol type: beer Patient Tobacco Use Status: Current everyday Tobacco user Tobacco use type: Cigarette Cigarettes Per Day: 2 Years Smoked: 40 e-Cigarette/Vaping Use: Never Used Second Hand Smoke Exposure: Yes Substance Use Type: Marijuana Advance Directives: No Advance Directives Information Provided: Yes service: No Current occupational status: unemployed Current occupation: rt hand Sexual orientation: Straight/Heterosexual Physical Exam ED Vital Signs: Vital Signs - 24 hr 10/31/24 03:48 Temperature 97.6 F Pulse Rate 70 Respiratory Rate 18 Blood Pressure 136/78 Pulse Oximetry 97 Oxygen Delivery Method Room Air BMI result Body Mass Index 30.1 Vital signs have been reviewed and appear to be correct. Blood pressure normal. Heart rate normal. Respiratory rate normal. Temperature normal. Oxygen saturation normal. Const General: cooperative, healthy appearing and no acute distress Orientation/consciousness: oriented to person, oriented to place, oriented to time and patient oriented x3 Limitations: no limitations HENMT Head: Yes normocephalic and Yes atraumatic Ears: external ears normal General nose exam: Normal external nose present Face and sinus: Yes face symmetric Mouth: oropharynx normal and moist mucous membranes Throat: Yes uvula midline Eyes Pupils: Equal, round and reactive pupils present Neck Neck: Yes normal visual inspection and Yes supple Resp Effort & Inspection: normal respiratory effort and able to speak in complete sentences Auscultation: clear to auscultation bilaterally Cardio Rate: regular rate Rhythm: regular rhythm Heart sounds: S1 normal heart sound present and S2 normal heart sound present GI Palpation (GI): Soft to palpation and nontender Auscultation: normoactive bowel sounds General: Yes no CVA tenderness Back/Spine/Pelvis Back: no CVA tenderness Skin General skin exam: elasticity normal and turgor normal Neuro General: oriented to person, oriented to place, oriented to time, patient oriented x3, moves all extremities, no focal motor deficits and CN's II-XI intact bilaterally Cranial nerves: Yes Equal, round and reactive pupils present Cognition (Neuro): normal cognition Extrem General: Yes full ROM, Yes no pedal edema and Yes no calf tenderness Right upper extremity: Extremity exam: right hand Details: normal to inspection, normal capillary refill, neuromotor exam normal, neurosensory exam normal, vascular exam Details: radial pulse present and normal capillary refill; not cool and no cyanosis and normal ROM of fingers Left upper extremity: hand Details: normal to inspection, normal capillary refill, neuromotor exam normal, neurosensory exam normal, vascular exam Details: radial pulse present and normal capillary refill; not cool and no cyanosis and normal ROM of fingers Right lower extremity: foot Details: normal capillary refill, normal to inspection, toes with normal ROM and vascular exam Details: dorsalis pedis pulse present, posterior tibial pulse present and normal capillary refill; not cool and no cyanosis; no tenderness Left lower extremity: foot Details: normal capillary refill, normal to inspection, toes with normal ROM and vascular exam Details: dorsalis pedis pulse present, posterior tibial pulse present and normal capillary refill; not cool and no cyanosis; no tenderness Psych Mental Status: mental status grossly normal Affect: normal affect Thought process: Normal thought process present Medical Decision Making Medical Decision Making [facility] Narrative: Patient is a 54-year-old male currently experiencing homelessness with past medical history of schizoaffective disorder, cocaine use disorder, alcohol use disorder, depression presenting to the emergency department with complaint of bilateral hand and foot pain expressing concern for frostbite. On exam patient is awake, A+Ox3, VS WNL, afebrile, normal neurological exam without focal deficits, physical exam findings as above. Given reported symptoms and physical exam findings, initial differential includes but is not limited to frostbite, vascular injury. Vital signs stable and physical exam unremarkable, no evidence of frostbite. Patient remained in ED for several hours without change in symptoms. Feel he is stable for discharge. Medicated with ibuprofen for pain. Provided with additional socks. Return precautions discussed. Patient verbalized understanding of and agreement with plan. Differential Diagnosis Differential Diagnoses: The differential diagnosis associated with the presentation includes As per [facility] External Record Review External record reviewed: Inpatient record, Office record and Outpatient record Discharge Plan Discharge Clinical Impression: Bilateral foot pain Patient Disposition: Home, Self-Care Instructions: Frostbite (ED) Additional Instructions: You were evaluated in the emergency department today for hand and foot pain related to the cold weather. Your exam did not show evidence of frostbite. You were provided with extra socks. Try to keep your socks as dry as possible as this will help prevent frostbite injuries. Return to the emergency department if you develop change of color in your hands/feet, weakness, numbness, tingling or any other new or concerning symptoms. Prescriptions: No Action lithium carbonate 300 mg Tablet Extended Release 300 mg PO BEDTIME 30 Days Qty: 30 0RF olanzapine 15 mg tablet 15 mg PO BEDTIME 30 Days Qty: 30 0RF Print Language: Czech
[2024-10-31] MEDS: Ibuprofen 600 MG TABLET PO (10:23)
[2024-10-31 10:26] VITALS: BP 140/81; PULSE 75; RESP 20; TEMP 36.3; O2SAT 98
[2024-10-31 10:37] VITALS: BP 140/81; PULSE 75; RESP 20; TEMP 36.3; O2SAT 98
== END 2024-10-31 10:37 | disposition home or self-care (01) ==
PROVIDERS: Emergency Provider Student in an Organized Health Care Education/Training Program
DX: M79.672 Pain in left foot (principal); M79.671 Pain in right foot; M79.641 Pain in right hand; M79.642 Pain in left hand; F17.210 Nicotine dependence, cigarettes, uncomplicated; Z59.00 Homelessness unspecified
CPT/HCPCS: 99283; 99284

== ENCOUNTER 2024-12-23 00:52 | Emergency (ER) | payer MEDICARE, MEDICAID, SELFPAY ==
--- NOTE | 2024-12-23 | ECG_ITS ---
Test Reason : sob Blood Pressure : */* mmHG Vent. Rate : 85 BPM Atrial Rate : 85 BPM P-R Int : 156 ms QRS Dur : 92 ms QT Int : 360 ms P-R-T Axes : 13 -5 18 degrees QTcB Int : 428 ms Sinus rhythm with Premature atrial complexes Minimal voltage criteria for LVH, may be normal variant ( Mehran product ) Borderline ECG When compared with ECG of 08-Oct-2024 12:17, Premature atrial complexes are now Present Referred By: Generic ED Physician Electronically Signed By: CIRO TIRADO
[2024-12-23 00:59] VITALS: BP 150/82; BP 188/98; PULSE 71; PULSE 80; RESP 18; TEMP 36.6; O2SAT 97; O2SAT 99; BMI 32.0
[2024-12-23 01:51] LABS: MANUAL DIFF FLAG NO
[2024-12-23 01:52] LABS: Basophils Absolute Auto 0.1 X10*3/uL (0.0-0.2); Basophils Percent Auto 0.5 % (0-2); Eosinophils Absolute Auto 0.4 X10*3/uL (0.0-0.4); Eosinophils Percent Auto 4.4 % (0-4); Hemoglobin 15.5 g/dl (14.0-18.0); Imm Gran Abs Auto 0.02 X10*3/uL (0.00-0.03); Imm Gran Pct Auto 0.2 % (0.0-0.4); Lymphocytes Absolute Auto 3.5 X10*3/uL (1.2-4.9); Lymphocytes Percent Auto 35.2 % (20-40); Mean Corpuscular HGB Conc 35.2 g/dl (31.0-36.0); Mean Corpuscular Hemoglobin 31.8 pg (27.0-33.0); Mean Corpuscular Volume 90.2 fL (80.0-98.0); Mean Platelet Volume 9.9 fL (9.4-12.4); Monocytes Absolute Auto 0.6 X10*3/uL (0.1-1.2); Monocytes Percent Auto 6.3 % (2-11); Neutrophils Absolute Auto 5.4 x10*3/uL (2.0-8.3); Neutrophils Percent Auto 53.4 % (45-73); Platelet Count 200 X10*3/uL (160-400); Red Blood Count 4.88 X10*6/uL (4.60-5.80); Red Cell Distribution Width 13.1 % (11.0-16.0)
[2024-12-23 02:11] LABS: Troponin-I High Sensitivity 12.4 ng/L (<3.5-35.0)
[2024-12-23 02:12] LABS: Alanine Aminotransferase 19 U/L (0-40); Alkaline Phosphatase 73 U/L (39-117); Anion Gap 14 (12-20); Aspartate Amino Transferase 22 U/L (5-37); Bilirubin Total 0.4 mg/dL (0.0-1.0); Blood Urea Nitrogen 13 mg/dL (9-16); Calcium 9.3 mg/dL (8.4-10.2); Carbon Dioxide 24 mmol/L (22-29); Chloride 108 mmol/L (96-108); Estimated Glomerular Filt Rate > 60; Glucose Random 97 mg/dL (60-115); Sodium 142 mmol/L (135-145); Total Protein 7.1 g/dL (6.5-8.0)
--- NOTE | 2024-12-23 03:20 | ED.GENADULT ---
HPI - General Adult General Chief complaint: Anxiety Stated complaint: SOB waking him at night Time Seen by Provider: 12/23/24 02:48 Source: patient Mode of arrival: ambulatory Limitations: no limitations History of Present Illness ED Provider: HPI narrative: patient with history of anxiety homeless lives in the truck does not have with medication for anxiety comes here to rest and sleep asking for medication to relax him Related Data Previous Rx's ?Medication ?Instructions ?Recorded lithium carbonate 300 mg 300 mg PO BEDTIME 30 days #30 tabs 10/14/24 tablet,extended release olanzapine 15 mg tablet 15 mg PO BEDTIME 30 days #30 tabs 10/14/24 olanzapine 10 mg tablet 10 mg PO BEDTIME #30 tabs 12/23/24 Allergies Allergy/AdvReac Type Severity Reaction Status Date / Time No Known Allergies Allergy Verified 12/23/24 01:03 Review of Systems Review of Systems: Yes all other systems are reviewed and are negative PMFSH Past Medical History Medical History Acute UTI Depression Suicidal ideation Hematuria Alcohol abuse Schizoaffective disorder, depressive type Cocaine abuse Social History Social History Household Members: None Household Members Other:: up until 2 months ago, lived with spouse in an apartment in [place]; now Housing: Homeless Do you presently have visiting nurse or other home services: No Alcohol intake: current Alcohol intake frequency: a few times a month Alcohol type: beer Patient Tobacco Use Status: Current everyday Tobacco user Tobacco use type: Cigarette Cigarettes Per Day: 2 Years Smoked: 40 Smoked in Last 30 Days: Yes e-Cigarette/Vaping Use: Never Used Second Hand Smoke Exposure: Yes Substance Use Type: Marijuana Advance Directives: No Advance Directives Information Provided: Yes Do you have a plan to hurt others: No Plan service: No Current occupational status: unemployed Current occupation: rt hand Sexual orientation: Straight/Heterosexual Physical Exam ED Vital Signs: Vital Signs - 24 hr 12/23/24 00:59 12/23/24 05:46 Temperature 98 F Pulse Rate 71 67 Respiratory Rate 18 18 Blood Pressure 150/82 H 116/71 Pulse Oximetry 97 99 Oxygen Delivery Method Room Air BMI result Body Mass Index 32.0 Appearance: Alert. Oriented X3. No acute distress. Eyes: PERRLA, No Nystagmus ENT: Pharynx normal. Oral Mucosa moist Neck: Normal inspection. Neck supple. CVS: Normal heart rate and rhythm. Pulses normal. Respiratory: No respiratory distress. Equal air entry bilateral, no wheezing/rales/rhonchi Abdomen: Soft and nontender. Bowel sounds are present, no mass palpable, no CVA tenderness Skin: Skin warm and dry. Normal skin color. Normal skin turgor. Extremities: No lower extremity edema. No calf tenderness Neuro: Oriented X 3. No motor deficit. No sensory deficit.No cerebellar signs , cranial nerves II-XII intact Medications Administered Discontinued Medications Generic Name Dose Route Start Last Admin Trade Name Freq PRN Reason Stop Dose Admin Lorazepam 2 mg 12/23/24 03:23 12/23/24 03:37 Lorazepam 1 Mg Tablet PO 12/23/24 03:24 2 mg ONCE ONE Administration Medical Decision Making Medical Decision Making [facility] Narrative: patient has slept all night without any distress in the morning patient has had breakfast will discharge patient home advised to follow with social media intern Lab Data [facility] Lab Attestation statement: I reviewed the patient's lab results. 12/23/24 01:47 12/23/24 01:47 Labs: Lab Results 12/23/24 Range/Units 01:47 WBC 10.0 (4.8-10.8) X10*3/uL RBC 4.88 (4.60-5.80) X10*6/uL Hgb 15.5 (14.0-18.0) g/dl Hct 44.0 (42.0-52.0) % MCV 90.2 (80.0-98.0) fL MCH 31.8 (27.0-33.0) pg MCHC 35.2 (31.0-36.0) g/dl RDW 13.1 (11.0-16.0) % Plt Count 200 (160-400) X10*3/uL MPV 9.9 (9.4-12.4) fL Immature Gran % (Auto) 0.2 (0.0-0.4) % Neut % (Auto) 53.4 (45-73) % Lymph % (Auto) 35.2 (20-40) % [place] % (Auto) 6.3 (2-11) % Eos % (Auto) 4.4 H (0-4) % Baso % (Auto) 0.5 (0-2) % Lymph # (Auto) 3.5 (1.2-4.9) X10*3/uL [place] # (Auto) 0.6 (0.1-1.2) X10*3/uL Eos # (Auto) 0.4 (0.0-0.4) X10*3/uL Baso # (Auto) 0.1 (0.0-0.2) X10*3/uL Abs Immat Gran (auto) 0.02 (0.00-0.03) X10*3/uL Absolute Neuts (auto) 5.4 (2.0-8.3) x10*3/uL Absolute Nucleated RBC 0.000 (0.0-0.012) X10*3/uL Nucleated RBC % (auto) 0.0 (0.0-0.2) /100WBC Sodium 142 (135-145) mmol/L Potassium 4.0 (3.3-5.1) mmol/L Chloride 108 (96-108) mmol/L Carbon Dioxide 24 (22-29) mmol/L Anion Gap 14 (12-20) BUN 13 (9-16) mg/dL Creatinine 0.69 (0.5-1.4) mg/dL Estim Creat Clear Calc 130.0 Estimated GFR > 60 Random Glucose 97 (60-115) mg/dL Calcium 9.3 (8.4-10.2) mg/dL Total Bilirubin 0.4 (0.0-1.0) mg/dL AST 22 (5-37) U/L ALT 19 (0-40) U/L Alkaline Phosphatase 73 (39-117) U/L Troponin I High Sens 12.4 (<3.5-35.0) ng/L Total Protein 7.1 (6.5-8.0) g/dL Albumin 4.0 (3.5-5.0) g/dL Discharge Plan Discharge Clinical Impression: Anxiety, Schizoaffective disorder, depressive type Patient Disposition: Home, Self-Care Instructions: Schizoaffective Disorder (ED), Anxiety (ED) Additional Instructions: Take medication as prescribed and follow up with psychiatrist Prescriptions: New olanzapine 10 mg tablet 10 mg PO BEDTIME Qty: 30 1RF No Action lithium carbonate 300 mg Tablet Extended Release 300 mg PO BEDTIME 30 Days Qty: 30 0RF olanzapine 15 mg tablet 15 mg PO BEDTIME 30 Days Qty: 30 0RF Referrals: Marshall Draper MD [Physician] - 1 week Interventions: ED Discharge Assessment Last Done: 12/23/24 06:15 Discharge Date/Time: 12/23/24 06:19 Print Language: Latvian
[2024-12-23] MEDS: LORazepam 1 MG TABLET 2 MG PO (03:37)
[2024-12-23 05:46] VITALS: BP 116/71; PULSE 67; RESP 18; O2SAT 99
[2024-12-23 06:15] VITALS: BP 116/71; PULSE 67; RESP 18; TEMP 36.6; O2SAT 99
== END 2024-12-23 06:19 | disposition home or self-care (01) ==
PROVIDERS: Emergency Provider Internal Medicine
DX: F41.9 Anxiety disorder, unspecified (principal); F25.1 Schizoaffective disorder, depressive type; F10.10 Alcohol abuse, uncomplicated; F17.210 Nicotine dependence, cigarettes, uncomplicated; Z59.00 Homelessness unspecified; Z79.899 Other long term (current) drug therapy
CPT/HCPCS: 36415; 80053; 84484; 85025; 93005; 99283; 99284

== ENCOUNTER → 2024-12-23 01:05 | Outpatient (BNV) | payer MEDICARE, MEDICAID, SELFPAY | PROVIDERS: Emergency Provider Internal Medicine; Visit Provider Internal Medicine | DX: I49.1 Atrial premature depolarization (principal) | CPT/HCPCS: 93010 ==

== ENCOUNTER 2025-01-25 07:33 | Inpatient (IN) | payer OTHER, MEDICAID, SELFPAY ==
[2025-01-25 07:41] VITALS: BP 135/61; PULSE 87; RESP 16; TEMP 36.1; O2SAT 94; BMI 28.7
--- NOTE | 2025-01-25 08:12 | ED.PSYCH ---
HPI - Psych General Chief Complaint: Psychiatric Symptoms Stated Complaint: crisis Time Seen by Provider: 01/25/25 07:55 Source: patient and old records reviewed Mode of arrival: ambulatory Limitations: no limitations History of Present Illness ED Provider: BRITTANY HPI Narrative: 54 yo male with PMH of schizoaffective disorder, drug abuse, ETOH use here with c/o not having safe housing, drinking more ETOH and not taking his medications will skip a few days here and there. He has SI now. He states he is not okay. No AH/VH/HI. He has no medical complaints at this time. MD complaint: suicidal ideation, feels depressed and substance abuse Onset (ago): week(s) Duration: getting worse History of same: Yes Relieving factors: none Exacerbating factors: alcohol Context: recent alcohol abuse and not taking psychiatric medications Associated psychiatric symptoms: depression and suicidal ideation Associated symptoms: denies other symptoms Treatments prior to arrival: none If self harm: admits thoughts of self harm Related Data Home Medications ?Medication ?Instructions ?Recorded ?Confirmed No Known Home Meds 01/25/25 01/25/25 Allergies Allergy/AdvReac Type Severity Reaction Status Date / Time No Known Allergies Allergy Verified 01/25/25 07:41 Review of Systems Review of Systems: Constitutional : No Fever, No Chills ENT/Mouth : No Ear Pain, No Nasal Congestion, No sore throat Eyes: No Eye Pain, No Swelling, No Redness Cardiovascular : No Chest Pain, No SOB Respiratory : No Cough, No Sputum, No Dyspnea Gastrointestinal : No Nausea, No Vomiting, No Diarrhea, No Hematochezia, No Melena Genitourinary : No Dysuria, No Urinary Frequency, No Hematuria Musculoskeletal : No Myalgias Skin : No Skin Lesions, No rash Neuro : No Weakness, No Numbness, No Paresthesias, No Dizziness, No Headache Psych : positive Anxiety, positive Depression, positive SI no HI Heme/Lymph: No Lymphadenopathy Endocrine : No Polyuria, No Polydipsia All other systems reviewed and are negative [facility] Past Medical History Attestation statement: The following information was validated with the patient. Source: old records reviewed Medical History Acute UTI Depression Suicidal ideation Hematuria Alcohol abuse Schizoaffective disorder, depressive type Cocaine abuse Social History Social History Household Members: None Household Members Other:: up until 2 months ago, lived with spouse in an apartment in [place]; now Housing: Homeless Do you presently have visiting nurse or other home services: No Alcohol intake: current Alcohol intake frequency: 3 or more drinks per day Alcohol type: beer Patient Tobacco Use Status: Current everyday Tobacco user Tobacco use type: Cigarette Cigarette Packs Per Day: 1.5 Cigarettes Per Day: 30.0 Years Smoked: 30 Smoked in Last 30 Days: Yes e-Cigarette/Vaping Use: Never Used Patient Interested in Nicotine Replacement: Yes Patient Given Instructions on How to Stop Smoking: Yes Date Education Initiated: 01/27/25 Second Hand Smoke Exposure: No Use of substances other than those prescribed or required for medical reasons: Yes Substance Use Type: Marijuana Substance Use Frequency: Weekly Currently Displaying Signs/Symptoms of Drug Intoxication Withdrawal: No Have you been hit, kicked, punched, or otherwise hurt by someone within the past year? If so, by whom?: No Do you feel safe in your current relationship?: Yes Is there a partner from a previous relationship who is making you feel unsafe now?: No Are you made to feel afraid or neglected: No Advance Directives: No Advance Directives Information Provided: No Do you have thoughts of harming others: None Do you have a plan to hurt others: No Plan Recently lost weight without trying: No Eating poorly because of decreased appetite: No Nutrition Risks: No Nutritional Risk Poor oral hygiene: Yes service: No Current occupational status: unemployed Current occupation: rt hand Sexual orientation: Straight/Heterosexual Physical Exam Vital Signs: Vital Signs: Last Vital Signs Temp 98.8 F 01/28/25 08:00 Pulse 84 01/28/25 08:00 Resp 18 01/28/25 08:00 BP 132/82 01/28/25 08:00 Pulse Ox 98 01/28/25 08:00 O2 Del Method Room Air 01/28/25 08:00 BMI result Body Mass Index 28.7 Appearance: Alert. Oriented X3. No acute distress. Eyes: Pupils equal, round and reactive to light. ENT: Pharynx normal. Neck: Normal inspection. Neck supple. CVS: Normal heart rate and rhythm. Pulses normal. Respiratory: No respiratory distress. Breath sounds normal. Abdomen: Soft and nontender. Skin: Skin warm and dry. Normal skin color. Normal skin turgor. Extremities: No lower extremity edema. No calf ttp Neuro: Oriented X 3. No motor deficit. No sensory deficit. CN2-12 intact Course Reevaluation(s) Reevaluation #1: Time: 19:37 Date: 01/26/25 Provider: Marco Arriaga MD Patient in physician observation for psychiatric evaluation.? No acute events reported overnight. No current complaints. VS stable.? Patient is in bed search status. Will continue to monitor. Time: 13:15 Date: 01/27/25 Provider: Verena Corcoran DO Patient in physician observation for psychiatric evaluation.? No acute events reported overnight. No current complaints. VS stable.? Patient is in bed search status. Will continue to monitor. Time: 17:11 Date: 01/27/25 Provider: Verena Corcoran DO Physician observation ended at 1700. Patient to be admitted as inpatient to psychiatry. Medications Administered Generic Name Dose Route Start Last Admin Trade Name Freq PRN Reason Stop Dose Admin Acetaminophen 650 mg 01/26/25 21:25 01/28/25 08:55 Acetaminophen 325 Mg Tablet PO 650 mg Q6H PRN Administration Pain, Moderate(Pain Scale 4-6) Folic Acid 1 mg 01/28/25 09:00 01/28/25 08:55 Folic Acid 1 Mg Tablet PO 1 mg DAILY ZACH Administration Hydroxyzine HCl 25 mg 01/27/25 16:42 01/28/25 09:00 Hydroxyzine Hcl 25 Mg Tablet PO 25 mg Q6H PRN Administration mild anxiety Multivitamins/Vitamin C 1 tab 01/28/25 09:00 01/28/25 08:55 Multivitamin Tablet PO 1 tab DAILY ZACH Administration Nicotine 21 mg 01/28/25 08:55 01/28/25 09:18 Nicotine 21 Mg Patch.Td24 TRANSDERMA 21 mg DAILY PRN Administration smoking cessation Thiamine HCl 100 mg 01/28/25 09:00 01/28/25 08:55 Thiamine Hcl 100 Mg Tablet PO 100 mg DAILY ZACH Administration Discontinued Medications Generic Name Dose Route Start Last Admin Trade Name Freq PRN Reason Stop Dose Admin Nicotine 21 mg 01/27/25 11:18 01/27/25 13:46 Nicotine 21 Mg Patch.Td24 TRANSDERMA 01/27/25 11:19 21 mg ONCE ONE Administration Medical Decision Making Medical Decision Making MDM Narrative: 54 yo male with PMH of schizoaffective disorder, drug abuse, ETOH use here with c/o SI and depression related to non compliance with meds, poor social support. He has no other complaints medically. Will obtain labs and refer to CARE team Differential Diagnosis Differential Diagnoses: The differential diagnosis associated with the presentation includes non compliance, schizoaffective disorder, ETOH abuse Admission/Observation Consideration of admission/observation: Escalation of care including admission/observation considered physician observation started at 820am pending CARE team Consult Healthcare Provider Management of the patient was discussed with: Behavioral Health Provider Lab Data [facility] Lab Attestation statement: I reviewed the patient's lab results. 01/25/25 08:16 01/25/25 08:16 Labs: Lab Results 01/25/25 Range/Units 08:16 WBC 9.1 (4.8-10.8) X10*3/uL RBC 5.05 (4.60-5.80) X10*6/uL Hgb 16.0 (14.0-18.0) g/dl Hct 46.1 (42.0-52.0) % MCV 91.3 (80.0-98.0) fL MCH 31.7 (27.0-33.0) pg MCHC 34.7 (31.0-36.0) g/dl RDW 13.3 (11.0-16.0) % Plt Count 199 (160-400) X10*3/uL MPV 9.7 (9.4-12.4) fL Immature Gran % (Auto) 0.2 (0.0-0.4) % Neut % (Auto) 63.8 (45-73) % Lymph % (Auto) 27.9 (20-40) % [place] % (Auto) 5.4 (2-11) % Eos % (Auto) 2.4 (0-4) % Baso % (Auto) 0.3 (0-2) % Lymph # (Auto) 2.6 (1.2-4.9) X10*3/uL [place] # (Auto) 0.5 (0.1-1.2) X10*3/uL Eos # (Auto) 0.2 (0.0-0.4) X10*3/uL Baso # (Auto) 0.0 (0.0-0.2) X10*3/uL Abs Immat Gran (auto) 0.02 (0.00-0.03) X10*3/uL Absolute Neuts (auto) 5.8 (2.0-8.3) x10*3/uL Absolute Nucleated RBC 0.000 (0.0-0.012) X10*3/uL Nucleated RBC % (auto) 0.0 (0.0-0.2) /100WBC Sodium 141 (135-145) mmol/L Potassium 4.1 (3.3-5.1) mmol/L Chloride 107 (96-108) mmol/L Carbon Dioxide 26 (22-29) mmol/L Anion Gap 12 (12-20) BUN 23 H (9-16) mg/dL Creatinine 0.83 (0.5-1.4) mg/dL Estim Creat Clear Calc 116.5 Estimated GFR > 60 Random Glucose 75 (60-115) mg/dL Calcium 9.1 (8.4-10.2) mg/dL Magnesium 1.9 (1.6-2.6) mg/dL Total Bilirubin 0.5 (0.0-1.0) mg/dL Direct Bilirubin 0.2 (0.0-0.5) mg/dL AST 38 H (5-37) U/L ALT 34 (0-40) U/L Alkaline Phosphatase 66 (39-117) U/L Total Protein 7.1 (6.5-8.0) g/dL Albumin 4.4 (3.5-5.0) g/dL Urine Opiates Screen Not Detected (Not Detect) Ur Buprenorphine Scrn Not Detected (Not Detect) ng/mL Ur Oxycodone Screen Not Detected (Not Detect) ng/mL Urine Methadone Screen Not Detected (Not Detect) ng/mL Urine Fentanyl Screen Not Detected (Not Detect) Ur Barbiturates Screen Not Detected (Not Detect) Ur Phencyclidine Scrn Not Detected (Not Detect) Ur Amphetamines Screen Not Detected (Not Detect) U Benzodiazepines Scrn Not Detected (Not Detect) [place] < 0.10 L (0.60-1.20) mmol/L Urine Cocaine Screen Not Detected (Not Detect) U Marijuana (THC) Screen POSITIVE H (Not Detect) Ethyl Alcohol < 10 mg/dL External Record Review External record reviewed: Inpatient record and Outpatient record Social Determinants Patient?s care significantly limited by Social Determinants of Health including: Inadequate housing, Low income and Problems related to primary support group Discharge Plan Discharge Clinical Impression: Schizoaffective disorder, depressive type Patient Disposition: Admitted As Inpatient Interventions: Admission Worksheet (ED) Last Done: 01/27/25 17:19 Discharge Date/Time: 01/27/25 17:20
[2025-01-25 08:22] LABS: MANUAL DIFF FLAG NO
[2025-01-25 08:31] LABS: Basophils Percent Auto 0.3 % (0-2); Eosinophils Absolute Auto 0.2 X10*3/uL (0.0-0.4); Eosinophils Percent Auto 2.4 % (0-4); Hematocrit 46.1 % (42.0-52.0); Imm Gran Abs Auto 0.02 X10*3/uL (0.00-0.03); Imm Gran Pct Auto 0.2 % (0.0-0.4); Lymphocytes Absolute Auto 2.6 X10*3/uL (1.2-4.9); Lymphocytes Percent Auto 27.9 % (20-40); Mean Corpuscular HGB Conc 34.7 g/dl (31.0-36.0); Mean Corpuscular Hemoglobin 31.7 pg (27.0-33.0); Mean Corpuscular Volume 91.3 fL (80.0-98.0); Mean Platelet Volume 9.7 fL (9.4-12.4); Monocytes Absolute Auto 0.5 X10*3/uL (0.1-1.2); Monocytes Percent Auto 5.4 % (2-11); Neutrophils Absolute Auto 5.8 x10*3/uL (2.0-8.3); Neutrophils Percent Auto 63.8 % (45-73); Platelet Count 199 X10*3/uL (160-400); Red Blood Count 5.05 X10*6/uL (4.60-5.80); Red Cell Distribution Width 13.3 % (11.0-16.0); White Blood Count 9.1 X10*3/uL (4.8-10.8)
[2025-01-25 08:36] LABS: Lithium < 0.10 mmol/L (0.60-1.20)
[2025-01-25 08:37] LABS: Amphetamine Screen Urine Not Detected (Not Detect); Barbiturates, Urine Not Detected (Not Detect); Benzodiazepines Screen Urine Not Detected (Not Detect); Buprenorphine Scr Not Detected (Not Detect); Cannabinoid Screen Urine POSITIVE (Not Detect); Cocaine Screen Urine Not Detected (Not Detect); Fentanyl, urine Not Detected (Not Detect); Methadone Screen, Urine Not Detected (Not Detect); Opiate Screen Urine Not Detected (Not Detect); Oxycodone Screen Urine Not Detected (Not Detect); Phencyclidine Screen Urine Not Detected (Not Detect)
[2025-01-25 08:39] LABS: Alanine Aminotransferase 34 U/L (0-40); Albumin Level 4.4 g/dL (3.5-5.0); Alkaline Phosphatase 66 U/L (39-117); Anion Gap 12 (12-20); Aspartate Amino Transferase 38 U/L (5-37); Bilirubin Direct 0.2 mg/dL (0.0-0.5); Bilirubin Total 0.5 mg/dL (0.0-1.0); Blood Urea Nitrogen 23 mg/dL (9-16); Calcium 9.1 mg/dL (8.4-10.2); Carbon Dioxide 26 mmol/L (22-29); Chloride 107 mmol/L (96-108); Creatinine Clr Calc Pharmacy 116.5; Estimated Glomerular Filt Rate > 60; Glucose Random 75 mg/dL (60-115); Magnesium 1.9 mg/dL (1.6-2.6); Potassium 4.1 mmol/L (3.3-5.1); Sodium 141 mmol/L (135-145); Total Protein 7.1 g/dL (6.5-8.0)
[2025-01-25 08:43] LABS: Ethanol < 10 mg/dL
[2025-01-25 09:06] VITALS: BP 108/65; PULSE 74; RESP 14; O2SAT 97
[2025-01-25 17:32] VITALS: BP 120/75; PULSE 74; RESP 14; O2SAT 97
[2025-01-25 21:25] VITALS: BP 129/82; PULSE 73; RESP 16; TEMP 37; O2SAT 98
--- NOTE | 2025-01-26 03:21 | PC.NURSE ---
report received from Maribel mirza.. pt sleeping at this time.
--- NOTE | 2025-01-26 07:38 | PHA.MEDREC ---
Pharmacy Consult ? Medication Reconciliation Pharmacy has completed the medication reconciliation. Reviewed claim history and RN/provider notes to confirm pt is on no home meds.
[2025-01-26 16:14] VITALS: BP 118/82; PULSE 83; RESP 15; TEMP 36.9; O2SAT 97
[2025-01-26] MEDS: Acetaminophen 325 MG TABLET 650 MG PO (21:32)
--- NOTE | 2025-01-27 | ECG_ITS ---
Test Reason : CHECK PROLONG QT Blood Pressure : */* mmHG Vent. Rate : 64 BPM Atrial Rate : 64 BPM P-R Int : 134 ms QRS Dur : 92 ms QT Int : 384 ms P-R-T Axes : 14 20 -46 degrees QTcB Int : 396 ms Normal sinus rhythm Minimal voltage criteria for LVH, may be normal variant ( Mehran product ) Nonspecific T wave abnormality Abnormal ECG When compared with ECG of 23-Dec-2024 01:05, Premature atrial complexes are no longer Present Referred By: Verena Corcoran Electronically Signed By: KASI PEREZ MD
[2025-01-27 05:45] VITALS: BP 105/69; PULSE 71; RESP 14; TEMP 36.6; O2SAT 96
--- NOTE | 2025-01-27 06:09 | PC.NURSE ---
Patient slept through the night, no distress observed/reported, appetite good, patient is currently off his medication, psych consult ordered for medication review, 15 minutes safety check, no behavior and safety concerns, disposition per care team is section 12 inpatient bed search, will continue to monitor
--- NOTE | 2025-01-27 07:31 | PC.NURSE ---
Assumed care of patient at 0645, patient appears to be in no apparent distress this am, calm and cooperative, ate breakfast, spoke on phone with family member. Continue plan of care for S12 IPLOC
[2025-01-27] MEDS: Nicotine 21 MG PATCH.TD24 TRANSDERMA (13:46)
--- NOTE | 2025-01-27 18:21 | PC.NURSE ---
Nathaniel was admitted on a CV from the POD after he self presented for SI in the context of AUD and homelessness. Nathaniel reports he is still experiencing passive SI but denies a plan,bv he does state he will come to staff if his feelings change. Denies HI/AVH. He is endorsing anxiety and depression. Stated he was drinking every single day . Currently not scoring on CIWA and he reports his last drink on Monday or the or . Skin check WNL. Changeover completed without issue. Appetite is good. Nathaniel verbalizes he currently has no providers and still has the medication he was discharged with from his last admission here. He is not currently taking it. He is currently living in a SUV. He stated he does not own it but has permission to sleep in the back seat. Nathaniel states he has a girlfriend but that she is currently staying with friends until one of them can secure an apartment. Nathaniel is on a list and may get housing as early as March. Unsure what he would like to do when he is done with this admission. No substance use other than Marijuana. Appetite is good and he denies any medical concerns. Current everyday smoker.
[2025-01-27 20:00] VITALS: BP 118/76; PULSE 82; TEMP 36.6; O2SAT 96
[2025-01-27] MEDS: Acetaminophen 325 MG TABLET 650 MG PO (22:17)
[2025-01-28 08:00] VITALS: BP 132/82; PULSE 84; RESP 18; TEMP 37.1; O2SAT 98
[2025-01-28 08:27] LABS: Estimated Average Glucose 105 mg/dL; Hemoglobin A1C 149.7356 umol/L; Hemoglobin A1c % 5.3 % (<6.0); Total Hemoglobin (HGBA1C) 4401.3111 umol/L
[2025-01-28 08:55] LABS: Cholesterol 179 mg/dL (<200); Free T4 (Free Thyroxine) 1.08 ng/dL (0.71-1.85); HDL Cholesterol 56 mg/dL (>40); LDL Cholesterol Calculated 108 mg/dL (<100); Triglycerides 78 mg/dL (<150)
[2025-01-28] MEDS: Folic Acid 1 MG TABLET PO (08:55)
[2025-01-28] MEDS: Multivitamin TABLET 1 TAB PO (08:55)
[2025-01-28] MEDS: Acetaminophen 325 MG TABLET 650 MG PO (08:55)
[2025-01-28] MEDS: Thiamine HCL 100 MG TABLET PO (08:55)
[2025-01-28] MEDS: hydrOXYzine HCL 25 MG TABLET PO (09:00)
[2025-01-28 09:07] LABS: Folate 15.2 ng/mL (> or = 4.0); Vitamin B12 556 pg/mL (200-900)
[2025-01-28] MEDS: Nicotine 21 MG PATCH.TD24 TRANSDERMA (09:18)
--- NOTE | 2025-01-28 10:12 | HO.PSYADMNOT ---
[facility] Date of Service: 01/28/25 Chief Complaint: Schizoaffective Disorder; Alcohol Abuse; Polysubst Sources of Information: patient interviewed, chart reviewed and crisis/core team assessment reviewed HPI Narrative: Patient is a 54-year-old male with history of schizoaffective disorder and alcohol use disorder who self presented to ER due to suicidal ideation secondary to increased depression and medication noncompliance. Per crisis report, patient reported worsening depression and suicidal ideation for the past month secondary to medication noncompliance. Patient was last hospitalized at [facility] in September 2024. He reported suicidal thoughts but no plan or intent. Denied HI/VH/AH. He reports low energy and motivation. U tox positive for marijuana. Patient reports marijuana and alcohol use. During admission assessment, patient presents alert and oriented x3. Calm and cooperative. Patient reports feeling depressed; patient stated, I have been feeling like I needed to come back to the hospital because of my depression. I'm always having thoughts of suicide but I have no intention of acting on it . Patient reports he has not taken his medications in a few days because, I don't have water to wash them down with or I don't feel like taking it . Patient reports he still has medications from his last inpatient hospitalization at [facility]. Patient reports he has been drinking a 12 pack of beer daily; denies any withdrawal symptoms at this time. He reports he does not have an outpatient therapist or prescriber. Patient reports he would like to be restarted on his medications however, he is not interested in a referral to a substance abuse program at this time. denies HI/VH/AH. Past Psychiatric History: History of multiple inpatient psychiatric hospitalizations. SA: reports more than 3. MRE 3-4 yrs ago. SIB: reports h/o cutting, MRE more than 10 years ago. Started on Risperdal 2 mg b.i.d. in 2020 which he says was helpful Denies current outpatient psychiatric providers Medical Evaluation Reviewed: Yes [facility] Medical History Acute UTI Depression Suicidal ideation Hematuria Alcohol abuse Schizoaffective disorder, depressive type Cocaine abuse Family History: Unknown Social History: Born in [place]; father left when he was young and family was in poverty with little food Came to the [place] around 11 or 12 years old completed the 7th grade Currently not working, on SSI Has one living brother and one child in his 30's whom he has met x 2 Relationship with Madelyn since age 19, whose daughter works with [employer]-states he is not close with her daughter. Substance History: Patient reports marijuana and alcohol use. Trauma History: Affirms through and family losses Diagnostics Vital Signs (24Hr): Vital Signs - 24 hr 01/27/25 20:00 01/28/25 08:00 Temperature 97.8 F 98.8 F Pulse Rate 82 84 Respiratory Rate 18 Blood Pressure 118/76 132/82 Pulse Oximetry 96 98 Oxygen Delivery Method Room Air Room Air BMI result Body Mass Index 28.7 Labs 01/25/25 08:16 01/25/25 08:16 Labs: Laboratory Results - last 48 hr 01/28/25 07:57 Estimat Average Glucose 105 Hemoglobin A1c % 5.3 Magnesium 2.0 Triglycerides 78 Cholesterol 179 LDL Cholesterol, Calc 108 H HDL Cholesterol 56 Vitamin B12 556 Folate 15.2 Free T4 1.08 Meds/Allergies Meds Home Medications ?Medication ?Instructions ?Recorded ?Confirmed ?Type No Known Home Meds 01/25/25 01/25/25 History Allergies Allergies Allergy/AdvReac Type Severity Reaction Status Date / Time No Known Allergies Allergy Verified 01/25/25 07:41 Mental Status Exam Mental Status Exam Patient Appearance: Appropriate Patient Orientation: Person, Place, Time and Situation Level of Consciousness: Awake and Alert Patient Behavior: Appropriate and Cooperative Mood Description: Calm Affect Description: Calm Ability to Follow Directions: Good Speech Pattern: Clear and Appropriate Memory Description: Intact Hallucinations: None Delusions: Not Present Thought Process: Intact Thought Content: positive for Intact and positive for Suicidal Ideation Assessment & Plan Assessment & Plan (1) Schizoaffective disorder, depressive type: Status: Acute Code(s): F25.1 - Schizoaffective disorder, depressive type (2) Alcohol abuse: Status: Acute Code(s): F10.10 - Alcohol abuse, uncomplicated Plan Patient is a 54-year-old male with history of schizoaffective disorder and alcohol use disorder who self presented to ER due to suicidal ideation secondary to increased depression and medication noncompliance. Plan: 15 minute safety checks Continue home medications per records: Start: [place] 300mg PO bedtime Olanzapine 10mg PO bedtime [facility] protocol Obtain collateral Referral to outpatient psychiatric providers Encourage groups Discharge planning Patient educated on: diagnosis and medication risk/benefits Reason for continued inpatient stay Substantial Risk for: harm to self and med/psych decompensation Statement Statement: I have reviewed the history and physical and performed a pertinent examination on my patient. No changes have occurred unless specified. If the History and Physical was not performed prior to admission, the Hospitalist's service will be consulted for completing the admission physical. Time Spent With Patient Time: Total time managing care of this patient today _60___ minutes.
[2025-01-28 12:46] LABS: Thyroid Stimulating Hormone 0.88 uIU/mL (0.32-4.0)
[2025-01-28 20:00] VITALS: BP 111/58; PULSE 82; RESP 16; TEMP 36.4; O2SAT 95
[2025-01-28] MEDS: Lithium Carbonate ER 300 MG TABLET.ER PO (22:02)
[2025-01-28] MEDS: OLANZapine 10 MG TABLET PO (22:02)
[2025-01-29 08:00] VITALS: BP 109/64; PULSE 75; RESP 16; TEMP 36.7; O2SAT 97
[2025-01-29] MEDS: Thiamine HCL 100 MG TABLET PO (08:08)
[2025-01-29] MEDS: Multivitamin TABLET 1 TAB PO (08:08)
[2025-01-29] MEDS: Folic Acid 1 MG TABLET PO (08:08)
[2025-01-29 08:32] LABS: Appearance Urine Clear; Color Urine Yellow; Glucose Urine UA Negative (Negative); Leukocyte Esterase Urine Moderate (2+) (Negative); Nitrite Urine Negative (Negative); UMIC TRIGGER UACC YES; Urine Blood Negative (Negative); Urine Ketones Negative (Negative); Urine Protein Negative (Neg-Trace)
[2025-01-29 08:48] LABS: Bacteria Urine None Seen (None Seen); Hyaline Casts Urine 0-2 /LPF (0-2); Squamous Epithelial Cell Urine 0-2 /HPF (0-2); UACC Culture Trigger YES
--- NOTE | 2025-01-29 13:09 | HO.PSYCHPN ---
Subjective Subjective Date of Service: 01/29/25 Reason For Visit: Schizoaffective Disorder; Alcohol Abuse; Polysubst Interim History: Met with patient; discussed with team Patient not in withdrawal and denies symptoms; will discontinue CIWA. Discussed medications and patient amenable to continue with Zyprexa and be on lithium. He is very vague about aftercare plans were wants. No AVH Mental Status Exam Mental Status Exam Narrative: Pt is alert and oriented; behavior is cooperative, quiet, calm; patient is not in distress; dressed in hospital attire, unkempt; mood is described as okay and affect blunted; eye contact a little avoidant; Speech is a little slow and soft; some psychomotor retardation present; thought process is goal directed; concrete; Thought content is on housing; no delusional content expressed; denies any SI/HI. Denies AVH and there is no evidence of perceptual disturbance. Patients insight and judgment impaired Diagnostics Vital Signs (24Hr): Vital Signs - 24 hr 01/28/25 20:00 01/29/25 08:00 Temperature 97.6 F 98.0 F Pulse Rate 82 75 Respiratory Rate 16 16 Blood Pressure 111/58 L 109/64 Pulse Oximetry 95 97 Oxygen Delivery Method Room Air Room Air BMI result Body Mass Index 28.7 Labs 01/25/25 08:16 01/25/25 08:16 Labs: Laboratory Results - last 48 hr 01/28/25 01/29/25 07:57 08:19 Estimat Average Glucose 105 Hemoglobin A1c % 5.3 Magnesium 2.0 Triglycerides 78 Cholesterol 179 LDL Cholesterol, Calc 108 H HDL Cholesterol 56 Vitamin B12 556 Folate 15.2 TSH 0.88 Free T4 1.08 Urine Color Yellow Urine Appearance Clear Urine pH 7.0 Ur Specific [place] 1.020 Urine Protein Negative Urine Glucose (UA) Negative Urine Ketones Negative Urine Blood Negative Urine Nitrite Negative Ur Leukocyte Esterase Moderate (2+) H Urine RBC 3-5 H Urine WBC 11-20 Ur Squamous Epith Cells 0-2 Urine Bacteria None Seen Hyaline Casts 0-2 Medications Medications Current Medications Acetaminophen (Acetaminophen 325 Mg Tablet) 650 mg PO Q6H PRN PRN Reason: Pain, Moderate(Pain Scale 4-6) Last Admin: 01/28/25 08:55 Dose: 650 mg Al Hydroxide/Mg Hydroxide (Magnesium Hydrox/Alum Hydrox 30 Ml Oral.Susp) 30 ml PO Q6H PRN PRN Reason: Heartburn/Nausea Folic Acid (Folic Acid 1 Mg Tablet) 1 mg PO DAILY [facility] Last Admin: 01/29/25 08:08 Dose: 1 mg Hydroxyzine HCl (Hydroxyzine Hcl 25 Mg Tablet) 25 mg PO Q6H PRN PRN Reason: mild anxiety Last Admin: 01/28/25 09:00 Dose: 25 mg Magnesium Hydroxide (Milk Of Magnesia 30 Ml Oral.Susp) 30 ml PO DAILY PRN PRN Reason: Constipation Multivitamins/Vitamin C (Multivitamin Tablet) 1 tab PO DAILY [facility] Last Admin: 01/29/25 08:08 Dose: 1 tab Nicotine (Nicotine 21 Mg Patch.Td24) 21 mg TRANSDERMA DAILY PRN PRN Reason: smoking cessation Last Admin: 01/28/25 09:18 Dose: 21 mg Nicotine Polacrilex (Nicotine Polacrilex 2 Mg Gum) 4 mg BUCCAL Q2H PRN PRN Reason: Nicotine Cravings Olanzapine (Olanzapine 10 Mg Tablet) 10 mg PO BEDTIME [facility] Last Admin: 01/28/25 22:02 Dose: 10 mg Thiamine HCl (Thiamine Hcl 100 Mg Tablet) 100 mg PO DAILY [facility] Last Admin: 01/29/25 08:08 Dose: 100 mg Trazodone HCl (Trazodone Hcl 50 Mg Tablet) 50 mg PO BEDTIME MRX1 PRN PRN Reason: Insomnia Allergies Allergies Allergy/AdvReac Type Severity Reaction Status Date / Time No Known Allergies Allergy Verified 01/25/25 07:41 Assessment & Plan Assessment & Plan (1) Schizoaffective disorder, depressive type: Status: Acute Code(s): F25.1 - Schizoaffective disorder, depressive type (2) Alcohol abuse: Status: Acute Code(s): F10.10 - Alcohol abuse, uncomplicated Plan Patient is a 54-year-old male with history of schizoaffective disorder and alcohol use disorder who self presented to ER due to suicidal ideation secondary to increased depression and medication noncompliance. Hospital course: 01/29 patient with limited engagement; agrees to increasing lithium back to past dose; denies SI; not scoring on CIWA and denies withdrawal symptoms Plan: 15 minute safety checks Continue home medications per records: Increase lithium ER to 1200 mg q.h.s. Continue Zyprexa 10 mg q.h.s. DC CIWA Obtain collateral Referral to outpatient psychiatric providers Encourage groups Discharge planning Patient educated on: diagnosis, medication risk/benefits and substance abuse Informed Consent: understands and further education needed Reason for continued inpatient stay Substantial Risk for: rapid decompensation Time Spent With Patient Time: Total time managing care of this patient today ____ minutes.
--- NOTE | 2025-01-29 15:17 | MHC.RECOVRN ---
AUDIT-C Brief Intervention Pt had positive screen for unhealthy alcohol use on admission, subsequently met with t/w to discuss alcohol use and recovery supports/options. This typewriter tester met with patient to discuss current alcohol use and concerns related to increased risk of alcohol related problems.? Pt reports just a couple a day for years Discussed how alcohol use has impacted health, including negative impact on Mental health including depression. Withdrawal History: Denies Treatment History: Denies Supports:?Pt is connected with [facility] per report. Discussed risk reduction strategies including drinking below the recommended limit. Provided pt with written resources including information on inpatient and outpatient treatment, MARISOL, harm reduction, and recovery coaching. Pt plans to practice harm reduction including drinking beer as opposed to Malt liquor Pt provided with t/w contact information if questions or concerns arise. Denies other questions or concerns at this time.
--- NOTE | 2025-01-29 15:20 | MHC.RECOVRN ---
Addendum entered by Alondra Pollard RN 01/29/25 15:56: Completed this visit utilizing assistance of [employer] Original Note: AUDIT-C Brief Intervention Pt had positive screen for unhealthy alcohol use on admission, subsequently met with t/w to discuss alcohol use and recovery supports/options. This typewriter aligner met with patient to discuss current alcohol use and concerns related to increased risk of alcohol related problems.? Pt reports just a couple a day for years Discussed how alcohol use has impacted health, including negative impact on Mental health including depression. Withdrawal History: Pt reports he sometimes experiences shakes when he stops drinking. Treatment History: Denies Supports:?Pt is connected with [facility] per report. Discussed risk reduction strategies including drinking below the recommended limit. Provided pt with written resources including information on inpatient and outpatient treatment, MARISOL, harm reduction, and recovery coaching. Pt plans to practice harm reduction including drinking beer as opposed to Malt liquor Pt provided with t/w contact information if questions or concerns arise. Denies other questions or concerns at this time.
[2025-01-29 20:00] VITALS: BP 107/60; PULSE 80; RESP 16; TEMP 36.5; O2SAT 98
[2025-01-29] MEDS: OLANZapine 10 MG TABLET PO (20:21)
[2025-01-29] MEDS: Lithium Carbonate ER 300 MG TABLET.ER 1200 MG PO (20:21)
[2025-01-30 07:00] VITALS: BMI 28.9
[2025-01-30] MEDS: Thiamine HCL 100 MG TABLET PO (08:28)
[2025-01-30] MEDS: Folic Acid 1 MG TABLET PO (08:28)
[2025-01-30] MEDS: Multivitamin TABLET 1 TAB PO (08:28)
[2025-01-30 08:34] VITALS: BP 117/71; PULSE 81; RESP 18; TEMP 36.8; O2SAT 97
[2025-01-30] MEDS: Nicotine 21 MG PATCH.TD24 TRANSDERMA (10:37)
--- NOTE | 2025-01-30 11:45 | HO.PSYCHPN ---
Subjective Subjective Date of Service: 01/30/25 Reason For Visit: Schizoaffective Disorder; Alcohol Abuse; Polysubst Interim History: Met with patient; discussed with team Patient denies SI; is ambivalent about whether not to remain on lithium and about follow-up. Does not want help with substance abuse. Mental Status Exam Mental Status Exam Narrative: Pt is alert and oriented; behavior is cooperative, quiet, calm; patient is not in distress; dressed in hospital attire, unkempt; mood is described as okay and affect blunted; eye contact a little avoidant; Speech is a little slow and soft; some psychomotor retardation present; thought process is goal directed; concrete; Thought content is on housing; no delusional content expressed; denies any SI/HI. Denies AVH and there is no evidence of perceptual disturbance. Patients insight and judgment impaired Diagnostics Vital Signs (24Hr): Vital Signs - 24 hr 01/29/25 20:00 01/30/25 08:34 Temperature 97.7 F 98.2 F Pulse Rate 80 81 Respiratory Rate 16 18 Blood Pressure 107/60 117/71 Pulse Oximetry 98 97 Oxygen Delivery Method Room Air Room Air BMI result Body Mass Index 28.9 Labs 01/25/25 08:16 01/25/25 08:16 Labs: Laboratory Results - last 48 hr 01/28/25 01/29/25 07:57 08:19 TSH 0.88 Urine Color Yellow Urine Appearance Clear Urine pH 7.0 Ur Specific [place] 1.020 Urine Protein Negative Urine Glucose (UA) Negative Urine Ketones Negative Urine Blood Negative Urine Nitrite Negative Ur Leukocyte Esterase Moderate (2+) H Urine RBC 3-5 H Urine WBC 11-20 Ur Squamous Epith Cells 0-2 Urine Bacteria None Seen Hyaline Casts 0-2 Medications Medications Current Medications Acetaminophen (Acetaminophen 325 Mg Tablet) 650 mg PO Q6H PRN PRN Reason: Pain, Moderate(Pain Scale 4-6) Last Admin: 01/28/25 08:55 Dose: 650 mg Al Hydroxide/Mg Hydroxide (Magnesium Hydrox/Alum Hydrox 30 Ml Oral.Susp) 30 ml PO Q6H PRN PRN Reason: Heartburn/Nausea Folic Acid (Folic Acid 1 Mg Tablet) 1 mg PO DAILY [facility] Last Admin: 01/30/25 08:28 Dose: 1 mg Hydroxyzine HCl (Hydroxyzine Hcl 25 Mg Tablet) 25 mg PO Q6H PRN PRN Reason: mild anxiety Last Admin: 01/28/25 09:00 Dose: 25 mg [place] Carbonate ([place] Carbonate Er 300 Mg Tablet.Er) 1,200 mg PO BEDTIME [facility] Last Admin: 01/29/25 20:21 Dose: 1,200 mg Magnesium Hydroxide (Milk Of Magnesia 30 Ml Oral.Susp) 30 ml PO DAILY PRN PRN Reason: Constipation Multivitamins/Vitamin C (Multivitamin Tablet) 1 tab PO DAILY [facility] Last Admin: 01/30/25 08:28 Dose: 1 tab Nicotine (Nicotine 21 Mg Patch.Td24) 21 mg TRANSDERMA DAILY PRN PRN Reason: smoking cessation Last Admin: 01/30/25 10:37 Dose: 21 mg Nicotine Polacrilex (Nicotine Polacrilex 2 Mg Gum) 4 mg BUCCAL Q2H PRN PRN Reason: Nicotine Cravings Olanzapine (Olanzapine 10 Mg Tablet) 10 mg PO BEDTIME [facility] Last Admin: 01/29/25 20:21 Dose: 10 mg Thiamine HCl (Thiamine Hcl 100 Mg Tablet) 100 mg PO DAILY [facility] Last Admin: 01/30/25 08:28 Dose: 100 mg Trazodone HCl (Trazodone Hcl 50 Mg Tablet) 50 mg PO BEDTIME MRX1 PRN PRN Reason: Insomnia Allergies Allergies Allergy/AdvReac Type Severity Reaction Status Date / Time No Known Allergies Allergy Verified 01/25/25 07:41 Assessment & Plan Assessment & Plan (1) Schizoaffective disorder, depressive type: Status: Acute Code(s): F25.1 - Schizoaffective disorder, depressive type (2) Alcohol abuse: Status: Acute Code(s): F10.10 - Alcohol abuse, uncomplicated Plan Patient is a 54-year-old male with history of schizoaffective disorder and alcohol use disorder who self presented to ER due to suicidal ideation secondary to increased depression and medication noncompliance. Hospital course: 01/29 patient with limited engagement; agrees to increasing lithium back to past dose; denies SI; not scoring on CIWA and denies withdrawal symptoms 01/30 patient very ambivalent about medications, aftercare. Discussed remaining on lithium if he is not going to follow-up with outpatient provider; patient himself unsure. Substance abuse treatment discussed with patient who does not want MAT or help with outpt treatment options including programs; instead patient is choosing to work out sobriety on own -check UA Plan: 15 minute safety checks Continue home medications per records: Increase lithium ER to 1200 mg q.h.s. Continue Zyprexa 10 mg q.h.s. [place] Patient educated on: diagnosis, medication risk/benefits and substance abuse Informed Consent: understands and further education needed Reason for continued inpatient stay Substantial Risk for: rapid decompensation Time Spent With Patient Time: Total time managing care of this patient today ____ minutes.
[2025-01-30 20:00] VITALS: BP 101/69; PULSE 61; TEMP 36.2; O2SAT 99
[2025-01-30] MEDS: Lithium Carbonate ER 300 MG TABLET.ER 1200 MG PO (21:45)
[2025-01-30] MEDS: OLANZapine 10 MG TABLET PO (21:45)
[2025-01-31 08:00] VITALS: BP 118/70; PULSE 79; RESP 18; TEMP 36.8; O2SAT 100
[2025-01-31] MEDS: Thiamine HCL 100 MG TABLET PO (08:48)
[2025-01-31] MEDS: Folic Acid 1 MG TABLET PO (08:48)
[2025-01-31] MEDS: Multivitamin TABLET 1 TAB PO (08:48)
--- NOTE | 2025-01-31 11:14 | HO.PSYCHPN ---
Subjective Subjective Date of Service: 01/31/25 Reason For Visit: Schizoaffective Disorder; Alcohol Abuse; Polysubst Interim History: Met with patient; discussed with team Patient says don't want a psychiatrist...since if i miss an appintment, you're out...i'll take meds until they run out... He says that whenever he tries never works out so it does not want to make decisions since it a work out in a different way anyway Regarding efficacy, patient says he does not know if meds help...it feels good for awhile but then i get tired of taking it, sticking to a schedule i'm just trying to enjoy whatever time i have left here no SI at all Patient does however endorse depression for pretty long time no voices for a long time denies drugs Patient uses alcohol but still says he does not want substance abuse programs or help; says he does not know if he'll drink when he leaves; right now does not want to invega: hurt liver trazodone: dizzy spells Diagnostics Vital Signs (24Hr): Vital Signs - 24 hr 01/30/25 20:00 01/31/25 08:00 Temperature 97.2 F 98.3 F Pulse Rate 61 79 Respiratory Rate 18 Blood Pressure 101/69 118/70 Pulse Oximetry 99 100 Oxygen Delivery Method Room Air Room Air BMI result Body Mass Index 28.9 Labs 01/25/25 08:16 01/25/25 08:16 Medications Medications Current Medications Acetaminophen (Acetaminophen 325 Mg Tablet) 650 mg PO Q6H PRN PRN Reason: Pain, Moderate(Pain Scale 4-6) Last Admin: 01/28/25 08:55 Dose: 650 mg Al Hydroxide/Mg Hydroxide (Magnesium Hydrox/Alum Hydrox 30 Ml Oral.Susp) 30 ml PO Q6H PRN PRN Reason: Heartburn/Nausea Folic Acid (Folic Acid 1 Mg Tablet) 1 mg PO DAILY [facility] Last Admin: 01/31/25 08:48 Dose: 1 mg Hydroxyzine HCl (Hydroxyzine Hcl 25 Mg Tablet) 25 mg PO Q6H PRN PRN Reason: mild anxiety Last Admin: 01/28/25 09:00 Dose: 25 mg [place] Carbonate ([place] Carbonate Er 300 Mg Tablet.Er) 1,200 mg PO BEDTIME [facility] Last Admin: 01/30/25 21:45 Dose: 1,200 mg Magnesium Hydroxide (Milk Of Magnesia 30 Ml Oral.Susp) 30 ml PO DAILY PRN PRN Reason: Constipation Multivitamins/Vitamin C (Multivitamin Tablet) 1 tab PO DAILY [facility] Last Admin: 01/31/25 08:48 Dose: 1 tab Nicotine (Nicotine 21 Mg Patch.Td24) 21 mg TRANSDERMA DAILY PRN PRN Reason: smoking cessation Last Admin: 01/30/25 10:37 Dose: 21 mg Nicotine Polacrilex (Nicotine Polacrilex 2 Mg Gum) 4 mg BUCCAL Q2H PRN PRN Reason: Nicotine Cravings Olanzapine (Olanzapine 10 Mg Tablet) 10 mg PO BEDTIME [facility] Last Admin: 01/30/25 21:45 Dose: 10 mg Thiamine HCl (Thiamine Hcl 100 Mg Tablet) 100 mg PO DAILY [facility] Last Admin: 01/31/25 08:48 Dose: 100 mg Trazodone HCl (Trazodone Hcl 50 Mg Tablet) 50 mg PO BEDTIME MRX1 PRN PRN Reason: Insomnia Allergies Allergies Allergy/AdvReac Type Severity Reaction Status Date / Time No Known Allergies Allergy Verified 01/25/25 07:41 Assessment & Plan Assessment & Plan (1) Schizoaffective disorder, depressive type: Status: Acute Code(s): F25.1 - Schizoaffective disorder, depressive type (2) Alcohol abuse: Status: Acute Code(s): F10.10 - Alcohol abuse, uncomplicated Plan Patient is a 54-year-old male with history of schizoaffective disorder and alcohol use disorder who self presented to ER due to suicidal ideation secondary to increased depression and medication noncompliance. Hospital course: 01/29 patient with limited engagement; agrees to increasing lithium back to past dose; denies SI; not scoring on CIWA and denies withdrawal symptoms 01/30 patient very ambivalent about medications, aftercare. Discussed remaining on lithium if he is not going to follow-up with outpatient provider; patient himself unsure. Substance abuse treatment discussed with patient who does not want MAT or help with outpt treatment options including programs; instead patient is choosing to work out sobriety on own -check UA 01/31 Patient says don't want a psychiatrist...since if i miss an appintment, you're out...i'll take meds until they run out... He says that whenever he tries never works out so it does not want to make decisions since it a work out in a different way anyway Regarding efficacy, patient says he does not know if meds help...it feels good for awhile but then i get tired of taking it, sticking to a schedule i'm just trying to enjoy whatever time i have left here no SI at all Patient does however endorse depression for pretty long time no voices for a long time denies drugs; Patient uses alcohol but still says he does not want substance abuse programs or help; says he does not know if he'll drink when he leaves; right now does not want to Regarding medications, patient agrees to try Wellbutrin to target depression. Decided against lithium since patient is very noncommittal to follow-up Plan: 15 minute safety checks Continue home medications per records: Will taper and DC lithium; patient does not plan to follow-up Will start Wellbutrin to target depression Continue Zyprexa 10 mg q.h.s. DC CIWA Patient educated on: diagnosis, medication risk/benefits and substance abuse Informed Consent: understands and further education needed Reason for continued inpatient stay Substantial Risk for: stable for discharge and med/psych decompensation Time Spent With Patient Time: Total time managing care of this patient today ____ minutes.
[2025-01-31] MEDS: Nicotine 21 MG PATCH.TD24 TRANSDERMA (12:15)
[2025-01-31] MEDS: buPROPion HCl XL 150 MG TAB.ER.24H PO (12:15)
[2025-01-31 20:00] VITALS: BP 130/66; PULSE 91; RESP 16; TEMP 37.2; O2SAT 96
[2025-01-31] MEDS: Lithium Carbonate ER 300 MG TABLET.ER PO (20:38)
[2025-01-31] MEDS: OLANZapine 10 MG TABLET PO (20:39)
[2025-02-01] MEDS: buPROPion HCl XL 150 MG TAB.ER.24H PO (08:54)
[2025-02-01] MEDS: Multivitamin TABLET 1 TAB PO (08:54)
[2025-02-01] MEDS: Thiamine HCL 100 MG TABLET PO (08:55)
[2025-02-01] MEDS: Folic Acid 1 MG TABLET PO (08:55)
[2025-02-01 09:06] VITALS: BP 129/69; PULSE 82; TEMP 36.8; O2SAT 98
--- NOTE | 2025-02-01 10:17 | P.PNPSI_ITS ---
Subjective Subjective Date of Service: 02/01/25 Reason For Visit: Schizoaffective Disorder; Alcohol Abuse; Polysubst Subjective Notes: Conditional Voluntary Interim History: Patient was seen and discussed in rounds today. Records and plans were reviewed. He continues to endorse some anxiety. He is mostly guarded. Eating and sleeping adequately and compliant with medications. Selectively social. No SI. No AVH. No changes were made today Review of Systems Review of Systems Yes all other systems are reviewed and are negative Mental Status Exam Mental Status Exam Narrative: In today's visit he is alert, oriented and pleasant. Normal speech. Minimal eye contact. Affect is appropriate and constricted. No signs of psychosis. No AVH. Cognitively is grossly intact. Able to move all limbs. No gait abnormalities. Judgment is intact Diagnostics Vital Signs (24Hr): Vital Signs - 24 hr 01/31/25 20:00 02/01/25 09:06 Temperature 99 F 98.2 F Pulse Rate 91 82 Respiratory Rate 16 Blood Pressure 130/66 129/69 Pulse Oximetry 96 98 Oxygen Delivery Method Room Air Room Air BMI result Body Mass Index 28.9 Labs 01/25/25 08:16 01/25/25 08:16 Medications Medications Current Medications Acetaminophen (Acetaminophen 325 Mg Tablet) 650 mg PO Q6H PRN PRN Reason: Pain, Moderate(Pain Scale 4-6) Last Admin: 01/28/25 08:55 Dose: 650 mg Al Hydroxide/Mg Hydroxide (Magnesium Hydrox/Alum Hydrox 30 Ml Oral.Susp) 30 ml PO Q6H PRN PRN Reason: Heartburn/Nausea Bupropion HCl (Bupropion Hcl Xl 150 Mg Tab.Er.24h) 150 mg PO DAILY [facility] Last Admin: 02/01/25 08:54 Dose: 150 mg Folic Acid (Folic Acid 1 Mg Tablet) 1 mg PO DAILY [facility] Last Admin: 02/01/25 08:55 Dose: 1 mg Hydroxyzine HCl (Hydroxyzine Hcl 25 Mg Tablet) 25 mg PO Q6H PRN PRN Reason: mild anxiety Last Admin: 01/28/25 09:00 Dose: 25 mg [place] Carbonate ([place] Carbonate Er 300 Mg Tablet.Er) 300 mg PO BEDTIME [facility] Stop: 02/01/25 23:00 Last Admin: 01/31/25 20:38 Dose: 300 mg Magnesium Hydroxide (Milk Of Magnesia 30 Ml Oral.Susp) 30 ml PO DAILY PRN PRN Reason: Constipation Multivitamins/Vitamin C (Multivitamin Tablet) 1 tab PO DAILY [facility] Last Admin: 02/01/25 08:54 Dose: 1 tab Nicotine (Nicotine 21 Mg Patch.Td24) 21 mg TRANSDERMA DAILY PRN PRN Reason: smoking cessation Last Admin: 01/31/25 12:15 Dose: 21 mg Nicotine Polacrilex (Nicotine Polacrilex 2 Mg Gum) 4 mg BUCCAL Q2H PRN PRN Reason: Nicotine Cravings Olanzapine (Olanzapine 10 Mg Tablet) 10 mg PO BEDTIME [facility] Last Admin: 01/31/25 20:39 Dose: 10 mg Thiamine HCl (Thiamine Hcl 100 Mg Tablet) 100 mg PO DAILY [facility] Last Admin: 02/01/25 08:55 Dose: 100 mg Allergies Allergies Allergy/AdvReac Type Severity Reaction Status Date / Time paliperidone [From Invega] AdvReac liver Unverified 01/31/25 11:24 trazodone AdvReac Mild dizzy Uncoded 01/31/25 11:24 Assessment & Plan Assessment & Plan (1) Schizoaffective disorder, depressive type: Status: Acute Code(s): F25.1 - Schizoaffective disorder, depressive type (2) Alcohol abuse: Status: Acute Code(s): F10.10 - Alcohol abuse, uncomplicated Plan Patient is a 54-year-old male with history of schizoaffective disorder and alcohol use disorder who self presented to ER due to suicidal ideation secondary to increased depression and medication noncompliance. Hospital course: 01/29 patient with limited engagement; agrees to increasing lithium back to past dose; denies SI; not scoring on CIWA and denies withdrawal symptoms 01/30 patient very ambivalent about medications, aftercare. Discussed remaining on lithium if he is not going to follow-up with outpatient provider; patient himself unsure. Substance abuse treatment discussed with patient who does not want MAT or help with outpt treatment options including programs; instead patient is choosing to work out sobriety on own -check UA 01/31 Patient says don't want a psychiatrist...since if i miss an appintment, you're out...i'll take meds until they run out... He says that whenever he tries never works out so it does not want to make decisions since it a work out in a different way anyway Regarding efficacy, patient says he does not know if meds help...it feels good for awhile but then i get tired of taking it, sticking to a schedule i'm just trying to enjoy whatever time i have left here no SI at all Patient does however endorse depression for pretty long time no voices for a long time denies drugs; Patient uses alcohol but still says he does not want substance abuse programs or help; says he does not know if he'll drink when he leaves; right now does not want to Regarding medications, patient agrees to try Wellbutrin to target depression. Decided against lithium since patient is very noncommittal to follow-up 02/01: Continue current regimen and plans Plan: 15 minute safety checks Continue home medications per records: Will taper and DC lithium; patient does not plan to follow-up Will start Wellbutrin to target depression Continue Zyprexa 10 mg q.h.s. [place] CIWA Reason for continued inpatient stay Substantial Risk for: med/psych decompensation Time Spent With Patient Time: Total time managing care of this patient today ____ minutes.
[2025-02-01 20:00] VITALS: BP 137/71; PULSE 91; RESP 16; TEMP 37; O2SAT 97
[2025-02-01] MEDS: Lithium Carbonate ER 300 MG TABLET.ER PO (20:10)
[2025-02-01] MEDS: OLANZapine 10 MG TABLET PO (20:10)
[2025-02-02 07:57] VITALS: BP 121/72; PULSE 76; TEMP 37.1; O2SAT 98
[2025-02-02] MEDS: Thiamine HCL 100 MG TABLET PO (08:45)
[2025-02-02] MEDS: Folic Acid 1 MG TABLET PO (08:45)
[2025-02-02] MEDS: buPROPion HCl XL 150 MG TAB.ER.24H PO (08:45)
[2025-02-02] MEDS: Multivitamin TABLET 1 TAB PO (08:46)
[2025-02-02] MEDS: Nicotine 21 MG PATCH.TD24 TRANSDERMA (08:48)
--- NOTE | 2025-02-02 09:13 | HO.PSYCHPN ---
Subjective Subjective Date of Service: 02/02/25 Reason For Visit: Schizoaffective Disorder; Alcohol Abuse; Polysubst Subjective Notes: Conditional Voluntary Interim History: Patient was seen and discussed in rounds today. Records and plans were reviewed. He has been stable with moderate anxiety persisting. No SI. Eating and sleeping well. Mostly to himself with slight interaction with others. No complaints. No changes were made today Review of Systems Review of Systems Yes all other systems are reviewed and are negative Mental Status Exam Mental Status Exam Narrative: In today's visit he is alert, oriented and pleasant. Normal speech. Minimal eye contact. Affect is appropriate and constricted. No signs of psychosis. No AVH. Cognitively is grossly intact. No SI. Able to move all limbs. No gait abnormalities. Judgment is intact Diagnostics Vital Signs (24Hr): Vital Signs - 24 hr 02/01/25 20:00 02/02/25 07:57 Temperature 98.6 F 98.8 F Pulse Rate 91 76 Respiratory Rate 16 Blood Pressure 137/71 121/72 Pulse Oximetry 97 98 Oxygen Delivery Method Room Air Room Air BMI result Body Mass Index 28.9 Labs 01/25/25 08:16 01/25/25 08:16 Medications Medications Current Medications Acetaminophen (Acetaminophen 325 Mg Tablet) 650 mg PO Q6H PRN PRN Reason: Pain, Moderate(Pain Scale 4-6) Last Admin: 01/28/25 08:55 Dose: 650 mg Al Hydroxide/Mg Hydroxide (Magnesium Hydrox/Alum Hydrox 30 Ml Oral.Susp) 30 ml PO Q6H PRN PRN Reason: Heartburn/Nausea Bupropion HCl (Bupropion Hcl Xl 150 Mg Tab.Er.24h) 150 mg PO DAILY [facility] Last Admin: 02/02/25 08:45 Dose: 150 mg Folic Acid (Folic Acid 1 Mg Tablet) 1 mg PO DAILY [facility] Last Admin: 02/02/25 08:45 Dose: 1 mg Hydroxyzine HCl (Hydroxyzine Hcl 25 Mg Tablet) 25 mg PO Q6H PRN PRN Reason: mild anxiety Last Admin: 01/28/25 09:00 Dose: 25 mg Magnesium Hydroxide (Milk Of Magnesia 30 Ml Oral.Susp) 30 ml PO DAILY PRN PRN Reason: Constipation Multivitamins/Vitamin C (Multivitamin Tablet) 1 tab PO DAILY [facility] Last Admin: 02/02/25 08:46 Dose: 1 tab Nicotine (Nicotine 21 Mg Patch.Td24) 21 mg TRANSDERMA DAILY PRN PRN Reason: smoking cessation Last Admin: 02/02/25 08:48 Dose: 21 mg Nicotine Polacrilex (Nicotine Polacrilex 2 Mg Gum) 4 mg BUCCAL Q2H PRN PRN Reason: Nicotine Cravings Olanzapine (Olanzapine 10 Mg Tablet) 10 mg PO BEDTIME [facility] Last Admin: 02/01/25 20:10 Dose: 10 mg Thiamine HCl (Thiamine Hcl 100 Mg Tablet) 100 mg PO DAILY [facility] Last Admin: 02/02/25 08:45 Dose: 100 mg Allergies Allergies Allergy/AdvReac Type Severity Reaction Status Date / Time paliperidone [From Invega] AdvReac liver Unverified 01/31/25 11:24 trazodone AdvReac Mild dizzy Uncoded 01/31/25 11:24 Assessment & Plan Assessment & Plan (1) Schizoaffective disorder, depressive type: Status: Acute Code(s): F25.1 - Schizoaffective disorder, depressive type (2) Alcohol abuse: Status: Acute Code(s): F10.10 - Alcohol abuse, uncomplicated Plan Patient is a 54-year-old male with history of schizoaffective disorder and alcohol use disorder who self presented to ER due to suicidal ideation secondary to increased depression and medication noncompliance. Hospital course: 01/29 patient with limited engagement; agrees to increasing lithium back to past dose; denies SI; not scoring on CIWA and denies withdrawal symptoms 01/30 patient very ambivalent about medications, aftercare. Discussed remaining on lithium if he is not going to follow-up with outpatient provider; patient himself unsure. Substance abuse treatment discussed with patient who does not want MAT or help with outpt treatment options including programs; instead patient is choosing to work out sobriety on own -check UA 01/31 Patient says don't want a psychiatrist...since if i miss an appintment, you're out...i'll take meds until they run out... He says that whenever he tries never works out so it does not want to make decisions since it a work out in a different way anyway Regarding efficacy, patient says he does not know if meds help...it feels good for awhile but then i get tired of taking it, sticking to a schedule i'm just trying to enjoy whatever time i have left here no SI at all Patient does however endorse depression for pretty long time no voices for a long time denies drugs; Patient uses alcohol but still says he does not want substance abuse programs or help; says he does not know if he'll drink when he leaves; right now does not want to Regarding medications, patient agrees to try Wellbutrin to target depression. Decided against lithium since patient is very noncommittal to follow-up 02/01: Continue current regimen and plans 02/02: Continue current plans and regimen Plan: 15 minute safety checks Continue home medications per records: Will taper and DC lithium; patient does not plan to follow-up Will start Wellbutrin to target depression Continue Zyprexa 10 mg q.h.s. [facility] CIWA Reason for continued inpatient stay Substantial Risk for: med/psych decompensation Time Spent With Patient Time: Total time managing care of this patient today ____ minutes.
[2025-02-02 20:00] VITALS: BP 117/71; PULSE 87; TEMP 37; O2SAT 97
[2025-02-02] MEDS: OLANZapine 10 MG TABLET PO (21:41)
[2025-02-02] MEDS: hydrOXYzine HCL 25 MG TABLET PO (23:42)
[2025-02-03] MEDS: Multivitamin TABLET 1 TAB PO (08:23)
[2025-02-03] MEDS: Thiamine HCL 100 MG TABLET PO (08:23)
[2025-02-03] MEDS: buPROPion HCl XL 150 MG TAB.ER.24H PO (08:23)
[2025-02-03] MEDS: Folic Acid 1 MG TABLET PO (08:23)
[2025-02-03] MEDS: Nicotine 21 MG PATCH.TD24 TRANSDERMA (08:37)
[2025-02-03 08:53] VITALS: BP 115/67; PULSE 79; TEMP 35.9; O2SAT 99
--- NOTE | 2025-02-03 10:01 | HO.PSYCHPN ---
Subjective Subjective Date of Service: 02/03/25 Reason For Visit: Schizoaffective Disorder; Alcohol Abuse; Polysubst Interim History: Met with patient; discussed with team Patient says he all right. Regarding depression, he is not sure if it is any different; can not tell if Wellbutrin has been helpful but wants to continue it and does not want it increased dose. He says it is no problem being off lithium. Mental Status Exam Mental Status Exam Narrative: Pt is alert and oriented; behavior is cooperative, quiet, calm; patient is not in distress; dressed in hospital attire, unkempt; mood is described as all right and affect congruent, little more expressive; eye contact a little avoidant; Speech is a little slow and soft; some psychomotor retardation present; thought process is goal directed; concrete; Thought content is on housing; no delusional content expressed; denies any SI/HI. Denies AVH and there is no evidence of perceptual disturbance. Patients insight and judgment impaired but likely at baseline and adequate Diagnostics Vital Signs (24Hr): Vital Signs - 24 hr 02/02/25 20:00 02/03/25 08:53 Temperature 98.6 F 96.6 F L Pulse Rate 87 79 Blood Pressure 117/71 115/67 Pulse Oximetry 97 99 Oxygen Delivery Method Room Air Room Air BMI result Body Mass Index 28.9 Labs 01/25/25 08:16 01/25/25 08:16 Medications Medications Current Medications Acetaminophen (Acetaminophen 325 Mg Tablet) 650 mg PO Q6H PRN PRN Reason: Pain, Moderate(Pain Scale 4-6) Last Admin: 01/28/25 08:55 Dose: 650 mg Al Hydroxide/Mg Hydroxide (Magnesium Hydrox/Alum Hydrox 30 Ml Oral.Susp) 30 ml PO Q6H PRN PRN Reason: Heartburn/Nausea Bupropion HCl (Bupropion Hcl Xl 150 Mg Tab.Er.24h) 150 mg PO DAILY [facility] Last Admin: 02/03/25 08:23 Dose: 150 mg Folic Acid (Folic Acid 1 Mg Tablet) 1 mg PO DAILY [facility] Last Admin: 02/03/25 08:23 Dose: 1 mg Hydroxyzine HCl (Hydroxyzine Hcl 25 Mg Tablet) 25 mg PO Q6H PRN PRN Reason: mild anxiety Last Admin: 02/02/25 23:42 Dose: 25 mg Magnesium Hydroxide (Milk Of Magnesia 30 Ml Oral.Susp) 30 ml PO DAILY PRN PRN Reason: Constipation Multivitamins/Vitamin C (Multivitamin Tablet) 1 tab PO DAILY [facility] Last Admin: 02/03/25 08:23 Dose: 1 tab Nicotine (Nicotine 21 Mg Patch.Td24) 21 mg TRANSDERMA DAILY PRN PRN Reason: smoking cessation Last Admin: 02/03/25 08:37 Dose: 21 mg Nicotine Polacrilex (Nicotine Polacrilex 2 Mg Gum) 4 mg BUCCAL Q2H PRN PRN Reason: Nicotine Cravings Olanzapine (Olanzapine 10 Mg Tablet) 10 mg PO BEDTIME [facility] Last Admin: 02/02/25 21:41 Dose: 10 mg Thiamine HCl (Thiamine Hcl 100 Mg Tablet) 100 mg PO DAILY [facility] Last Admin: 02/03/25 08:23 Dose: 100 mg Allergies Allergies Allergy/AdvReac Type Severity Reaction Status Date / Time paliperidone [From Invega] AdvReac liver Unverified 01/31/25 11:24 trazodone AdvReac Mild dizzy Uncoded 01/31/25 11:24 Assessment & Plan Assessment & Plan (1) Schizoaffective disorder, depressive type: Status: Acute Code(s): F25.1 - Schizoaffective disorder, depressive type (2) Alcohol abuse: Status: Acute Code(s): F10.10 - Alcohol abuse, uncomplicated Plan Patient is a 54-year-old male with history of schizoaffective disorder and alcohol use disorder who self presented to ER due to suicidal ideation secondary to increased depression and medication noncompliance. Hospital course: 01/29 patient with limited engagement; agrees to increasing lithium back to past dose; denies SI; not scoring on CIWA and denies withdrawal symptoms 01/30 patient very ambivalent about medications, aftercare. Discussed remaining on lithium if he is not going to follow-up with outpatient provider; patient himself unsure. Substance abuse treatment discussed with patient who does not want MAT or help with outpt treatment options including programs; instead patient is choosing to work out sobriety on own -check [facility] 01/31 Patient says don't want a psychiatrist...since if i miss an appintment, you're out...i'll take meds until they run out... He says that whenever he tries never works out so it does not want to make decisions since it a work out in a different way anyway Regarding efficacy, patient says he does not know if meds help...it feels good for awhile but then i get tired of taking it, sticking to a schedule i'm just trying to enjoy whatever time i have left here no SI at all Patient does however endorse depression for pretty long time no voices for a long time denies drugs; Patient uses alcohol but still says he does not want substance abuse programs or help; says he does not know if he'll drink when he leaves; right now does not want to Regarding medications, patient agrees to try Wellbutrin to target depression. Decided against lithium since patient is very noncommittal to follow-up 02/01: Continue current regimen and plans 02/02: Continue current plans and regimen 02/03 patient says depression is all right no better nor worse. Wants to stay on current Wellbutrin dose without any increase; does not seem to notice discontinued lithium Plan: 15 minute safety checks Continue home medications per records: Discontinued lithium Continue Wellbutrin ER 150 mg to target depression Continue Zyprexa 10 mg q.h.s. [facility] Patient educated on: diagnosis and medication risk/benefits Informed Consent: understands and further education needed Reason for continued inpatient stay Substantial Risk for: stable for discharge and med/psych decompensation Time Spent With Patient Time: Total time managing care of this patient today ____ minutes.
[2025-02-03 20:00] VITALS: BP 130/60; PULSE 75; RESP 18; TEMP 36.4; O2SAT 96
[2025-02-03] MEDS: hydrOXYzine HCL 25 MG TABLET PO (21:43)
[2025-02-03] MEDS: OLANZapine 10 MG TABLET PO (21:43)
[2025-02-04 08:30] VITALS: BP 118/71; PULSE 78; RESP 16; TEMP 36.9; O2SAT 98
[2025-02-04] MEDS: buPROPion HCl XL 150 MG TAB.ER.24H PO (09:07)
[2025-02-04] MEDS: Multivitamin TABLET 1 TAB PO (09:07)
[2025-02-04] MEDS: Folic Acid 1 MG TABLET PO (09:07)
[2025-02-04] MEDS: Thiamine HCL 100 MG TABLET PO (09:07)
--- NOTE | 2025-02-04 09:41 | P.PNPSI_ITS ---
Subjective Subjective Date of Service: 02/04/25 Reason For Visit: Schizoaffective Disorder; Alcohol Abuse; Polysubst Interim History: met with pt; discussed with team depression improved; pt reports that he's doing well enough and ready for discharge; no complaints and no requests. Mental Status Exam Mental Status Exam Narrative: Pt is alert and oriented; behavior is cooperative, quiet, calm; patient is not in distress; dressed in hospital attire, unkempt; mood is described as all right and affect congruent, little more expressive; eye contact a little avoidant; Speech is a little slow and soft; some psychomotor retardation present; thought process is goal directed; concrete; Thought content is on housing; no delusional content expressed; denies any SI/HI. Denies AVH and there is no evidence of perceptual disturbance. Patients insight and judgment impaired but likely at baseline and adequate Diagnostics Vital Signs (24Hr): Vital Signs - 24 hr 02/03/25 20:00 02/04/25 08:30 Temperature 97.6 F 98.4 F Pulse Rate 75 78 Respiratory Rate 18 16 Blood Pressure 130/60 118/71 Pulse Oximetry 96 98 Oxygen Delivery Method Room Air Room Air BMI result Body Mass Index 28.9 Labs 01/25/25 08:16 01/25/25 08:16 Medications Medications Current Medications Acetaminophen (Acetaminophen 325 Mg Tablet) 650 mg PO Q6H PRN PRN Reason: Pain, Moderate(Pain Scale 4-6) Last Admin: 01/28/25 08:55 Dose: 650 mg Al Hydroxide/Mg Hydroxide (Magnesium Hydrox/Alum Hydrox 30 Ml Oral.Susp) 30 ml PO Q6H PRN PRN Reason: Heartburn/Nausea Bupropion HCl (Bupropion Hcl Xl 150 Mg Tab.Er.24h) 150 mg PO DAILY [facility] Last Admin: 02/04/25 09:07 Dose: 150 mg Folic Acid (Folic Acid 1 Mg Tablet) 1 mg PO DAILY [facility] Last Admin: 02/04/25 09:07 Dose: 1 mg Hydroxyzine HCl (Hydroxyzine Hcl 25 Mg Tablet) 25 mg PO Q6H PRN PRN Reason: mild anxiety Last Admin: 02/03/25 21:43 Dose: 25 mg Magnesium Hydroxide (Milk Of Magnesia 30 Ml Oral.Susp) 30 ml PO DAILY PRN PRN Reason: Constipation Multivitamins/Vitamin C (Multivitamin Tablet) 1 tab PO DAILY [facility] Last Admin: 02/04/25 09:07 Dose: 1 tab Nicotine (Nicotine 21 Mg Patch.Td24) 21 mg TRANSDERMA DAILY PRN PRN Reason: smoking cessation Last Admin: 02/03/25 08:37 Dose: 21 mg Nicotine Polacrilex (Nicotine Polacrilex 2 Mg Gum) 4 mg BUCCAL Q2H PRN PRN Reason: Nicotine Cravings Olanzapine (Olanzapine 10 Mg Tablet) 10 mg PO BEDTIME [facility] [place] Last Admin: 02/03/25 21:43 Dose: 10 mg Thiamine HCl (Thiamine Hcl 100 Mg Tablet) 100 mg PO DAILY [facility] Last Admin: 02/04/25 09:07 Dose: 100 mg Allergies Allergies Allergy/AdvReac Type Severity Reaction Status Date / Time paliperidone [From Invega] AdvReac liver Unverified 01/31/25 11:24 trazodone AdvReac Mild dizzy Uncoded 01/31/25 11:24 Assessment & Plan Assessment & Plan (1) Schizoaffective disorder, depressive type: Status: Acute Code(s): F25.1 - Schizoaffective disorder, depressive type (2) Alcohol abuse: Status: Acute Code(s): F10.10 - Alcohol abuse, uncomplicated Plan Patient is a 54-year-old male with history of schizoaffective disorder and alcohol use disorder who self presented to ER due to suicidal ideation secondary to increased depression and medication noncompliance. Hospital course: 01/29 patient with limited engagement; agrees to increasing lithium back to past dose; denies SI; not scoring on CIWA and denies withdrawal symptoms 01/30 patient very ambivalent about medications, aftercare. Discussed remaining on lithium if he is not going to follow-up with outpatient provider; patient himself unsure. Substance abuse treatment discussed with patient who does not want MAT or help with outpt treatment options including programs; instead patient is choosing to work out sobriety on own -check [facility]A 01/31 Patient says don't want a psychiatrist...since if i miss an appintment, you're out...i'll take meds until they run out... He says that whenever he tries never works out so it does not want to make decisions since it a work out in a different way anyway Regarding efficacy, patient says he does not know if meds help...it feels good for awhile but then i get tired of taking it, sticking to a schedule i'm just trying to enjoy whatever time i have left here no SI at all Patient does however endorse depression for pretty long time no voices for a long time denies drugs; Patient uses alcohol but still says he does not want substance abuse programs or help; says he does not know if he'll drink when he leaves; right now does not want to Regarding medications, patient agrees to try Wellbutrin to target depression. Decided against lithium since patient is very noncommittal to follow-up 02/01: Continue current regimen and plans 02/02: Continue current plans and regimen 02/03 patient says depression is all right no better nor worse. Wants to stay on current Wellbutrin dose without any increase; does not seem to notice discontinued lithium 02/04 pt remains stable; pt at baseline; in good behavioral and impulse control. no SI. not in imminent risk for harm to self/others. Plan: 15 minute safety checks Continue home medications per records: Discontinued lithium Continue Wellbutrin ER 150 mg to target depression Continue Zyprexa 10 mg q.h.s. [facility] Patient educated on: diagnosis Informed Consent: understands Reason for continued inpatient stay Substantial Risk for: stable for discharge Time Spent With Patient Time: Total time managing care of this patient today ____ minutes.
[2025-02-04 20:00] VITALS: BP 126/60; PULSE 82; RESP 16; TEMP 36.2; O2SAT 97
[2025-02-04] MEDS: OLANZapine 10 MG TABLET PO (20:57)
--- NOTE | 2025-02-04 23:42 | PM.PSYDC ---
DS: Providers Provider Date of Service: 02/05/25 Date of admission: 01/27/25 16:42 Date of discharge: 02/05/25 Primary care physician: None Physician Consults: 01/27/25 17:55 Addiction Medicine Provider Routine Consulting Provider: Addiction Covering Reason for consultation: AUD DS: Diagnosis Discharge Diagnosis (1) Schizoaffective disorder, depressive type: Status: Acute (2) Alcohol abuse: Status: Acute DS: Medications Discharge Medications Home Medications: Previous Rx's ?Medication ?Instructions ?Recorded bupropion HCl 150 mg 24 hr tablet, 150 mg PO DAILY 30 days #30 tabs 02/04/25 extended release olanzapine 10 mg tablet 10 mg PO BEDTIME 30 days #30 tabs 02/04/25 Data Data Completed and Pending Completed studies during hospitalization [Text1]: 01/29/25 08:19 Urine Color Yellow Urine Appearance Clear Urine pH 7.0 Ur Specific [place] 1.020 Urine Protein Negative Urine Glucose (UA) Negative Urine Ketones Negative Urine Blood Negative Urine Nitrite Negative Ur Leukocyte Esterase Moderate (2+) H Urine RBC 3-5 H Urine WBC 11-20 Ur Squamous Epith Cells 0-2 Urine Bacteria None Seen Hyaline Casts 0-2 01/29/25 Unknown Urine clean catch - Clean Catch Midstream Urine Culture - Final DS: Summary Time Spent with Patient Time attestation: Total time managing care of this patient today ____ minutes. Discharge Plan Discharge Anticipated Discharge Date/Time: 02/05/25 11:26 Patient Disposition: Alf Discharge Diagnosis: schizoaffective disorder, depressed type Referrals: Physician,None [Primary Care Provider] - 1 Week Discharge Medications: New bupropion HCl 150 mg Tablet Extended Release 24 Hr 150 mg PO DAILY 30 Days Qty: 30 0RF olanzapine 10 mg Tablet 10 mg PO BEDTIME 30 Days Qty: 30 0RF Discharge Orders: Discharge Order (Routine); Ordered 02/05/25 Ordered By: Ponce Christy Diet: Regular diet Activity on Discharge: As tolerated Stand Alone Forms: Patient Portal Discharge page Print Language: English Care Plan Goals: Maintain mood and safe behaviors Take medications as prescribed Continue to pursue sobriety Practice coping skills Continue with outpatient providers and reach out to them as needed Health Concerns: Mood stability and behaviors Sobriety Plan of Treatment: Follow up with your PCP, psychiatric provider and other outpatient providers regarding above concerns Take medications as prescribed Assessment: Risk assessment at time of discharge:? Patient was interviewed prior to discharge and found to be fully oriented and without any SI or HI. Patient has improved insight and judgment and wants to continue treatment. Patient is not in imminent risk of harm to self or others and has a safety plan that includes presenting to the closest ER or calling 911 if feeling unsafe.? Patient has been observed closely by nursing and unit staff throughout admission; patient has not engaged in any behaviors that suggest dangerousness to self or others and has demonstrated appropriate behaviors and impulse control
[2025-02-05 07:52] VITALS: BP 129/74; PULSE 77; TEMP 36.6; O2SAT 98
[2025-02-05] MEDS: Folic Acid 1 MG TABLET PO (08:29)
[2025-02-05] MEDS: buPROPion HCl XL 150 MG TAB.ER.24H PO (08:29)
[2025-02-05] MEDS: Multivitamin TABLET 1 TAB PO (08:30)
[2025-02-05] MEDS: Naloxone HCl Nasal TAKE HOME 4 MG SPRAY 8 MG NOSTRILALT (08:30)
[2025-02-05] MEDS: Thiamine HCL 100 MG TABLET PO (08:30)
== END 2025-02-05 10:35 | disposition home or self-care (01) | DRG 885 ==
LOC: HO.ED 08:09 → HO.PM5 01-27 16:50
PROVIDERS: Admitting Provider Clinical Nurse Specialist Psychiatric/Mental Health, Adult; Emergency Provider Emergency Medicine; Visit Provider Psychiatry & Neurology Psychiatry
DX: F25.1 Schizoaffective disorder, depressive type (principal); R45.851 Suicidal ideations; F17.210 Nicotine dependence, cigarettes, uncomplicated; F10.10 Alcohol abuse, uncomplicated; Z71.6 Tobacco abuse counseling; Z91.148 Patient's other noncompliance with medication regimen for other reason; Z79.899 Other long term (current) drug therapy
CPT/HCPCS: 36415; 80048; 80061; 80076; 80178; 80307; 81001; 82607; 82746; 83036; 83735; 84439; 84443; 85025; 87086; 93005; 99285; S9485

== ENCOUNTER → 2025-01-27 09:15 | Outpatient (BNV) | payer MEDICARE, MEDICAID, SELFPAY | PROVIDERS: Emergency Provider Emergency Medicine; Visit Provider Internal Medicine Cardiovascular Disease | DX: R94.31 Abnormal electrocardiogram [ECG] [EKG] (principal); Z13.6 Encounter for screening for cardiovascular disorders | CPT/HCPCS: 93010 ==

== ENCOUNTER → 2025-01-27 16:42 | Outpatient (BNV) | payer OTHER, MEDICAID, SELFPAY | PROVIDERS: Admitting Provider Clinical Nurse Specialist Psychiatric/Mental Health, Adult; Emergency Provider Emergency Medicine; Visit Provider Registered Nurse | DX: F25.1 Schizoaffective disorder, depressive type (principal); F10.10 Alcohol abuse, uncomplicated | CPT/HCPCS: 90792; 99231; 99232 ==

== ENCOUNTER 2025-04-13 14:39 | Inpatient (IN) | payer OTHER, MEDICAID, SELFPAY ==
[2025-04-13 15:03] VITALS: BP 138/68; PULSE 83; RESP 16; TEMP 36.4; O2SAT 96; BMI 28.7
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
[2025-04-13 15:54] LABS: Hematocrit 41.1 % (42.0-52.0); Hemoglobin 14.9 g/dl (14.0-18.0); Imm Gran Abs Auto 0.01 X10*3/uL (0.00-0.03); Imm Gran Pct Auto 0.1 % (0.0-0.4); Lymphocytes Absolute Auto 2.6 X10*3/uL (1.2-4.9); MANUAL DIFF FLAG NO; Mean Corpuscular HGB Conc 36.3 g/dl (31.0-36.0); Mean Corpuscular Hemoglobin 32.9 pg (27.0-33.0); Mean Corpuscular Volume 90.7 fL (80.0-98.0); NRBC Abs Auto 0.000 X10*3/uL (0.0-0.012); NRBC Pct Auto 0.0 /100WBC (0.0-0.2); Platelet Count 193 X10*3/uL (160-400); Red Blood Count 4.53 X10*6/uL (4.60-5.80); White Blood Count 7.3 X10*3/uL (4.8-10.8)
[2025-04-13 16:10] LABS: Alanine Aminotransferase 27 U/L (0-40); Albumin Level 4.0 g/dL (3.5-5.0); Alkaline Phosphatase 61 U/L (39-117); Anion Gap 11 (12-20); Aspartate Amino Transferase 30 U/L (5-37); Blood Urea Nitrogen 9 mg/dL (9-16); Calcium 8.7 mg/dL (8.4-10.2); Carbon Dioxide 28 mmol/L (22-29); Chloride 108 mmol/L (96-108); Creatinine Clr Calc Pharmacy 127.3; Estimated Glomerular Filt Rate > 60; Potassium 3.4 mmol/L (3.3-5.1); Sodium 144 mmol/L (135-145); Total Protein 6.3 g/dL (6.5-8.0)
[2025-04-13 19:22] LABS: Appearance Urine Clear; Glucose Urine UA Negative (Negative); PH 5.5 (5.0-9.0); Specific Gravity - Urine 1.015 (1.005-1.025); UMIC TRIGGER UACC YES
[2025-04-13 19:29] LABS: UACC Culture Trigger YES
[2025-04-13 19:35] LABS: Cannabinoid Screen Urine POSITIVE (Not Detect)
--- NOTE | 2025-04-14 09:58 | ECG_ITS ---
Test Reason : ADMISSION Blood Pressure : */* mmHG Vent. Rate : 63 BPM Atrial Rate : 63 BPM P-R Int : 154 ms QRS Dur : 116 ms QT Int : 418 ms P-R-T Axes : 22 -3 -2 degrees QTcB Int : 427 ms Normal sinus rhythm Minimal voltage criteria for LVH, may be normal variant ( Mehran product ) Borderline ECG When compared with ECG of 27-Jan-2025 09:15, Nonspecific T wave abnormality has replaced inverted T waves in Lateral leads Referred By: Farrukh Chanel Electronically Signed By: KASI PEREZ MD
--- NOTE | 2025-04-14 10:48 | PHA.MEDREC ---
Addendum entered by Sammy Hogan PharmD 04/14/25 10:58: reviewed Original Note: Pharmacy Consult ? Medication Reconciliation Pharmacy has completed the medication reconciliation. Spoke with pt and he confirmed he is not taking anything at this time, stating he ran out of all his medications in the last month (Olanzapine, Bupropion, OTC Vitamins, Ibuprofen & Tylenol and Melatonin).
[2025-04-14 13:50] VITALS: BP 139/74; PULSE 67; RESP 16; TEMP 37.1; O2SAT 98
[2025-04-14 15:33] VITALS: BP 142/77; PULSE 99; RESP 18; TEMP 36.3; O2SAT 98
--- NOTE | 2025-04-14 15:33 | P.HPPS_ITS ---
HPI Date of Service: 04/14/25 Chief Complaint: crisis Sources of Information: patient interviewed, chart reviewed and crisis/core team assessment reviewed HPI Subjective Notes: [place] Warning and Conditional Voluntary Narrative: Patient is a 54-year-old male with history of schizoaffective disorder and alcohol use disorder who presented to [facility] after being found lying on the street by police who sent him to [facility] to be evaluated. Per crisis report, patient was lying on the street and was discovered by police who sent him to [facility] to be evaluated. During assessment patient was guarded and appeared to be thought blocking. He reports increasing depression however denies SI/HI. He reports alcohol use daily. utox positive for marijuana. Patient reports he does not have outpatient psychiatric providers to prescribe him his psychiatric medications. He reports he has not been medication compliant for a few months. denies AH/VH. During admission assessment, patient presents alert and oriented x3. Calm and cooperative. Patient reports feeling depressed; patient stated, everything is the same. I was waiting for an application for an apartment. I'm trying to stay positive . When asked why he was laying in the street; patient stated, Where else am I going to lay down? I have to lay down somewhere until the garage cools down. I was on the sidewalk, not in the road . Patient reports suicidal ideation with no plan. Patient stated, I'm not thinking of doing it, it just crosses my mind . denies HI/VH/AH. Patient reports he has not taken his medications in a few months due to not following up with outpatient providers. Patient reports he has been drinking alcohol daily but is unable to specify amount. Smoke marijuana daily. utox positive for marijuana. Denies any other substance use. Patient is requesting to be restarted on his home medications. Past Psychiatric History: History of multiple inpatient psychiatric hospitalizations. SA: reports more than 3. MRE 3-4 yrs ago. SIB: reports h/o cutting, more than 10 years ago. Denies current outpatient psychiatric providers Medical Evaluation Reviewed: Yes [facility] Medical History Acute UTI Depression Suicidal ideation Hematuria Alcohol abuse Schizoaffective disorder, depressive type Cocaine abuse Family History: Unknown Social History: Homeless. completed the 7th grade. Currently not working, on SSI Substance History: pt reports drinking unknown of alcohol daily. and smokes marijuana. denies any other substance use. utox positive for marijuana. Trauma History: Affirms through and family losses Diagnostics Vital Signs (24Hr): Vital Signs - 24 hr 04/14/25 13:50 04/14/25 15:33 Temperature 98.7 F 97.3 F Pulse Rate 67 99 Respiratory Rate 16 18 Blood Pressure 139/74 142/77 H Pulse Oximetry 98 98 Oxygen Delivery Method Room Air Room Air BMI result Body Mass Index 28.7 Labs 04/13/25 15:49 04/13/25 15:49 Labs: Laboratory Results - last 48 hr 04/13/25 04/13/25 15:49 19:16 WBC 7.3 RBC 4.53 L Hgb 14.9 Hct 41.1 L MCV 90.7 MCH 32.9 MCHC 36.3 H RDW 12.6 Plt Count 193 MPV 9.5 Immature Gran % (Auto) 0.1 Neut % (Auto) 54.9 Lymph % (Auto) 35.5 [place] % (Auto) 6.7 Eos % (Auto) 2.5 Baso % (Auto) 0.3 Lymph # (Auto) 2.6 [place] # (Auto) 0.5 Eos # (Auto) 0.2 Baso # (Auto) 0.0 Abs Immat Gran (auto) 0.01 Absolute Neuts (auto) 4.0 Absolute Nucleated RBC 0.000 Nucleated RBC % (auto) 0.0 Sodium 144 Potassium 3.4 Chloride 108 Carbon Dioxide 28 Anion Gap 11 L BUN 9 Creatinine 0.76 Estim Creat Clear Calc 127.3 Estimated GFR > 60 Random Glucose 118 H Calcium 8.7 Total Bilirubin 0.4 AST 30 ALT 27 Alkaline Phosphatase 61 Total Protein 6.3 L Albumin 4.0 Urine Color Yellow Urine Appearance Clear Urine pH 5.5 Ur Specific [place] 1.015 Urine Protein Negative Urine Glucose (UA) Negative Urine Ketones Negative Urine Blood Trace H Urine Nitrite Negative Ur Leukocyte Esterase Small (1+) H Urine RBC 0-2 Urine WBC 11-20 H Ur Squamous Epith Cells 0-2 Urine Bacteria None Seen Hyaline Casts 0-2 Urine Opiates Screen Not Detected Ur Buprenorphine Scrn Not Detected Ur Oxycodone Screen Not Detected Urine Methadone Screen Not Detected Urine Fentanyl Screen Not Detected Ur Barbiturates Screen Not Detected Ur Phencyclidine Scrn Not Detected Ur Amphetamines Screen Not Detected U Benzodiazepines Scrn Not Detected Urine Cocaine Screen Not Detected U Marijuana (THC) Screen POSITIVE H Ethyl Alcohol < 10 Meds/Allergies Meds Home Medications ?Medication ?Instructions ?Recorded ?Confirmed ?Type No Known Home Meds 04/14/25 04/14/25 Hi story Allergies Allergies Allergy/AdvReac Type Severity Reaction Status Date / Time paliperidone (From InvPreggers) AdvReac liver Verified 04/13/25 15:11 trazodone AdvReac Mild dizzy Uncoded 04/13/25 15:11 Mental Status Exam Mental Status Exam Narrative: Pt is alert and oriented; behavior is cooperative and calm; dressed in casual attire; mood is described as depressed ; eye contact appropriate; Speech is normal rate, volume and not pressured; thought process is organized; Thought content is on tx; denies HI/VH/AH. Pt reports passive suicidal ideation. Assessment & Plan Assessment & Plan (1) Schizoaffective disorder, depressive type: Status: Acute Code(s): F25.1 - Schizoaffective disorder, depressive type (2) Alcohol abuse: Status: Acute Code(s): F10.10 - Alcohol abuse, uncomplicated Plan Patient is a 54-year-old male with history of schizoaffective disorder and alcohol use disorder who presented to [facility] ER after being found lying on the street by police who sent him to [facility] to be evaluated. Plan: CV 15 minute safety checks continue home medications CIWA protocol encourage groups referral to outpatient psychiatric providers discharge planning Patient educated on: diagnosis and medication risk/benefits Reason for continued inpatient stay Substantial Risk for: med/psych decompensation Statement Statement: I have reviewed the history and physical and performed a pertinent examination on my patient. No changes have occurred unless specified. If the History and Physical was not performed prior to admission, the Hospitalist's service will be consulted for completing the admission physical. Time Spent With Patient Time: Total time managing care of this patient today _60___ minutes.
[2025-04-14] MEDS: buPROPion HCl XL 150 MG TAB.ER.24H PO (16:18)
--- NOTE | 2025-04-14 16:28 | PC.ADMIT ---
Nathaniel Grier was admitted to [facility] from [facility] at 14:15 on CV for treatment of depression and SI.? Precipitants of admission include being found by police lying in the street, pt reports experiencing SI and contemplating following through with ?[facility].? ? Mood is depressed with a congruent? affect.? Pt reports AH/VH, stating AH as ?Nothing I can?t tell apart? with a history of command AH.? Pt reports ?seeing things at times? with the most recent experience being 04/13/25.? Pt states that he experiences paranoia sometimes.? Pt does not appear to be responding to internal stimuli.? Pt has no delusions, thought process is impaired.? Pt denies HI, admits to experiencing SI with no plan to harm self.? When asked if they have ever attempted suicide pt responded with ?waking up everyday.?? Pt then mentioned being ?hopeful with having access to meds, overall change, and to feel different.?? Pt reports having lost 30 pounds despite ?eating enough and trying to gain back the weight that past five months.? Pt reports having broken sleep, taking frequent naps due to homelessness and having nightmares.? Pt admits to using alcohol daily, last drink 04/13/25 having consumed two 12oz bottles. Pt reports drinking ?whatever he can afford/cheap.? Tox screen positive for THC, only smokes when available.? Pt states smoking ?on average 10 cigarettes a day since I was a teen? and having last smoked ?a couple of days ago.?? Pt acknowledges former usage of cocaine. Denies medical concerns, dx with schizoaffective disorder, and positive for a UTI and receiving antibiotics in the ED. ? Pt reports feeling slight pain and soreness in the lower back. Skin check completed, skin intact. Pt placed on 15 minute safety checks.?
[2025-04-14 17:00] VITALS: BMI 30.2
[2025-04-14 20:00] VITALS: BP 135/61; PULSE 83; RESP 16; TEMP 36.8; O2SAT 97
[2025-04-15] VITALS: BP 114/68; PULSE 72; RESP 14
[2025-04-15 07:42] VITALS: BP 118/75; PULSE 94; RESP 16; TEMP 36.4; O2SAT 97
[2025-04-15 08:08] LABS: Hemoglobin A1C 142.7579 umol/L; Total Hemoglobin (HGBA1C) 4363.5731 umol/L
[2025-04-15 08:17] LABS: Alanine Aminotransferase 26 U/L (0-40); Albumin Level 4.3 g/dL (3.5-5.0); Alkaline Phosphatase 69 U/L (39-117); Anion Gap 12 (12-20); Aspartate Amino Transferase 28 U/L (5-37); Blood Urea Nitrogen 13 mg/dL (9-16); Calcium 9.4 mg/dL (8.4-10.2); Carbon Dioxide 29 mmol/L (22-29); Chloride 106 mmol/L (96-108); Cholesterol 160 mg/dL (<200); Creatinine Clr Calc Pharmacy 109.5; Estimated Glomerular Filt Rate > 60; HDL Cholesterol 53 mg/dL (>40); Potassium 4.5 mmol/L (3.3-5.1); Sodium 142 mmol/L (135-145); Total Protein 6.9 g/dL (6.5-8.0); Triglycerides 157 mg/dL (<150)
[2025-04-15] MEDS: Nicotine 21 MG PATCH.TD24 TRANSDERMA (08:23)
[2025-04-15] MEDS: buPROPion HCl XL 150 MG TAB.ER.24H PO (08:25)
--- NOTE | 2025-04-15 11:55 | PC.NURSE ---
Pt refused his CIWA assessment at 12:00pm today. I really don't know how to answer those questions, and I don't think that they will make a difference anyway. Reported to provider.
--- NOTE | 2025-04-15 13:37 | HO.PSYCHPN ---
Subjective Subjective Date of Service: 04/15/25 Reason For Visit: crisis Subjective Notes: Conditional Voluntary Interim History: Active on unit. keeping to self. listening to music with unit headphones. Patient continues to report feeling depressed; not scoring on CIWA. per nursing, slept 8 hours. encouraged to attend groups. denies SI/HI/VH/AH. Continue current tx plan. Medication Compliance: Yes Side effects from medications: No Attending Groups: No Mental Status Exam Mental Status Exam Narrative: Pt is alert and oriented; behavior is cooperative and calm; dressed in casual attire; mood is described as depressed ; eye contact appropriate; Speech is normal rate, volume and not pressured; thought process is organized; Thought content is on tx; denies SI/HI/VH/AH. Diagnostics Vital Signs (24Hr): Vital Signs - 24 hr 04/14/25 13:50 04/14/25 15:33 04/14/25 20:00 Temperature 98.7 F 97.3 F 98.2 F Pulse Rate 67 99 83 Respiratory Rate 16 18 16 Blood Pressure 139/74 142/77 H 135/61 Pulse Oximetry 98 98 97 Oxygen Delivery Method Room Air Room Air Room Air 04/15/25 00:00 04/15/25 07:42 Temperature 97.5 F Pulse Rate 72 94 Respiratory Rate 14 16 Blood Pressure 114/68 118/75 Pulse Oximetry 97 Oxygen Delivery Method Room Air BMI result Body Mass Index 30.2 Labs 04/13/25 15:49 04/15/25 07:52 Labs: Laboratory Results - last 48 hr 04/13/25 04/13/25 04/15/25 15:49 19:16 07:52 WBC 7.3 RBC 4.53 L Hgb 14.9 Hct 41.1 L MCV 90.7 MCH 32.9 MCHC 36.3 H RDW 12.6 Plt Count 193 MPV 9.5 Immature Gran % (Auto) 0.1 Neut % (Auto) 54.9 Lymph % (Auto) 35.5 Humphreys % (Auto) 6.7 Eos % (Auto) 2.5 Baso % (Auto) 0.3 Lymph # (Auto) 2.6 Humphreys # (Auto) 0.5 Eos # (Auto) 0.2 Baso # (Auto) 0.0 Abs Immat Gran (auto) 0.01 Absolute Neuts (auto) 4.0 Absolute Nucleated RBC 0.000 Nucleated RBC % (auto) 0.0 Sodium 144 142 Potassium 3.4 4.5 D Chloride 108 106 Carbon Dioxide 28 29 Anion Gap 11 L 12 BUN 9 13 Creatinine 0.76 0.85 Estim Creat Clear Calc 127.3 109.5 Estimated GFR > 60 > 60 Random Glucose 118 H 93 Estimat Average Glucose 100 Hemoglobin A1c % 5.1 Calcium 8.7 9.4 D Total Bilirubin 0.4 0.8 AST 30 28 ALT 27 26 Alkaline Phosphatase 61 69 Total Protein 6.3 L 6.9 Albumin 4.0 4.3 Triglycerides 157 H Cholesterol 160 LDL Cholesterol, Calc 76 HDL Cholesterol 53 Urine Color Yellow Urine Appearance Clear Urine pH 5.5 Ur Specific [place] 1.015 Urine Protein Negative Urine Glucose (UA) Negative Urine Ketones Negative Urine Blood Trace H Urine Nitrite Negative Ur Leukocyte Esterase Small (1+) H Urine RBC 0-2 Urine WBC 11-20 H Ur Squamous Epith Cells 0-2 Urine Bacteria None Seen Hyaline Casts 0-2 Urine Opiates Screen Not Detected Ur Buprenorphine Scrn Not Detected Ur Oxycodone Screen Not Detected Urine Methadone Screen Not Detected Urine Fentanyl Screen Not Detected Ur Barbiturates Screen Not Detected Ur Phencyclidine Scrn Not Detected Ur Amphetamines Screen Not Detected U Benzodiazepines Scrn Not Detected Urine Cocaine Screen Not Detected U Marijuana (THC) Screen POSITIVE H Ethyl Alcohol < 10 Medications Medications Current Medications Acetaminophen (Acetaminophen 325 Mg Tablet) 650 mg PO Q6H PRN PRN Reason: Headache/Pain, Scale 1-10 Last Admin: 04/14/25 21:59 Dose: 650 mg Al Hydroxide/Mg Hydroxide (Magnesium Hydrox/Alum Hydrox 30 Ml Oral.Susp) 30 ml PO Q6H PRN PRN Reason: Heartburn/Nausea Bupropion HCl (Bupropion Hcl Xl 150 Mg Tab.Er.24h) 150 mg PO DAILY ZACH Last Admin: 04/15/25 08:25 Dose: 150 mg Hydroxyzine HCl (Hydroxyzine Hcl 25 Mg Tablet) 25 mg PO Q6H PRN PRN Reason: mild anxiety Lorazepam (Lorazepam 1 Mg Tablet) 1 mg PO Q2H PRN PRN Reason: CIWA 8-11 Lorazepam (Lorazepam 1 Mg Tablet) 2 mg PO Q2H PRN PRN Reason: CIWA 12-15 Lorazepam (Lorazepam 1 Mg Tablet) 3 mg PO Q2H PRN PRN Reason: CIWA > 15, and call MD Magnesium Hydroxide (Milk Of Magnesia 30 Ml Oral.Susp) 30 ml PO DAILY PRN PRN Reason: Constipation Nicotine (Nicotine 21 Mg Patch.Td24) 21 mg TRANSDERMA DAILY [facility] Last Admin: 04/15/25 08:23 Dose: 21 mg Nicotine Polacrilex (Nicotine Polacrilex 2 Mg Gum) 4 mg BUCCAL Q2H PRN PRN Reason: Nicotine Cravings Olanzapine (Olanzapine 10 Mg Tablet) 10 mg PO BEDTIME [facility] Last Admin: 04/14/25 20:50 Dose: 10 mg Thiamine HCl (Thiamine Hcl 100 Mg Tablet) 100 mg PO DAILY [facility] Last Admin: 04/15/25 08:24 Dose: 100 mg Trazodone HCl (Trazodone Hcl 50 Mg Tablet) 50 mg PO BEDTIME MRX1 PRN PRN Reason: Insomnia Allergies Allergies Allergy/AdvReac Type Severity Reaction Status Date / Time paliperidone (From AlterG) AdvReac liver Verified 04/13/25 15:11 trazodone AdvReac Mild dizzy Uncoded 04/13/25 15:11 Assessment & Plan Assessment & Plan (1) Schizoaffective disorder, depressive type: Status: Acute Code(s): F25.1 - Schizoaffective disorder, depressive type (2) Alcohol abuse: Status: Acute Code(s): F10.10 - Alcohol abuse, uncomplicated Plan Patient is a 54-year-old male with history of schizoaffective disorder and alcohol use disorder who presented to [facility] ER after being found lying on the street by police who sent him to [facility] to be evaluated. Plan: CV 15 minute safety checks continue home medications CIWA protocol encourage groups referral to outpatient psychiatric providers discharge planning 04/15: Active on unit. keeping to self. listening to music with unit headphones. Patient continues to report feeling depressed; not scoring on CIWA. per nursing, slept 8 hours. encouraged to attend groups. denies SI/HI/VH/AH. Continue current tx plan. Patient educated on: diagnosis, medication risk/benefits and therapeutic strategies Reason for continued inpatient stay Substantial Risk for: med/psych decompensation Time Spent With Patient Time: Total time managing care of this patient today _20___ minutes.
[2025-04-15 20:00] VITALS: BP 135/76; PULSE 100; RESP 16; TEMP 36.9; O2SAT 97
[2025-04-16 07:46] VITALS: BP 148/77; PULSE 90; RESP 17; TEMP 36.9; O2SAT 96
[2025-04-16] MEDS: buPROPion HCl XL 150 MG TAB.ER.24H PO (08:25)
[2025-04-16] MEDS: Nicotine 21 MG PATCH.TD24 TRANSDERMA (08:34)
--- NOTE | 2025-04-16 12:20 | HO.PSYCHPN ---
Subjective Subjective Date of Service: 04/16/25 Reason For Visit: crisis Subjective Notes: Conditional Voluntary Interim History: Patient reports feeling better today; denies any withdrawal symptoms; not scoring on CIWA. DC CIWA protocol. denies SI/HI/VH/AH. Plan to discharge Monday if continues to improve;pt aware. Pt reports he plans on returning to his friends [facility]. Continue current tx plan. Medication Compliance: Yes Side effects from medications: No Attending Groups: No Mental Status Exam Mental Status Exam Narrative: Pt is alert and oriented; behavior is cooperative and calm; dressed in casual attire; mood is described as better ; eye contact appropriate; Speech is normal rate, volume and not pressured; thought process is organized; Thought content is on discharge; denies SI/HI/VH/AH. Diagnostics Vital Signs (24Hr): Vital Signs - 24 hr 04/15/25 20:00 04/16/25 07:46 Temperature 98.4 F 98.4 F Pulse Rate 100 90 Respiratory Rate 16 17 Blood Pressure 135/76 148/77 H Pulse Oximetry 97 96 Oxygen Delivery Method Room Air Room Air BMI result Body Mass Index 30.2 Labs 04/13/25 15:49 04/15/25 07:52 Labs: Laboratory Results - last 48 hr 04/15/25 07:52 Sodium 142 Potassium 4.5 D Chloride 106 Carbon Dioxide 29 Anion Gap 12 BUN 13 Creatinine 0.85 Estim Creat Clear Calc 109.5 Estimated GFR > 60 Random Glucose 93 Estimat Average Glucose 100 Hemoglobin A1c % 5.1 Calcium 9.4 D Total Bilirubin 0.8 AST 28 ALT 26 Alkaline Phosphatase 69 Total Protein 6.9 Albumin 4.3 Triglycerides 157 H Cholesterol 160 LDL Cholesterol, Calc 76 HDL Cholesterol 53 Medications Medications Current Medications Acetaminophen (Acetaminophen 325 Mg Tablet) 650 mg PO Q6H PRN PRN Reason: Headache/Pain, Scale 1-10 Last Admin: 04/15/25 20:38 Dose: 650 mg Al Hydroxide/Mg Hydroxide (Magnesium Hydrox/Alum Hydrox 30 Ml Oral.Susp) 30 ml PO Q6H PRN PRN Reason: Heartburn/Nausea Bupropion HCl (Bupropion Hcl Xl 150 Mg Tab.Er.24h) 150 mg PO DAILY [facility] Last Admin: 04/16/25 08:25 Dose: 150 mg Hydroxyzine HCl (Hydroxyzine Hcl 25 Mg Tablet) 25 mg PO Q6H PRN PRN Reason: mild anxiety Last Admin: 04/15/25 20:39 Dose: 25 mg Magnesium Hydroxide (Milk Of Magnesia 30 Ml Oral.Susp) 30 ml PO DAILY PRN PRN Reason: Constipation Nicotine (Nicotine 21 Mg Patch.Td24) 21 mg TRANSDERMA DAILY [facility] Last Admin: 04/16/25 08:34 Dose: 21 mg Nicotine Polacrilex (Nicotine Polacrilex 2 Mg Gum) 4 mg BUCCAL Q2H PRN PRN Reason: Nicotine Cravings Olanzapine (Olanzapine 10 Mg Tablet) 10 mg PO BEDTIME [facility] Last Admin: 04/15/25 20:38 Dose: 10 mg Trazodone HCl (Trazodone Hcl 50 Mg Tablet) 50 mg PO BEDTIME MRX1 PRN PRN Reason: Insomnia Allergies Allergies Allergy/AdvReac Type Severity Reaction Status Date / Time paliperidone (From [place]) AdvReac liver Verified 04/13/25 15:11 trazodone AdvReac Mild dizzy Uncoded 04/13/25 15:11 Assessment & Plan Assessment & Plan (1) Schizoaffective disorder, depressive type: Status: Acute Code(s): F25.1 - Schizoaffective disorder, depressive type (2) Alcohol abuse: Status: Acute Code(s): F10.10 - Alcohol abuse, uncomplicated Plan Patient is a 54-year-old male with history of schizoaffective disorder and alcohol use disorder who presented to [facility] after being found lying on the street by police who sent him to [facility] to be evaluated. Plan: CV 15 minute safety checks continue home medications CIWA protocol encourage groups referral to outpatient psychiatric providers discharge planning 04/15: Active on unit. keeping to self. listening to music with unit headphones. Patient continues to report feeling depressed; not scoring on CIWA. per nursing, slept 8 hours. encouraged to attend groups. denies SI/HI/VH/AH. Continue current tx plan. 04/16: Patient reports feeling better today; denies any withdrawal symptoms; not scoring on CIWA. DC CIWA protocol. denies SI/HI/VH/AH. Plan to discharge Monday if continues to improve;pt aware. Pt reports he plans on returning to his friends [facility]. Continue current tx plan. Patient educated on: diagnosis and medication risk/benefits Reason for continued inpatient stay Substantial Risk for: med/psych decompensation Time Spent With Patient Time: Total time managing care of this patient today _20___ minutes.
[2025-04-16 20:00] VITALS: BP 134/66; PULSE 91; RESP 16; TEMP 36.8; O2SAT 97
[2025-04-17 07:00] VITALS: BMI 29.7
[2025-04-17 07:10] VITALS: BP 114/63; PULSE 91; RESP 14; TEMP 36.9; O2SAT 97
[2025-04-17] MEDS: Nicotine 21 MG PATCH.TD24 TRANSDERMA (08:08)
[2025-04-17] MEDS: buPROPion HCl XL 150 MG TAB.ER.24H PO (08:08)
--- NOTE | 2025-04-17 09:00 | PM.PSYDC ---
DS: Providers Provider Date of Service: 04/17/25 Date of admission: 04/14/25 13:04 Date of discharge: 04/18/25 Primary care physician: Lili Physician Admitting clinician: Sonja Hunt Attending physician on admission: Marshall Draper Attending physician on discharge: Marshall Draper Discharging clinician: Sonja Hunt DS: Diagnosis Discharge Diagnosis (1) Schizoaffective disorder, depressive type: Status: Acute (2) Alcohol abuse: Status: Acute DS: Medications Discharge Medications Home Medications: Previous Rx's ?Medication ?Instructions ?Recorded azithromycin 500 mg tablet 500 mg PO DAILY 2 days #2 tabs 05/12/25 bupropion HCl 300 mg 24 hr tablet, 300 mg PO DAILY 30 days #30 tabs 05/12/25 extended release hydroxyzine HCl 25 mg tablet 25 mg PO TID PRN mild anxiety 30 05/12/25 days #60 tabs olanzapine 10 mg tablet 10 mg PO BEDTIME 30 days #30 tabs 05/12/25 Mental Status Exam Mental Status Exam Narrative: Pt is alert and oriented; behavior is cooperative and calm; dressed in casual attire; mood is described as good ; eye contact appropriate; Speech is normal rate, volume and not pressured; thought process is organized; Thought content is on discharge; denies SI/HI/VH/AH. Data Data Completed and Pending Completed studies during hospitalization [Text1]: 04/13/25 19:16 Urine clean catch - Clean Catch Midstream Urine Culture - Final No growth. DS: Summary Hospital Course Hospital Course: Patient is a 54-year-old male with history of schizoaffective disorder and alcohol use disorder who presented to [facility] ER after being found lying on the street by police who sent him to [facility] to be evaluated. Per crisis report, patient was lying on the street and was discovered by police who sent him to [facility] to be evaluated. During assessment patient was guarded and appeared to be thought blocking. He reports increasing depression however denies SI/HI. He reports alcohol use daily. utox positive for marijuana. Patient reports he does not have outpatient psychiatric providers to prescribe him his psychiatric medications. He reports he has not been medication compliant for a few months. denies AH/VH. During admission assessment, patient presents alert and oriented x3. Calm and cooperative. Patient reports feeling depressed; patient stated, everything is the same. I was waiting for an application for an apartment. I'm trying to stay positive . When asked why he was laying in the street; patient stated, Where else am I going to lay down? I have to lay down somewhere until the garage cools down. I was on the sidewalk, not in the road . Patient reports suicidal ideation with no plan. Patient stated, I'm not thinking of doing it, it just crosses my mind . denies HI/VH/AH. Patient reports he has not taken his medications in a few months due to not following up with outpatient providers. Patient reports he has been drinking alcohol daily but is unable to specify amount. Smoke marijuana daily. utox positive for marijuana. Denies any other substance use. Patient is requesting to be restarted on his home medications. Plan: CV 15 minute safety checks continue home medications CIWA protocol encourage groups referral to outpatient psychiatric providers discharge planning Active on unit. keeping to self. listening to music with unit headphones. Patient continues to report feeling depressed; not scoring on CIWA. per nursing, slept 8 hours. encouraged to attend groups. denies SI/HI/VH/AH. Continue current tx plan. Patient reports feeling better today; denies any withdrawal symptoms; not scoring on CIWA. DC CIWA protocol. denies SI/HI/VH/AH. Plan to discharge Monday if continues to improve;pt aware. Pt reports he plans on returning to his friends garage. Continue current tx plan. Active on unit. attending groups. Patient reports feeling good today; patient reports feeling better than admission. denies any issues at this time. denies SI/HI/VH/AH. DC tomorrow; pt aware. Continue current tx plan. Status at Discharge Cognitive/behavioral status at discharge: Patient has insight and demonstrates good judgment in terms of wanting to pursue treatment. Patient has a safety plan that includes presenting to the closest ER or calling 911 if feeling unsafe. Functional status at discharge: independent ambulation Overall status at discharge: patient is back to baseline Time Spent with Patient Time attestation: Total time managing care of this patient today _20___ minutes. Time spent: Less than 30 minutes Discharge Plan Discharge Anticipated Discharge Date/Time: 04/18/25 10:00 Patient Disposition: Home, Self-Care Discharge Diagnosis: Schizoaffective d/o, Alcohol use d/o [facility]: [facility]) [Other] - 1 Week Referral Note: *You can present to the clinic above, Monday through Monday between the hours of 9am and 4pm, for assistance with alf placement. [facility] [Other] - 1 Week Referral Note: *You can present to the clinic above, Monday through Monday between the hours of 10am and 12pm, in order to obtain outpatient mental health providers. [facility] [Provider Group] - 1 Week Referral Note: 04-17-25 [facility] was added to patients chart. Please call [phone] to schedule a follow up appt within 7-10 days of discharge. No release or PCP on file. Discharge Medications: No Action bupropion HCl 300 mg Tablet Extended Release 24 Hr 300 mg PO DAILY 30 Days Qty: 30 0RF olanzapine 10 mg Tablet 10 mg PO BEDTIME 30 Days Qty: 30 0RF hydroxyzine HCl 25 mg Tablet 25 mg PO TID PRN (Reason: mild anxiety) 30 Days Qty: 60 0RF azithromycin 500 mg Tablet 500 mg PO DAILY 2 Days Qty: 2 0RF Rx Instructions: take 1 tab on Monday and 1 tab on Mon Discharge Orders: Discharge Order (Routine); Ordered 04/18/25 Ordered By: Sonja Hunt Diet: Regular diet Activity on Discharge: As tolerated Stand Alone Forms: Patient Portal Discharge page, Community Support Print Language: Maori Care Plan Goals: Maintain mood and safe behaviors Take medications as prescribed Continue to pursue sobriety Practice coping skills Continue with outpatient providers and reach out to them as needed Health Concerns: Mood stability and behaviors Sobriety Plan of Treatment: Follow up with your PCP, psychiatric provider and other outpatient providers regarding above concerns Take medications as prescribed Assessment: Patient has insight and demonstrates good judgment in terms of wanting to pursue treatment. Patient has a safety plan that includes presenting to the closest ER or calling 911 if feeling unsafe. Discharge Date/Time: 04/18/25 10:33
--- NOTE | 2025-04-17 09:13 | HO.PSYCHPN ---
Subjective Subjective Date of Service: 04/17/25 Reason For Visit: crisis Subjective Notes: Conditional Voluntary Interim History: Active on unit. attending groups. Patient reports feeling good today; patient reports feeling better than admission. denies any issues at this time. denies SI/HI/VH/AH. DC tomorrow; pt aware. Continue current tx plan. Medication Compliance: Yes Side effects from medications: No Attending Groups: Intermittent Mental Status Exam Mental Status Exam Narrative: Pt is alert and oriented; behavior is cooperative and calm; dressed in casual attire; mood is described as good ; eye contact appropriate; Speech is normal rate, volume and not pressured; thought process is organized; Thought content is on discharge; denies SI/HI/VH/AH. Diagnostics Vital Signs (24Hr): Vital Signs - 24 hr 04/16/25 20:00 04/17/25 07:10 Temperature 98.2 F 98.4 F Pulse Rate 91 91 Respiratory Rate 16 14 Blood Pressure 134/66 114/63 Pulse Oximetry 97 97 Oxygen Delivery Method Room Air Room Air BMI result Body Mass Index 29.7 Labs 04/13/25 15:49 04/15/25 07:52 Medications Medications Current Medications Acetaminophen (Acetaminophen 325 Mg Tablet) 650 mg PO Q6H PRN PRN Reason: Headache/Pain, Scale 1-10 Last Admin: 04/15/25 20:38 Dose: 650 mg Al Hydroxide/Mg Hydroxide (Magnesium Hydrox/Alum Hydrox 30 Ml Oral.Susp) 30 ml PO Q6H PRN PRN Reason: Heartburn/Nausea Bupropion HCl (Bupropion Hcl Xl 150 Mg Tab.Er.24h) 150 mg PO DAILY [facility] Last Admin: 04/17/25 08:08 Dose: 150 mg Hydroxyzine HCl (Hydroxyzine Hcl 25 Mg Tablet) 25 mg PO Q6H PRN PRN Reason: mild anxiety Last Admin: 04/16/25 20:08 Dose: 25 mg Magnesium Hydroxide (Milk Of Magnesia 30 Ml Oral.Susp) 30 ml PO DAILY PRN PRN Reason: Constipation Nicotine (Nicotine 21 Mg Patch.Td24) 21 mg TRANSDERMA DAILY [facility] Last Admin: 04/17/25 08:08 Dose: 21 mg Nicotine Polacrilex (Nicotine Polacrilex 2 Mg Gum) 4 mg BUCCAL Q2H PRN PRN Reason: Nicotine Cravings Olanzapine (Olanzapine 10 Mg Tablet) 10 mg PO BEDTIME [facility] Last Admin: 04/16/25 20:08 Dose: 10 mg Trazodone HCl (Trazodone Hcl 50 Mg Tablet) 50 mg PO BEDTIME MRX1 PRN PRN Reason: Insomnia Allergies Allergies Allergy/AdvReac Type Severity Reaction Status Date / Time paliperidone (From [employer]) AdvReac liver Verified 04/13/25 15:11 trazodone AdvReac Mild dizzy Uncoded 04/13/25 15:11 Assessment & Plan Assessment & Plan (1) Schizoaffective disorder, depressive type: Status: Acute Code(s): F25.1 - Schizoaffective disorder, depressive type (2) Alcohol abuse: Status: Acute Code(s): F10.10 - Alcohol abuse, uncomplicated Plan Patient is a 54-year-old male with history of schizoaffective disorder and alcohol use disorder who presented to [facility] after being found lying on the street by police who sent him to [facility] to be evaluated. Plan: CV 15 minute safety checks continue home medications CIWA protocol encourage groups referral to outpatient psychiatric providers discharge planning 04/15: Active on unit. keeping to self. listening to music with unit headphones. Patient continues to report feeling depressed; not scoring on CIWA. per nursing, slept 8 hours. encouraged to attend groups. denies SI/HI/VH/AH. Continue current tx plan. 04/16: Patient reports feeling better today; denies any withdrawal symptoms; not scoring on CIWA. DC CIWA protocol. denies SI/HI/VH/AH. Plan to discharge Monday if continues to improve;pt aware. Pt reports he plans on returning to his friends [facility]. Continue current tx plan. 04/17: Active on unit. attending groups. Patient reports feeling good today; patient reports feeling better than admission. denies any issues at this time. denies SI/HI/VH/AH. DC tomorrow; pt aware. Continue current tx plan. Patient educated on: diagnosis and medication risk/benefits Reason for continued inpatient stay Substantial Risk for: stable for discharge Time Spent With Patient Time: Total time managing care of this patient today _20___ minutes.
[2025-04-17 20:00] VITALS: BP 124/82; PULSE 93; RESP 16; TEMP 36.4; O2SAT 98
[2025-04-18 07:54] VITALS: BP 109/57; PULSE 77; TEMP 36.6; O2SAT 97
[2025-04-18] MEDS: buPROPion HCl XL 150 MG TAB.ER.24H PO (08:43)
== END 2025-04-18 10:33 | disposition home or self-care (01) | DRG 885 ==
LOC: HO.ED 17:44 → HO.PADLT16 04-14 13:03
PROVIDERS: Physician Assistant; Admitting Provider Registered Nurse; Emergency Provider Emergency Medicine; Responsible Provider Registered Nurse; Visit Provider Psychiatry & Neurology Psychiatry
DX: F25.1 Schizoaffective disorder, depressive type (principal); Z59.02 Unsheltered homelessness; F17.210 Nicotine dependence, cigarettes, uncomplicated; Z71.6 Tobacco abuse counseling; F10.10 Alcohol abuse, uncomplicated
CPT/HCPCS: 36415; 80053; 80061; 80307; 81001; 83036; 85025; 87086; 93005; 99285; S9485

== ENCOUNTER → 2025-04-14 09:58 | Outpatient (BNV) | payer MEDICARE, MEDICAID, SELFPAY | PROVIDERS: Admitting Provider Registered Nurse; Emergency Provider Emergency Medicine; Responsible Provider Registered Nurse; Visit Provider Internal Medicine Cardiovascular Disease | DX: Z13.6 Encounter for screening for cardiovascular disorders (principal) | CPT/HCPCS: 93010 ==

== ENCOUNTER → 2025-04-14 13:04 | Outpatient (BNV) | payer MEDICARE, MEDICAID, SELFPAY | PROVIDERS: Admitting Provider Registered Nurse; Emergency Provider Emergency Medicine; Responsible Provider Registered Nurse; Visit Provider Registered Nurse | DX: F25.1 Schizoaffective disorder, depressive type (principal); F10.10 Alcohol abuse, uncomplicated | CPT/HCPCS: 90792; 99231; 99232 ==

== ENCOUNTER 2025-04-26 22:36 | Emergency (ER) | payer MEDICAID, SELFPAY ==
[2025-04-26 22:58] VITALS: BP 120/65; PULSE 89; RESP 18; TEMP 36.5; O2SAT 96; BMI 28.9
[2025-04-26 23:25] VITALS: BP 120/65; PULSE 89; RESP 18; TEMP 36.5; O2SAT 96
[2025-04-26 23:35] LABS: MANUAL DIFF FLAG NO
[2025-04-26 23:36] LABS: Hematocrit 39.7 % (42.0-52.0); Hemoglobin 14.5 g/dl (14.0-18.0); Imm Gran Abs Auto 0.03 X10*3/uL (0.00-0.03); Imm Gran Pct Auto 0.3 % (0.0-0.4); Lymphocytes Absolute Auto 3.8 X10*3/uL (1.2-4.9); Mean Corpuscular HGB Conc 36.5 g/dl (31.0-36.0); Mean Corpuscular Hemoglobin 32.5 pg (27.0-33.0); Mean Corpuscular Volume 89.0 fL (80.0-98.0); NRBC Abs Auto 0.000 X10*3/uL (0.0-0.012); NRBC Pct Auto 0.0 /100WBC (0.0-0.2); Platelet Count 188 X10*3/uL (160-400); Red Blood Count 4.46 X10*6/uL (4.60-5.80); White Blood Count 9.5 X10*3/uL (4.8-10.8)
[2025-04-26 23:50] LABS: Alanine Aminotransferase 33 U/L (0-40); Albumin Level 4.3 g/dL (3.5-5.0); Alkaline Phosphatase 63 U/L (39-117); Anion Gap 10 (12-20); Aspartate Amino Transferase 33 U/L (5-37); Blood Urea Nitrogen 13 mg/dL (9-16); Calcium 9.2 mg/dL (8.4-10.2); Carbon Dioxide 27 mmol/L (22-29); Chloride 106 mmol/L (96-108); Creatinine Clr Calc Pharmacy 101.7; Estimated Glomerular Filt Rate > 60; Potassium 3.7 mmol/L (3.3-5.1); Sodium 139 mmol/L (135-145); Total Protein 6.6 g/dL (6.5-8.0)
--- NOTE | 2025-04-27 00:35 | ED.GENADULT ---
"HPI - General Adult General Chief complaint: Psychiatric Symptoms Stated complaint: detox/program? Time Seen by Provider: 04/26/25 23:22 Source: patient Limitations: no limitations History of Present Illness ED Provider: Mihaela Cassidy PA-C HPI narrative: 54-year-old male with a history of polysubstance abuse, alcohol use disorder, schizoaffective disorder, depression, prior SI housing and security who presents with SI. Patient states he was seen in the emergency room a few days ago, he was offered detox he had declined. Patient states he has been sleeping amidst numerous construction sites. He admits to ongoing alcohol use. He is now suicidal without a plan for self-harm. Denies HI. Related Data Home Medications ?Medication ?Instructions ?Recorded ?Confirmed No Known Home Meds 04/27/25 04/27/25 Allergies Allergy/AdvReac Type Severity Reaction Status Date / Time paliperidone (From Invega) AdvReac liver Verified 04/26/25 23:06 trazodone AdvReac Mild dizzy Uncoded 04/26/25 23:06 Review of Systems Review of Systems: Yes all other systems are reviewed and are negative Constitutional: Constitutional: Denies fatigue and Denies fever(s) Cardiovascular: Cardiovascular: Denies chest pain and Denies dyspnea Respiratory: Respiratory: Denies dyspnea Gastrointestinal: Gastrointestinal: Denies abdominal pain Endocrine: Endocrine: Denies fatigue PMFSH Past Medical History Attestation statement: The following information was validated with the patient. Medical History Acute UTI Depression Suicidal ideation Hematuria Alcohol abuse Schizoaffective disorder, depressive type Cocaine abuse Social History Social History Household Members: None Household Members Other:: up until 2 months ago, lived with spouse in an apartment in [place]; now Housing: Homeless Do you presently have visiting nurse or other home services: No Alcohol intake: current Alcohol intake frequency: 3 or more drinks per day Alcohol type: beer Patient Tobacco Use Status: Current everyday Tobacco user Tobacco use type: Cigarette Cigarette Packs Per Day: 0.5 Cigarettes Per Day: 10.0 Years Smoked: 30 Smoked in Last 30 Days: No e-Cigarette/Vaping Use: Never Used Second Hand Smoke Exposure: No Use of substances other than those prescribed or required for medical reasons: No Substance Use Type: Marijuana Advance Directives: No Advance Directives Information Provided: Yes service: No Current occupational status: unemployed Current occupation: rt hand Sexual orientation: Straight/Heterosexual Physical Exam ED Vital Signs: Vital Signs - 24 hr 04/26/25 22:58 04/26/25 23:25 04/27/25 05:34 Temperature 97.7 F 97.7 F 97.7 F Pulse Rate 89 89 78 Respiratory Rate 18 18 16 Blood Pressure 120/65 120/65 127/71 Pulse Oximetry 96 96 98 Oxygen Delivery Method Room Air Room Air Room Air 04/27/25 09:09 04/27/25 13:01 Temperature 98.1 F 98.1 F Pulse Rate 73 73 Respiratory Rate 14 14 Blood Pressure 119/79 119/79 Pulse Oximetry 97 97 Oxygen Delivery Method Room Air Room Air BMI result Body Mass Index 28.9 Const Other: Alert Orientation/consciousness: patient oriented x3 Resp Effort & Inspection: normal respiratory effort Cardio Other: Normal peripheral perfusion Skin Other: Warm dry no rash Neuro General: patient oriented x3, gait normal, no focal motor deficits and CN's II-XI intact bilaterally Psych Other: Cooperative Course Reevaluation(s) Reevaluation #1: Time: 00:49 Date: 04/27/25 Provider: MIGUEL A Fink Patient in physician observation for psychiatric evaluation.? No acute events reported overnight. No current complaints. VS stable.? Patient is in bed search status/pending CARE team evaluation. Will continue to monitor. Time: 00:49 Reevaluation #2: Time: 12:57 Date: 04/27/25 Provider: Marco Arriaga MD Physician observation ended at 12:45. Patient has been cleared for discharge by the CARE team. Will follow up as an outpatient. Referrals will be made to [facility] and and for outpatient services, specifically [facility] services. The patient seems comfortable with the idea of being discharged. The patient was recently on our inpatient psychiatric unit from April 14 through April 17. Medical Decision Making Medical Decision Making MDM Narrative: 54-year-old male with a history of polysubstance abuse, alcohol use disorder, schizoaffective disorder, depression, prior SI housing and security who presents with SI. Patient states he was seen in the emergency room a few days ago, he was offered detox he had declined. Patient states he has been sleeping amidst numerous construction sites. He admits to ongoing alcohol use. He is now suicidal without a plan for self-harm. Denies HI. Problem: Substance abuse, psychiatric illness History: Per patient I have considered the following differential diagnoses: SI, HI, decompensated psychiatric illness, drug/alcohol intoxication Plan: The patient will referred to the care team and to the cryolite recovery operator, we will be screening basic labs, serum ethanol and drug screen. We will be placing a CIWA. I have independently reviewed the following tests: Labs: No leukocytosis, not anemic, no electrolyte abnormality, ethanol less than 10, drug screen pending Lab Data 04/26/25 23:31 04/26/25 23:31 Labs: Lab Results 04/26/25 04/27/25 Range/Units 23:31 05:36 WBC 9.5 (4.8-10.8) X10*3/uL RBC 4.46 L (4.60-5.80) X10*6/uL Hgb 14.5 (14.0-18.0) g/dl Hct 39.7 L (42.0-52.0) % MCV 89.0 (80.0-98.0) fL MCH 32.5 (27.0-33.0) pg MCHC 36.5 H (31.0-36.0) g/dl RDW 12.5 (11.0-16.0) % Plt Count 188 (160-400) X10*3/uL MPV 9.7 (9.4-12.4) fL Immature Gran % (Auto) 0.3 (0.0-0.4) % Neut % (Auto) 51.3 (45-73) % Lymph % (Auto) 39.9 (20-40) % [place] % (Auto) 6.0 (2-11) % Eos % (Auto) 2.3 (0-4) % Baso % (Auto) 0.2 (0-2) % Lymph # (Auto) 3.8 (1.2-4.9) X10*3/uL [place] # (Auto) 0.6 (0.1-1.2) X10*3/uL Eos # (Auto) 0.2 (0.0-0.4) X10*3/uL Baso # (Auto) 0.0 (0.0-0.2) X10*3/uL Abs Immat Gran (auto) 0.03 (0.00-0.03) X10*3/uL Absolute Neuts (auto) 4.9 (2.0-8.3) x10*3/uL Absolute Nucleated RBC 0.000 (0.0-0.012) X10*3/uL Nucleated RBC % (auto) 0.0 (0.0-0.2) /100WBC Sodium 139 (135-145) mmol/L Potassium 3.7 (3.3-5.1) mmol/L Chloride 106 (96-108) mmol/L Carbon Dioxide 27 (22-29) mmol/L Anion Gap 10 L (12-20) BUN 13 (9-16) mg/dL Creatinine 0.84 (0.5-1.4) mg/dL Estim Creat Clear Calc 101.7 Estimated GFR > 60 Random Glucose 110 (60-115) mg/dL Calcium 9.2 (8.4-10.2) mg/dL Total Bilirubin 0.6 (0.0-1.0) mg/dL AST 33 (5-37) U/L ALT 33 (0-40) U/L Alkaline Phosphatase 63 (39-117) U/L Total Protein 6.6 (6.5-8.0) g/dL Albumin 4.3 (3.5-5.0) g/dL Urine Opiates Screen Not Detected (Not Detect) Ur Buprenorphine Scrn Not Detected (Not Detect) ng/mL Ur Oxycodone Screen Not Detected (Not Detect) ng/mL Urine Methadone Screen Not Detected (Not Detect) ng/mL Urine Fentanyl Screen Not Detected (Not Detect) Ur Barbiturates Screen Not Detected (Not Detect) Ur Phencyclidine Scrn Not Detected (Not Detect) Ur Amphetamines Screen Not Detected (Not Detect) U Benzodiazepines Scrn Not Detected (Not Detect) Urine Cocaine Screen Not Detected (Not Detect) U Marijuana (THC) Screen POSITIVE H (Not Detect) Ethyl Alcohol < 10 mg/dL Discharge Plan Discharge Clinical Impression: Suicidal ideation, Alcohol abuse, Polysubstance abuse Patient Disposition: Home, Self-Care Additional Instructions: You were seen by a member of our behavioral health team who will be making [facility]errals to [facility], and behavioral health network ([facility]) for outpatient services for you. Please work on getting a primary care doctor. Return to the emergency room if you feel worse. If you wish to speak with someone confidentially about how you are feeling you may contact the [facility] Crisis Hotline at 2-858-KBDTraveler | VIP, or [phone]. Prescriptions: No Action No Known Home Meds Referrals: [facility] [Outside] Interventions: [place]-Suicide Risk Severity Scale Last Done: 04/26/25 23:25 ED Discharge Assessment Last Done: 04/27/25 13:01 Discharge Date/Time: 04/27/25 13:09 Print Language: Cameroonian"
[2025-04-27 05:34] VITALS: BP 127/71; PULSE 78; RESP 16; TEMP 36.5; O2SAT 98
[2025-04-27 05:57] LABS: Cannabinoid Screen Urine POSITIVE (Not Detect)
[2025-04-27 09:09] VITALS: BP 119/79; PULSE 73; RESP 14; TEMP 36.7; O2SAT 97
--- NOTE | 2025-04-27 10:00 | PC.NURSE ---
pt states he is not taking any medications at home. he states he used to take olanzapine and bupropion but he is not anymore. med rec updated
[2025-04-27 13:01] VITALS: BP 119/79; PULSE 73; RESP 14; TEMP 36.7; O2SAT 97
== END 2025-04-27 13:09 | disposition home or self-care (01) ==
PROVIDERS: Emergency Provider Emergency Medicine
DX: R45.851 Suicidal ideations (principal); F10.10 Alcohol abuse, uncomplicated; F19.10 Other psychoactive substance abuse, uncomplicated; F32.A Depression, unspecified; F25.9 Schizoaffective disorder, unspecified; Y90.0 Blood alcohol level of less than 20 mg/100 ml
CPT/HCPCS: 36415; 80053; 80307; 85025; 99285; S9485

== ENCOUNTER 2025-05-03 19:30 | Inpatient (IN) | payer OTHER, MEDICAID, SELFPAY ==
[2025-05-03 19:39] VITALS: BP 130/79; PULSE 91; RESP 17; TEMP 37.3; O2SAT 98; BMI 28.4
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
[2025-05-03 19:52] VITALS: O2SAT 95
--- OUTSIDE RECORDS SUMMARY | 2025-05-03 20:03 | XMS_ITS | Clinical Summary ---
Author Organization [employer] Address [address] [facility] [address] [place] [address] Care Team Providers Care Devops Consultant Name Role Phone Unavailable Primary Care Provider Unavailabl e Encounters Date Type Department Care Team Description 04/24/2025 Patient Outreach [facility] [address] [place] [phone] Patricia Chandler FNP Care Coordination (CHW outreach for SD[facility] housing search-referral completed ) 04/24/2025 Telephone [facility]OLL[facility] [address] [place] [address] Cindy Dimas MD from Last 3 Months Social History Tobacco Use Types Packs/Day Years Used Date Smoking Tobacco: Never Assessed Sex and Gender Information Value Date Recorded Sex Assigned at Male 08/15/2022 10:15 AM EDT Legal Sex Male 10:15 AM EDT Gender Identity Male 08/15/2022 10:15 AM EDT Sexual Orientation Straight 08/15/2022 10 :15 AM EDT Last Filed Vital Signs Vital Sign Reading Time Taken Comments Blood Pressure 120/80 03/26/2021 12:06 AM EDT Pulse - - Temperature - - Respiratory Rate - - Oxygen Saturation - - Inhaled Oxygen Concentration - - Weight - - Height - - Body Mass Index - - Plan of Treatment Upcoming Encounters Date Type Department Care Team (Late st Contact Info) Description 05/14/2025 2:00 PM EDT Office Visit [facility] [address] [place] [phone] Patricia Chandler FNP [address] [place] [address] Health Maintenance Due Date Last Done Comments CT Colonography 1971 Colonoscopy 1971 Colorectal Cancer Screening 1971 Depression Screening 1971 FIT DNA/Cologuard 1971 FIT 1971 FOBT 1971 HIV Screening 1971 SDOH Screening 1971 Sigmoidoscopy 1971 Disability Screening 1971 Alcohol/Substance Use Screening 1983 Tobacco Screening 1983 Hepatitis C Screening 1989 Hepatitis B Vaccines (1 of 3 - 19+ 3-dose series) 1990 Pneumococcal Vaccine: 50+ Years (1 of 1 - PCV) 2021 Zoster Vaccines (1 of 2) 2021 COVID-19 Vaccine (2 - season) 2024 01/23/2021 Lipid Panel 04/08/2025 04/08/2020 Influenza Vaccine (#1) 2025 8, 08/01/2016, 07/13/2015, Additional history exists DTaP/Tdap/Td Vaccines (2 - Td or Tdap) 08/19/2025 08/19/2015 RSV Patients and Patients Aged 60 years or older (1 - 1-dose 75+ series) 2046 HIB Vaccines Aged Out No longer eligi ble based on patient's age to complete this topic HPV Vaccines Aged Out No longer eligi ble based on patient's age to complete this topic Hepatitis A Vaccines Aged Out No long er eligible based on patient's age to complete this topic IPV Vaccines Aged Out No longer eligi ble based on patient's age to complete this topic Meningococcal B Vaccine Aged Out No l onger eligible based on patient's age to complete this topic Meningococcal Vaccine Aged Out No allan jarod eligible based on patient's age to complete this topic RSV under 20 months Aged Out No longe r eligible based on patient's age to complete this topic Rotavirus Vaccines Aged Out No longer eligible based on patient's age to complete this topic Procedures Procedure Name Priority Date/Time Associated Diagnosis Comments LIPID PANEL, STANDARD Routine 04/08/2020 9:09 AM EDT from Last 3 Months or Most Recently Relevant to Health Maintenance Results * LIPID PANEL, STANDARD (04/08/2020 9:09 AM EDT) Cholesterol, Total 139 <200 mg/dL [facility] LDL Cholesterol 76 mg/dL (calc) [facility] Comment: Reference range: <100 Desirable range <100 mg/dL for primary prevention; <70 mg/dL for patients with CHD or diabetic patients with > or = 2 CHD risk factors. LDL-C is now calculated using the Marco-Alves calculation, which is a validated novel method providing better accuracy than the Friedewald equation in the estimation of LDL-C. Marco SS et al. ROSY. 2013;310(19): 9941-1517 (http://education.sunne.ws.Celtro/faq/DPR947) HDL Cholesterol 43 > OR = 40 mg/dL [facility] Chol/HDLC Ratio 3.2 <5.0 (calc) [facility] Triglycerides 115 <150 mg/dL [facility] Cholesterol, Total 139 <200 mg/dL [facility] LDL Cholesterol 76 mg/dL (calc) [facility] Comment: Reference range: <100 Desirable range <100 mg/dL for primary prevention; <70 mg/dL for patients with CHD or diabetic patients with > or = 2 CHD risk factors. LDL-C is now calculated using the Marco-Alves calculation, which is a validated novel method providing better accuracy than the Friedewald equation in the estimation of LDL-C. Marco SS et al. ROSY. 2013;310(19): 5197-5729 (http://education.sunne.ws.Celtro/faq/NIN289) HDL Cholesterol 43 > OR = 40 mg/dL [facility] Chol/HDLC Ratio 3.2 <5.0 (calc) [facility] Non-HDL Cholesterol 96 <130 mg/dL (calc) [facility] Comment: For patients with diabetes plus 1 major ASCVD risk factor, treating to a non-HDL-C goal of <100 mg/dL (LDL-C of <70 mg/dL) is considered a therapeutic option. Non-HDL Cholesterol 96 <130 mg/dL (calc) [facility] Comment: For patients with diabetes plus 1 major ASCVD risk factor, treating to a non-HDL-C goal of <100 mg/dL (LDL-C of <70 mg/dL) is considered a therapeutic option. Triglycerides 115 <150 mg/dL [facility] 04/08/2020 9:09 AM EDT us Marion Grey MD LAB BLOOD ORDERABLES Final Result [facility] [address] from Last 3 Months or Most Recently Relevant to Health Maintenance Insurance * Guarantor: Nathaniel Grier Account Type Relation to Patient Date of Phone Billing Address Personal/Family Self Homeless [place] [id number] [facility] * Guarantor: Nathaniel Grier Account Type Relation to Patient Date of Phone Billing Address Personal/Family Self [place] [id number] * Guarantor: Nathaniel Grier Account Type Relation to Patient Date of Phone B[place] [address] * Guarantor: Nathaniel Grier Account Type Relation to Patient Date of Phone Billing Address Personal/Family Self Homeless [place] [id number]
[2025-05-03 20:15] VITALS: BP 136/78; PULSE 89; RESP 20; TEMP 37.3; O2SAT 98
[2025-05-03 20:22] LABS: IDNOW Serial# 6674DD1D; Strep A Nucleic Acid Negative (Negative)
[2025-05-03 20:34] LABS: Resp Syncy Virus RNA Qual PCR NEGATIVE (Negative); SARS COV2 PCR INHOUSE NEGATIVE (Negative)
--- NOTE | 2025-05-03 21:18 | PC.NURSE ---
This Nurse went to go d/c patient, and patient said Can you send me to [facility]? This nurse asked why patient said I feel sick and i'm not going to make. This nurse asked for clarification on what the pt meant, pt told this nurse I want to kill myself. when this nurse asked what his plan was pt stated I'm going th throw myself off a bridge. Provider & valve machine operator Notified. PT changed into crisis clothing.
--- NOTE | 2025-05-03 22:07 | PC.NURSE ---
Pt aox4, calm and cooperative, presents with SI and a plan to jump off of a bridge. Denies any pain at this time. Pending physician eval.
[2025-05-04 08:55] VITALS: BP 141/69; PULSE 99; RESP 16; TEMP 37; O2SAT 96
--- NOTE | 2025-05-04 08:56 | MHC.EDTECH ---
Patient reminded that urine is needed.
[2025-05-04 10:19] LABS: Cannabinoid Screen Urine POSITIVE (Not Detect)
--- NOTE | 2025-05-04 10:28 | PC.NURSE ---
Pt calm, cooperative with care; pt with nasal congestion/cough/sneezing; cooperative with wearing a mask as he's in a shared open room; afebrile; vss; LS CTA; care team eval pending
--- NOTE | 2025-05-04 15:25 | PHA.MEDREC ---
Pharmacy Consult ? Medication Reconciliation Pharmacy has completed the medication reconciliation. Per HYUN Doll, patient is not taking any medications.
[2025-05-04 17:11] VITALS: BP 143/74; PULSE 106; RESP 16; TEMP 36.8; O2SAT 99
--- NOTE | 2025-05-04 19:16 | PC.NURSE ---
call made to the POD from a female stating she's looking for someone named Nathaniel Grier, asked to identify herself and stated she was his Janett. pt stated he does not know a Janett and his 's name is Madelyn. this RN told the female there is not someone of that name here as patient did not want me to tell her. unable to write down her number before she hung up. ED clerical secretary notified.
--- NOTE | 2025-05-05 | ECG_ITS ---
Test Reason : rule out prolong qtc Blood Pressure : */* mmHG Vent. Rate : 70 BPM Atrial Rate : 70 BPM P-R Int : 152 ms QRS Dur : 100 ms QT Int : 362 ms P-R-T Axes : 25 19 -33 degrees QTcB Int : 390 ms Normal sinus rhythm T wave abnormality, consider lateral ischemia Abnormal ECG When compared with ECG of 14-Apr-2025 10:23, T wave inversion now evident in Lateral leads Referred By: Dontrell Nolan Electronically Signed By: Colten Travis
--- NOTE | 2025-05-05 05:24 | PC.NURSE ---
approx midnight pt reported difficulty sleeping. states melatonin helps him sleep. verbal order from james placed and given per dec. pt has been sleeping, resp even and unlabored.
[2025-05-05 06:40] VITALS: BP 131/69; PULSE 86; RESP 18; TEMP 36.7; O2SAT 96
--- NOTE | 2025-05-05 07:13 | PC.NURSE ---
Assumed care of patient at 0645, patient appears to be in no apparent distress this am, listening to music on couch in BH 7, calm and cooperative, offering no complaints to this RN. Continue plan of care for IPLOC
[2025-05-05 07:31] LABS: Appearance Urine Turbid; Glucose Urine UA 100 mg/dL (Negative); PH 6.0 (5.0-9.0); Specific Gravity - Urine 1.025 (1.005-1.025); UMIC TRIGGER UA YES
[2025-05-05 07:31] LABS: MANUAL DIFF FLAG NO
[2025-05-05 07:36] LABS: Hematocrit 42.9 % (42.0-52.0); Hemoglobin 15.1 g/dl (14.0-18.0); Imm Gran Abs Auto 0.02 X10*3/uL (0.00-0.03); Imm Gran Pct Auto 0.2 % (0.0-0.4); Lymphocytes Absolute Auto 2.8 X10*3/uL (1.2-4.9); Mean Corpuscular HGB Conc 35.2 g/dl (31.0-36.0); Mean Corpuscular Hemoglobin 32.3 pg (27.0-33.0); Mean Corpuscular Volume 91.7 fL (80.0-98.0); NRBC Abs Auto 0.000 X10*3/uL (0.0-0.012); NRBC Pct Auto 0.0 /100WBC (0.0-0.2); Platelet Count 205 X10*3/uL (160-400); Red Blood Count 4.68 X10*6/uL (4.60-5.80); White Blood Count 10.8 X10*3/uL (4.8-10.8)
[2025-05-05 08:10] LABS: Alanine Aminotransferase 16 U/L (0-40); Albumin Level 4.0 g/dL (3.5-5.0); Alkaline Phosphatase 65 U/L (39-117); Anion Gap 13 (12-20); Aspartate Amino Transferase 21 U/L (5-37); Blood Urea Nitrogen 22 mg/dL (9-16); Calcium 8.8 mg/dL (8.4-10.2); Carbon Dioxide 25 mmol/L (22-29); Chloride 107 mmol/L (96-108); Creatinine Clr Calc Pharmacy 118.9; Estimated Glomerular Filt Rate > 60; Potassium 4.0 mmol/L (3.3-5.1); Sodium 141 mmol/L (135-145); Total Protein 6.4 g/dL (6.5-8.0)
[2025-05-05 17:25] VITALS: BP 123/68; PULSE 87; RESP 16; TEMP 36.8; O2SAT 97
--- NOTE | 2025-05-05 17:26 | PC.NURSE ---
pt has been resting all day, moved to 4 for comfort, continues to listen to music as coping mechanism
--- NOTE | 2025-05-06 02:41 | PC.NURSE ---
pt is sleeping
[2025-05-06 08:06] VITALS: BP 117/57; PULSE 80; RESP 16; TEMP 36.5; O2SAT 98
--- NOTE | 2025-05-06 11:44 | PC.NURSE ---
pt states he is not taking any medications at home. He says he is supposed to be taking them but he has been out for several months. he dos not know what they are
--- NOTE | 2025-05-06 12:03 | PHA.MEDREC ---
Pharmacy Consult ? Medication Reconciliation Pharmacy has REVIEWED the medication reconciliation COMPLETED BY NURSING. RN states pt states he is not taking any medications at home. He says he is supposed to be taking them but he has been out for several months. he dos not know what they are.
[2025-05-06 13:20] VITALS: BP 134/76; PULSE 72; RESP 18; TEMP 36.6; O2SAT 97
[2025-05-06 14:34] VITALS: BMI 28.2
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
[2025-05-06 20:00] VITALS: BP 127/64; PULSE 76; TEMP 36.6; O2SAT 98
[2025-05-07 08:00] VITALS: BP 124/75; PULSE 76; TEMP 37.2; O2SAT 98
[2025-05-07 08:39] LABS: Hemoglobin A1C 143.9106 umol/L; Total Hemoglobin (HGBA1C) 4361.0068 umol/L
[2025-05-07 08:41] LABS: Alanine Aminotransferase 18 U/L (0-40); Albumin Level 4.4 g/dL (3.5-5.0); Alkaline Phosphatase 68 U/L (39-117); Anion Gap 11 (12-20); Aspartate Amino Transferase 22 U/L (5-37); Blood Urea Nitrogen 17 mg/dL (9-16); Calcium 9.3 mg/dL (8.4-10.2); Carbon Dioxide 28 mmol/L (22-29); Chloride 106 mmol/L (96-108); Cholesterol 125 mg/dL (<200); Creatinine Clr Calc Pharmacy 128.0; Estimated Glomerular Filt Rate > 60; HDL Cholesterol 49 mg/dL (>40); Potassium 4.1 mmol/L (3.3-5.1); Sodium 141 mmol/L (135-145); Total Protein 7.0 g/dL (6.5-8.0); Triglycerides 74 mg/dL (<150)
--- NOTE | 2025-05-07 08:50 | P.HPPS_ITS ---
HPI Date of Service: 05/07/25 Chief Complaint: depression s/i Sources of Information: patient interviewed, chart reviewed and crisis/core team assessment reviewed HPI Subjective Notes: [place] Warning Narrative: Pt seen at 11:00am 05/07 Patient is a 54-year-old male with history of schizoaffective disorder and alcohol use disorder who self presented to ER due to suicidal ideation secondary to increased depression, alcohol abuse and medication noncompliance. Patient was discharged from on 04/18/25. He said he took medications for a little while but then stopped. One reason he gave was he felt they changed medications on me though as far as grant writer could tell, he was continued on the same medications he had been on previously. Patient said he continued drinking on discharge. He said started feeling depressed and started to have thoughts of SI which he said when he presented to the ED. denies any AVH. Patient agrees to get back on Zyprexa and Wellbutrin. He says he has known stopping and does not want treatment of any kind for substance abuse. Past Psychiatric History: History of multiple inpatient psychiatric hospitalizations. SA: reports more than 3. MRE 3-4 yrs ago. SIB: reports h/o cutting, more than 10 years ago. Denies current outpatient psychiatric providers Medical Evaluation Reviewed: Yes [facility] Medical History Depression Acute UTI Depression Suicidal ideation Hematuria Alcohol abuse Schizoaffective disorder, depressive type Cocaine abuse Family History: Unknown Social History: Homeless. completed the 7th grade. Currently not working, on SSI Substance History: alcohol; does not detail amount Trauma History: Affirms through and family losses Diagnostics Vital Signs (24Hr): Vital Signs - 24 hr 05/06/25 13:20 05/06/25 20:00 05/07/25 08:00 Temperature 97.9 F 97.9 F 98.9 F Pulse Rate 72 76 76 Respiratory Rate 18 Blood Pressure 134/76 127/64 124/75 Pulse Oximetry 97 98 98 Oxygen Delivery Method Room Air Room Air Room Air BMI result Body Mass Index 28.2 Labs 05/05/25 07:25 05/07/25 07:58 Labs: Laboratory Results - last 48 hr 05/07/25 07:58 Sodium 141 Potassium 4.1 Chloride 106 Carbon Dioxide 28 Anion Gap 11 L BUN 17 H Creatinine 0.75 Estim Creat Clear Calc 128.0 Estimated GFR > 60 Random Glucose 88 Estimat Average Glucose 103 Hemoglobin A1c % 5.2 Calcium 9.3 Total Bilirubin 0.5 AST 22 ALT 18 Alkaline Phosphatase 68 Total Protein 7.0 Albumin 4.4 Triglycerides 74 Cholesterol 125 LDL Cholesterol, Calc 62 HDL Cholesterol 49 Meds/Allergies Meds Home Medications ?Medication ?Instructions ?Recorded ?Confirmed ?Type No Known Home Meds 05/06/25 05/06/25 Hi story Allergies Allergies Allergy/AdvReac Type Severity Reaction Status Date / Time paliperidone (From InvenQuery) AdvReac liver Verified 05/03/25 19:41 trazodone AdvReac Mild dizzy Uncoded 05/03/25 19:41 Mental Status Exam Mental Status Exam Narrative: Pt is alert and oriented; behavior is superficially cooperative, calm; patient is not in distress; dressed in casual attire, unkempt, scruffy; mood is described as depressed and affect congruent, downcast; eye contact avoidant; Speech is slow and soft; psychomotor retardation present; thought process is goal directed; Thought content is on not much disclosed; no delusional ideations expressed; says some residual SI; no HI; Denies AVH and there is though does seem somewhat internally preoccupied Patients insight and judgment impaired Assessment & Plan Assessment & Plan (1) Schizoaffective disorder, depressive type: Status: Acute Code(s): F25.1 - Schizoaffective disorder, depressive type (2) Alcohol abuse: Status: Acute Code(s): F10.10 - Alcohol abuse, uncomplicated Plan HPI Patient is a 54-year-old male with history of schizoaffective disorder and alcohol use disorder who self presented to ER due to suicidal ideation secondary to increased depression, alcohol abuse and medication noncompliance. Patient was discharged from on 04/18/25. He said he took medications for a little while but then stopped. One reason he gave was he felt they changed medications on me though as far as grant writer could tell, he was continued on the same medications he had been on previously. Patient said he continued drinking on discharge. He said started feeling depressed and started to have thoughts of SI which he said when he presented to the ED. denies any AVH. Patient agrees to get back on Zyprexa and Wellbutrin. He says he has known stopping and does not want treatment of any kind for substance abuse. Formulation/clinical reasoning: Patient presents similarly to past admissions. Difficult with which to engage. He agrees to restart home medications of Wellbutrin and Zyprexa which he said was helpful in the past. Patient has no interest in addressing alcohol use disorder and does not want treatment of any kind. Says he has some residual SI, though no intent or plans Plan: CV Q 15 minute checks Restart Wellbutrin XL 150 mg Restart Zyprexa 10 mg q.h.s. Patient not in withdrawal Patient educated on: medication risk/benefits and substance abuse Informed Consent: understands Reason for continued inpatient stay Substantial Risk for: rapid decompensation Statement Statement: I have reviewed the history and physical and performed a pertinent examination on my patient. No changes have occurred unless specified. If the History and Physical was not performed prior to admission, the Hospitalist's service will be consulted for completing the admission physical. Time Spent With Patient Time: Total time managing care of this patient today ____ minutes.
[2025-05-07] MEDS: buPROPion HCl XL 150 MG TAB.ER.24H PO (11:07)
[2025-05-07 19:48] VITALS: BP 153/80; PULSE 98; O2SAT 100
[2025-05-08 07:00] VITALS: BMI 27.9
[2025-05-08 08:00] VITALS: BP 117/68; PULSE 75; RESP 16; TEMP 37.2; O2SAT 98
[2025-05-08] MEDS: buPROPion HCl XL 150 MG TAB.ER.24H PO (08:20)
--- NOTE | 2025-05-08 09:13 | P.PNPSI_ITS ---
Subjective Subjective Date of Service: 05/08/25 Reason For Visit: depression s/i Interim History: Met with patient; discussed with team Patient reports that he is feeling better. He says his running thoughts are less... Patient agrees to increase Wellbutrin; sleeping and eating well Mental Status Exam Mental Status Exam Narrative: Pt is alert and oriented; behavior is superficially cooperative, calm; patient is not in distress; dressed in casual attire, unkempt, scruffy; mood is described as better and affect congruent, little brighter; eye contact avoidant; Speech is still slow and soft; some psychomotor retardation present; thought process is goal directed; Thought content is on not much disclosed; no delusional ideations expressed; No SI; no HI; Denies AVH and there is though does seem somewhat internally preoccupied Patients insight and judgment improving. Diagnostics Vital Signs (24Hr): Vital Signs - 24 hr 05/07/25 19:48 05/08/25 08:00 Temperature 98.9 F Pulse Rate 98 75 Respiratory Rate 16 Blood Pressure 153/80 H 117/68 Pulse Oximetry 100 98 Oxygen Delivery Method Room Air Room Air BMI result Body Mass Index 28.2 Labs 05/05/25 07:25 05/07/25 07:58 Labs: Laboratory Results - last 48 hr 05/07/25 07:58 Sodium 141 Potassium 4.1 Chloride 106 Carbon Dioxide 28 Anion Gap 11 L BUN 17 H Creatinine 0.75 Estim Creat Clear Calc 128.0 Estimated GFR > 60 Random Glucose 88 Estimat Average Glucose 103 Hemoglobin A1c % 5.2 Calcium 9.3 Total Bilirubin 0.5 AST 22 ALT 18 Alkaline Phosphatase 68 Total Protein 7.0 Albumin 4.4 Triglycerides 74 Cholesterol 125 LDL Cholesterol, Calc 62 HDL Cholesterol 49 TSH 1.13 Medications Medications Current Medications Acetaminophen (Acetaminophen 325 Mg Tablet) 650 mg PO Q6H PRN PRN Reason: Headache/Pain, Scale 1-10 Al Hydroxide/Mg Hydroxide (Magnesium Hydrox/Alum Hydrox 30 Ml Oral.Susp) 30 ml PO Q6H PRN PRN Reason: Heartburn/Nausea Bupropion HCl (Bupropion Hcl Xl 150 Mg Tab.Er.24h) 150 mg PO DAILY ZACH Last Admin: 05/08/25 08:20 Dose: 150 mg Folic Acid (Folic Acid 1 Mg Tablet) 1 mg PO DAILY ZACH Last Admin: 05/08/25 08:20 Dose: 1 mg Hydroxyzine HCl (Hydroxyzine Hcl 25 Mg Tablet) 25 mg PO Q6H PRN PRN Reason: mild anxiety Last Admin: 05/07/25 20:49 Dose: 25 mg Magnesium Hydroxide (Milk Of Magnesia 30 Ml Oral.Susp) 30 ml PO DAILY PRN PRN Reason: Constipation Multivitamins/Vitamin C (Multivitamin Tablet) 1 tab PO DAILY [facility] Last Admin: 05/08/25 08:19 Dose: 1 tab Nicotine (Nicotine 21 Mg Patch.Td24) 21 mg TRANSDERMA DAILY PRN PRN Reason: smoking cessation Nicotine Polacrilex (Nicotine Polacrilex 2 Mg Gum) 4 mg BUCCAL Q2H PRN PRN Reason: Nicotine Cravings Olanzapine (Olanzapine 5 Mg Tablet) 5 mg PO TID PRN PRN Reason: agitation Olanzapine (Olanzapine 10 Mg Tablet) 10 mg PO BEDTIME [facility] Last Admin: 05/07/25 20:50 Dose: 10 mg Thiamine HCl (Thiamine Hcl 100 Mg Tablet) 100 mg PO DAILY [facility] Last Admin: 05/08/25 08:19 Dose: 100 mg Trazodone HCl (Trazodone Hcl 50 Mg Tablet) 50 mg PO BEDTIME MRX1 PRN PRN Reason: Insomnia Allergies Allergies Allergy/AdvReac Type Severity Reaction Status Date / Time paliperidone (From InvJourneyPure) AdvReac liver Verified 05/03/25 19:41 trazodone AdvReac Mild dizzy Uncoded 05/03/25 19:41 Assessment & Plan Assessment & Plan (1) Schizoaffective disorder, depressive type: Status: Acute Code(s): F25.1 - Schizoaffective disorder, depressive type (2) Alcohol abuse: Status: Acute Code(s): F10.10 - Alcohol abuse, uncomplicated Plan HPI Patient is a 54-year-old male with history of schizoaffective disorder and alcohol use disorder who self presented to ER due to suicidal ideation secondary to increased depression, alcohol abuse and medication noncompliance. Patient was discharged from on 04/18/25. He said he took medications for a little while but then stopped. One reason he gave was he felt they changed medications on me though as far as video games storywriter could tell, he was continued on the same medications he had been on previously. Patient said he continued drinking on discharge. He said started feeling depressed and started to have thoughts of SI which he said when he presented to the ED. denies any AVH. Patient agrees to get back on Zyprexa and Wellbutrin. He says he has known stopping and does not want treatment of any kind for substance abuse. Formulation/clinical reasoning: Patient presents similarly to past admissions. Difficult with which to engage. He agrees to restart home medications of Wellbutrin and Zyprexa which he said was helpful in the past. Patient has no interest in addressing alcohol use disorder and does not want treatment of any kind. Says he has some residual SI, though no intent or plans Hospital course: 05/08 Patient reports that he is feeling better. He says his running thoughts are less... Patient agrees to increase Wellbutrin; sleeping and eating well Plan: CV Q 15 minute checks Increase to Wellbutrin XL 300 mg Restart Zyprexa 10 mg q.h.s. Patient not in withdrawal Patient educated on: diagnosis and medication risk/benefits Informed Consent: understands Reason for continued inpatient stay Substantial Risk for: rapid decompensation Time Spent With Patient Time: Total time managing care of this patient today ____ minutes.
[2025-05-08 20:00] VITALS: BP 148/69; PULSE 96; TEMP 36.7; O2SAT 96
[2025-05-09 08:00] VITALS: BP 132/76; PULSE 80; RESP 16; TEMP 36.9; O2SAT 98
[2025-05-09] MEDS: buPROPion HCl XL 300 MG TAB.ER.24H PO (08:41)
--- NOTE | 2025-05-09 09:54 | P.PNPSI_ITS ---
Subjective Subjective Date of Service: 05/09/25 Reason For Visit: depression s/i Interim History: met with patient; discussed with team pt reports he's feeling better and that increase in Wellbutrin seems to be helping; discussed outpt services and pt says he has appointment pending and will follow up; pt's says plan is to return to living in garage of friend. Mental Status Exam Mental Status Exam Narrative: Pt is alert and oriented; behavior is superficially cooperative, calm; patient is not in distress; dressed in casual attire, unkempt, scruffy; mood is described as good and affect congruent, brighter; eye contact appropriate; Speech is more normal rate, volume; some mild, intermittent thought blocking; no psychomotor retardation present; thought process is goal directed; Thought content is on feeling better; no delusional ideations expressed; No SI; no HI; Denies AVH and there is though does seem somewhat internally preoccupied Patients insight and judgment impaired but improved, at baseline and adequate Diagnostics Vital Signs (24Hr): Vital Signs - 24 hr 05/08/25 20:00 05/09/25 08:00 Temperature 98.1 F 98.4 F Pulse Rate 96 80 Respiratory Rate 16 Blood Pressure 148/69 H 132/76 Pulse Oximetry 96 98 Oxygen Delivery Method Room Air Room Air BMI result Body Mass Index 27.9 Labs 05/05/25 07:25 05/07/25 07:58 Medications Medications Current Medications Acetaminophen (Acetaminophen 325 Mg Tablet) 650 mg PO Q6H PRN PRN Reason: Headache/Pain, Scale 1-10 Al Hydroxide/Mg Hydroxide (Magnesium Hydrox/Alum Hydrox 30 Ml Oral.Susp) 30 ml PO Q6H PRN PRN Reason: Heartburn/Nausea Bupropion HCl (Bupropion Hcl Xl 300 Mg Tab.Er.24h) 300 mg PO DAILY [facility] Last Admin: 05/09/25 08:41 Dose: 300 mg Folic Acid (Folic Acid 1 Mg Tablet) 1 mg PO DAILY [facility] Last Admin: 05/09/25 08:41 Dose: 1 mg Hydroxyzine HCl (Hydroxyzine Hcl 25 Mg Tablet) 25 mg PO Q6H PRN PRN Reason: mild anxiety Last Admin: 05/07/25 20:49 Dose: 25 mg Magnesium Hydroxide (Milk Of Magnesia 30 Ml Oral.Susp) 30 ml PO DAILY PRN PRN Reason: Constipation Multivitamins/Vitamin C (Multivitamin Tablet) 1 tab PO DAILY [facility] Last Admin: 05/09/25 08:41 Dose: 1 tab Nicotine (Nicotine 21 Mg Patch.Td24) 21 mg TRANSDERMA DAILY PRN PRN Reason: smoking cessation Nicotine Polacrilex (Nicotine Polacrilex 2 Mg Gum) 4 mg BUCCAL Q2H PRN PRN Reason: Nicotine Cravings Olanzapine (Olanzapine 5 Mg Tablet) 5 mg PO TID PRN PRN Reason: agitation Last Admin: 05/09/25 00:00 Dose: 5 mg Olanzapine (Olanzapine 10 Mg Tablet) 10 mg PO BEDTIME [facility] Last Admin: 05/08/25 22:09 Dose: 10 mg Thiamine HCl (Thiamine Hcl 100 Mg Tablet) 100 mg PO DAILY [facility] Last Admin: 05/09/25 08:41 Dose: 100 mg Trazodone HCl (Trazodone Hcl 50 Mg Tablet) 50 mg PO BEDTIME MRX1 PRN PRN Reason: Insomnia Allergies Allergies Allergy/AdvReac Type Severity Reaction Status Date / Time paliperidone (From [employer]) AdvReac liver Verified 05/03/25 19:41 trazodone AdvReac Mild dizzy Uncoded 05/03/25 19:41 Assessment & Plan Assessment & Plan (1) Schizoaffective disorder, depressive type: Status: Acute Code(s): F25.1 - Schizoaffective disorder, depressive type (2) Alcohol abuse: Status: Acute Code(s): F10.10 - Alcohol abuse, uncomplicated Plan HPI Patient is a 54-year-old male with history of schizoaffective disorder and alcohol use disorder who self presented to ER due to suicidal ideation secondary to increased depression, alcohol abuse and medication noncompliance. Patient was discharged from on 04/18/25. He said he took medications for a little while but then stopped. One reason he gave was he felt they changed medications on me though as far as conventional underwriter could tell, he was continued on the same medications he had been on previously. Patient said he continued drinking on discharge. He said started feeling depressed and started to have thoughts of SI which he said when he presented to the ED. denies any AVH. Patient agrees to get back on Zyprexa and Wellbutrin. He says he has known stopping and does not want treatment of any kind for substance abuse. Formulation/clinical reasoning: Patient presents similarly to past admissions. Difficult with which to engage. He agrees to restart home medications of Wellbutrin and Zyprexa which he said was helpful in the past. Patient has no interest in addressing alcohol use disorder and does not want treatment of any kind. Says he has some residual SI, though no intent or plans Hospital course: 05/08 Patient reports that he is feeling better. He says his running thoughts are less... Patient agrees to increase Wellbutrin; sleeping and eating well 05/09 pt reports he's feeling better and that increase in Wellbutrin seems to be helping; discussed outpt services and pt says he has appointment pending and will follow up; pt's says plan is to return to living in garage of friend. -little more social; seems to be approaching baseline; if remains stable will proceed with discharge planning Plan: CV Q 15 minute checks Increased to Wellbutrin XL 300 mg Restarted Zyprexa 10 mg q.h.s. Patient not in withdrawal Patient educated on: diagnosis and medication risk/benefits Informed Consent: understands Reason for continued inpatient stay Substantial Risk for: rapid decompensation Time Spent With Patient Time: Total time managing care of this patient today ____ minutes.
[2025-05-09 20:00] VITALS: BP 129/76; PULSE 84; RESP 16; TEMP 37.2; O2SAT 95
[2025-05-10 08:00] VITALS: BP 136/82; PULSE 78; TEMP 36.6; O2SAT 97
[2025-05-10] MEDS: buPROPion HCl XL 300 MG TAB.ER.24H PO (08:42)
--- NOTE | 2025-05-10 19:02 | HO.PSYCHPN ---
Subjective Subjective Date of Service: 05/10/25 Reason For Visit: depression s/i Subjective Notes: Conditional Voluntary Interim History: Active on unit. keeping to self. pt reports feeling 'better than when I came in . he reports some suicidal thoughts , reports no plan. denies HI/VH/AH. Continue current tx plan. Medication Compliance: Yes Side effects from medications: No Mental Status Exam Mental Status Exam Patient Appearance: Appropriate Patient Orientation: Person, Place, Time and Situation Level of Consciousness: Awake and Alert Patient Behavior: Appropriate, Guarded and Cooperative Mood Description: Depressed Affect Description: Depressed Ability to Follow Directions: Good Speech Pattern: Clear Memory Description: Intact Hallucinations: None Delusions: Not Present Thought Process: Intact Thought Content: positive for Intact Diagnostics Vital Signs (24Hr): Vital Signs - 24 hr 05/09/25 20:00 05/10/25 08:00 Temperature 98.9 F 97.9 F Pulse Rate 84 78 Respiratory Rate 16 Blood Pressure 129/76 136/82 Pulse Oximetry 95 97 Oxygen Delivery Method Room Air Room Air BMI result Body Mass Index 27.9 Labs 05/05/25 07:25 05/07/25 07:58 Medications Medications Current Medications Acetaminophen (Acetaminophen 325 Mg Tablet) 650 mg PO Q6H PRN PRN Reason: Headache/Pain, Scale 1-10 Al Hydroxide/Mg Hydroxide (Magnesium Hydrox/Alum Hydrox 30 Ml Oral.Susp) 30 ml PO Q6H PRN PRN Reason: Heartburn/Nausea Bupropion HCl (Bupropion Hcl Xl 300 Mg Tab.Er.24h) 300 mg PO DAILY [facility] Last Admin: 05/10/25 08:42 Dose: 300 mg Folic Acid (Folic Acid 1 Mg Tablet) 1 mg PO DAILY [facility] Last Admin: 05/10/25 08:42 Dose: 1 mg Hydroxyzine HCl (Hydroxyzine Hcl 25 Mg Tablet) 25 mg PO Q6H PRN PRN Reason: mild anxiety Last Admin: 05/09/25 21:43 Dose: 25 mg Magnesium Hydroxide (Milk Of Magnesia 30 Ml Oral.Susp) 30 ml PO DAILY PRN PRN Reason: Constipation Multivitamins/Vitamin C (Multivitamin Tablet) 1 tab PO DAILY [facility] Last Admin: 05/10/25 08:42 Dose: 1 tab Nicotine (Nicotine 21 Mg Patch.Td24) 21 mg TRANSDERMA DAILY PRN PRN Reason: smoking cessation Nicotine Polacrilex (Nicotine Polacrilex 2 Mg Gum) 4 mg BUCCAL Q2H PRN PRN Reason: Nicotine Cravings Olanzapine (Olanzapine 5 Mg Tablet) 5 mg PO TID PRN PRN Reason: agitation Last Admin: 05/09/25 00:00 Dose: 5 mg Olanzapine (Olanzapine 10 Mg Tablet) 10 mg PO BEDTIME [facility] Last Admin: 05/09/25 21:33 Dose: 10 mg Thiamine HCl (Thiamine Hcl 100 Mg Tablet) 100 mg PO DAILY [facility] Last Admin: 05/10/25 08:42 Dose: 100 mg Trazodone HCl (Trazodone Hcl 50 Mg Tablet) 50 mg PO BEDTIME MRX1 PRN PRN Reason: Insomnia Allergies Allergies Allergy/AdvReac Type Severity Reaction Status Date / Time paliperidone (From [employer]) AdvReac liver Verified 05/03/25 19:41 trazodone AdvReac Mild dizzy Uncoded 05/03/25 19:41 Assessment & Plan Assessment & Plan (1) Schizoaffective disorder, depressive type: Status: Acute Code(s): F25.1 - Schizoaffective disorder, depressive type (2) Alcohol abuse: Status: Acute Code(s): F10.10 - Alcohol abuse, uncomplicated Plan HPI Patient is a 54-year-old male with history of schizoaffective disorder and alcohol use disorder who self presented to ER due to suicidal ideation secondary to increased depression, alcohol abuse and medication noncompliance. Patient was discharged from on 04/18/25. He said he took medications for a little while but then stopped. One reason he gave was he felt they changed medications on me though as far as va underwriter could tell, he was continued on the same medications he had been on previously. Patient said he continued drinking on discharge. He said started feeling depressed and started to have thoughts of SI which he said when he presented to the ED. denies any AVH. Patient agrees to get back on Zyprexa and Wellbutrin. He says he has known stopping and does not want treatment of any kind for substance abuse. Formulation/clinical reasoning: Patient presents similarly to past admissions. Difficult with which to engage. He agrees to restart home medications of Wellbutrin and Zyprexa which he said was helpful in the past. Patient has no interest in addressing alcohol use disorder and does not want treatment of any kind. Says he has some residual SI, though no intent or plans Hospital course: 05/08 Patient reports that he is feeling better. He says his running thoughts are less... Patient agrees to increase Wellbutrin; sleeping and eating well 05/09 pt reports he's feeling better and that increase in Wellbutrin seems to be helping; discussed outpt services and pt says he has appointment pending and will follow up; pt's says plan is to return to living in garage of friend. -little more social; seems to be approaching baseline; if remains stable will proceed with discharge planning 05/10: Active on unit. keeping to self. pt reports feeling 'better than when I came in . he reports some suicidal thoughts , reports no plan. denies HI/VH/AH. Continue current tx plan. Plan: CV Q 15 minute checks Increased to Wellbutrin XL 300 mg Restarted Zyprexa 10 mg q.h.s. Patient not in withdrawal Patient educated on: diagnosis and medication risk/benefits Reason for continued inpatient stay Substantial Risk for: harm to self and med/psych decompensation Time Spent With Patient Time: Total time managing care of this patient today _20___ minutes.
[2025-05-10 20:00] VITALS: BP 134/74; PULSE 98; RESP 16; TEMP 36.8; O2SAT 98
[2025-05-11 07:55] VITALS: BP 123/66; PULSE 86; TEMP 36.5; O2SAT 96
[2025-05-11] MEDS: buPROPion HCl XL 300 MG TAB.ER.24H PO (08:34)
[2025-05-11 20:00] VITALS: BP 109/61; PULSE 95; TEMP 36.9; O2SAT 96
--- NOTE | 2025-05-11 20:46 | HO.PSYCHPN ---
Subjective Subjective Date of Service: 05/11/25 Reason For Visit: depression s/i Interim History: Active on unit. keeping to self. observing pacing hallway while listening to unit headphones. pt reports feeling depressed but with low anxiety. he reports sleeping well last night. denies SI/HI/VH/AH. Continue current tx plan. Medication Compliance: Yes Side effects from medications: No Attending Groups: No Mental Status Exam Mental Status Exam Patient Appearance: Appropriate Patient Orientation: Person, Place, Time and Situation Level of Consciousness: Awake and Alert Patient Behavior: Appropriate, Guarded and Cooperative Mood Description: Depressed Affect Description: Depressed Ability to Follow Directions: Good Speech Pattern: Clear Memory Description: Intact Hallucinations: None Delusions: Not Present Thought Process: Intact Thought Content: positive for Intact Diagnostics Vital Signs (24Hr): Vital Signs - 24 hr 05/11/25 07:55 Temperature 97.7 F Pulse Rate 86 Blood Pressure 123/66 Pulse Oximetry 96 Oxygen Delivery Method Room Air BMI result Body Mass Index 27.9 Labs 05/05/25 07:25 05/07/25 07:58 Medications Medications Current Medications Acetaminophen (Acetaminophen 325 Mg Tablet) 650 mg PO Q6H PRN PRN Reason: Headache/Pain, Scale 1-10 Al Hydroxide/Mg Hydroxide (Magnesium Hydrox/Alum Hydrox 30 Ml Oral.Susp) 30 ml PO Q6H PRN PRN Reason: Heartburn/Nausea Bupropion HCl (Bupropion Hcl Xl 300 Mg Tab.Er.24h) 300 mg PO DAILY [facility] Last Admin: 05/11/25 08:34 Dose: 300 mg Folic Acid (Folic Acid 1 Mg Tablet) 1 mg PO DAILY [facility] Last Admin: 05/11/25 08:35 Dose: 1 mg Hydroxyzine HCl (Hydroxyzine Hcl 25 Mg Tablet) 25 mg PO Q6H PRN PRN Reason: mild anxiety Last Admin: 05/10/25 20:35 Dose: 25 mg Magnesium Hydroxide (Milk Of Magnesia 30 Ml Oral.Susp) 30 ml PO DAILY PRN PRN Reason: Constipation Multivitamins/Vitamin C (Multivitamin Tablet) 1 tab PO DAILY [facility] Last Admin: 05/11/25 08:34 Dose: 1 tab Nicotine (Nicotine 21 Mg Patch.Td24) 21 mg TRANSDERMA DAILY PRN PRN Reason: smoking cessation Nicotine Polacrilex (Nicotine Polacrilex 2 Mg Gum) 4 mg BUCCAL Q2H PRN PRN Reason: Nicotine Cravings Olanzapine (Olanzapine 5 Mg Tablet) 5 mg PO TID PRN PRN Reason: agitation Last Admin: 05/09/25 00:00 Dose: 5 mg Olanzapine (Olanzapine 10 Mg Tablet) 10 mg PO BEDTIME [facility] Last Admin: 05/10/25 20:36 Dose: 10 mg Thiamine HCl (Thiamine Hcl 100 Mg Tablet) 100 mg PO DAILY [facility] Last Admin: 05/11/25 08:34 Dose: 100 mg Trazodone HCl (Trazodone Hcl 50 Mg Tablet) 50 mg PO BEDTIME MRX1 PRN PRN Reason: Insomnia Allergies Allergies Allergy/AdvReac Type Severity Reaction Status Date / Time paliperidone (From [employer]) AdvReac liver Verified 05/03/25 19:41 trazodone AdvReac Mild dizzy Uncoded 05/03/25 19:41 Assessment & Plan Assessment & Plan (1) Schizoaffective disorder, depressive type: Status: Acute Code(s): F25.1 - Schizoaffective disorder, depressive type (2) Alcohol abuse: Status: Acute Code(s): F10.10 - Alcohol abuse, uncomplicated Plan HPI Patient is a 54-year-old male with history of schizoaffective disorder and alcohol use disorder who self presented to ER due to suicidal ideation secondary to increased depression, alcohol abuse and medication noncompliance. Patient was discharged from on 04/18/25. He said he took medications for a little while but then stopped. One reason he gave was he felt they changed medications on me though as far as typewriters functional tester could tell, he was continued on the same medications he had been on previously. Patient said he continued drinking on discharge. He said started feeling depressed and started to have thoughts of SI which he said when he presented to the ED. denies any AVH. Patient agrees to get back on Zyprexa and Wellbutrin. He says he has known stopping and does not want treatment of any kind for substance abuse. Formulation/clinical reasoning: Patient presents similarly to past admissions. Difficult with which to engage. He agrees to restart home medications of Wellbutrin and Zyprexa which he said was helpful in the past. Patient has no interest in addressing alcohol use disorder and does not want treatment of any kind. Says he has some residual SI, though no intent or plans Hospital course: 05/08 Patient reports that he is feeling better. He says his running thoughts are less... Patient agrees to increase Wellbutrin; sleeping and eating well 05/09 pt reports he's feeling better and that increase in Wellbutrin seems to be helping; discussed outpt services and pt says he has appointment pending and will follow up; pt's says plan is to return to living in garage of friend. -little more social; seems to be approaching baseline; if remains stable will proceed with discharge planning 05/10: Active on unit. keeping to self. pt reports feeling 'better than when I came in . he reports some suicidal thoughts , reports no plan. denies HI/VH/AH. Continue current tx plan. 05/11: continue tx plan. Plan: CV Q 15 minute checks Increased to Wellbutrin XL 300 mg Restarted Zyprexa 10 mg q.h.s. Patient not in withdrawal Patient educated on: diagnosis and medication risk/benefits Reason for continued inpatient stay Substantial Risk for: med/psych decompensation Time Spent With Patient Time: Total time managing care of this patient today _20___ minutes.
[2025-05-12 08:00] VITALS: BP 121/65; PULSE 81; RESP 16; TEMP 37.1; O2SAT 98
[2025-05-12] MEDS: buPROPion HCl XL 300 MG TAB.ER.24H PO (09:56)
--- NOTE | 2025-05-12 10:23 | P.DS_ITS ---
DS: Providers Provider Date of Service: 05/12/25 Date of admission: 05/06/25 11:35 Date of discharge: 05/12/25 Primary care physician: Unknown Physician Attending physician on admission: Ponce Christy Attending physician on discharge: Ponce Christy DS: Diagnosis Discharge Diagnosis (1) Schizoaffective disorder, depressive type: Status: Acute (2) Alcohol abuse: Status: Acute DS: Medications Discharge Medications Home Medications: Previous Rx's ?Medication ?Instructions ?Recorded azithromycin 500 mg tablet 500 mg PO DAILY 2 days #2 t abs 05/12/25 bupropion HCl 300 mg 24 hr tablet, 300 mg PO DAILY 30 days #30 tabs 05/12/25 extended release hydroxyzine HCl 25 mg tablet 25 mg PO TID PRN mild anx iety 30 05/12/25 days #60 tabs olanzapine 10 mg tablet 10 mg PO BEDTIME 30 days #30 tabs 05/12/25 Mental Status Exam Mental Status Exam Narrative: Pt is alert and oriented; behavior is cooperative, friendly and calm; patient is not in distress; dressed in casual attire with adequate hygiene and grooming; mood is described as good and affect congruent; eye contact appropriate; Speech is normal rate, volume and prosody and not pressured; no psychomotor agitation/retardation present; thought process is organized and goal directed; Thought content is on tx; otherwise pertinent to relevant topics and without any delusional content, paranoid ideations or grandiosity; denies any SI/HI. Denies AVH and there is no evidence of perceptual disturbance. Patients insight and judgment appear intact. Data Data Completed and Pending Completed studies during hospitalization [Text1]: 05/07/25 07:58 Sodium 141 Potassium 4.1 Chloride 106 Carbon Dioxide 28 Anion Gap 11 L BUN 17 H Creatinine 0.75 Estim Creat Clear Calc 128.0 Estimated GFR > 60 Random Glucose 88 Estimat Average Glucose 103 Hemoglobin A1c % 5.2 Calcium 9.3 Total Bilirubin 0.5 AST 22 ALT 18 Alkaline Phosphatase 68 Total Protein 7.0 Albumin 4.4 Triglycerides 74 Cholesterol 125 LDL Cholesterol, Calc 62 HDL Cholesterol 49 TSH 1.13 DS: Summary Hospital Course Hospital Course: HPI Patient is a 54-year-old male with history of schizoaffective disorder and alcohol use disorder who self presented to ER due to suicidal ideation secondary to increased depression, alcohol abuse and medication noncompliance. Patient was discharged from on 04/18/25. He said he took medications for a little while but then stopped. One reason he gave was he felt they changed medications on me though as far as health underwriter could tell, he was continued on the same medications he had been on previously. Patient said he continued drinking on discharge. He said started feeling depressed and started to have thoughts of SI which he said when he presented to the ED. denies any AVH. Patient agrees to get back on Zyprexa and Wellbutrin. He says he has known stopping and does not want treatment of any kind for substance abuse. Formulation/clinical reasoning: Patient presents similarly to past admissions. Difficult with which to engage. He agrees to restart home medications of Wellbutrin and Zyprexa which he said was helpful in the past. Patient has no interest in addressing alcohol use disorder and does not want treatment of any kind. Says he has some residual SI, though no intent or plans Hospital course: On admission patient still depressed with some residual SI; no alcohol withdrawal and denied any AVH. He was restarted on Wellbutrin and Zyprexa and Wellbutrin increased. Pt very soon reported he was feeling better and said running thoughts are less... Pt continued to improve and depression abated and affect noticeably brighter. Pt returned to baseline; he said some SI would come and go but it was not bothersome and pt felt ready for discharged. Discussed outpt services and pt says he has appointments pending and will follow up; he plans to return to same living space (garage of friend). Substance abuse treatment and risks discussed with patient who at this time patient declines MAT or help with outpt treatment options of any kind, including programs. Pt remained in good behavioral and impulse control throughout his time on the unit and was appropriate with peers and staff. Eating and sleeping well. Pt remains vulnerable to relapse and decompensation however this a chronic struggle for him that will not resolve w/ longer stay on unit or further medication management. Pt is not in imminent risk for harm to self or others and appropriate to return to the community for treatment. Arson Investigator discussed Azithromycin prescribed by ED and says he will now take it. Time spent discussing smoking cessation with patient: 3 to 10 minutes Status at Discharge Functional status at discharge: independent ambulation Overall status at discharge: patient is back to baseline Time Spent with Patient Time attestation: Total time managing care of this patient today _40___ minutes. Time spent: Greater than 30 minutes Specific discharge activities: met with patient; discussed with team; prescriptions, charting Discharge Plan Discharge Anticipated Discharge Date/Time: 05/12/25 11:30 Patient Disposition: Home, Self-Care Discharge Diagnosis: Schizoaffective disorder, depressed type Referrals: [facility] Development: Crisis services [Other] - 1 Week Referral Note: Crisis services Phone number [facility] [Other] - 1 Week Referral Note: [facility] [Other] - 1 Week Referral Note: [facility]: Crisis Services [Other] - 1 Week Referral Note: Crisis services phone number [employer] Faculty Member [Other] - 1 Week Referral Note: implementation services analyst information [facility]: [facility] [place] [Other] - 1 Week Referral Note: [facility] Living [facility] [Other] - 1 Week Referral Note: [facility] Phone Number Physician,Unknown J [Primary Care Provider, Medical] - 1 Week Discharge Medications: New bupropion HCl 300 mg Tablet Extended Release 24 Hr 300 mg PO DAILY 30 Days Qty: 30 0RF olanzapine 10 mg Tablet 10 mg PO BEDTIME 30 Days Qty: 30 0RF hydroxyzine HCl 25 mg Tablet 25 mg PO TID PRN (Reason: mild anxiety) 30 Days Qty: 60 0RF azithromycin 500 mg Tablet 500 mg PO DAILY 2 Days Qty: 2 0RF Rx Instructions: take 1 tab on Monday and 1 tab on Mon Discharge Orders: Discharge Order (Routine); Ordered 05/12/25 Ordered By: Ponce Christy Diet: Regular diet Activity on Discharge: As tolerated Stand Alone Forms: Patient Portal Discharge page, Community Support Print Language: Mexican Activity Restrictions/Additional Instructions: Viral swab is negative, strep throat is negative, we will start you on a Z-Vinay, 1st dose in the ER, all the other medications continue starting tomorrow Please quit smoking Your physical exam is otherwise reassuring, and your lungs are clear and the vital signs are stable, you have no fevers Care Plan Goals: Maintain mood and safe behaviors Take medications as prescribed Continue to pursue sobriety Practice coping skills Continue with outpatient providers and reach out to them as needed Health Concerns: Mood stability and behaviors Sobriety Upper Respiratory Infection: Azithromycin 500mg tabs: take 1 tab on Monday and take 1 tab on Monday Plan of Treatment: Follow up with your PCP, psychiatric provider and other outpatient providers regarding above concerns Take medications as prescribed Assessment: Risk assessment at time of discharge:? Patient was interviewed prior to discharge and found to be fully oriented and without any SI or HI. Patient has improved insight and judgment and wants to continue treatment. Patient is not in imminent risk of harm to self or others and has a safety plan that includes presenting to the closest ER or calling 911 if feeling unsafe.? Patient has been observed closely by nursing and unit staff throughout admission; patient has not engaged in any behaviors that suggest dangerousness to self or others and has demonstrated appropriate behaviors and impulse control
== END 2025-05-12 11:00 | disposition home or self-care (01) | DRG 885 ==
LOC: HO.ED 05-04 02:08 → HO.PM5 05-06 11:57
PROVIDERS: Physician Assistant; Admitting Provider Psychiatry & Neurology Psychiatry; Emergency Provider Emergency Medicine Emergency Medical Services; Visit Provider Psychiatry & Neurology Psychiatry
DX: F25.1 Schizoaffective disorder, depressive type (principal); R45.851 Suicidal ideations; F17.210 Nicotine dependence, cigarettes, uncomplicated; F10.10 Alcohol abuse, uncomplicated; Z71.6 Tobacco abuse counseling; Z91.148 Patient's other noncompliance with medication regimen for other reason; Z79.899 Other long term (current) drug therapy
CPT/HCPCS: 36415; 80053; 80061; 80307; 81001; 83036; 84443; 85025; 87637; 87651; 93005; 99285; J1885; J8540; S9485

== ENCOUNTER → 2025-05-05 09:34 | Outpatient (BNV) | payer MEDICAID, SELFPAY | PROVIDERS: Emergency Provider Emergency Medicine Emergency Medical Services; Visit Provider Internal Medicine Cardiovascular Disease | DX: R94.31 Abnormal electrocardiogram [ECG] [EKG] (principal); Z13.6 Encounter for screening for cardiovascular disorders | CPT/HCPCS: 93010 ==

== ENCOUNTER → 2025-05-06 11:35 | Outpatient (BNV) | payer OTHER, MEDICAID, SELFPAY | PROVIDERS: Admitting Provider Psychiatry & Neurology Psychiatry; Emergency Provider Emergency Medicine Emergency Medical Services; Visit Provider Psychiatry & Neurology Psychiatry | DX: F25.1 Schizoaffective disorder, depressive type (principal); F10.10 Alcohol abuse, uncomplicated | CPT/HCPCS: 90792; 99231; 99232; 99239 ==

== ENCOUNTER 2025-06-15 12:10 | Emergency (ER) | payer MEDICARE, MEDICAID, SELFPAY ==
--- NOTE | ~2025-06-15 | CT_ITS ---
CLINICAL HISTORY: LLQ pain, tender, rectal bleed ? divertic CT abdomen and pelvis with IV contrast Comparison: None Findings: Lung bases show no active disease. No dependent layering pleural effusions. The heart is not enlarged. Coronary artery calcifications: None. Hepatic steatosis. No focal hepatic lesions. Patent hepatic and portal veins. Physiologic distention of the gallbladder with no radiopaque gallstones. Homogeneous enhancement of the pancreas. No splenomegaly. Normal adrenal glands. Symmetrical renal excretion with no segmental or diffuse renal parenchymal disease or evidence of obstructive uropathy/hydroureteronephrosis. Normal caliber abdominal aorta. Bowel demonstrates a nonobstructive pattern. No free air. Normal appendix and terminal ileum. Diverticulosis coli without CT evidence of acute diverticulitis. No intraperitoneal, retroperitoneal, pelvic or inguinal masses lymphadenopathy or abnormal fluid collections. Normal distention of the urinary bladder. No prostatomegaly. No vertebral body compression fractures or spondylolisthesis. No bony destructive lesions. Impression: 1. Diverticulosis coli no CT evidence of acute diverticulitis. Normal appendix and terminal ileum. 2. Hepatic steatosis. This document has been electronically signed by: Vincent Medina MD on 06/15/2025 15:01:51
[2025-06-15 12:17] VITALS: BP 144/87; PULSE 89; RESP 18; TEMP 36.9; O2SAT 97; BMI 28.2
--- NOTE | 2025-06-15 12:17 | ED_ITS ---
HPI - Abdominal Pain General Chief Complaint: Abdominal Pain Stated Complaint: bloody stool Time Seen by Provider: 06/15/25 13:20 Source: patient Mode of arrival: ambulatory Limitations: no limitations History of Present Illness ED Provider: HPI narrative: 54-year-old male not on blood thinners presenting with rectal bleeding, and abdominal pain in the suprapubic and left lower quadrant, rectal bleeding is bright red blood during bowel movements, no bleeding outside of bowel movements. No fevers or chills. Related Data Previous Rx's ?Medication ?Instructions ?Recorded azithromycin 500 mg tablet 500 mg PO DAILY 2 days #2 t abs 05/12/25 bupropion HCl 300 mg 24 hr tablet, 300 mg PO DAILY 30 days #30 tabs 05/12/25 extended release hydroxyzine HCl 25 mg tablet 25 mg PO TID PRN mild anx iety 30 05/12/25 days #60 tabs olanzapine 10 mg tablet 10 mg PO BEDTIME 30 days #30 tabs 05/12/25 hydrocortisone acetate 25 mg 25 mg NH BEDTIME #12 ea 0 06/15/25 rectal suppository (Anusol-HC) Allergies Allergy/AdvReac Type Severity Reaction Status Date / Time paliperidone (From Invega) AdvReac liver Verified 06/15/25 12:20 trazodone AdvReac Mild dizzy Uncoded 05/03/25 19:41 Review of Systems Constitutional: Reports as per HPI [facility] Past Medical History Medical History Depression Acute UTI Depression Suicidal ideation Hematuria Alcohol abuse Schizoaffective disorder, depressive type Cocaine abuse Social History Social History Household Members: None Household Members Other:: up until 2 months ago, lived with spouse in an apartment in [place]; now Housing: Homeless Do you presently have visiting nurse or other home services: No Unable to assess alcohol history related to: Unknown Alcohol intake: current Alcohol intake frequency: 3 or more drinks per day Alcohol type: beer and wine Patient Tobacco Use Status: Current everyday Tobacco user Tobacco use type: Cigarette Cigarette Packs Per Day: 0.5 Cigarettes Per Day: 10.0 Years Smoked: 30 e-Cigarette/Vaping Use: Former Use Second Hand Smoke Exposure: No Use of substances other than those prescribed or required for medical reasons: No Substance Use Type: Marijuana Advance Directives: No Advance Directives Information Provided: No service: No Current occupational status: unemployed Current occupation: rt hand Sexual orientation: Straight/Heterosexual Physical Exam ED Vital Signs: Vital Signs - 24 hr 06/15/25 12:17 Temperature 98.5 F Pulse Rate 89 Respiratory Rate 18 Blood Pressure 144/87 H Pulse Oximetry 97 Oxygen Delivery Method Room Air BMI result Body Mass Index 28.2 Const Other: * Gen: ?Overall well-appearing patient * HEENT: PERRLA, EOMI, MMM, * Neck: Supple, no LAD * CV: RRR, no obvious murmurs appreciated * Resp: ?No wheezing rales rhonchi no stridor moving air well * Abd: ?Bowel sounds are present, left lower quadrant tenderness and suprapubic tenderness no rebound no rigidity * MSK: FROM, strength 5/5 all extremities * Skin: Warm, dry, intact, * Neuro: ?Alert and oriented x3, moving upper and lower extremities symmetrically, no obvious facial asymmetry noted Course Course Course Narrative: This is a Rapid Medical Examination (RME) performed by Dilan Reyes PA-C in triage. Full HPI, ROS, assessment and treatment plan per primary provider in the Main ED. Hx: 54 yo M hx of polysubstance abuse, alcohol use disorder, schizoaffective disorder, depression here for eval of lower abdominal pain and bloody stools x days. no thinners. no hx similar. Plan: labs, OBS Medical Decision Making Medical Decision Making MDM Narrative: Overall well-appearing, tenderness on abdominal exam, rectal exam deferred he is stable, H&H is unremarkable, likely internal hemorrhoid however he is tender left lower quadrant so we will need to exclude bleeding diverticulitis 15:24 CAT scan discussed with the patient, rectal exam without external fissures or hemorrhoids, likely internal hemorrhoid digital rectal exam was not performed Differential Diagnosis Differential Diagnoses: The differential diagnosis associated with the presentation includes (Upper GI bleed, lower GI bleed, diverticulitis, appendicitis, anemia) Admission/Observation Consideration of admission/observation: Escalation of care including admission/observation considered Lab Data [facility] Lab Attestation statement: I reviewed the patient's lab results. 06/15/25 12:33 08/31/25 12:33 Labs: Lab Results 06/15/25 Range/Units 12:33 WBC 7.5 (4.8-10.8) X10*3/uL RBC 4.83 (4.60-5.80) X10*6/uL Hgb 15.6 (14.0-18.0) g/dl Hct 43.6 (42.0-52.0) % MCV 90.3 (80.0-98.0) fL MCH 32.3 (27.0-33.0) pg MCHC 35.8 (31.0-36.0) g/dl RDW 12.5 (11.0-16.0) % Plt Count 191 (160-400) X10*3/uL MPV 9.5 (9.4-12.4) fL Immature Gran % (Auto) 0.3 (0.0-0.4) % Neut % (Auto) 66.9 (45-73) % Lymph % (Auto) 25.2 (20-40) % [place] % (Auto) 6.2 (2-11) % Eos % (Auto) 0.9 (0-4) % Baso % (Auto) 0.5 (0-2) % Lymph # (Auto) 1.9 (1.2-4.9) X10*3/uL [place] # (Auto) 0.5 (0.1-1.2) X10*3/uL Eos # (Auto) 0.1 (0.0-0.4) X10*3/uL Baso # (Auto) 0.0 (0.0-0.2) X10*3/uL Abs Immat Gran (auto) 0.02 (0.00-0.03) X10*3/uL Absolute Neuts (auto) 5.0 (2.0-8.3) x10*3/uL Absolute Nucleated RBC 0.000 (0.0-0.012) X10*3/uL Nucleated RBC % (auto) 0.0 (0.0-0.2) /100WBC Sodium 142 (135-145) mmol/L Potassium 4.1 (3.3-5.1) mmol/L Chloride 108 (96-108) mmol/L Carbon Dioxide 22 (22-29) mmol/L Anion Gap 16 (12-20) BUN 25 H (9-16) mg/dL Creatinine 0.78 (0.5-1.4) mg/dL Estim Creat Clear Calc 123.1 Estimated GFR > 60 Random Glucose 108 (60-115) mg/dL Calcium 9.1 (8.4-10.2) mg/dL Magnesium 1.9 (1.6-2.6) mg/dL Total Bilirubin 0.6 (0.0-1.0) mg/dL AST 41 H (5-37) U/L ALT 26 (0-40) U/L Alkaline Phosphatase 68 (39-117) U/L Total Protein 6.9 (6.5-8.0) g/dL Albumin 4.5 (3.5-5.0) g/dL Lipase 42 (8-78) U/L Urine Color Yellow Urine Appearance Clear Urine pH 6.0 (5.0-9.0) Ur Specific [place] 1.025 (1.005-1.025) Urine Protein Negative (Neg-Trace) mg/dL Urine Glucose (UA) Negative (Negative) mg/dL Urine Ketones Negative (Negative) mg/dL Urine Blood Small (1+) H (Negative) Urine Nitrite Negative (Negative) Ur Leukocyte Esterase Negative (Negative) Urine RBC 11-20 H (0-2) /HPF Urine WBC 0-5 (0-5) /HPF Ur Squamous Epith Cells 0-2 (0-2) /HPF Urine Bacteria None Seen (None Seen) Hyaline Casts 0-2 (0-2) /LPF Urine Opiates Screen Not Detected (Not Detect) Ur Buprenorphine Scrn Not Detected (Not Detect) ng/mL Ur Oxycodone Screen Not Detected (Not Detect) ng/mL Urine Methadone Screen Not Detected (Not Detect) ng/mL Urine Fentanyl Screen Not Detected (Not Detect) Ur Barbiturates Screen Not Detected (Not Detect) Ur Phencyclidine Scrn Not Detected (Not Detect) Ur Amphetamines Screen Not Detected (Not Detect) U Benzodiazepines Scrn Not Detected (Not Detect) Urine Cocaine Screen Not Detected (Not Detect) U Marijuana (THC) Screen Not Detected (Not Detect) Radiology Impression Discussion of test interpretation with radiology: I have reviewed the radiologist's reading. Radiologist Impression: mpression: 1. Diverticulosis coli no CT evidence of acute diverticulitis. Normal appendix and terminal ileum. 2. Hepatic steatosis. Medications Administered Discontinued Medications Generic Name Dose Route Start Last Admin Trade Name Shadia PRN Reason Stop Dose Admin Iohexol 100 ml 06/15/25 14:16 06/15/25 14:23 Iohexol 350 Mg/Ml 100 Ml Infus..Btl IV 06/15/25 14:17 85 ml ONCE ONE Administration Discharge Plan Discharge Clinical Impression: Bright red rectal bleeding Abdominal pain Qualifiers: Abdominal location: left lower quadrant Qualified Code(s): R10.32 - Left lower quadrant pain Patient Disposition: Home, Self-Care Additional Instructions: Your blood work is reassuring, CAT scan did not show any evidence of ongoing bleeding from the colon, as discussed this is most likely consistent with internal hemorrhoid, but please make sure to follow up with the PCP, this is a recurrent issue you may need referral to director experimental medicine for colonoscopy to make sure you do not have any underlying rectal lesions that could not be diagnosed on CT Use rectal suppositories was prescribed, make sure you not sitting on a toilet too long, expect to see more rectal bleeding, worsening symptoms or concerns come back to the ER Prescriptions: New hydrocortisone acetate [Anusol-HC] 25 mg suppository 25 mg NH BEDTIME Qty: 12 0RF No Action bupropion HCl 300 mg Tablet Extended Release 24 Hr 300 mg PO DAILY 30 Days Qty: 30 0RF olanzapine 10 mg Tablet 10 mg PO BEDTIME 30 Days Qty: 30 0RF hydroxyzine HCl 25 mg Tablet 25 mg PO TID PRN (Reason: mild anxiety) 30 Days Qty: 60 0RF azithromycin 500 mg Tablet 500 mg PO DAILY 2 Days Qty: 2 0RF Rx Instructions: take 1 tab on Monday and 1 tab on Mon Print Language: Afghan
[2025-06-15 12:37] LABS: MANUAL DIFF FLAG NO
[2025-06-15 12:49] LABS: Cannabinoid Screen Urine Not Detected (Not Detect)
[2025-06-15 12:54] LABS: Alanine Aminotransferase 26 U/L (0-40); Albumin Level 4.5 g/dL (3.5-5.0); Alkaline Phosphatase 68 U/L (39-117); Anion Gap 16 (12-20); Aspartate Amino Transferase 41 U/L (5-37); Blood Urea Nitrogen 25 mg/dL (9-16); Calcium 9.1 mg/dL (8.4-10.2); Carbon Dioxide 22 mmol/L (22-29); Chloride 108 mmol/L (96-108); Creatinine Clr Calc Pharmacy 123.1; Estimated Glomerular Filt Rate > 60; Lipase 42 U/L (8-78); Magnesium 1.9 mg/dL (1.6-2.6); Potassium 4.1 mmol/L (3.3-5.1); Sodium 142 mmol/L (135-145); Total Protein 6.9 g/dL (6.5-8.0)
[2025-06-15 13:01] LABS: Appearance Urine Clear; Glucose Urine UA Negative (Negative); Hematocrit 43.6 % (42.0-52.0); Hemoglobin 15.6 g/dl (14.0-18.0); Imm Gran Abs Auto 0.02 X10*3/uL (0.00-0.03); Imm Gran Pct Auto 0.3 % (0.0-0.4); Lymphocytes Absolute Auto 1.9 X10*3/uL (1.2-4.9); Mean Corpuscular HGB Conc 35.8 g/dl (31.0-36.0); Mean Corpuscular Hemoglobin 32.3 pg (27.0-33.0); Mean Corpuscular Volume 90.3 fL (80.0-98.0); NRBC Abs Auto 0.000 X10*3/uL (0.0-0.012); NRBC Pct Auto 0.0 /100WBC (0.0-0.2); PH 6.0 (5.0-9.0); Platelet Count 191 X10*3/uL (160-400); Red Blood Count 4.83 X10*6/uL (4.60-5.80); Specific Gravity - Urine 1.025 (1.005-1.025); UMIC TRIGGER UACC YES; White Blood Count 7.5 X10*3/uL (4.8-10.8)
--- OUTSIDE RECORDS SUMMARY | 2025-06-15 13:19 | XMS_ITS | Clinical Summary ---
Author Organization [employer] Address [address] [place] [address] [address] [place] [address] Care Team Providers Care Tire Specialist Name Role Phone Unavailable Primary Care Provider Unavailabl e Medications buPROPion XL (Wellbutrin XL) 300 MG 24 hr tablet Take 300 mg by mouth in the morning. 5 Active hydrOXYzine HCl (Atarax) 25 MG tablet 25 mg if needed at bedtime. 5 Active lithium 300 MG capsule Take 300 mg by mouth with breakfast and with evening meal. 4 Active magnesium oxide (Mag-Ox) 400 (240 Mg) MG tablet Take 400 mg by mouth at bedtime. 4 Active OLANZapine (ZyPREXA) 10 MG tablet Take 10 mg by mouth at bedtime. 5 Active Active Problems Problem Noted Date Diagnosed Date Alcohol use disorder 05/13/2025 Polysubstance use disorder 05/13/2025 Tobacco abuse disorder 05/13/2025 Hypertensive disorder 01/14/2016 Obesity 08/19/2015 Schizoaffective disorder 08/19/2015 Encounters Date Type Department Care Team Description 05/22/2025 Telephone [facility] [address] [place] [phone] Patricia Chandler FNP Appointment Request 05/13/2025 Telephone [facility] [address] [place] [address] [phone] Cesario Huizar MA chart prep 05/07/2025 Patient Outreach [facility] [address], [place] [phone] Patricia Chandler FNP Pre-visit Planning ([facility] unable to reach, number disconnected) 04/24/2025 Patient Outreach [facility] [address] [place] [address] [place]o, Patricia, FISH AND WILDLIFE BIOLOGIST Care Coordination ([facility] outreach for [facility] housing search-referral completed ) 04/24/2025 Telephone [facility] [address] [place] [address] Cindy Dimas MD from Last 3 Months Immunizations Immunization Administration Dates Next Due Influenza injectable quadriv alent IIV4 with preservative 07/20/2018,08/01/2016,07/13/2015 Influenza, IIV3, injectable 09/02/2014 Influenza, Split (incl. stephany fied surface antigen) 06/20/2013,06/22/2012 Tdap 08/19/2015 Social History Tobacco Use Types Packs/Day Years [...] Mass Index - - Plan of Treatment Health Maintenance Due Date Last Done Comments [...] AM EDT) Cholesterol, Total 139 <200 mg/dL [facility] LDL Cholesterol 76 mg/dL (calc) [facility] Comment: Reference range: <100 Desirable range <100 mg/dL for primary prevention; <70 mg/dL for patients with CHD or diabetic patients with > or = 2 CHD risk factors. LDL-C is now calculated using the Marco-Joselyn calculation, which is a validated novel method providing better accuracy than the Friedewald equation in the estimation of LDL-C. Marco SS et al. ROSY. 2013;310(19): 8329-6286 (http://education.[employer].WorkHound/faq/KGV283) HDL Cholesterol 43 > OR = 40 mg/dL [facility] Chol/HDLC Ratio 3.2 <5.0 (calc) [facility] Triglycerides 115 <150 mg/dL [facility] Cholesterol, Total 139 <200 mg/dL [facility] LDL Cholesterol 76 mg/dL (calc) [facility] Comment: Reference range: <100 Desirable range <100 mg/dL for primary prevention; <70 mg/dL for patients with CHD or diabetic patients with > or = 2 CHD risk factors. LDL-C is now calculated using the Seble calculation, which is a validated novel method providing better accuracy than the Friedewald equation in the estimation of LDL-C. Marco SS et al. ROSY. 2013;310(19): 3439-4626 (http://education.[employer]iner[employer]/faq/HUO839) HDL Cholesterol 43 > OR = 40 [...] therapeutic option. Triglycerides 115 <150 mg/dL [facility] 04/08/2020 9:09 AM EDT Marion Grey MD LAB BLOOD ORDERABLES Final Result [facility] [address] from Last 3 Months or Most Recently Relevant to Health Maintenance [facility] [place] [id number] [place] [address] [place] [id number]
[2025-06-15] MEDS: iohexoL 350 MG/ML 100 ML INFUS..BTL IV (14:23)
--- NOTE | 2025-06-15 15:00 | PC.NURSE ---
patient a&o, iv inserted, labs previously drawn, rr equal/non labored- lungs clear, pt c/o lower abd pain, pt going to ct scan
[2025-06-15 16:37] VITALS: BP 134/84; PULSE 68; RESP 14; TEMP 36.4; O2SAT 97
[2025-06-15 18:33] VITALS: BP 138/88; PULSE 73; RESP 16; TEMP 36.7; O2SAT 97
== END 2025-06-15 18:34 | disposition home or self-care (01) ==
PROVIDERS: Physician Assistant Medical; Emergency Provider Emergency Medicine
DX: K62.5 Hemorrhage of anus and rectum (principal); R10.32 Left lower quadrant pain; Z51.81 Encounter for therapeutic drug level monitoring; Z79.899 Other long term (current) drug therapy; F17.210 Nicotine dependence, cigarettes, uncomplicated
CPT/HCPCS: 36415; 74177; 80053; 80307; 81001; 81003; 83690; 83735; 85025; 99284; 99285; Q9967

== ENCOUNTER 2025-06-21 09:29 | Emergency (ER) | payer MEDICARE, MEDICAID, SELFPAY ==
[2025-06-21 09:31] VITALS: BP 148/84; PULSE 90; RESP 18; TEMP 36.1; O2SAT 97; BMI 28.0
--- NOTE | 2025-06-21 09:46 | ED_ITS ---
HPI - Psych General Chief Complaint: Psychiatric Symptoms Stated Complaint: hearing voices Time Seen by Provider: 06/21/25 09:45 Source: patient Mode of arrival: ambulatory History of Present Illness ED Provider: MIGUEL A Poon HPI Narrative: This is a 54-year-old male history of alcohol abuse, cocaine abuse, schizoaffective disorder, depressive type presenting to the emergency department with auditory hallucinations, hearing voices unclear exactly what they are saying. Intermittent suicidal ideation with no particular plan. Reports he drinks beer regularly and smokes marijuana. He denies homicidal ideation. Denies tactile and visual hallucinations. He denies any medical complaints at this time. Denies chest pain, shortness breath, nausea, vomiting, abdominal pain, headache, vision changes, dizziness and weakness. Related Data Previous Rx's ?Medication ?Instructions ?Recorded bupropion HCl 300 mg 24 hr tablet, 300 mg PO DAILY 30 days #30 tabs 05/12/25 extended release hydroxyzine HCl 25 mg tablet 25 mg PO TID PRN mild anx iety 30 05/12/25 days #60 tabs olanzapine 10 mg tablet 10 mg PO BEDTIME 30 days #30 tabs 05/12/25 Allergies Allergy/AdvReac Type Severity Reaction Status Date / Time paliperidone (From Invega) AdvReac liver Verified 06/21/25 09:34 trazodone AdvReac Mild dizzy Uncoded 06/21/25 09:34 Review of Systems 2 Review of Systems: Yes all other systems are reviewed and are negative PMFSH Past Medical History Attestation statement: The following information was validated with the patient. Source: old records reviewed and nursing notes reviewed Medical History Depression Acute UTI Depression Suicidal ideation Hematuria Alcohol abuse Schizoaffective disorder, depressive type Cocaine abuse Social History Social History Household Members: None Household Members Other:: up until 2 months ago, lived with spouse in an apartment in [place]; now Housing: Homeless Do you presently have visiting nurse or other home services: No Unable to assess alcohol history related to: Unknown Alcohol intake: current Alcohol intake frequency: 3 or more drinks per day Alcohol type: beer and wine Patient Tobacco Use Status: Current everyday Tobacco user Tobacco use type: Cigarette Cigarette Packs Per Day: 0.5 Cigarettes Per Day: 10.0 Years Smoked: 30 Smoked in Last 30 Days: No e-Cigarette/Vaping Use: Former Use Second Hand Smoke Exposure: No Substance Use Type: Marijuana Advance Directives: No Advance Directives Information Provided: Yes Do you have a plan to hurt others: No Plan service: No Current occupational status: unemployed Current occupation: rt hand Sexual orientation: Straight/Heterosexual Physical Exam 2 Exam: Exam: Appearance: Alert.? Oriented X3.? No acute distress.? Head: Normocephalic, atraumatic, no step-offs or deformities Eyes: Pupils equal, round and reactive to light.? ENT: Pharynx normal.? Neck: Normal inspection.? Neck supple.? CVS: Normal heart rate and rhythm.? Pulses normal.? Respiratory: No respiratory distress.? Breath sounds normal.? Abdomen: Soft and nontender.? Skin: Skin warm and dry.? Normal skin color.? Normal skin turgor.? Extremities: No lower extremity edema.? No calf ttp. 5/5 strength to bilateral upper and lower extremities Back: No midline tenderness, no C-spine tenderness, full range of motion, no CVA tenderness bilaterally Neuro: Oriented X 3.? No motor deficit.? No sensory deficit. CN 2-12 intact Vital Signs: Vital Signs: Last Vital Signs Temp 97 F 06/21/25 09:31 Pulse 90 06/21/25 09:31 Resp 18 06/21/25 09:31 BP 148/84 H 06/21/25 09:31 Pulse Ox 97 06/21/25 09:31 O2 Del Method Room Air 06/21/25 09:31 BMI result Body Mass Index 28.0 Vital signs stable Course Reevaluation(s) Reevaluation #1: CBC unremarkable. Chemistry no acute findings needing intervention. Ethanol negative. Urine toxicology and UA pending. Time: 11:36 Reevaluation #2: At this time patient will be placed into observation to allow more time to be evaluated by care team. At time observation started patient common cooperative no acute distress will continue to monitor Time: 13:16 Reevaluation #3: Patient will be going to [facility] in [place] for respite. Patient will be discharged at this time. Care team assisted with disposition I agree with this plan. Time: 16:23 Medical Decision Making Medical Decision Making [facility] Narrative: [id number] This is a 54-year-old male presenting to the emergency department for auditory hallucinations ongoing for the past few days and intermittent suicidal ideation with no particular plan. Physical exam benign History and physical exam concerning for schizoaffective disorder with auditory hallucinations. History and physical exam not consistent with acute alcohol withdrawal or delirium tremens. Will rule out metabolic derangements and alcohol intoxication at this Plan labs, urine, ethanol, medical clearance Differential Diagnosis Differential Diagnoses: The differential diagnosis associated with the presentation includes Admission/Observation Consideration of admission/observation: Escalation of care including admission/observation considered Consult Healthcare Provider Management of the patient was discussed with: Behavioral Health Provider Lab Data 06/21/25 10:23 06/21/25 10:23 Labs: Lab Results 06/21/25 06/21/25 Range/Units 10:23 13:24 WBC 8.0 (4.8-10.8) X10*3/uL RBC 4.97 (4.60-5.80) X10*6/uL Hgb 16.2 (14.0-18.0) g/dl Hct 44.4 (42.0-52.0) % MCV 89.3 (80.0-98.0) fL MCH 32.6 (27.0-33.0) pg MCHC 36.5 H (31.0-36.0) g/dl RDW 12.8 (11.0-16.0) % Plt Count 206 (160-400) X10*3/uL MPV 9.4 (9.4-12.4) fL Immature Gran % (Auto) 0.2 (0.0-0.4) % Neut % (Auto) 58.9 (45-73) % Lymph % (Auto) 33.4 (20-40) % [place] % (Auto) 5.9 (2-11) % Eos % (Auto) 1.2 (0-4) % Baso % (Auto) 0.4 (0-2) % Lymph # (Auto) 2.7 (1.2-4.9) X10*3/uL [place] # (Auto) 0.5 (0.1-1.2) X10*3/uL Eos # (Auto) 0.1 (0.0-0.4) X10*3/uL Baso # (Auto) 0.0 (0.0-0.2) X10*3/uL Abs Immat Gran (auto) 0.02 (0.00-0.03) X10*3/uL Absolute Neuts (auto) 4.7 (2.0-8.3) x10*3/uL Absolute Nucleated RBC 0.000 (0.0-0.012) X10*3/uL Nucleated RBC % (auto) 0.0 (0.0-0.2) /100WBC Sodium 143 (135-145) mmol/L Potassium 3.7 (3.3-5.1) mmol/L Chloride 106 (96-108) mmol/L Carbon Dioxide 27 (22-29) mmol/L Anion Gap 14 (12-20) BUN 14 (9-16) mg/dL Creatinine 0.79 (0.5-1.4) mg/dL Estim Creat Clear Calc 121.1 Estimated GFR > 60 Random Glucose 97 (60-115) mg/dL Calcium 9.1 (8.4-10.2) mg/dL Magnesium 1.9 (1.6-2.6) mg/dL Total Bilirubin 0.8 (0.0-1.0) mg/dL AST 33 (5-37) U/L ALT 23 (0-40) U/L Alkaline Phosphatase 70 (39-117) U/L Total Protein 7.3 (6.5-8.0) g/dL Albumin 4.7 (3.5-5.0) g/dL Urine Color Dark Yellow Urine Appearance Clear Urine pH 5.5 (5.0-9.0) Ur Specific [place] 1.025 (1.005-1.025) Urine Protein Negative (Neg-Trace) mg/dL Urine Glucose (UA) Negative (Negative) mg/dL Urine Ketones Trace (Negative) mg/dL Urine Blood Small (1+) H (Negative) Urine Nitrite Negative (Negative) Ur Leukocyte Esterase Negative (Negative) Urine RBC 11-20 H (0-2) /HPF Urine WBC 0-5 (0-5) /HPF Ur Squamous Epith Cells 0-2 (0-2) /HPF Urine Bacteria None Seen (None Seen) Hyaline Casts 0-2 (0-2) /LPF Urine Opiates Screen Not Detected (Not Detect) Ur Buprenorphine Scrn Not Detected (Not Detect) ng/mL Ur Oxycodone Screen Not Detected (Not Detect) ng/mL Urine Methadone Screen Not Detected (Not Detect) ng/mL Urine Fentanyl Screen Not Detected (Not Detect) Ur Barbiturates Screen Not Detected (Not Detect) Ur Phencyclidine Scrn Not Detected (Not Detect) Ur Amphetamines Screen Not Detected (Not Detect) U Benzodiazepines Scrn Not Detected (Not Detect) Urine Cocaine Screen Not Detected (Not Detect) U Marijuana (THC) Screen POSITIVE H (Not Detect) Ethyl Alcohol < 10 mg/dL External Record Review External record reviewed: Inpatient record, Office record, Outpatient record, Prior outpatient labs, Prior outpatient radiology, Primary care record and Outside ED record Chronic Conditions Patient?s care impacted by: Other (See HPI) Critical Care Time Critical Care Time Critical Care Time: No Discharge Plan Discharge Clinical Impression: Suicidal ideation, Depression, Schizoaffective disorder, depressive type Patient Disposition: Home, Self-Care Instructions: Depression (ED), Suicide Prevention (ED) Additional Instructions: Take your medications as prescribed. If you were prescribed antibiotics today, it is important that you take your medication to their entirety, do not skip any doses, do not finish them early. Follow-up with your primary care provider this week. Return to the emergency department with new or worsening symptoms. Such as fevers, chills, chest pain, shortness of breath, nausea, vomiting, dizziness, headache, vision changes, lethargy In case of emergency call 911 Prescriptions: No Action bupropion HCl 300 mg Tablet Extended Release 24 Hr 300 mg PO DAILY 30 Days Qty: 30 0RF olanzapine 10 mg Tablet 10 mg PO BEDTIME 30 Days Qty: 30 0RF hydroxyzine HCl 25 mg Tablet 25 mg PO TID PRN (Reason: mild anxiety) 30 Days Qty: 60 0RF Referrals: Physician,None [Primary Care Provider, Medical] Interventions: [place]-Suicide Risk Severity Scale Last Done: 06/21/25 10:00 Print Language: Tanzanian
[2025-06-21 10:29] LABS: MANUAL DIFF FLAG NO
[2025-06-21 10:30] LABS: Hematocrit 44.4 % (42.0-52.0); Hemoglobin 16.2 g/dl (14.0-18.0); Imm Gran Abs Auto 0.02 X10*3/uL (0.00-0.03); Imm Gran Pct Auto 0.2 % (0.0-0.4); Lymphocytes Absolute Auto 2.7 X10*3/uL (1.2-4.9); Mean Corpuscular HGB Conc 36.5 g/dl (31.0-36.0); Mean Corpuscular Hemoglobin 32.6 pg (27.0-33.0); Mean Corpuscular Volume 89.3 fL (80.0-98.0); NRBC Abs Auto 0.000 X10*3/uL (0.0-0.012); NRBC Pct Auto 0.0 /100WBC (0.0-0.2); Platelet Count 206 X10*3/uL (160-400); Red Blood Count 4.97 X10*6/uL (4.60-5.80); White Blood Count 8.0 X10*3/uL (4.8-10.8)
--- NOTE | 2025-06-21 10:40 | PC.NURSE ---
[facility] he is calm and cooperative. He is oriented to the Pod, provided food and coffee. He reports being homeless and has been hearing voices, mostly a lot of voices at once that he gets overwhelmed by, Causing feelings of wanting to kill himself. He denies Si at this time, He denies HI, he has vague VH of shadows and states he feels safe here. He is resting and watching TV at this time.
[2025-06-21 11:07] LABS: Alanine Aminotransferase 23 U/L (0-40); Albumin Level 4.7 g/dL (3.5-5.0); Alkaline Phosphatase 70 U/L (39-117); Anion Gap 14 (12-20); Aspartate Amino Transferase 33 U/L (5-37); Blood Urea Nitrogen 14 mg/dL (9-16); Calcium 9.1 mg/dL (8.4-10.2); Carbon Dioxide 27 mmol/L (22-29); Chloride 106 mmol/L (96-108); Creatinine Clr Calc Pharmacy 121.1; Estimated Glomerular Filt Rate > 60; Magnesium 1.9 mg/dL (1.6-2.6); Potassium 3.7 mmol/L (3.3-5.1); Sodium 143 mmol/L (135-145); Total Protein 7.3 g/dL (6.5-8.0)
[2025-06-21 13:31] LABS: Appearance Urine Clear; Glucose Urine UA Negative (Negative); PH 5.5 (5.0-9.0); Specific Gravity - Urine 1.025 (1.005-1.025); UMIC TRIGGER UACC YES
[2025-06-21 13:39] LABS: Cannabinoid Screen Urine POSITIVE (Not Detect)
[2025-06-21 16:26] VITALS: BP 148/84; PULSE 90; RESP 18; TEMP 36.1; O2SAT 97
== END 2025-06-21 16:46 | disposition home or self-care (01) ==
PROVIDERS: Physician Assistant; Emergency Provider Emergency Medicine
DX: F25.1 Schizoaffective disorder, depressive type (principal); R45.851 Suicidal ideations
CPT/HCPCS: 36415; 80053; 80307; 81001; 83735; 85025; 99284; S9485

== ENCOUNTER 2025-07-31 22:28 | Inpatient (IN) | payer MEDICARE, MEDICAID, SELFPAY ==
--- NOTE | 2025-07-31 22:42 | ED_ITS ---
[facility] - General Adult General Chief complaint: Psychiatric Symptoms Stated complaint: Bad thoughts &hallucinations requesting evaluation Time Seen by Provider: 07/31/25 22:42 History of Present Illness ED Provider: Dr. Starks [facility] narrative: 54-year-old male history of schizoaffective disorder, polysubstance abuse presented hospital today for auditory hallucinations. Patient is complaining of low back pain as well. Denies any red flag symptoms such as bowel incontinence, fever, paresthesia down his legs or weakness. Denies any trauma. He endorses suicide ideation. Related Data Home Medications ?Medication ?Instructions ?Recorded ?Confirmed No Known Home Meds 08/01/25 08/01/25 Allergies Allergy/AdvReac Type Severity Reaction Status Date / Time paliperidone (From [employer]Breeze[employer]) AdvReac liver Verified 07/31/25 22:49 trazodone AdvReac Mild dizzy Uncoded 07/31/25 22:49 Review of Systems 2 Review of Systems: Pertinent review of systems as mentioned in [facility]. All other system otherwise negative. [facility] Past Medical History [facility] Narrative: Medical history as mentioned in [facility] Medical History Depression Acute UTI Depression Suicidal ideation Hematuria Alcohol abuse Schizoaffective disorder, depressive type Cocaine abuse Social History Social History Household Members: None Household Members Other:: up until 2 months ago, lived with spouse in an apartment in [place]; now Housing: Homeless Do you presently have visiting nurse or other home services: No Alcohol intake: current Alcohol intake frequency: a few times a month Alcohol type: beer Patient Tobacco Use Status: Current everyday Tobacco user Tobacco use type: Cigarette Cigarette Packs Per Day: 0.5 Cigarettes Per Day: 10.0 Years Smoked: 30 e-Cigarette/Vaping Use: Former Use Second Hand Smoke Exposure: No Use of substances other than those prescribed or required for medical reasons: No Substance Use Type: Marijuana Advance Directives: No Do you have a plan to hurt others: No Plan service: No Current occupational status: unemployed Current occupation: rt hand Sexual orientation: Straight/Heterosexual Physical Exam ED Exam Exam: General: Pleasant, no distress, interacting appropriately Head: Normacephalic, atraumatic ENT: oral mucosa moist, neck supple, no tracheal deviation Cardiovascular: regular rate, regular rhythm, no murmurs, rubbing, gallops Respiratory: CTAB, no wheeze, rales, rhonchi Gastrointestinal: Soft, non distended, non tender, non guarding Extremities: Lumbar paraspinal tenderness on palpation and movement. Neurological: Awake and alert, no facial droop noted Skin: Warm and dry Psychiatric: Endorses auditory hallucination, endorses SI Vital Signs: Vital Signs - 24 hr 07/31/25 22:43 07/31/25 23:02 08/01/25 07:35 Temperature 98.6 F 98.6 F 98.2 F Pulse Rate 92 92 80 Respiratory Rate 20 20 18 Blood Pressure 141/70 H 141/70 H 151/75 H Pulse Oximetry 96 96 96 Oxygen Delivery Method Room Air Room Air Room Air BMI result Body Mass Index 30.4 Course Course Course Narrative: Time: 06:04 Date: 08/01/25 Provider: Verena Corcoran DO Patient in physician observation for psychiatric evaluation.? No acute events reported overnight. No current complaints. VS stable.? Patient is in bed search status. Will continue to monitor. Reevaluation(s) Reevaluation #1: Time: 12:33 Date: 08/01/25 Provider: Verena Corcoran DO Physician observation ended at 1233 Patient to be admitted as inpatient to psychiatry Medications Administered Discontinued Medications Generic Name Dose Route Start Last Admin Trade Name Clarkeq PRN Reason Stop Dose Admin Acetaminophen 975 mg 07/31/25 22:58 07/31/25 23:59 Acetaminophen 325 Mg Tablet PO 07/31/25 22:59 975 mg ONCE ONE Administration Cyclobenzaprine HCl 5 mg 07/31/25 22:58 08/01/25 00:04 Cyclobenzaprine Hcl 5 Mg Tablet PO 07/31/25 22:59 5 mg ONCE ONE Administration Lidocaine 1 patch 07/31/25 22:58 07/31/25 23:59 Lidocaine 4 % Patch Adh..Patch TRANSDERMA 07/31/25 22:59 1 patch ONCE ONE Administration Protocol Medical Decision Making Medical Decision Making MDM Narrative: 54-year-old male history of schizoaffective disorder, polysubstance abuse presented hospital today for auditory hallucination with SI. Patient stated the voice is worsening over time. He is not currently on any medication at this time. He is also complaining of low back pain. On exam I suspect this is low back pain is muscular in nature. I have low concern about cauda equina. Plan to give patient some lidocaine patch, a dose of Flexeril here. Tylenol will be provided the patient as well. We will obtain lab work per psychiatric protocol for the patient. Care team recommended inpatient psychiatric stay for the patient. Patient will be signed out to oncoming provider pending placement for psychiatric management for the patient. Differential Diagnosis Differential Diagnoses: The differential diagnosis associated with the presentation includes Lumbar strain, auditory hallucination, suicide ideation, polysubstance use Lab Data MDM Lab Attestation statement: I reviewed the patient's lab results. 07/31/25 22:58 07/31/25 22:58 Labs: Lab Results 07/31/25 07/31/25 Range/Units 22:58 23:47 WBC 9.6 (4.8-10.8) X10*3/uL RBC 4.87 (4.60-5.80) X10*6/uL Hgb 16.2 (14.0-18.0) g/dl Hct 44.6 (42.0-52.0) % MCV 91.6 (80.0-98.0) fL MCH 33.3 H (27.0-33.0) pg MCHC 36.3 H (31.0-36.0) g/dl RDW 12.4 (11.0-16.0) % Plt Count 207 (160-400) X10*3/uL MPV 9.8 (9.4-12.4) fL Immature Gran % (Auto) 0.2 (0.0-0.4) % Neut % (Auto) 52.5 (45-73) % Lymph % (Auto) 38.2 (20-40) % [place] % (Auto) 6.0 (2-11) % Eos % (Auto) 2.7 (0-4) % Baso % (Auto) 0.4 (0-2) % Lymph # (Auto) 3.7 (1.2-4.9) X10*3/uL [place] # (Auto) 0.6 (0.1-1.2) X10*3/uL Eos # (Auto) 0.3 (0.0-0.4) X10*3/uL Baso # (Auto) 0.0 (0.0-0.2) X10*3/uL Abs Immat Gran (auto) 0.02 (0.00-0.03) X10*3/uL Absolute Neuts (auto) 5.1 (2.0-8.3) x10*3/uL Absolute Nucleated RBC 0.000 (0.0-0.012) X10*3/uL Nucleated RBC % (auto) 0.0 (0.0-0.2) /100WBC Sodium 143 (135-145) mmol/L Potassium 3.9 (3.3-5.1) mmol/L Chloride 109 H (96-108) mmol/L Carbon Dioxide 21 L (22-29) mmol/L Anion Gap 17 (12-20) BUN 17 H (9-16) mg/dL Creatinine 0.79 (0.5-1.4) mg/dL Estim Creat Clear Calc 125.7 Estimated GFR > 60 Random Glucose 99 (60-115) mg/dL Calcium 9.3 (8.4-10.2) mg/dL Total Bilirubin 0.2 (0.0-1.0) mg/dL AST 29 (5-37) U/L ALT 23 (0-40) U/L Alkaline Phosphatase 68 (39-117) U/L Total Protein 7.7 (6.5-8.0) g/dL Albumin 4.4 (3.5-5.0) g/dL Urine Color Yellow Urine Appearance Turbid Urine pH 5.5 (5.0-9.0) Ur Specific [place] 1.025 (1.005-1.025) Urine Protein Negative (Neg-Trace) mg/dL Urine Glucose (UA) Negative (Negative) mg/dL Urine Ketones Trace (Negative) mg/dL Urine Blood Moderate (2+) H (Negative) Urine Nitrite Negative (Negative) Ur Leukocyte Esterase Trace H (Negative) Urine RBC 6-10 H (0-2) /HPF Urine WBC 0-5 (0-5) /HPF Urine WBC Clumps Cancelled Ur Squamous Epith Cells 0-2 (0-2) /HPF Ur Transition Epith Cell Cancelled Ur Renal Epithelial Cell Cancelled Calcium Oxalate Crystal Cancelled Leucine Crystals Cancelled Cystine Crystals Cancelled Tyrosine Crystals Cancelled Other Crystals Cancelled Urine Bacteria None Seen (None Seen) Urine Parasites Cancelled Bilirubin Casts Cancelled Epithelial Casts Cancelled Fatty Casts Cancelled Hyaline Casts 0-2 (0-2) /LPF Granular Casts Cancelled Waxy Casts Cancelled Broad Casts Cancelled RBC Casts Cancelled WBC Casts Cancelled Other Casts Cancelled Urine Trichomonas Cancelled Urine Yeast Cancelled Salicylates < 5.0 L (15-30) mg/dL Urine Opiates Screen Not Detected (Not Detect) Ur Buprenorphine Scrn Not Detected (Not Detect) ng/mL Ur Oxycodone Screen Not Detected (Not Detect) ng/mL Urine Methadone Screen Not Detected (Not Detect) ng/mL Urine Fentanyl Screen Not Detected (Not Detect) Acetaminophen < 3 (<30) mcg/mL Ur Barbiturates Screen Not Detected (Not Detect) Ur Phencyclidine Scrn Not Detected (Not Detect) Ur Amphetamines Screen Not Detected (Not Detect) U Benzodiazepines Scrn Not Detected (Not Detect) Urine Cocaine Screen Not Detected (Not Detect) U Marijuana (THC) Screen Not Detected (Not Detect) Ethyl Alcohol < 10 mg/dL Discharge Plan Discharge Clinical Impression: Auditory hallucination Patient Disposition: Admitted As Inpatient Interventions: [place]-Suicide Risk Severity Scale Last Done: 07/31/25 23:02 Admission Worksheet (ED) Last Done: 08/01/25 12:33 Discharge Date/Time: 08/01/25 13:20
[2025-07-31 22:43] VITALS: BP 141/70; BP 178/110; PULSE 103; PULSE 92; RESP 20; TEMP 37; O2SAT 96; BMI 30.4
[2025-07-31 23:02] VITALS: BP 141/70; PULSE 92; RESP 20; TEMP 37; O2SAT 96
[2025-07-31 23:04] LABS: Hematocrit 44.6 % (42.0-52.0); Hemoglobin 16.2 g/dl (14.0-18.0); Imm Gran Abs Auto 0.02 X10*3/uL (0.00-0.03); Imm Gran Pct Auto 0.2 % (0.0-0.4); Lymphocytes Absolute Auto 3.7 X10*3/uL (1.2-4.9); MANUAL DIFF FLAG NO; Mean Corpuscular HGB Conc 36.3 g/dl (31.0-36.0); Mean Corpuscular Hemoglobin 33.3 pg (27.0-33.0); Mean Corpuscular Volume 91.6 fL (80.0-98.0); NRBC Abs Auto 0.000 X10*3/uL (0.0-0.012); NRBC Pct Auto 0.0 /100WBC (0.0-0.2); Platelet Count 207 X10*3/uL (160-400); Red Blood Count 4.87 X10*6/uL (4.60-5.80); White Blood Count 9.6 X10*3/uL (4.8-10.8)
[2025-07-31 23:21] LABS: Acetaminophen LAB < 3 mcg/mL (<30); Alanine Aminotransferase 23 U/L (0-40); Albumin Level 4.4 g/dL (3.5-5.0); Alkaline Phosphatase 68 U/L (39-117); Anion Gap 17 (12-20); Aspartate Amino Transferase 29 U/L (5-37); Blood Urea Nitrogen 17 mg/dL (9-16); Calcium 9.3 mg/dL (8.4-10.2); Carbon Dioxide 21 mmol/L (22-29); Chloride 109 mmol/L (96-108); Creatinine Clr Calc Pharmacy 125.7; Estimated Glomerular Filt Rate > 60; Potassium 3.9 mmol/L (3.3-5.1); Salicylate < 5.0 mg/dL (15-30); Sodium 143 mmol/L (135-145); Total Protein 7.7 g/dL (6.5-8.0)
[2025-07-31] MEDS: Lidocaine 4 % Patch ADH..PATCH 1 PATCH TRANSDERMA (23:59)
[2025-08-01 00:06] LABS: Cannabinoid Screen Urine Not Detected (Not Detect)
--- OUTSIDE RECORDS SUMMARY | 2025-08-01 00:26 | XMS_ITS | Clinical Summary ---
Author Organization [email or web address] Address [address] [place] [address] [address] [place] [address] Care Team Providers Care Vessel Master Name Role Phone Unavailable Primary Care Provider [...] Hypertensive disorder 01/14/2016 Obesity 08/19/2015 Schizoaffective disorder ([facility]/HCC) 08/19/2015 Encounters Date Type Department Care Team Description 06/19/2025 Telephone [facility] MEDICINE [address] [place] [id number] Taras Donovan MD 05/22/2025 Telephone [facility] MEDICINE [address] [place] [address] Patricia Chandler FNP Appointment Request 05/13/2025 Telephone [facility] MEDICINE [address] [place] [address] Cesario Huizar MA chart prep 05/07/2025 Patient Outreach [facility] & PEDS [address] [place] [address] Patricia Chandler FNP Pre-visit Planning (SDOH unable to reach, number disconnected) from Last 3 Months Immunizations Immunization Administration [...] 2021 Zoster Vaccines (1 of 2) 2021 Lipid Panel 04/08/2025 04/08/2020 COVID-19 Vaccine (2 - 2024- season) 2025 01/23/2021 Influenza Vaccine (#1) 2025 8, 08/01/2016, 07/13/2015, [...] LIPID PANEL, STANDARD (04/08/2020 9:09 AM EDT) [facility] Signature Cholesterol, Total 139 <200 mg/dL [facility] LDL Cholesterol 76 mg/dL (calc) [facility] Comment: Reference range: <100 Desirable range <100 mg/dL for primary prevention; <70 mg/dL for patients with CHD or diabetic patients with > or = 2 CHD risk factors. LDL-C is now calculated using the Marco-Joselyn calculation, which is a validated novel method providing better accuracy than the Friedewald equation in the estimation of LDL-C. Marco DALLAS et al. ROSY. 2013;310(19): 2656-0777 (http://education.weartolook.Konoz/faq/GMD271) HDL Cholesterol 43 > OR = 40 mg/dL [facility] Chol/HDLC Ratio 3.2 <5.0 (calc) [facility] Triglycerides 115 <150 mg/dL [facility] Cholesterol, Total 139 <200 mg/dL [...] equation in the estimation of LDL-C. Marco DALLAS et al. ROSY. 2013;310(19): 2509-0643 (http://education.XStor Systems/faq/JGB716) HDL Cholesterol 43 > OR = 40 [...] therapeutic option. Triglycerides 115 <150 mg/dL [facility] 04/08/2020 9:09 AM EDT Marion Grey MD LAB BLOOD ORDERABLES Final Result [facility] [address] from Last 3 Months or Most Recently Relevant to Health Maintenance Insurance [facility] STANDARD [place] [phone] [place] [address] [facility] [place] [id number] [place] [address]
--- NOTE | 2025-08-01 07:29 | PC.NURSE ---
Assumed care, report received. Pt is awake and eating breakfast, safety is maintained.
[2025-08-01 07:35] VITALS: BP 151/75; PULSE 80; RESP 18; TEMP 36.8; O2SAT 96
--- NOTE | 2025-08-01 07:55 | ECG_ITS ---
Test Reason : check prolonged qt Blood Pressure : */* mmHG Vent. Rate : 78 BPM Atrial Rate : 78 BPM P-R Int : 148 ms QRS Dur : 100 ms QT Int : 372 ms P-R-T Axes : 11 15 -82 degrees QTcB Int : 424 ms Normal sinus rhythm Nonspecific T wave abnormality Abnormal ECG When compared with ECG of 05-May-2025 09:34, No significant change was found Referred By: Verena Corcoran Electronically Signed By: Colten Travis
[2025-08-01 08:18] LABS: Appearance Urine Turbid; Glucose Urine UA Negative (Negative); PH 5.5 (5.0-9.0); Specific Gravity - Urine 1.025 (1.005-1.025); UMIC TRIGGER UA YES
[2025-08-01 13:38] VITALS: BP 138/73; PULSE 74; RESP 14; TEMP 36.4; O2SAT 97; BMI 28.7
--- NOTE | 2025-08-01 15:47 | HO.PSYADMNOT ---
HPI Date of Service: 08/01/25 Chief Complaint: SI Sources of Information: patient interviewed, chart reviewed and crisis/core team assessment reviewed HPI Subjective Notes: [place] Warning and Conditional Voluntary Narrative: Patient is a 54-year-old male with history of schizoaffective disorder and alcohol use disorder who presented to [facility] [facility] via ambulance d/t suicidal ideation and auditory hallucinations secondary to treatment noncompliance. Per crisis report, patient presented to ER endorsing auditory hallucinations and suicidal ideation with no plan or intent. Patient unable to provide any precipitants, however, it is speculated patient has been off his medications since his last visit. He reports not taking medications and not being prescribed any medication. Patient reports his mood is terrible . Denies HI. Reports auditory and visual hallucinations. He refused to answer questions related to SI. He reports sleep has been terrible and appetite as okay . History of multiple inpatient psychiatric hospitalizations. History of 3-4 suicide attempts, last attempt being over 4 years ago. History of self-injurious behavior via cutting, last attempt 10 years ago. Patient denies any substance use. History of alcohol and marijuana use. utox negative. Denies detox admissions. During admission assessment, patient presents alert and oriented x3. Calm and cooperative. Patient reports feeling depressed , patient stated, the voices were making me suicidal. I don't remember what they were saying. I want to restart my medications to have a clear mind . Patient reports he has not taken medications for 1-2 months due to not having refills . When asked why he does not follow up with outpatient providers, patient responded, I don't know . Patient reports he plans on returning to a fdc in [place], [place]. Patient reports drinking 3-4 beers every 2-3 days ; He stated he does not want to go to a substance abuse program because he does not believe that he has a substance abuse problem. [facility] protocol ordered. Discussed restarting on Wellbutrin and Zyprexa, per patient's medication/treatment history; patient agreed. Denies SI/HI/VH/AH. Past Psychiatric History: History of multiple inpatient psychiatric hospitalizations. SA: reports more than 3. SIB: reports h/o cutting, more than 10 years ago. Denies current outpatient psychiatric providers Medical Evaluation Reviewed: Yes [facility] Medical History (Updated 08/01/25 @ 16:02 by Sonja Khabir, [employer]LECT[employer]ICAL HARDWARE ENGINEER) Depression Acute UTI Depression Suicidal ideation Hematuria Alcohol abuse Schizoaffective disorder, depressive type Cocaine abuse Family History: Unknown Social History: Homeless. completed the 7th grade. Currently not working, on SSI Substance History: hx of alcohol and marijuana use. utox negative. Patient reports drinking 3-4 beers every 2-3 days . Trauma History: Affirms through and family losses Diagnostics Vital Signs (24Hr): Vital Signs - 24 hr 07/31/25 22:43 07/31/25 23:02 08/01/25 07:35 Temperature 98.6 F 98.6 F 98.2 F Pulse Rate 92 92 80 Respiratory Rate 20 20 18 Blood Pressure 141/70 H 141/70 H 151/75 H Pulse Oximetry 96 96 96 Oxygen Delivery Method Room Air Room Air Room Air 08/01/25 13:38 Temperature 97.6 F Pulse Rate 74 Respiratory Rate 14 Blood Pressure 138/73 Pulse Oximetry 97 Oxygen Delivery Method Room Air BMI result Body Mass Index 28.7 Labs 07/31/25 22:58 07/31/25 22:58 Labs: Laboratory Results - last 48 hr 07/31/25 07/31/25 22:58 23:47 WBC 9.6 RBC 4.87 Hgb 16.2 Hct 44.6 MCV 91.6 MCH 33.3 H MCHC 36.3 H RDW 12.4 Plt Count 207 MPV 9.8 Immature Gran % (Auto) 0.2 Neut % (Auto) 52.5 Lymph % (Auto) 38.2 [place] % (Auto) 6.0 Eos % (Auto) 2.7 Baso % (Auto) 0.4 Lymph # (Auto) 3.7 [place] # (Auto) 0.6 Eos # (Auto) 0.3 Baso # (Auto) 0.0 Abs Immat Gran (auto) 0.02 Absolute Neuts (auto) 5.1 Absolute Nucleated RBC 0.000 Nucleated RBC % (auto) 0.0 Sodium 143 Potassium 3.9 Chloride 109 H Carbon Dioxide 21 L Anion Gap 17 BUN 17 H Creatinine 0.79 Estim Creat Clear Calc 125.7 Estimated GFR > 60 Random Glucose 99 Calcium 9.3 Total Bilirubin 0.2 AST 29 ALT 23 Alkaline Phosphatase 68 Total Protein 7.7 Albumin 4.4 Urine Color Yellow Urine Appearance Turbid Urine pH 5.5 Ur Specific [place] 1.025 Urine Protein Negative Urine Glucose (UA) Negative Urine Ketones Trace Urine Blood Moderate (2+) H Urine Nitrite Negative Ur Leukocyte Esterase Trace H Urine RBC 6-10 H Urine WBC 0-5 Urine WBC Clumps Cancelled Ur Squamous Epith Cells 0-2 Ur Transition Epith Cell Cancelled Ur Renal Epithelial Cell Cancelled Calcium Oxalate Crystal Cancelled Leucine Crystals Cancelled Cystine Crystals Cancelled Tyrosine Crystals Cancelled Other Crystals Cancelled Urine Bacteria None Seen Urine Parasites Cancelled Bilirubin Casts Cancelled Epithelial Casts Cancelled Fatty Casts Cancelled Hyaline Casts 0-2 Granular Casts Cancelled Waxy Casts Cancelled Broad Casts Cancelled RBC Casts Cancelled WBC Casts Cancelled Other Casts Cancelled Urine Trichomonas Cancelled Urine Yeast Cancelled Salicylates < 5.0 L Urine Opiates Screen Not Detected Ur Buprenorphine Scrn Not Detected Ur Oxycodone Screen Not Detected Urine Methadone Screen Not Detected Urine Fentanyl Screen Not Detected Acetaminophen < 3 Ur Barbiturates Screen Not Detected Ur Phencyclidine Scrn Not Detected Ur Amphetamines Screen Not Detected U Benzodiazepines Scrn Not Detected Urine Cocaine Screen Not Detected U Marijuana (THC) Screen Not Detected Ethyl Alcohol < 10 Meds/Allergies Meds Home Medications ?Medication ?Instructions ?Recorded ?Confirmed ?Type No Known Home Meds 08/01/25 08/01/25 History Allergies Allergies Allergy/AdvReac Type Severity Reaction Status Date / Time paliperidone (From [employer]) AdvReac liver Verified 07/31/25 22:49 trazodone AdvReac Mild dizzy Uncoded 07/31/25 22:49 Mental Status Exam Mental Status Exam Patient Appearance: Appropriate Patient Orientation: Person, Place, Time and Situation Level of Consciousness: Awake and Alert Patient Behavior: Appropriate, Guarded and Cooperative Mood Description: Depressed Affect Description: Blunted Ability to Follow Directions: Good Speech Pattern: Clear and Soft-Spoken Memory Description: Intact Hallucinations: None Delusions: Not Present Thought Process: Intact and Goal Oriented Thought Content: positive for Intact Assessment & Plan Assessment & Plan (1) Schizoaffective disorder, depressive type: Status: Acute Code(s): F25.1 - Schizoaffective disorder, depressive type (2) Alcohol abuse: Status: Acute Code(s): F10.10 - Alcohol abuse, uncomplicated Plan Patient is a 54-year-old male with history of schizoaffective disorder and alcohol use disorder who presented to [facility] [facility] via ambulance d/t suicidal ideation and auditory hallucinations secondary to treatment noncompliance. Plan: CV 15 minute safety checks CIWA protocol Start: Wellbutrin 150mg PO daily Zyprexa 10mg PO bedtime encourage groups encourage treatment compliance discharge planning Patient educated on: diagnosis and medication risk/benefits Reason for continued inpatient stay Substantial Risk for: med/psych decompensation Statement Statement: I have reviewed the history and physical and performed a pertinent examination on my patient. No changes have occurred unless specified. If the History and Physical was not performed prior to admission, the Hospitalist's service will be consulted for completing the admission physical. Time Spent With Patient Time: Total time managing care of this patient today _60___ minutes.
--- NOTE | 2025-08-01 18:22 | PC.ADMIT ---
Nathaniel was admitted to from [facility] on 08/01/25 at 13:25 for the treatment of schizoaffective disorder. He signed a CV upon arrival. Contraband/skin check was completed by this report writer and [facility]. Nathaniel reports that he has been having an increase in AH and thoughts of SI that precipitated his admission. He is currently residing at a senior care in [place] ([address] [place] [address]). He reports his girlfriend is a good support for him and states he has been calling her more lately. Nathaniel states that he wants to heal my head . He was calm, cooperative, and soft spoken throughout admission process. He is alert and oriented x4. He endorses CAH, but did not specify what the voices were saying. He states that he might be having VH, but cannot fully tell. He denies current SI/HI and reports he can approach staff and ask for help if feeling unsafe. His thought process is linear. He reports a recent weight gain of about 10 lbs and states he is happy about this. He reports his sleep has been terrible and that he has trouble staying asleep. His utox and BAL were negative. He reports smoking a pack of cigarettes every 3-4 days. He reports drinking alcohol whenever I can . He does not currently appear to be having s/s of withdrawal during admit interview, but was placed on a CIWA q4h. He reports low back pain but denies any other current medical problems. He was placed on 15 minute checks for safety.
[2025-08-01 20:00] VITALS: BP 132/77; PULSE 74; RESP 16; TEMP 36.2; O2SAT 97
[2025-08-01] MEDS: Flu Vacc TS2025-26(6mo up)/PF 0.5 ML SYRINGE IM (20:05)
[2025-08-02 08:02] LABS: Hemoglobin A1C 139.0841 umol/L; Total Hemoglobin (HGBA1C) 4106.0041 umol/L
[2025-08-02 08:15] VITALS: BP 138/93; PULSE 75; RESP 18; TEMP 36.8; O2SAT 99
[2025-08-02 08:17] LABS: Alanine Aminotransferase 19 U/L (0-40); Albumin Level 4.2 g/dL (3.5-5.0); Aspartate Amino Transferase 23 U/L (5-37); Blood Urea Nitrogen 19 mg/dL (9-16); Calcium 9.1 mg/dL (8.4-10.2); Cholesterol 178 mg/dL (<200); Creatinine Clr Calc Pharmacy 124.0; Estimated Glomerular Filt Rate > 60; HDL Cholesterol 52 mg/dL (>40); Total Protein 6.7 g/dL (6.5-8.0); Triglycerides 123 mg/dL (<150)
[2025-08-02 08:23] LABS: Alkaline Phosphatase 62 U/L (39-117); Anion Gap 13 (12-20); Carbon Dioxide 25 mmol/L (22-29); Chloride 106 mmol/L (96-108); Potassium 4.1 mmol/L (3.3-5.1); Sodium 140 mmol/L (135-145)
[2025-08-02] MEDS: buPROPion HCl XL 150 MG TAB.ER.24H PO (08:50)
[2025-08-02] MEDS: Nicotine 21 MG PATCH.TD24 TRANSDERMA (08:50)
[2025-08-02 20:20] VITALS: BP 119/63; PULSE 88; RESP 17; TEMP 36.8; O2SAT 98
--- NOTE | 2025-08-02 20:40 | P.PNPSI_ITS ---
Subjective Subjective Date of Service: 08/02/25 Reason For Visit: SI Subjective Notes: Conditional Voluntary Healthcare Proxy: No Guardianship: No Medical Problems Affecting Mental Status: No Interim History: Medical record and nursing notes reviewed; case discussed during rounds with team/nursing staff, and met with patient for supportive therapy/psychoeducation, as well as medication management. Patient slept for 7 hours, compliant with medications, denies side effects. Patient remain on CIWA protocol, did not score, denies symptoms of withdrawals. Reports his last drink was 2 days ago. Denies hallucinations, reports last command hallucination was a week ago. Denies suicide thoughts homicidal thoughts. Patient appeared to be preoccupied and depressed but pleasant and calm operative upon approach. Medication Compliance: Yes Side effects from medications: No Attending Groups: No Review of Systems Acute medical concerns: No Medical Review of Systems: unchanged Review of Systems Review of Systems Pertinent review of systems as mentioned in HPI. All other system otherwise negative. Mental Status Exam Mental Status Exam Patient Appearance: Appropriate Patient Orientation: Person, Place, Time and Situation Level of Consciousness: Awake and Alert Patient Behavior: Appropriate, Guarded and Cooperative Mood Description: Depressed Affect Description: Blunted Ability to Follow Directions: Good Speech Pattern: Clear and Soft-Spoken Memory Description: Intact Hallucinations: None Delusions: Not Present Thought Process: Intact and Goal Oriented Thought Content: positive for Intact Diagnostics Vital Signs (24Hr): Vital Signs - 24 hr 08/02/25 08:15 Temperature 98.2 F Pulse Rate 75 Respiratory Rate 18 Blood Pressure 138/93 H Pulse Oximetry 99 Oxygen Delivery Method Room Air BMI result Body Mass Index 28.7 Labs 07/31/25 22:58 08/02/25 07:26 Labs: Laboratory Results - last 48 hr 07/31/25 07/31/25 08/02/25 22:58 23:47 07:26 WBC 9.6 RBC 4.87 Hgb 16.2 Hct 44.6 MCV 91.6 MCH 33.3 H MCHC 36.3 H RDW 12.4 Plt Count 207 MPV 9.8 Immature Gran % (Auto) 0.2 Neut % (Auto) 52.5 Lymph % (Auto) 38.2 [place] % (Auto) 6.0 Eos % (Auto) 2.7 Baso % (Auto) 0.4 Lymph # (Auto) 3.7 [place] # (Auto) 0.6 Eos # (Auto) 0.3 Baso # (Auto) 0.0 Abs Immat Gran (auto) 0.02 Absolute Neuts (auto) 5.1 Absolute Nucleated RBC 0.000 Nucleated RBC % (auto) 0.0 Sodium 143 140 Potassium 3.9 4.1 Chloride 109 H 106 Carbon Dioxide 21 L 25 Anion Gap 17 13 BUN 17 H 19 H Creatinine 0.79 0.78 Estim Creat Clear Calc 125.7 124.0 Estimated GFR > 60 > 60 Random Glucose 99 90 Estimat Average Glucose 105 Hemoglobin A1c % 5.3 Calcium 9.3 9.1 Total Bilirubin 0.2 0.7 AST 29 23 ALT 23 19 Alkaline Phosphatase 68 62 Total Protein 7.7 6.7 Albumin 4.4 4.2 Triglycerides 123 Cholesterol 178 LDL Cholesterol, Calc 102 H HDL Cholesterol 52 Urine Color Yellow Urine Appearance Turbid Urine pH 5.5 Ur Specific [place] 1.025 Urine Protein Negative Urine Glucose (UA) Negative Urine Ketones Trace Urine Blood Moderate (2+) H Urine Nitrite Negative Ur Leukocyte Esterase Trace H Urine RBC 6-10 H Urine WBC 0-5 Urine WBC Clumps Cancelled Ur Squamous Epith Cells 0-2 Ur Transition Epith Cell Cancelled Ur Renal Epithelial Cell Cancelled Calcium Oxalate Crystal Cancelled Leucine Crystals Cancelled Cystine Crystals Cancelled Tyrosine Crystals Cancelled Other Crystals Cancelled Urine Bacteria None Seen Urine Parasites Cancelled Bilirubin Casts Cancelled Epithelial Casts Cancelled Fatty Casts Cancelled Hyaline Casts 0-2 Granular Casts Cancelled Waxy Casts Cancelled Broad Casts Cancelled RBC Casts Cancelled WBC Casts Cancelled Other Casts Cancelled Urine Trichomonas Cancelled Urine Yeast Cancelled Salicylates < 5.0 L Urine Opiates Screen Not Detected Ur Buprenorphine Scrn Not Detected Ur Oxycodone Screen Not Detected Urine Methadone Screen Not Detected Urine Fentanyl Screen Not Detected Acetaminophen < 3 Ur Barbiturates Screen Not Detected Ur Phencyclidine Scrn Not Detected Ur Amphetamines Screen Not Detected U Benzodiazepines Scrn Not Detected Urine Cocaine Screen Not Detected U Marijuana (THC) Screen Not Detected Ethyl Alcohol < 10 Medications Medications Current Medications Acetaminophen (Acetaminophen 325 Mg Tablet) 650 mg PO Q6H PRN PRN Reason: Headache/Pain, Scale 1-10 Last Admin: 08/02/25 20:19 Dose: 650 mg Al Hydroxide/Mg Hydroxide (Magnesium Hydrox/Alum Hydrox 30 Ml Oral.Susp) 30 ml PO Q6H PRN PRN Reason: Heartburn/Nausea Bupropion HCl (Bupropion Hcl Xl 150 Mg Tab.Er.24h) 150 mg PO DAILY [facility] Last Admin: 08/02/25 08:50 Dose: 150 mg Hydroxyzine HCl (Hydroxyzine Hcl 25 Mg Tablet) 25 mg PO Q6H PRN PRN Reason: mild anxiety Last Admin: 08/01/25 20:59 Dose: 25 mg Lorazepam (Lorazepam 1 Mg Tablet) 1 mg PO Q2H PRN PRN Reason: CIWA 8-11 Lorazepam (Lorazepam 1 Mg Tablet) 2 mg PO Q2H PRN PRN Reason: CIWA 12-15 Lorazepam (Lorazepam 1 Mg Tablet) 3 mg PO Q2H PRN PRN Reason: CIWA > 15, and call Magnesium Hydroxide (Milk Of Magnesia 30 Ml Oral.Susp) 30 ml PO DAILY PRN PRN Reason: Constipation Melatonin (Melatonin 3 Mg Tablet) 9 mg PO BEDTIME [facility] Last Admin: 08/02/25 20:19 Dose: 9 mg Nicotine (Nicotine 21 Mg Patch.Td24) 21 mg TRANSDERMA DAILY [facility] Last Admin: 08/02/25 08:50 Dose: 21 mg Nicotine Polacrilex (Nicotine Polacrilex 2 Mg Gum) 4 mg BUCCAL Q2H PRN PRN Reason: Nicotine Cravings Olanzapine (Olanzapine 10 Mg Tablet) 10 mg PO BEDTIME [facility] Last Admin: 08/02/25 20:19 Dose: 10 mg Thiamine HCl (Thiamine Hcl 100 Mg Tablet) 100 mg PO DAILY [facility] Last Admin: 08/02/25 08:50 Dose: 100 mg Allergies Allergies Allergy/AdvReac Type Severity Reaction Status Date / Time paliperidone (From [employer]) AdvReac liver Verified 07/31/25 22:49 trazodone AdvReac Mild dizzy Uncoded 07/31/25 22:49 Assessment & Plan Assessment & Plan (1) Schizoaffective disorder, depressive type: Status: Acute Code(s): F25.1 - Schizoaffective disorder, depressive type (2) Alcohol abuse: Status: Acute Code(s): F10.10 - Alcohol abuse, uncomplicated Plan Patient is a 54-year-old male with history of schizoaffective disorder and alcohol use disorder who presented [place] [facility] [place] d/t suicidal ideation and auditory hallucinations secondary to treatment noncompliance. Plan: CV 15 minute safety checks CIWA protocol Start: Wellbutrin 150mg PO daily Zyprexa 10mg PO bedtime encourage groups encourage treatment compliance discharge planning 08/02/25: Patient slept for 7 hours, compliant with medications, denies side effects. Patient remain on CIWA protocol, did not score, denies symptoms of withdrawals. Reports his last drink was 2 days ago. Denies hallucinations, reports last command hallucination was a week ago. Denies suicide thoughts homicidal thoughts. Patient appeared to be preoccupied and depressed but pleasant and calm operative upon approach. Discontinue trazodone-listed as allergy Melatonin 9 mg at bedtime for insomnia. Continue with CIWA protocol with Ativan PRNs for alcohol withdrawal. Patient educated on: diagnosis, medication risk/benefits, substance abuse and therapeutic strategies Informed Consent: further education needed Reason for continued inpatient stay Substantial Risk for: med/psych decompensation Time Spent With Patient Time: Total time managing care of this patient today ____ minutes.
[2025-08-03 08:00] VITALS: BP 114/58; PULSE 85; RESP 14; TEMP 36.4; O2SAT 96
[2025-08-03] MEDS: Nicotine 21 MG PATCH.TD24 TRANSDERMA (08:57)
[2025-08-03] MEDS: buPROPion HCl XL 150 MG TAB.ER.24H PO (08:59)
--- NOTE | 2025-08-03 13:40 | HO.PSYCHPN ---
Subjective Subjective Date of Service: 08/03/25 Reason For Visit: SI Subjective Notes: Conditional Voluntary Healthcare Proxy: No Guardianship: No Medical Problems Affecting Mental Status: No Interim History: Medical record and nursing notes reviewed; case discussed during rounds with team/nursing staff, and met with patient for supportive therapy/psychoeducation, as well as medication management. Patient slept for 6 hours, compliant with medications. Napping in room, he was in bed facing the wall when this patient approach, do not having eye contact during assessment. Appeared to be guarded and irritable edge. Reports no anxiety but feeling depressed. Denies hallucinations. However reports to nursing that he experience voices but not disclosed in details. Medication Compliance: Yes Side effects from medications: No Attending Groups: No Review of Systems Acute medical concerns: No Medical Review of Systems: unchanged Review of Systems Review of Systems Pertinent review of systems as mentioned in HPI. All other system otherwise negative. Yes all other systems are reviewed and are negative Mental Status Exam Mental Status Exam Patient Appearance: Appropriate Patient Orientation: Person, Place, Time and Situation Level of Consciousness: Awake and Alert Patient Behavior: Appropriate, Guarded and Cooperative Mood Description: Depressed Affect Description: Blunted Ability to Follow Directions: Good Speech Pattern: Clear and Soft-Spoken Memory Description: Intact Hallucinations: None Delusions: Not Present Thought Process: Intact and Goal Oriented Thought Content: positive for Intact Diagnostics Vital Signs (24Hr): Vital Signs - 24 hr 08/02/25 20:20 08/03/25 08:00 Temperature 98.3 F 97.5 F Pulse Rate 88 85 Respiratory Rate 17 14 Blood Pressure 119/63 114/58 L Pulse Oximetry 98 96 Oxygen Delivery Method Room Air Room Air BMI result Body Mass Index 28.7 Labs 07/31/25 22:58 08/02/25 07:26 Labs: Laboratory Results - last 48 hr 08/02/25 07:26 Sodium 140 Potassium 4.1 Chloride 106 Carbon Dioxide 25 Anion Gap 13 BUN 19 H Creatinine 0.78 Estim Creat Clear Calc 124.0 Estimated GFR > 60 Random Glucose 90 Estimat Average Glucose 105 Hemoglobin A1c % 5.3 Calcium 9.1 Total Bilirubin 0.7 AST 23 ALT 19 Alkaline Phosphatase 62 Total Protein 6.7 Albumin 4.2 Triglycerides 123 Cholesterol 178 LDL Cholesterol, Calc 102 H HDL Cholesterol 52 Medications Medications Current Medications Acetaminophen (Acetaminophen 325 Mg Tablet) 650 mg PO Q6H PRN PRN Reason: Headache/Pain, Scale 1-10 Last Admin: 08/02/25 20:19 Dose: 650 mg Al Hydroxide/Mg Hydroxide (Magnesium Hydrox/Alum Hydrox 30 Ml Oral.Susp) 30 ml PO Q6H PRN PRN Reason: Heartburn/Nausea Bupropion HCl (Bupropion Hcl Xl 150 Mg Tab.Er.24h) 150 mg PO DAILY [facility] Last Admin: 08/03/25 08:59 Dose: 150 mg Hydroxyzine HCl (Hydroxyzine Hcl 25 Mg Tablet) 25 mg PO Q6H PRN PRN Reason: mild anxiety Last Admin: 08/01/25 20:59 Dose: 25 mg Lorazepam (Lorazepam 1 Mg Tablet) 1 mg PO Q2H PRN PRN Reason: CIWA 8-11 Lorazepam (Lorazepam 1 Mg Tablet) 2 mg PO Q2H PRN PRN Reason: CIWA 12-15 Lorazepam (Lorazepam 1 Mg Tablet) 3 mg PO Q2H PRN PRN Reason: CIWA > 15, and call Magnesium Hydroxide (Milk Of Magnesia 30 Ml Oral.Susp) 30 ml PO DAILY PRN PRN Reason: Constipation Melatonin (Melatonin 3 Mg Tablet) 9 mg PO BEDTIME [facility] Last Admin: 08/02/25 20:19 Dose: 9 mg Nicotine (Nicotine 21 Mg Patch.Td24) 21 mg TRANSDERMA DAILY [facility] Last Admin: 08/03/25 08:57 Dose: 21 mg Nicotine Polacrilex (Nicotine Polacrilex 2 Mg Gum) 4 mg BUCCAL Q2H PRN PRN Reason: Nicotine Cravings Olanzapine (Olanzapine 10 Mg Tablet) 10 mg PO BEDTIME [facility] Last Admin: 08/02/25 20:19 Dose: 10 mg Thiamine HCl (Thiamine Hcl 100 Mg Tablet) 100 mg PO DAILY [facility] Last Admin: 08/03/25 08:59 Dose: 100 mg Allergies Allergies Allergy/AdvReac Type Severity Reaction Status Date / Time paliperidone (From [employer]) AdvReac liver Verified 07/31/25 22:49 trazodone AdvReac Mild dizzy Uncoded 07/31/25 22:49 Assessment & Plan Assessment & Plan (1) Schizoaffective disorder, depressive type: Status: Acute Code(s): F25.1 - Schizoaffective disorder, depressive type (2) Alcohol abuse: Status: Acute Code(s): F10.10 - Alcohol abuse, uncomplicated Plan Patient is a 54-year-old male with history of schizoaffective disorder and alcohol use disorder who presented to [facility] via ambulance d/t suicidal ideation and auditory hallucinations secondary to treatment noncompliance. Plan: CV 15 minute safety checks CIWA protocol Start: Wellbutrin 150mg PO daily Zyprexa 10mg PO bedtime encourage groups encourage treatment compliance discharge planning 08/02/25: Patient slept for 7 hours, compliant with medications, denies side effects. Patient remain on CIWA protocol, did not score, denies symptoms of withdrawals. Reports his last drink was 2 days ago. Denies hallucinations, reports last command hallucination was a week ago. Denies suicide thoughts homicidal thoughts. Patient appeared to be preoccupied and depressed but pleasant and calm operative upon approach. Discontinue trazodone-listed as allergy Melatonin 9 mg at bedtime for insomnia. Continue with CIWA protocol with Ativan PRNs for alcohol withdrawal. : Patient slept for 6 hours, compliant with medications. Napping in room, he was in bed facing the wall when this patient approach, do not having eye contact during assessment. Appeared to be guarded and irritable edge. Reports no anxiety but feeling depressed. Denies hallucinations. However reports to nursing that he experience voices but not disclosed in details. Will discontinue CIWA and Ativan PRN. No score. Completed treatment. Patient educated on: diagnosis, medication risk/benefits, substance abuse and therapeutic strategies Informed Consent: understands and further education needed Reason for continued inpatient stay Substantial Risk for: med/psych decompensation Time Spent With Patient Time: Total time managing care of this patient today ____ minutes.
[2025-08-03 19:28] VITALS: BP 128/67; PULSE 101; RESP 16; TEMP 36.7; O2SAT 97
[2025-08-04 08:00] VITALS: BP 121/78; PULSE 86; RESP 14; TEMP 36.7; O2SAT 97
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
[2025-08-04] MEDS: Nicotine 21 MG PATCH.TD24 TRANSDERMA (08:52)
[2025-08-04] MEDS: buPROPion HCl XL 150 MG TAB.ER.24H PO (08:52)
--- NOTE | 2025-08-04 12:01 | HO.PSYCHPN ---
Subjective Subjective Date of Service: 08/04/25 Reason For Visit: SI Subjective Notes: Conditional Voluntary Interim History: Active on unit. keeping to self. attending groups. Patient reports feeling okay today; he reports he is no longer feeling depressed. denies SI/HI/VH/AH. Per nursing, slept 8 hours. Plan to discharge on Monday; pt aware. Medication Compliance: Yes Side effects from medications: No Attending Groups: Yes Mental Status Exam Mental Status Exam Narrative: Pt is alert and oriented; behavior is cooperative and calm; dressed in casual attire; mood is described as good ; eye contact appropriate; Speech is normal rate, volume and not pressured; thought process is organized; Thought content is on discharge; denies SI/HI/VH/AH. Diagnostics Vital Signs (24Hr): Vital Signs - 24 hr 08/03/25 19:28 08/04/25 08:00 Temperature 98.1 F 98.0 F Pulse Rate 101 H 86 Respiratory Rate 16 14 Blood Pressure 128/67 121/78 Pulse Oximetry 97 97 Oxygen Delivery Method Room Air Room Air BMI result Body Mass Index 28.7 Labs 07/31/25 22:58 08/02/25 07:26 Medications Medications Current Medications Acetaminophen (Acetaminophen 325 Mg Tablet) 650 mg PO Q6H PRN PRN Reason: Headache/Pain, Scale 1-10 Last Admin: 08/02/25 20:19 Dose: 650 mg Al Hydroxide/Mg Hydroxide (Magnesium Hydrox/Alum Hydrox 30 Ml Oral.Susp) 30 ml PO Q6H PRN PRN Reason: Heartburn/Nausea Bupropion HCl (Bupropion Hcl Xl 150 Mg Tab.Er.24h) 150 mg PO DAILY [facility] Last Admin: 08/04/25 08:52 Dose: 150 mg Hydroxyzine HCl (Hydroxyzine Hcl 25 Mg Tablet) 25 mg PO Q6H PRN PRN Reason: mild anxiety Last Admin: 08/01/25 20:59 Dose: 25 mg Magnesium Hydroxide (Milk Of Magnesia 30 Ml Oral.Susp) 30 ml PO DAILY PRN PRN Reason: Constipation Melatonin (Melatonin 3 Mg Tablet) 9 mg PO BEDTIME [facility] Last Admin: 08/03/25 22:07 Dose: 9 mg Nicotine (Nicotine 21 Mg Patch.Td24) 21 mg TRANSDERMA DAILY [facility] Last Admin: 08/04/25 08:52 Dose: 21 mg Nicotine Polacrilex (Nicotine Polacrilex 2 Mg Gum) 4 mg BUCCAL Q2H PRN PRN Reason: Nicotine Cravings Olanzapine (Olanzapine 10 Mg Tablet) 10 mg PO BEDTIME [facility] Last Admin: 08/03/25 22:07 Dose: 10 mg Thiamine HCl (Thiamine Hcl 100 Mg Tablet) 100 mg PO DAILY [facility] Last Admin: 08/04/25 08:52 Dose: 100 mg Allergies Allergies Allergy/AdvReac Type Severity Reaction Status Date / Time paliperidone (From InvD-Sight) AdvReac liver Verified 07/31/25 22:49 trazodone AdvReac Mild dizzy Uncoded 07/31/25 22:49 Assessment & Plan Assessment & Plan (1) Schizoaffective disorder, depressive type: Status: Acute Code(s): F25.1 - Schizoaffective disorder, depressive type (2) Alcohol abuse: Status: Acute Code(s): F10.10 - Alcohol abuse, uncomplicated Plan Patient is a 54-year-old male with history of schizoaffective disorder and alcohol use disorder who presented to [facility] via ambulance d/t suicidal ideation and auditory hallucinations secondary to treatment noncompliance. Plan: CV 15 minute safety checks CIWA protocol Start: Wellbutrin 150mg PO daily Zyprexa 10mg PO bedtime encourage groups encourage treatment compliance discharge planning 08/02/25: Patient slept for 7 hours, compliant with medications, denies side effects. Patient remain on CIWA protocol, did not score, denies symptoms of withdrawals. Reports his last drink was 2 days ago. Denies hallucinations, reports last command hallucination was a week ago. Denies suicide thoughts homicidal thoughts. Patient appeared to be preoccupied and depressed but pleasant and calm operative upon approach. Discontinue trazodone-listed as allergy Melatonin 9 mg at bedtime for insomnia. Continue with CIWA protocol with Ativan PRNs for alcohol withdrawal. 08/03: Patient slept for 6 hours, compliant with medications. Napping in room, he was in bed facing the wall when this patient approach, do not having eye contact during assessment. Appeared to be guarded and irritable edge. Reports no anxiety but feeling depressed. Denies hallucinations. However reports to nursing that he experience voices but not disclosed in details. Will discontinue CIWA and Ativan PRN. No score. Completed treatment. 08/04: Active on unit. keeping to self. attending groups. Patient reports feeling okay today; he reports he is no longer feeling depressed. denies SI/HI/VH/AH. Per nursing, slept 8 hours. Plan to discharge on Monday; pt aware. Patient reports he plans on returning to long term. Patient educated on: diagnosis and medication risk/benefits Reason for continued inpatient stay Substantial Risk for: med/psych decompensation Time Spent With Patient Time: Total time managing care of this patient today _20___ minutes.
[2025-08-04 20:00] VITALS: BP 129/71; PULSE 98; RESP 16; TEMP 36.8; O2SAT 97
[2025-08-05 08:00] VITALS: BP 134/69; PULSE 94; RESP 18; TEMP 36.9; O2SAT 99
--- NOTE | 2025-08-05 09:01 | P.PNPSI_ITS ---
Subjective Subjective Date of Service: 08/05/25 Reason For Visit: SI Subjective Notes: Conditional Voluntary Interim History: Patient reports feeling good and ready to leave ; pt reports he plans on returning to long term when discharged. denies SI/HI/VH/AH. He reports he plans on being medication compliant and following up with outpatient providers. Medication Compliance: Yes Side effects from medications: No Attending Groups: Yes Mental Status Exam Mental Status Exam Narrative: Pt is alert and oriented; behavior is cooperative and calm; dressed in casual attire; mood is described as good ; eye contact appropriate; Speech is normal rate, volume and not pressured; thought process is organized; Thought content is on discharge; denies SI/HI/VH/AH. Diagnostics Vital Signs (24Hr): Vital Signs - 24 hr 08/04/25 20:00 08/05/25 08:00 Temperature 98.2 F 98.5 F Pulse Rate 98 94 Respiratory Rate 16 18 Blood Pressure 129/71 134/69 Pulse Oximetry 97 99 Oxygen Delivery Method Room Air Room Air BMI result Body Mass Index 28.7 Labs 07/31/25 22:58 08/02/25 07:26 Medications Medications Current Medications Acetaminophen (Acetaminophen 325 Mg Tablet) 650 mg PO Q6H PRN PRN Reason: Headache/Pain, Scale 1-10 Last Admin: 08/04/25 20:47 Dose: 650 mg Al Hydroxide/Mg Hydroxide (Magnesium Hydrox/Alum Hydrox 30 Ml Oral.Susp) 30 ml PO Q6H PRN PRN Reason: Heartburn/Nausea Bupropion HCl (Bupropion Hcl Xl 150 Mg Tab.Er.24h) 150 mg PO DAILY [facility] Last Admin: 08/04/25 08:52 Dose: 150 mg Hydroxyzine HCl (Hydroxyzine Hcl 25 Mg Tablet) 25 mg PO Q6H PRN PRN Reason: mild anxiety Last Admin: 08/01/25 20:59 Dose: 25 mg Magnesium Hydroxide (Milk Of Magnesia 30 Ml Oral.Susp) 30 ml PO DAILY PRN PRN Reason: Constipation Melatonin (Melatonin 3 Mg Tablet) 9 mg PO BEDTIME [facility] Last Admin: 08/04/25 20:30 Dose: 9 mg Nicotine (Nicotine 21 Mg Patch.Td24) 21 mg TRANSDERMA DAILY [facility] Last Admin: 08/04/25 08:52 Dose: 21 mg Nicotine Polacrilex (Nicotine Polacrilex 2 Mg Gum) 4 mg BUCCAL Q2H PRN PRN Reason: Nicotine Cravings Olanzapine (Olanzapine 10 Mg Tablet) 10 mg PO BEDTIME [facility] Last Admin: 08/04/25 20:30 Dose: 10 mg Thiamine HCl (Thiamine Hcl 100 Mg Tablet) 100 mg PO DAILY [facility] Last Admin: 08/04/25 08:52 Dose: 100 mg Allergies Allergies Allergy/AdvReac Type Severity Reaction Status Date / Time paliperidone (From Invega) AdvReac liver Verified 07/31/25 22:49 trazodone AdvReac Mild dizzy Uncoded 07/31/25 22:49 Assessment & Plan Assessment & Plan (1) Schizoaffective disorder, depressive type: Status: Acute Code(s): F25.1 - Schizoaffective disorder, depressive type Plan Patient is a 54-year-old male with history of schizoaffective disorder and alcohol use disorder who presented to [facility] via ambulance d/t suicidal ideation and auditory hallucinations secondary to treatment noncompliance. Plan: CV 15 minute safety checks CIWA protocol Start: Wellbutrin 150mg PO daily Zyprexa 10mg PO bedtime encourage groups encourage treatment compliance discharge planning 08/02/25: Patient slept for 7 hours, compliant with medications, denies side effects. Patient remain on CIWA protocol, did not score, denies symptoms of withdrawals. Reports his last drink was 2 days ago. Denies hallucinations, reports last command hallucination was a week ago. Denies suicide thoughts homicidal thoughts. Patient appeared to be preoccupied and depressed but pleasant and calm operative upon approach. Discontinue trazodone-listed as allergy Melatonin 9 mg at bedtime for insomnia. Continue with CIWA protocol with Ativan PRNs for alcohol withdrawal. 08/03: Patient slept for 6 hours, compliant with medications. Napping in room, he was in bed facing the wall when this patient approach, do not having eye contact during assessment. Appeared to be guarded and irritable edge. Reports no anxiety but feeling depressed. Denies hallucinations. However reports to nursing that he experience voices but not disclosed in details. Will discontinue CIWA and Ativan PRN. No score. Completed treatment. 08/04: Active on unit. keeping to self. attending groups. Patient reports feeling okay today; he reports he is no longer feeling depressed. denies SI/HI/VH/AH. Per nursing, slept 8 hours. Plan to discharge on Monday; pt aware. Patient reports he plans on returning to long term. 08/05: Patient reports feeling good and ready to leave ; pt reports he plans on returning to long term when discharged. denies SI/HI/VH/AH. He reports he plans on being medication compliant and following up with outpatient providers. Patient educated on: diagnosis and medication risk/benefits Reason for continued inpatient stay Substantial Risk for: stable for discharge Time Spent With Patient Time: Total time managing care of this patient today _20___ minutes.
[2025-08-05] MEDS: Nicotine 21 MG PATCH.TD24 TRANSDERMA (09:02)
[2025-08-05] MEDS: buPROPion HCl XL 150 MG TAB.ER.24H PO (09:03)
[2025-08-05 20:00] VITALS: BP 109/68; PULSE 81; RESP 20; TEMP 36.9; O2SAT 98
[2025-08-06 07:33] VITALS: BP 118/71; PULSE 84; RESP 14; TEMP 36.9; O2SAT 97
--- NOTE | 2025-08-06 08:23 | PM.PSYDC ---
DS: Providers Provider Date of Service: 08/06/25 Date of admission: 08/01/25 11:42 Date of discharge: 08/06/25 Primary care physician: Unknown Physician Admitting clinician: Sonja Hunt Attending physician on admission: Marshall Draper Attending physician on discharge: Marshall Draper Discharging clinician: Sonja Hunt DS: Diagnosis Discharge Diagnosis (1) Schizoaffective disorder, depressive type: Status: Acute DS: Medications Discharge Medications Home Medications: Previous Rx's ?Medication ?Instructions ?Recorded bupropion HCl 150 mg 24 hr tablet, 150 mg PO DAILY 30 days #30 tabs 08/05/25 extended release olanzapine 10 mg tablet 10 mg PO BEDTIME 30 days #30 tabs 08/05/25 Mental Status Exam Mental Status Exam Narrative: Pt is alert and oriented; behavior is cooperative and calm; dressed in casual attire; mood is described as good ; eye contact appropriate; Speech is normal rate, volume and not pressured; thought process is organized; Thought content is on discharge; denies SI/HI/VH/AH. Data Data Completed and Pending Completed studies during hospitalization [Text1]: 07/31/25 07/31/25 08/02/25 22:58 23:47 07:26 WBC 9.6 RBC 4.87 Hgb 16.2 Hct 44.6 MCV 91.6 MCH 33.3 H MCHC 36.3 H RDW 12.4 Plt Count 207 MPV 9.8 Immature Gran % (Auto) 0.2 Neut % (Auto) 52.5 Lymph % (Auto) 38.2 [place] % (Auto) 6.0 Eos % (Auto) 2.7 Baso % (Auto) 0.4 Lymph # (Auto) 3.7 [place] # (Auto) 0.6 Eos # (Auto) 0.3 Baso # (Auto) 0.0 Abs Immat Gran (auto) 0.02 Absolute Neuts (auto) 5.1 Absolute Nucleated RBC 0.000 Nucleated RBC % (auto) 0.0 Sodium 143 140 Potassium 3.9 4.1 Chloride 109 H 106 Carbon Dioxide 21 L 25 Anion Gap 17 13 BUN 17 H 19 H Creatinine 0.79 0.78 Estim Creat Clear Calc 125.7 124.0 Estimated GFR > 60 > 60 Random Glucose 99 90 Estimat Average Glucose 105 Hemoglobin A1c % 5.3 Calcium 9.3 9.1 Total Bilirubin 0.2 0.7 AST 29 23 ALT 23 19 Alkaline Phosphatase 68 62 Total Protein 7.7 6.7 Albumin 4.4 4.2 Triglycerides 123 Cholesterol 178 LDL Cholesterol, Calc 102 H HDL Cholesterol 52 Urine Color Yellow Urine Appearance Turbid Urine pH 5.[address] [place] 1.025 Urine Protein Negative Urine Glucose (UA) Negative Urine Ketones Trace Urine Blood Moderate (2+) H Urine Nitrite Negative Ur Leukocyte Esterase Trace H Urine RBC 6-10 H Urine WBC 0-5 Urine WBC Clumps Cancelled Ur Squamous Epith Cells 0-2 Ur Transition Epith Cell Cancelled Ur Renal Epithelial Cell Cancelled Calcium Oxalate Crystal Cancelled Leucine Crystals Cancelled Cystine Crystals Cancelled Tyrosine Crystals Cancelled Other Crystals Cancelled Urine Bacteria None Seen Urine Parasites Cancelled Bilirubin Casts Cancelled Epithelial Casts Cancelled Fatty Casts Cancelled Hyaline Casts 0-2 Granular Casts Cancelled Waxy Casts Cancelled Broad Casts Cancelled RBC Casts Cancelled WBC Casts Cancelled Other Casts Cancelled Urine Trichomonas Cancelled Urine Yeast Cancelled Salicylates < 5.0 L Urine Opiates Screen Not Detected Ur Buprenorphine Scrn Not Detected Ur Oxycodone Screen Not Detected Urine Methadone Screen Not Detected Urine Fentanyl Screen Not Detected Acetaminophen < 3 Ur Barbiturates Screen Not Detected Ur Phencyclidine Scrn Not Detected Ur Amphetamines Screen Not Detected U Benzodiazepines Scrn Not Detected Urine Cocaine Screen Not Detected U Marijuana (THC) Screen Not Detected Ethyl Alcohol < 10 DS: Summary Hospital Course Hospital Course: Patient is a 54-year-old male with history of schizoaffective disorder and alcohol use disorder who presented to [facility] via ambulance d/t suicidal ideation and auditory hallucinations secondary to treatment noncompliance. Per crisis report, patient presented to ER endorsing auditory hallucinations and suicidal ideation with no plan or intent. Patient unable to provide any precipitants, however, it is speculated patient has been off his medications since his last visit. He reports not taking medications and not being prescribed any medication. Patient reports his mood is terrible . Denies HI. Reports auditory and visual hallucinations. He refused to answer questions related to SI. He reports sleep has been terrible and appetite as okay . History of multiple inpatient psychiatric hospitalizations. History of 3-4 suicide attempts, last attempt being over 4 years ago. History of self-injurious behavior via cutting, last attempt 10 years ago. Patient denies any substance use. History of alcohol and marijuana use. utox negative. Denies detox admissions. During admission assessment, patient presents alert and oriented x3. Calm and cooperative. Patient reports feeling depressed , patient stated, the voices were making me suicidal. I don't remember what they were saying. I want to restart my medications to have a clear mind . Patient reports he has not taken medications for 1-2 months due to not having refills . When asked why he does not follow up with outpatient providers, patient responded, I don't know . Patient reports he plans on returning to a nursing home in [place], [place]. Patient reports drinking 3-4 beers every 2-3 days ; He stated he does not want to go to a substance abuse program because he does not believe that he has a substance abuse problem. [facility] protocol ordered. Discussed restarting on Wellbutrin and Zyprexa, per patient's medication/treatment history; patient agreed. Denies SI/HI/VH/AH. Plan: CV 15 minute safety checks CIWA protocol Start: Wellbutrin 150mg PO daily Zyprexa 10mg PO bedtime encourage groups encourage treatment compliance discharge planning Patient slept for 7 hours, compliant with medications, denies side effects. Patient remain on CIWA protocol, did not score, denies symptoms of withdrawals. Reports his last drink was 2 days ago. Denies hallucinations, reports last command hallucination was a week ago. Denies suicide thoughts homicidal thoughts. Patient appeared to be preoccupied and depressed but pleasant and calm operative upon approach. Discontinue trazodone-listed as allergy Melatonin 9 mg at bedtime for insomnia. Continue with CIWA protocol with Ativan PRNs for alcohol withdrawal. Patient slept for 6 hours, compliant with medications. Napping in room, he was in bed facing the wall when this patient approach, do not having eye contact during assessment. Appeared to be guarded and irritable edge. Reports no anxiety but feeling depressed. Denies hallucinations. However reports to nursing that he experience voices but not disclosed in details. Will discontinue CIWA and Ativan PRN. No score. Completed treatment. Active on unit. keeping to self. attending groups. Patient reports feeling okay today; he reports he is no longer feeling depressed. denies SI/HI/VH/AH. Per nursing, slept 8 hours. Plan to discharge on Monday; pt aware. Patient reports he plans on returning to nursing home. Patient reports feeling good and ready to leave ; pt reports he plans on returning to nursing home when discharged. denies SI/HI/VH/AH. He reports he plans on being medication compliant and following up with outpatient providers. Status at Discharge Cognitive/behavioral status at discharge: Patient has insight and demonstrates good judgment in terms of wanting to pursue treatment. Patient has a safety plan that includes presenting to the closest ER or calling 911 if feeling unsafe. Functional status at discharge: independent ambulation Overall status at discharge: patient is back to baseline Time Spent with Patient Time attestation: Total time managing care of this patient today _20___ minutes. Time spent: Less than 30 minutes Discharge Plan Discharge Anticipated Discharge Date/Time: 08/06/25 10:00 Patient Disposition: Home, Self-Care Discharge Diagnosis: Schizoaffective d/o, Alcohol use d/o Referrals: Therapy & Psychiatry [Other] - 1 Week Referral Note: *You can present to the clinic above, Monday through Monday during the hours of 8am and 8pm, in order to obtain outpatient mental health providers. Therapy & Psychiatry [Other] - 1 Week Referral Note: You can present to the clinic above, Monday through Monday during the hours of 10am and 12pm, in order to obtain outpatient mental health providers. [facility] [Provider Group] - 1 Week Referral Note: 08-05-25 [facility] was added to patients chart. Please call [phone] to schedule a follow up appt within 7-10 days of discharge. No release or PCP on file. Discharge Medications: New olanzapine 10 mg Tablet 10 mg PO BEDTIME 30 Days Qty: 30 0RF bupropion HCl 150 mg Tablet Extended Release 24 Hr 150 mg PO DAILY 30 Days Qty: 30 0RF Discharge Orders: Discharge Order (Routine); Ordered 08/06/25 Ordered By: Sonja Hunt Diet: Regular diet Activity on Discharge: As tolerated Stand Alone Forms: Patient Portal Discharge page Print Language: Czech Care Plan Goals: Maintain mood and safe behaviors Take medications as prescribed Continue to pursue sobriety Practice coping skills Continue with outpatient providers and reach out to them as needed Health Concerns: Mood stability and behaviors Sobriety Plan of Treatment: Follow up with your PCP, psychiatric provider and other outpatient providers regarding above concerns Take medications as prescribed Assessment: Patient has insight and demonstrates good judgment in terms of wanting to pursue treatment. Patient has a safety plan that includes presenting to the closest ER or calling 911 if feeling unsafe.
[2025-08-06] MEDS: buPROPion HCl XL 150 MG TAB.ER.24H PO (08:32)
== END 2025-08-06 10:11 | disposition home or self-care (01) | DRG 885 ==
LOC: HO.ED 08-01 00:23 → HO.PADLT16 08-01 11:52
PROVIDERS: Emergency Medicine; Admitting Provider Registered Nurse; Emergency Provider Student in an Organized Health Care Education/Training Program; Responsible Provider Registered Nurse; Visit Provider Psychiatry & Neurology Psychiatry
DX: F25.1 Schizoaffective disorder, depressive type (principal); Z59.02 Unsheltered homelessness; R45.851 Suicidal ideations; F14.10 Cocaine abuse, uncomplicated; F10.10 Alcohol abuse, uncomplicated; Z23 Encounter for immunization; F17.210 Nicotine dependence, cigarettes, uncomplicated; Z71.6 Tobacco abuse counseling; Z79.899 Other long term (current) drug therapy
CPT/HCPCS: 36415; 80053; 80061; 80143; 80179; 80307; 81001; 83036; 85025; 90656; 93005; 99285; S9485

== ENCOUNTER → 2025-08-01 07:55 | Outpatient (BNV) | payer MEDICARE, MEDICAID, SELFPAY | PROVIDERS: Admitting Provider Registered Nurse; Emergency Provider Student in an Organized Health Care Education/Training Program; Responsible Provider Registered Nurse; Visit Provider Internal Medicine Cardiovascular Disease | DX: R94.31 Abnormal electrocardiogram [ECG] [EKG] (principal); Z13.6 Encounter for screening for cardiovascular disorders | CPT/HCPCS: 93010 ==

== ENCOUNTER → 2025-08-01 11:42 | Outpatient (BNV) | payer MEDICARE, MEDICAID, SELFPAY | PROVIDERS: Admitting Provider Registered Nurse; Emergency Provider Student in an Organized Health Care Education/Training Program; Responsible Provider Registered Nurse; Visit Provider Nurse Practitioner Psychiatric/Mental Health | DX: F25.1 Schizoaffective disorder, depressive type (principal) | CPT/HCPCS: 90792; 99231; 99232; 99238 ==

== ENCOUNTER → 2025-08-01 11:42 | Outpatient (BNV) | payer MEDICARE, MEDICAID, SELFPAY | PROVIDERS: Admitting Provider Registered Nurse; Emergency Provider Student in an Organized Health Care Education/Training Program; Responsible Provider Registered Nurse; Visit Provider Nurse Practitioner Family | DX: F25.1 Schizoaffective disorder, depressive type (principal) | CPT/HCPCS: 99221 ==

== ENCOUNTER 2025-09-26 13:42 | Inpatient (IN) | payer MEDICARE, MEDICAID, SELFPAY ==
[2025-09-26 13:54] VITALS: BP 150/106; PULSE 120; RESP 14; O2SAT 97; BMI 30.1
[2025-09-26 13:58] VITALS: RESP 14
--- NOTE | 2025-09-26 14:03 | ED_ITS ---
HPI - Psych General Chief Complaint: Psychiatric Symptoms Stated Complaint: SI Time Seen by Provider: 09/26/25 13:43 Source: patient and EMS Mode of arrival: EMS Limitations: no limitations History of Present Illness ED Provider: BRITTANY VERGARA Narrative: 55-year-old male with past medical history of schizoaffective disorder, alcohol abuse, cocaine abuse here with complaint of depression and SI. His plan is to jump off a bridge. He states he has not been able to access his medications for a few weeks. He has no HI/ AH / VH. He states he is residing in a custodial at this time. He denies any medical concerns and states he has not had any self- harm episodes. MD complaint: suicidal ideation, feels depressed and anxiety Onset (ago): week(s) Duration: getting worse History of same: Yes Relieving factors: none Exacerbating factors: other Context: not taking psychiatric medications and significant life stressor Associated psychiatric symptoms: depression and suicidal ideation Associated symptoms: denies other symptoms Treatments prior to arrival: none If self harm: admits thoughts of self harm and has plan Related Data Previous Rx's ?Medication ?Instructions ?Recorded bupropion HCl 150 mg 24 hr tablet, 150 mg PO DAILY 30 days #30 tabs 08/05/25 extended release olanzapine 10 mg tablet 10 mg PO BEDTIME 30 days #30 tabs 08/05/25 Allergies Allergy/AdvReac Type Severity Reaction Status Date / Time paliperidone (From Invega) AdvReac liver Verified 09/26/25 13:57 trazodone AdvReac Mild dizzy Uncoded 09/26/25 13:57 Review of Systems 2 Review of Systems: Constitutional : No Fever, No Chills ENT/Mouth : No Ear Pain, No Nasal Congestion, No sore throat Eyes: No Eye Pain, No Swelling, No Redness Cardiovascular : No Chest Pain, No SOB Respiratory : No Cough, No Sputum, No Dyspnea Gastrointestinal : No Nausea, No Vomiting, No Diarrhea, No Hematochezia, No Melena Genitourinary : No Dysuria, No Urinary Frequency, No Hematuria Musculoskeletal : No Myalgias Skin : No Skin Lesions, No rash Neuro : No Weakness, No Numbness, No Paresthesias, No Dizziness, No Headache Psych : positive Anxiety, positive Depression, positive SI/ no HI All other systems reviewed and are negative [facility] Past Medical History Attestation statement: The following information was validated with the patient. Source: old records reviewed Medical History Auditory hallucination Depression Acute UTI Depression Suicidal ideation Hematuria Alcohol abuse Schizoaffective disorder, depressive type Cocaine abuse Social History Social History Household Members: None Household Members Other:: stays at [address] [place] [address] Housing: Homeless Do you presently have visiting nurse or other home services: No Alcohol intake: current Alcohol intake frequency: a few times a month Alcohol type: beer Patient Tobacco Use Status: Current everyday Tobacco user Tobacco use type: Cigarette Cigarette Packs Per Day: 0.5 Cigarettes Per Day: 10.0 Years Smoked: 30 Smoked in Last 30 Days: Yes e-Cigarette/Vaping Use: Never Used Patient Interested in Nicotine Replacement: Yes Patient Given Instructions on How to Stop Smoking: Yes Date Education Initiated: 09/26/25 Second Hand Smoke Exposure: Yes Use of substances other than those prescribed or required for medical reasons: No Substance Use Type: Marijuana Currently Displaying Signs/Symptoms of Drug Intoxication Withdrawal: No Have you been hit, kicked, punched, or otherwise hurt by someone within the past year? If so, by whom?: No Do you feel safe in your current relationship?: Yes Is there a partner from a previous relationship who is making you feel unsafe now?: No Are you made to feel afraid or neglected: No Spiritual Healthcare Practices: none reported Caodaism Healthcare Practices: none reported Cultural Healthcare Practices: none reported Advance Directives: No Advance Directives Information Provided: Yes Do you have thoughts of harming others: None Do you have a plan to hurt others: No Plan Recently lost weight without trying: No How much weight loss: Not applicable Eating poorly because of decreased appetite: No Nutrition screen score: 0 Nutrition Risks: No Nutritional Risk Poor oral hygiene: No service: No Current occupational status: unemployed Current occupation: rt hand Sexual orientation: Straight/Heterosexual Physical Exam 2 Vital Signs: Vital Signs: Last Vital Signs Temp 97.8 F 09/29/25 08:00 Pulse 85 09/29/25 08:00 Resp 16 09/29/25 08:00 BP 121/77 09/29/25 08:00 Pulse Ox 98 09/29/25 08:00 O2 Del Method Room Air 09/28/25 19:30 BMI result Body Mass Index 30.1 Appearance: Alert. Oriented X3. No acute distress. He is soft-spoken, poor eye contact, flat affect. Eyes: Pupils equal, round and reactive to light. ENT: Pharynx normal. Neck: Normal inspection. Neck supple. CVS: Normal heart rate and rhythm. Pulses normal. Respiratory: No respiratory distress. Breath sounds normal. Abdomen: Soft and nontender. Skin: Skin warm and dry. Normal skin color. Extremities: No lower extremity edema. Neuro: Oriented X 3. No motor deficit. No sensory deficit. cranial nerve exam not applicable Course Course Course Narrative: 09/26/25 1500 admitted inpatient end physician observation BRITTANY Medications Administered Generic Name Dose Route Start Last Admin Trade Name Freq PRN Reason Stop Dose Admin Bupropion HCl 150 mg 09/27/25 09:00 09/29/25 08:36 Bupropion Hcl Xl 150 Mg Tab.Er.24h PO 150 mg DAILY ZACH Administration Hydroxyzine HCl 25 mg 09/26/25 18:01 09/28/25 20:59 Hydroxyzine Hcl 25 Mg Tablet PO 25 mg Q6H PRN Administration mild anxiety Melatonin 3 mg 09/27/25 21:00 09/28/25 20:59 Melatonin 3 Mg Tablet PO 3 mg BEDTIME ZACH Administration Olanzapine 10 mg 09/26/25 21:00 09/28/25 20:59 Olanzapine 10 Mg Tablet PO 10 mg BEDTIME ZACH Administration Discontinued Medications Generic Name Dose Route Start Last Admin Trade Name Freq PRN Reason Stop Dose Admin Ibuprofen 600 mg 09/26/25 15:56 09/26/25 16:03 Ibuprofen 600 Mg Tablet PO 09/26/25 15:57 600 mg ONCE ONE Administration Nicotine 21 mg 09/27/25 09:00 09/29/25 08:36 Nicotine 21 Mg Patch.Td24 TRANSDERMA Not Given DAILY ZACH Medical Decision Making Medical Decision Making MDM Narrative: 55-year-old male with past medical history of schizoaffective disorder, alcohol abuse, cocaine abuse here with complaint of depression and suicidal ideation. He states he has not been compliant with his medications. He is staying in a custodial. He states he wants to jump off a bridge. He denies any medical complaints. At this time we will obtain clearance labs as well as care team consult. Differential Diagnosis Differential Diagnoses: The differential diagnosis associated with the presentation includes Schizoaffective disorder, noncompliance, suicidal ideation Admission/Observation Consideration of admission/observation: Escalation of care including admission/observation considered Physician observation started at 14:05 pending care team input given his psychiatric complaint. Consult Healthcare Provider Management of the patient was discussed with: Behavioral Health Provider Lab Data [facility] Lab Attestation statement: I reviewed the patient's lab results. 09/26/25 14:09 09/27/25 07:52 Labs: Lab Results 09/26/25 Range/Units 14:09 WBC 12.4 H (4.8-10.8) X10*3/uL RBC 5.28 (4.60-5.80) X10*6/uL Hgb 17.1 (14.0-18.0) g/dl Hct 47.9 (42.0-52.0) % MCV 90.7 (80.0-98.0) fL MCH 32.4 (27.0-33.0) pg MCHC 35.7 (31.0-36.0) g/dl RDW 12.3 (11.0-16.0) % Plt Count 246 (160-400) X10*3/uL MPV 9.7 (9.4-12.4) fL Immature Gran % (Auto) 0.4 (0.0-0.4) % Neut % (Auto) 78.7 H (45-73) % Lymph % (Auto) 15.7 L (20-40) % [place] % (Auto) 4.4 (2-11) % Eos % (Auto) 0.4 (0-4) % Baso % (Auto) 0.4 (0-2) % Lymph # (Auto) 1.9 (1.2-4.9) X10*3/uL [place] # (Auto) 0.6 (0.1-1.2) X10*3/uL Eos # (Auto) 0.1 (0.0-0.4) X10*3/uL Baso # (Auto) 0.1 (0.0-0.2) X10*3/uL Abs Immat Gran (auto) 0.05 H (0.00-0.03) X10*3/uL Absolute Neuts (auto) 9.7 H (2.0-8.3) x10*3/uL Absolute Nucleated RBC 0.000 (0.0-0.012) X10*3/uL Nucleated RBC % (auto) 0.0 (0.0-0.2) /100WBC Sodium 136 (135-145) mmol/L Potassium 4.2 (3.3-5.1) mmol/L Chloride 101 (96-108) mmol/L Carbon Dioxide 28 (22-29) mmol/L Anion Gap 11 L (12-20) BUN 10 (9-16) mg/dL Creatinine 0.83 (0.5-1.4) mg/dL Estim Creat Clear Calc 117.8 Estimated GFR > 60 Random Glucose 86 (60-115) mg/dL Calcium 9.9 D (8.4-10.2) mg/dL Total Bilirubin 0.5 (0.0-1.0) mg/dL AST 33 (5-37) U/L ALT 26 (0-40) U/L Alkaline Phosphatase 77 (39-117) U/L Total Protein 8.0 (6.5-8.0) g/dL Albumin 5.1 H (3.5-5.0) g/dL Urine Color Yellow Urine Appearance Clear Urine pH 5.5 (5.0-9.0) Ur Specific [place] <= 1.005 (1.005-1.025) Urine Protein Negative (Neg-Trace) mg/dL Urine Glucose (UA) Negative (Negative) mg/dL Urine Ketones Negative (Negative) mg/dL Urine Blood Small (1+) H (Negative) Urine Nitrite Negative (Negative) Ur Leukocyte Esterase Negative (Negative) Urine RBC 0-2 (0-2) /HPF Urine WBC 0-5 (0-5) /HPF Ur Squamous Epith Cells 0-2 (0-2) /HPF Urine Bacteria None Seen (None Seen) Hyaline Casts 0-2 (0-2) /LPF Urine Opiates Screen Not Detected (Not Detect) Ur Buprenorphine Scrn Not Detected (Not Detect) ng/mL Ur Oxycodone Screen Not Detected (Not Detect) ng/mL Urine Methadone Screen Not Detected (Not Detect) ng/mL Urine Fentanyl Screen Not Detected (Not Detect) Ur Barbiturates Screen Not Detected (Not Detect) Ur Phencyclidine Scrn Not Detected (Not Detect) Ur Amphetamines Screen Not Detected (Not Detect) U Benzodiazepines Scrn Not Detected (Not Detect) Urine Cocaine Screen POSITIVE H (Not Detect) U Marijuana (THC) Screen Not Detected (Not Detect) Ethyl Alcohol 91 mg/dL Independent Historian Clinical information obtained from an independent historian. History obtained from or confirmed by: EMS External Record Review External record reviewed: Inpatient record, Outpatient record and Prior outpatient labs Social Determinants Patient?s care significantly limited by Social Determinants of Health including: Inadequate housing, Problems related to primary support group and Unemployment Discharge Plan Discharge Clinical Impression: Schizoaffective disorder, depressive type, Cocaine abuse Patient Disposition: Admitted As Inpatient Interventions: Admission Worksheet (ED) Last Done: 09/26/25 21:18 Discharge Date/Time: 09/26/25 21:18
[2025-09-26 14:14] LABS: MANUAL DIFF FLAG NO
[2025-09-26 14:18] LABS: Appearance Urine Clear; Glucose Urine UA Negative (Negative); PH 5.5 (5.0-9.0); Specific Gravity - Urine <= 1.005 (1.005-1.025); UMIC TRIGGER UACC YES
--- NOTE | 2025-09-26 14:18 | PC.NURSE ---
Nathaniel comes to the ED today reporting suicidal ideation with a plan to jump off a bridge in relation to being relocated to a [facility]. Pt is calm and cooperative, offering no complaints to this RN. Pt aware of plan of care for medical clearance and CARE team rosangela
[2025-09-26 14:22] LABS: Hematocrit 47.9 % (42.0-52.0); Hemoglobin 17.1 g/dl (14.0-18.0); Imm Gran Abs Auto 0.05 X10*3/uL (0.00-0.03); Imm Gran Pct Auto 0.4 % (0.0-0.4); Lymphocytes Absolute Auto 1.9 X10*3/uL (1.2-4.9); Mean Corpuscular HGB Conc 35.7 g/dl (31.0-36.0); Mean Corpuscular Hemoglobin 32.4 pg (27.0-33.0); Mean Corpuscular Volume 90.7 fL (80.0-98.0); NRBC Abs Auto 0.000 X10*3/uL (0.0-0.012); NRBC Pct Auto 0.0 /100WBC (0.0-0.2); Platelet Count 246 X10*3/uL (160-400); Red Blood Count 5.28 X10*6/uL (4.60-5.80); White Blood Count 12.4 X10*3/uL (4.8-10.8)
[2025-09-26 14:28] LABS: Cannabinoid Screen Urine Not Detected (Not Detect)
[2025-09-26 14:47] LABS: Alanine Aminotransferase 26 U/L (0-40); Albumin Level 5.1 g/dL (3.5-5.0); Alkaline Phosphatase 77 U/L (39-117); Anion Gap 11 (12-20); Aspartate Amino Transferase 33 U/L (5-37); Blood Urea Nitrogen 10 mg/dL (9-16); Calcium 9.9 mg/dL (8.4-10.2); Carbon Dioxide 28 mmol/L (22-29); Chloride 101 mmol/L (96-108); Creatinine Clr Calc Pharmacy 117.8; Estimated Glomerular Filt Rate > 60; Potassium 4.2 mmol/L (3.3-5.1); Sodium 136 mmol/L (135-145); Total Protein 8.0 g/dL (6.5-8.0)
--- NOTE | 2025-09-26 15:16 | ECG_ITS ---
Test Reason : r/o prolonged qt Blood Pressure : */* mmHG Vent. Rate : 105 BPM Atrial Rate : 105 BPM P-R Int : 144 ms QRS Dur : 98 ms QT Int : 342 ms P-R-T Axes : 38 11 89 degrees QTcB Int : 452 ms Sinus tachycardia Nonspecific T wave abnormality Abnormal ECG When compared with ECG of 01-Aug-2025 08:05, Nonspecific T wave abnormality no longer evident in Inferior leads T wave inversion less evident in Lateral leads Referred By: Verena Corcoran Electronically Signed By: KASI PEREZ MD
--- NOTE | 2025-09-26 15:29 | MHC.CARE ---
Pt will be adult IPLOC. Section 12a in chart for safety
[2025-09-26 18:05] VITALS: BP 116/58; PULSE 92; RESP 16; TEMP 36.2; O2SAT 96
--- NOTE | 2025-09-26 18:42 | PC.NURSE ---
report given to HYUN Fontaine
[2025-09-26 21:15] VITALS: BP 137/71; PULSE 76; RESP 16; TEMP 36.7; O2SAT 96
--- NOTE | 2025-09-26 21:16 | P.HPPS_ITS ---
HPI Date of Service: 09/26/25 Chief Complaint: SI Sources of Information: patient interviewed, chart reviewed and crisis/core team assessment reviewed HPI Subjective Notes: [place] Warning and Conditional Voluntary Healthcare Proxy: No Guardianship: No Medical Problems Affecting Mental Status: No Narrative: Per care team: Patient is a 55 year old, single, Bilingual, male who presented to the ED today via ambulance reporting auditory hallucinations, suicidal ideation with a plan to jump off a bridge and worsening depression. Patient is well known to the CARE Team and behavioral health through previous admissions and assessments. Patient was last admitted to 08/01/25- 08/06/25. Patient reported he has not taken his medications in some time, worsening depression, auditory hallucinations and suicidal ideation. Patient reported I feel not in control of myself. . Patient has been medically cleared. Meet with patient in assigned room 06 in ED pod for psychiatric assessment. Report that [facility] and they advised him to seek out for help. Report he has been crying, feeling stress and emotional d/t a lot of things , especially housing and financial issues. Report that he is in his 50s but still being homeless. Report he took medication after discharged and did not get it refilled as he does not have OP provider. Denies current OP psychiatrist/therapist/ or PCP. Denies SI/SIB/HI/AVH at this current time, but report sleep has been terrible . No change in appetite. Report he heard voices a couple months ago and I talk to myself when i am in a bad mood - I think out loud .Report SI was cross my mind but denies plan or intent. Denies suicide attempts hx. His goal is to stay out of the hospital and he has tried so bad but he still ends up being back here again. Goal is to back on meds and return to community/[facility]. Trauma hx: denies Substance use: denies. Report drinking alcohol here and there but not daily. Report not using GLADIS more than 6 years. Report last weed use was last week. Report increased in Cig use and smoke for 1/2 PPD. Utox +GLADIS and BAL is 97 on admission. Family hx: Denies. Trauma: denies but being homeless traumatizes to him Patient is A+O x3, wearing hospital attire, no ADL's issues. Appear very depressed and anxious but pleasant and cooperative. Soft spoken, sometimes it is hard to understand him. Appear to minimize psychotic symptoms and substance use. Denies substance use but BAL was 97 and Utox +GLADIS. Thought process is somewhat disorganized,. Thought process is with treatment and future oriented. No SI/SIB/HI/AVH but can be psychotic with possible AH. Poor judgment and insight. Will re-start on home meds. Past Psychiatric History: History of multiple inpatient psychiatric hospitalizations. Last dsicharge from in Jul, 2025 SA: reports more than 3. On 09/26/25: denies suicide attempts hx SIB: reports h/o cutting, more than 10 years ago. Denies current outpatient psychiatric providers Medical Evaluation Reviewed: Yes Unremarkable [facility] Medical History Auditory hallucination Depression Acute UTI Depression Suicidal ideation Hematuria Alcohol abuse Schizoaffective disorder, depressive type Cocaine abuse Family History: Denies Social History: Homeless. completed the 7th grade. Currently not working, on SSI. [facility] in the [facility]. Substance History: Report drinking alcohol here and there but not daily. Report not using GLADIS more than 6 years. Report last weed use was last week. Report increased in Cig use and smoke for 1/2 PPD. Utox +GLADIS and BAL is 97 on admission. Trauma History: Affirms through and family losses Diagnostics Vital Signs (24Hr): Vital Signs - 24 hr 09/26/25 13:54 09/26/25 13:58 09/26/25 18:05 Temperature 97.2 F Pulse Rate 92 Respiratory Rate 14 14 16 Blood Pressure 116/58 L Pulse Oximetry 96 BMI result Body Mass Index 30.1 Labs 09/26/25 14:09 09/26/25 14:09 Labs: Laboratory Results - last 48 hr 09/26/25 14:09 WBC 12.4 H RBC 5.28 Hgb 17.1 Hct 47.9 MCV 90.7 MCH 32.4 MCHC 35.7 RDW 12.3 Plt Count 246 MPV 9.7 Immature Gran % (Auto) 0.4 Neut % (Auto) 78.7 H Lymph % (Auto) 15.7 L [place] % (Auto) 4.4 Eos % (Auto) 0.4 Baso % (Auto) 0.4 Lymph # (Auto) 1.9 [place] # (Auto) 0.6 Eos # (Auto) 0.1 Baso # (Auto) 0.1 Abs Immat Gran (auto) 0.05 H Absolute Neuts (auto) 9.7 H Absolute Nucleated RBC 0.000 Nucleated RBC % (auto) 0.0 Sodium 136 Potassium 4.2 Chloride 101 Carbon Dioxide 28 Anion Gap 11 L BUN 10 Creatinine 0.83 Estim Creat Clear Calc 117.8 Estimated GFR > 60 Random Glucose 86 Calcium 9.9 D Total Bilirubin 0.5 AST 33 ALT 26 Alkaline Phosphatase 77 Total Protein 8.0 Albumin 5.1 H Urine Color Yellow Urine Appearance Clear Urine pH 5.5 Ur Specific [place] <= 1.005 Urine Protein Negative Urine Glucose (UA) Negative Urine Ketones Negative Urine Blood Small (1+) H Urine Nitrite Negative Ur Leukocyte Esterase Negative Urine RBC 0-2 Urine WBC 0-5 Ur Squamous Epith Cells 0-2 Urine Bacteria None Seen Hyaline Casts 0-2 Urine Opiates Screen Not Detected Ur Buprenorphine Scrn Not Detected Ur Oxycodone Screen Not Detected Urine Methadone Screen Not Detected Urine Fentanyl Screen Not Detected Ur Barbiturates Screen Not Detected Ur Phencyclidine Scrn Not Detected Ur Amphetamines Screen Not Detected U Benzodiazepines Scrn Not Detected Urine Cocaine Screen POSITIVE H U Marijuana (THC) Screen Not Detected Ethyl Alcohol 91 Meds/Allergies Allergies Allergies Allergy/AdvReac Type Severity Reaction Status Date / Time paliperidone (From [employer] AdvReac liver Verified 09/26/25 13:57 trazodone AdvReac Mild dizzy Uncoded 09/26/25 13:57 Mental Status Exam Mental Status Exam Narrative: Patient is A+O x3, wearing hospital attire, no ADL's issues. Appear very depressed and anxious but pleasant and cooperative. Soft spoken, sometimes it is hard to understand him. Appear to minimize psychotic symptoms and substance use. Denies substance use but BAL was 97 and Utox +GLADIS. Thought process is somewhat disorganized,. Thought process is with treatment and future oriented. No SI/SIB/HI/AVH but can be psychotic with possible AH. Poor judgment and insight. Will re-start on home meds Assessment & Plan Assessment & Plan (1) Schizoaffective disorder, depressive type: Status: Acute Code(s): F25.1 - Schizoaffective disorder, depressive type (2) Cocaine abuse: Status: Acute Code(s): F14.10 - Cocaine abuse, uncomplicated (3) Alcohol abuse: Status: Acute Code(s): F10.10 - Alcohol abuse, uncomplicated Plan HPI: Patient is a 55 year old, single, Bilingual, male who presented to the ED today via ambulance reporting auditory hallucinations, suicidal ideation with a plan to jump off a bridge and worsening depression. Patient is well known to the CARE Team and behavioral health through previous admissions and assessments. Patient was last admitted to [facility] 08/01/25- 08/06/25. Patient reported he has not taken his medications in some time, worsening depression, auditory hallucinations and suicidal ideation. Patient reported I feel not in control of myself. . Patient has been medically cleared. Formulation/clinical reasoning: Esxperience SI and AH, increased/worsening depresion/anxiety/AH in context of medication non compliant or not avaialbe. No OP providers. Being homeless- [facility] [place]. Hx of Schizoaffective, depressed type. Given above information, patient would benefit in restrictive environment, re-start on home med/medication management and refer patient to OP psychiatric services/Long-Term. Hospital course: restart on home meds with plan to titrate up to therapeutic dose. Monitor for side effects and effectiveness. 09/26/25: Wellbutrin XL 150mg daily for depression Zyprexa 10mg at HS for psychosis/mood. PRN for anxiety/insomnia/agitation/pain available. Plan Patient on 15 minute checks for safety. Admitted to [facility]. CV. Work with treatment team to do collateral Discharge planning diagnostic Patient educated on: diagnosis, medication risk/benefits, substance abuse and therapeutic strategies Informed Consent: understands and further education needed Reason for continued inpatient stay Substantial Risk for: med/psych decompensation Statement Statement: I have reviewed the history and physical and performed a pertinent examination on my patient. No changes have occurred unless specified. If the History and Physical was not performed prior to admission, the Hospitalist's service will be consulted for completing the admission physical. Time Spent With Patient Time: Total time managing care of this patient today ____ minutes.
--- NOTE | 2025-09-26 21:18 | PC.NURSE ---
Addendum entered by Braulio Cassidy RN 09/26/25 21:27: Correction Dr. Callejas was notified to pt being moved to [facility] -Braulio Rubio RN Original Note: Pt moved to [address] and security to escort pt upstairs to room 319-2, informed relief charge nurse and Dr. Yee
--- NOTE | 2025-09-27 00:42 | PC.ADMIT ---
Patient is a 55 year old, single, Bilingual, male who presented to the ED today via ambulance reporting auditory hallucinations, suicidal ideation with a plan to jump off a bridge and worsening depression. Patient is well known to the CARE Team and behavioral health through previous admissions and assessments. Patient was last admitted to 08/01/25-08/06/25. Patient has been medically cleared. Patient reported he has not taken his medications in some time, worsening depression, auditory hallucinations and suicidal ideation. Patient reported I feel not in control of myself. On arrival to the unit, patient signed in CV and was placed on 15 minute safety checks. Skin check done and only issue was dry feet with some callouses. Patient reported elevated depression with mild anxiety. Stated he is homeless and had difficulty getting his medications and stop taking them a while back. Patient is a smoker and nicotine replacement has been ordered. Patient reports passive SI, his plan was to jump off a bridge. Patient reported no plan in the hospital.. Patient reporting intermittent auditory hallucinations with no visual hallucinations. UTOX positive for cocaine and patient had a BAL of 91, not placed on a CIWA as he reports only drinking 1-2 times a week.
[2025-09-27 08:00] VITALS: BP 116/66; PULSE 73; RESP 14; TEMP 36.4; O2SAT 97
[2025-09-27] MEDS: buPROPion HCl XL 150 MG TAB.ER.24H PO (08:31)
[2025-09-27] MEDS: Nicotine 21 MG PATCH.TD24 TRANSDERMA (08:32)
[2025-09-27 08:58] LABS: Alanine Aminotransferase 26 U/L (0-40); Albumin Level 4.5 g/dL (3.5-5.0); Alkaline Phosphatase 66 U/L (39-117); Anion Gap 11 (12-20); Aspartate Amino Transferase 29 U/L (5-37); Blood Urea Nitrogen 18 mg/dL (9-16); Calcium 9.4 mg/dL (8.4-10.2); Carbon Dioxide 28 mmol/L (22-29); Chloride 106 mmol/L (96-108); Cholesterol 144 mg/dL (<200); Creatinine Clr Calc Pharmacy 109.9; Estimated Glomerular Filt Rate > 60; HDL Cholesterol 50 mg/dL (>40); Potassium 4.2 mmol/L (3.3-5.1); Sodium 141 mmol/L (135-145); Total Protein 6.9 g/dL (6.5-8.0); Triglycerides 101 mg/dL (<150)
--- NOTE | 2025-09-27 14:38 | HO.PSYCHPN ---
Subjective Subjective Date of Service: 09/27/25 Reason For Visit: SI Subjective Notes: Conditional Voluntary Healthcare Proxy: No Guardianship: No Medical Problems Affecting Mental Status: No Interim History: Seenin OT room. He has settled in overnight. He denies goals for hospitalization. Pressed further, he states that he is looking to feel better. He struggles with voices in my head. He denies SI/HI/VH today. Medication Compliance: Yes Side effects from medications: No Attending Groups: No Review of Systems Acute medical concerns: No Medical Review of Systems: unchanged Mental Status Exam Mental Status Exam Narrative: Patient Appearance: Well Groomed, adequate hygiene Patient Behavior: Appropriate Level of Consciousness: Awake, alert Patient Orientation: Person, Place and Time, situational context Memory: grossly intact to recent events Psychomotor: no agitation or slowing Speech: normal rate, tone, volume Mood: ?okay? Affect: appropriate range Thought Process: Goal Oriented Thought Content: denies SI/HI; focused on treatment questions Hallucinations: endorses voices in my head Delusions: None evinced Insight: mild impairment Judgment: mild impairment Impulsivity: low Diagnostics Vital Signs (24Hr): Vital Signs - 24 hr 09/26/25 18:05 09/26/25 21:15 09/27/25 08:00 Temperature 97.2 F 98.1 F 97.5 F Pulse Rate 92 76 73 Respiratory Rate 16 16 14 Blood Pressure 116/58 L 137/71 116/66 Pulse Oximetry 96 96 97 Oxygen Delivery Method Room Air Room Air BMI result Body Mass Index 30.1 Labs 09/26/25 14:09 09/27/25 07:52 Labs: Laboratory Results - last 48 hr 09/26/25 09/27/25 14:09 07:52 WBC 12.4 H RBC 5.28 Hgb 17.1 Hct 47.9 MCV 90.7 MCH 32.4 MCHC 35.7 RDW 12.3 Plt Count 246 MPV 9.7 Immature Gran % (Auto) 0.4 Neut % (Auto) 78.7 H Lymph % (Auto) 15.7 L [place] % (Auto) 4.4 Eos % (Auto) 0.4 Baso % (Auto) 0.4 Lymph # (Auto) 1.9 [place] # (Auto) 0.6 Eos # (Auto) 0.1 Baso # (Auto) 0.1 Abs Immat Gran (auto) 0.05 H Absolute Neuts (auto) 9.7 H Absolute Nucleated RBC 0.000 Nucleated RBC % (auto) 0.0 Sodium 136 141 Potassium 4.2 4.2 Chloride 101 106 Carbon Dioxide 28 28 Anion Gap 11 L 11 L BUN 10 18 H Creatinine 0.83 0.89 Estim Creat Clear Calc 117.8 109.9 Estimated GFR > 60 > 60 Random Glucose 86 80 Estimat Average Glucose 105 Hemoglobin A1c % 5.3 Calcium 9.9 D 9.4 Total Bilirubin 0.5 0.6 AST 33 29 ALT 26 26 Alkaline Phosphatase 77 66 Total Protein 8.0 6.9 Albumin 5.1 H 4.5 Triglycerides 101 Cholesterol 144 LDL Cholesterol, Calc 74 HDL Cholesterol 50 Urine Color Yellow Urine Appearance Clear Urine pH 5.5 Ur Specific [place] <= 1.005 Urine Protein Negative Urine Glucose (UA) Negative Urine Ketones Negative Urine Blood Small (1+) H Urine Nitrite Negative Ur Leukocyte Esterase Negative Urine RBC 0-2 Urine WBC 0-5 Ur Squamous Epith Cells 0-2 Urine Bacteria None Seen Hyaline Casts 0-2 Urine Opiates Screen Not Detected Ur Buprenorphine Scrn Not Detected Ur Oxycodone Screen Not Detected Urine Methadone Screen Not Detected Urine Fentanyl Screen Not Detected Ur Barbiturates Screen Not Detected Ur Phencyclidine Scrn Not Detected Ur Amphetamines Screen Not Detected U Benzodiazepines Scrn Not Detected Urine Cocaine Screen POSITIVE H U Marijuana (THC) Screen Not Detected Ethyl Alcohol 91 Medications Medications Current Medications Acetaminophen (Acetaminophen 325 Mg Tablet) 650 mg PO Q6H PRN PRN Reason: Headache/Pain, Scale 1-10 Al Hydroxide/Mg Hydroxide (Magnesium Hydrox/Alum Hydrox 30 Ml Oral.Susp) 30 ml PO Q6H PRN PRN Reason: Heartburn/Nausea Bupropion HCl (Bupropion Hcl Xl 150 Mg Tab.Er.24h) 150 mg PO DAILY [facility] Last Admin: 09/27/25 08:31 Dose: 150 mg Hydroxyzine HCl (Hydroxyzine Hcl 25 Mg Tablet) 25 mg PO Q6H PRN PRN Reason: mild anxiety Last Admin: 09/26/25 22:07 Dose: 25 mg Magnesium Hydroxide (Milk Of Magnesia 30 Ml Oral.Susp) 30 ml PO DAILY PRN PRN Reason: Constipation Nicotine (Nicotine 21 Mg Patch.Td24) 21 mg TRANSDERMA DAILY [facility] Last Admin: 09/27/25 08:32 Dose: 21 mg Nicotine Polacrilex (Nicotine Polacrilex 2 Mg Gum) 4 mg BUCCAL Q2H PRN PRN Reason: Nicotine Cravings Olanzapine (Olanzapine 10 Mg Tablet) 10 mg PO BEDTIME ZACH Last Admin: 09/26/25 22:05 Dose: 10 mg Olanzapine (Olanzapine 5 Mg Tablet) 5 mg PO Q4H PRN PRN Reason: agitation Allergies Allergies Allergy/AdvReac Type Severity Reaction Status Date / Time paliperidone (From [employer]) AdvReac liver Verified 09/26/25 13:57 trazodone AdvReac Mild dizzy Uncoded 09/26/25 13:57 Assessment & Plan Assessment & Plan (1) Schizoaffective disorder, depressive type: Status: Acute Code(s): F25.1 - Schizoaffective disorder, depressive type (2) Cocaine abuse: Status: Acute Code(s): F14.10 - Cocaine abuse, uncomplicated (3) Alcohol abuse: Status: Acute Code(s): F10.10 - Alcohol abuse, uncomplicated Plan HPI: Patient is a 55 year old, single, Bilingual, male who presented to the ED today via ambulance reporting auditory hallucinations, suicidal ideation with a plan to jump off a bridge and worsening depression. Patient is well known to the CARE Team and behavioral health through previous admissions and assessments. Patient was last admitted to 08/01/25- 08/06/25. Patient reported he has not taken his medications in some time, worsening depression, auditory hallucinations and suicidal ideation. Patient reported I feel not in control of myself. . Patient has been medically cleared. Formulation/clinical reasoning: Esxperience SI and AH, increased/worsening depresion/anxiety/AH in context of medication non compliant or not avaialbe. No OP providers. Being homeless- been at the jail in [place]. Hx of Schizoaffective, depressed type. Given above information, patient would benefit in restrictive environment, re-start on home med/medication management and refer patient to OP psychiatric services/[facility]. Hospital course: restart on home meds with plan to titrate up to therapeutic dose. Monitor for side effects and effectiveness. 09/26/25: Wellbutrin XL 150mg daily for depression Zyprexa 10mg at HS for psychosis/mood. PRN for anxiety/insomnia/agitation/pain available. Plan Patient on 15 minute checks for safety. Admitted to M5. CV. Work with treatment team to do collateral Discharge planning diagnostic Patient educated on: diagnosis and medication risk/benefits Informed Consent: understands Reason for continued inpatient stay Substantial Risk for: harm to self and rapid decompensation Time Spent With Patient Time: Total time managing care of this patient today _15___ minutes.
[2025-09-27 20:00] VITALS: BP 126/63; PULSE 90; RESP 16; TEMP 36.6; O2SAT 96
[2025-09-28 08:00] VITALS: BP 112/70; PULSE 97; RESP 16; TEMP 36.5; O2SAT 96
[2025-09-28] MEDS: buPROPion HCl XL 150 MG TAB.ER.24H PO (08:42)
--- NOTE | 2025-09-28 10:37 | HO.PSYCHPN ---
Subjective Subjective Date of Service: 09/28/25 Reason For Visit: SI Subjective Notes: Conditional Voluntary Healthcare Proxy: No Guardianship: No Medical Problems Affecting Mental Status: No Interim History: Another day. Presents constricted, reticent. No SI so far today. Trying not to let himself get depressed, unclear what his strategy is, he would not elaborate on this. No concerns about his care at this time. Medication Compliance: Yes Side effects from medications: No Attending Groups: No Review of Systems Acute medical concerns: No Medical Review of Systems: unchanged Mental Status Exam Mental Status Exam Narrative: Patient Appearance: Well Groomed, adequate hygiene Patient Behavior: reticent Level of Consciousness: Awake, alert Patient Orientation: Person, Place and Time, situational context Memory: grossly intact to recent events Psychomotor: no agitation or slowing Speech: normal rate, tone, volume Mood: ?on the edge? Affect: constricted Thought Process: Goal Oriented Thought Content: denies SI/HI; focused on treatment questions Hallucinations: endorses voices in my head Delusions: None evinced Insight: mild impairment Judgment: mild impairment Impulsivity: low Diagnostics Vital Signs (24Hr): Vital Signs - 24 hr 09/27/25 20:00 09/28/25 08:00 Temperature 97.9 F 97.7 F Pulse Rate 90 97 Respiratory Rate 16 16 Blood Pressure 126/63 112/70 Pulse Oximetry 96 96 Oxygen Delivery Method Room Air Room Air BMI result Body Mass Index 30.1 Labs 09/26/25 14:09 09/27/25 07:52 Labs: Laboratory Results - last 48 hr 09/26/25 09/27/25 14:09 07:52 WBC 12.4 H RBC 5.28 Hgb 17.1 Hct 47.9 MCV 90.7 MCH 32.4 MCHC 35.7 RDW 12.3 Plt Count 246 MPV 9.7 Immature Gran % (Auto) 0.4 Neut % (Auto) 78.7 H Lymph % (Auto) 15.7 L [place] % (Auto) 4.4 Eos % (Auto) 0.4 Baso % (Auto) 0.4 Lymph # (Auto) 1.9 [place] # (Auto) 0.6 Eos # (Auto) 0.1 Baso # (Auto) 0.1 Abs Immat Gran (auto) 0.05 H Absolute Neuts (auto) 9.7 H Absolute Nucleated RBC 0.000 Nucleated RBC % (auto) 0.0 Sodium 136 141 Potassium 4.2 4.2 Chloride 101 106 Carbon Dioxide 28 28 Anion Gap 11 L 11 L BUN 10 18 H Creatinine 0.83 0.89 Estim Creat Clear Calc 117.8 109.9 Estimated GFR > 60 > 60 Random Glucose 86 80 Estimat Average Glucose 105 Hemoglobin A1c % 5.3 Calcium 9.9 D 9.4 Total Bilirubin 0.5 0.6 AST 33 29 ALT 26 26 Alkaline Phosphatase 77 66 Total Protein 8.0 6.9 Albumin 5.1 H 4.5 Triglycerides 101 Cholesterol 144 LDL Cholesterol, Calc 74 HDL Cholesterol 50 Urine Color Yellow Urine Appearance Clear Urine pH 5.5 Ur Specific [place] <= 1.005 Urine Protein Negative Urine Glucose (UA) Negative Urine Ketones Negative Urine Blood Small (1+) H Urine Nitrite Negative Ur Leukocyte Esterase Negative Urine RBC 0-2 Urine WBC 0-5 Ur Squamous Epith Cells 0-2 Urine Bacteria None Seen Hyaline Casts 0-2 Urine Opiates Screen Not Detected Ur Buprenorphine Scrn Not Detected Ur Oxycodone Screen Not Detected Urine Methadone Screen Not Detected Urine Fentanyl Screen Not Detected Ur Barbiturates Screen Not Detected Ur Phencyclidine Scrn Not Detected Ur Amphetamines Screen Not Detected U Benzodiazepines Scrn Not Detected Urine Cocaine Screen POSITIVE H U Marijuana (THC) Screen Not Detected Ethyl Alcohol 91 Medications Medications Current Medications Acetaminophen (Acetaminophen 325 Mg Tablet) 650 mg PO Q6H PRN PRN Reason: Headache/Pain, Scale 1-10 Al Hydroxide/Mg Hydroxide (Magnesium Hydrox/Alum Hydrox 30 Ml Oral.Susp) 30 ml PO Q6H PRN PRN Reason: Heartburn/Nausea Bupropion HCl (Bupropion Hcl Xl 150 Mg Tab.Er.24h) 150 mg PO DAILY [facility] Last Admin: 09/28/25 08:42 Dose: 150 mg Hydroxyzine HCl (Hydroxyzine Hcl 25 Mg Tablet) 25 mg PO Q6H PRN PRN Reason: mild anxiety Last Admin: 09/27/25 18:27 Dose: 25 mg Magnesium Hydroxide (Milk Of Magnesia 30 Ml Oral.Susp) 30 ml PO DAILY PRN PRN Reason: Constipation Melatonin (Melatonin 3 Mg Tablet) 3 mg PO BEDTIME ZACH Last Admin: 09/27/25 20:56 Dose: 3 mg Melatonin (Melatonin 3 Mg Tablet) 3 mg PO BEDTIME PRN PRN Reason: continued Insomnia Nicotine (Nicotine 21 Mg Patch.Td24) 21 mg TRANSDERMA DAILY [facility] Last Admin: 09/28/25 08:43 Dose: Not Given Nicotine Polacrilex (Nicotine Polacrilex 2 Mg Gum) 4 mg BUCCAL Q2H PRN PRN Reason: Nicotine Cravings Olanzapine (Olanzapine 10 Mg Tablet) 10 mg PO BEDTIME [facility] Last Admin: 09/27/25 20:44 Dose: 10 mg Olanzapine (Olanzapine 5 Mg Tablet) 5 mg PO Q4H PRN PRN Reason: agitation Allergies Allergies Allergy/AdvReac Type Severity Reaction Status Date / Time paliperidone (From [employer]) AdvReac liver Verified 09/26/25 13:57 trazodone AdvReac Mild dizzy Uncoded 09/26/25 13:57 Assessment & Plan Assessment & Plan (1) Schizoaffective disorder, depressive type: Status: Acute Code(s): F25.1 - Schizoaffective disorder, depressive type (2) Cocaine abuse: Status: Acute Code(s): F14.10 - Cocaine abuse, uncomplicated (3) Alcohol abuse: Status: Acute Code(s): F10.10 - Alcohol abuse, uncomplicated Plan HPI: Patient is a 55 year old, single, Bilingual, male who presented to the ED today via ambulance reporting auditory hallucinations, suicidal ideation with a plan to jump off a bridge and worsening depression. Patient is well known to the CARE Team and behavioral health through previous admissions and assessments. Patient was last admitted to 08/01/25- 08/06/25. Patient reported he has not taken his medications in some time, worsening depression, auditory hallucinations and suicidal ideation. Patient reported I feel not in control of myself. . Patient has been medically cleared. Formulation/clinical reasoning: Esxperience SI and AH, increased/worsening depresion/anxiety/AH in context of medication non compliant or not avaialbe. No OP providers. Being homeless- been at the senior living in [place]. Hx of Schizoaffective, depressed type. Given above information, patient would benefit in restrictive environment, re-start on home med/medication management and refer patient to OP psychiatric services/Longterm. Hospital course: restart on home meds with plan to titrate up to therapeutic dose. Monitor for side effects and effectiveness. 09/26/25: Wellbutrin XL 150mg daily for depression Zyprexa 10mg at HS for psychosis/mood. PRN for anxiety/insomnia/agitation/pain available. Plan Patient on 15 minute checks for safety. Admitted to . CV. Work with treatment team to do collateral Discharge planning diagnostic 09/28: no changes today Patient educated on: diagnosis and medication risk/benefits Informed Consent: further education needed Reason for continued inpatient stay Substantial Risk for: harm to self Time Spent With Patient Time: Total time managing care of this patient today _15___ minutes.
[2025-09-28 19:30] VITALS: BP 112/75; PULSE 103; RESP 16; TEMP 36.9; O2SAT 97
[2025-09-29 08:00] VITALS: BP 121/77; PULSE 85; RESP 16; TEMP 36.6; O2SAT 98
[2025-09-29] MEDS: buPROPion HCl XL 150 MG TAB.ER.24H PO (08:36)
--- NOTE | 2025-09-29 13:17 | HO.PSYCHPN ---
Subjective Subjective Date of Service: 09/29/25 Reason For Visit: SI Subjective Notes: Conditional Voluntary Interim History: Laying in bed. keeping to self. Patient reports feeling depressed , however declined to get into detail; pt stated, I don't like talking about it because it's the past . denies SI/HI/VH/AH. He reports his sleep has improved. encouraged to attend groups. Continue tx plan. Medication Compliance: Yes Side effects from medications: No Attending Groups: No Mental Status Exam Mental Status Exam Narrative: Pt is alert and oriented; behavior is cooperative and calm; dressed in casual attire; mood is described as depressed ; eye contact appropriate; Speech is normal rate, volume and not pressured; thought process is organized; Thought content is on tx; denies SI/HI/VH/AH. Diagnostics Vital Signs (24Hr): Vital Signs - 24 hr 09/28/25 19:30 09/29/25 08:00 Temperature 98.4 F 97.8 F Pulse Rate 103 H 85 Respiratory Rate 16 16 Blood Pressure 112/75 121/77 Pulse Oximetry 97 98 Oxygen Delivery Method Room Air BMI result Body Mass Index 30.1 Labs 09/26/25 14:09 09/27/25 07:52 Medications Medications Current Medications Acetaminophen (Acetaminophen 325 Mg Tablet) 650 mg PO Q6H PRN PRN Reason: Headache/Pain, Scale 1-10 Al Hydroxide/Mg Hydroxide (Magnesium Hydrox/Alum Hydrox 30 Ml Oral.Susp) 30 ml PO Q6H PRN PRN Reason: Heartburn/Nausea Bupropion HCl (Bupropion Hcl Xl 150 Mg Tab.Er.24h) 150 mg PO DAILY [facility] Last Admin: 09/29/25 08:36 Dose: 150 mg Hydroxyzine HCl (Hydroxyzine Hcl 25 Mg Tablet) 25 mg PO Q6H PRN PRN Reason: mild anxiety Last Admin: 09/28/25 20:59 Dose: 25 mg Magnesium Hydroxide (Milk Of Magnesia 30 Ml Oral.Susp) 30 ml PO DAILY PRN PRN Reason: Constipation Melatonin (Melatonin 3 Mg Tablet) 3 mg PO BEDTIME [facility] Last Admin: 09/28/25 20:59 Dose: 3 mg Melatonin (Melatonin 3 Mg Tablet) 3 mg PO BEDTIME PRN PRN Reason: continued Insomnia Nicotine (Nicotine 21 Mg Patch.Td24) 21 mg TRANSDERMA DAILY [facility] Last Admin: 09/29/25 08:36 Dose: Not Given Nicotine Polacrilex (Nicotine Polacrilex 2 Mg Gum) 4 mg BUCCAL Q2H PRN PRN Reason: Nicotine Cravings Olanzapine (Olanzapine 10 Mg Tablet) 10 mg PO BEDTIME [facility] Last Admin: 09/28/25 20:59 Dose: 10 mg Olanzapine (Olanzapine 5 Mg Tablet) 5 mg PO Q4H PRN PRN Reason: agitation Allergies Allergies Allergy/AdvReac Type Severity Reaction Status Date / Time paliperidone (From [employer]) AdvReac liver Verified 09/26/25 13:57 trazodone AdvReac Mild dizzy Uncoded 09/26/25 13:57 Assessment & Plan Assessment & Plan (1) Schizoaffective disorder, depressive type: Status: Acute Code(s): F25.1 - Schizoaffective disorder, depressive type (2) Cocaine abuse: Status: Acute Code(s): F14.10 - Cocaine abuse, uncomplicated (3) Alcohol abuse: Status: Acute Code(s): F10.10 - Alcohol abuse, uncomplicated Plan Patient is a 55 year old, single, Bilingual, male who presented to the ED today via ambulance reporting auditory hallucinations, suicidal ideation with a plan to jump off a bridge and worsening depression. Patient is well known to the CARE Team and behavioral health through previous admissions and assessments. Patient was last admitted to 08/01/25- 08/06/25. Patient reported he has not taken his medications in some time, worsening depression, auditory hallucinations and suicidal ideation. Patient reported I feel not in control of myself. . Patient has been medically cleared. Formulation/clinical reasoning: Esxperience SI and AH, increased/worsening depresion/anxiety/AH in context of medication non compliant or not avaialbe. No OP providers. Being homeless- [facility] [place]. Hx of Schizoaffective, depressed type. Given above information, patient would benefit in restrictive environment, re-start on home med/medication management and refer patient to OP psychiatric services/Longterm. Plan: Patient on 15 minute checks for safety. Admitted to [facility]. [facility]. Work with treatment team to do collateral Discharge planning diagnostic restart on home meds with plan to titrate up to therapeutic dose. Monitor for side effects and effectiveness. 09/26/25: Wellbutrin XL 150mg daily for depression Zyprexa 10mg at HS for psychosis/mood. PRN for anxiety/insomnia/agitation/pain available. 09/28: no changes today 09/29: Laying in bed. keeping to self. Patient reports feeling depressed , however declined to get into detail; pt stated, I don't like talking about it because it's the past . denies SI/HI/VH/AH. He reports his sleep has improved. encouraged to attend groups. Continue tx plan. Patient educated on: diagnosis, medication risk/benefits and therapeutic strategies Reason for continued inpatient stay Substantial Risk for: stable for discharge Time Spent With Patient Time: Total time managing care of this patient today _20___ minutes.
[2025-09-29 19:20] VITALS: BP 139/77; PULSE 81; RESP 16; TEMP 2.4; TEMP 36.3; O2SAT 97
[2025-09-30 07:58] VITALS: BP 119/75; PULSE 78; RESP 16; TEMP 36.6; O2SAT 98
[2025-09-30] MEDS: buPROPion HCl XL 150 MG TAB.ER.24H PO (08:09)
--- NOTE | 2025-09-30 08:51 | HO.PSYCHPN ---
Subjective Subjective Date of Service: 09/30/25 Reason For Visit: SI Subjective Notes: Conditional Voluntary Interim History: Active on unit. keeping to self. Patient reports feeling a little depressed today but better ; denies SI/HI/VH/AH. He reports his sleep has improved; per nursing, pt slept 8 hours. Encouraged to attend groups. Plan to discharge on ; pt aware. Continue tx plan. Medication Compliance: Yes Side effects from medications: No Attending Groups: Intermittent Mental Status Exam Mental Status Exam Narrative: Pt is alert and oriented; behavior is cooperative and calm; dressed in casual attire; mood is described as a little depressed ; eye contact appropriate; Speech is normal rate, volume and not pressured; thought process is organized; Thought content is on tx; denies SI/HI/VH/AH. Diagnostics Vital Signs (24Hr): Vital Signs - 24 hr 09/29/25 19:20 09/30/25 07:58 Temperature 36.3 F L 97.9 F Pulse Rate 81 78 Respiratory Rate 16 16 Blood Pressure 139/77 119/75 Pulse Oximetry 97 98 Oxygen Delivery Method Room Air Room Air BMI result Body Mass Index 30.1 Labs 09/26/25 14:09 09/27/25 07:52 Medications Medications Current Medications Acetaminophen (Acetaminophen 325 Mg Tablet) 650 mg PO Q6H PRN PRN Reason: Headache/Pain, Scale 1-10 Al Hydroxide/Mg Hydroxide (Magnesium Hydrox/Alum Hydrox 30 Ml Oral.Susp) 30 ml PO Q6H PRN PRN Reason: Heartburn/Nausea Bupropion HCl (Bupropion Hcl Xl 150 Mg Tab.Er.24h) 150 mg PO DAILY [facility] Last Admin: 09/30/25 08:09 Dose: 150 mg Hydroxyzine HCl (Hydroxyzine Hcl 25 Mg Tablet) 25 mg PO Q6H PRN PRN Reason: mild anxiety Last Admin: 09/28/25 20:59 Dose: 25 mg Magnesium Hydroxide (Milk Of Magnesia 30 Ml Oral.Susp) 30 ml PO DAILY PRN PRN Reason: Constipation Melatonin (Melatonin 3 Mg Tablet) 3 mg PO BEDTIME [facility] Last Admin: 09/29/25 21:11 Dose: 3 mg Melatonin (Melatonin 3 Mg Tablet) 3 mg PO BEDTIME PRN PRN Reason: continued Insomnia Nicotine Polacrilex (Nicotine Polacrilex 2 Mg Gum) 4 mg BUCCAL Q2H PRN PRN Reason: Nicotine Cravings Olanzapine (Olanzapine 10 Mg Tablet) 10 mg PO BEDTIME [facility] Last Admin: 09/29/25 21:11 Dose: 10 mg Olanzapine (Olanzapine 5 Mg Tablet) 5 mg PO Q4H PRN PRN Reason: agitation Allergies Allergies Allergy/AdvReac Type Severity Reaction Status Date / Time paliperidone (From [employer]) AdvReac liver Verified 09/26/25 13:57 trazodone AdvReac Mild dizzy Uncoded 09/26/25 13:57 Assessment & Plan Assessment & Plan (1) Schizoaffective disorder, depressive type: Status: Acute Code(s): F25.1 - Schizoaffective disorder, depressive type (2) Cocaine abuse: Status: Acute Code(s): F14.10 - Cocaine abuse, uncomplicated (3) Alcohol abuse: Status: Acute Code(s): F10.10 - Alcohol abuse, uncomplicated Plan Patient is a 55 year old, single, Bilingual, male who presented to the ED today via ambulance reporting auditory hallucinations, suicidal ideation with a plan to jump off a bridge and worsening depression. Patient is well known to the CARE Team and behavioral health through previous admissions and assessments. Patient was last admitted to 08/01/25- 08/06/25. Patient reported he has not taken his medications in some time, worsening depression, auditory hallucinations and suicidal ideation. Patient reported I feel not in control of myself. . Patient has been medically cleared. Formulation/clinical reasoning: Esxperience SI and AH, increased/worsening depresion/anxiety/AH in context of medication non compliant or not avaialbe. No OP providers. Being homeless- been at the [facility] [place]. Hx of Schizoaffective, depressed type. Given above information, patient would benefit in restrictive environment, re-start on home med/medication management and refer patient to OP psychiatric services/Skilled Nursing. Plan: Patient on 15 minute checks for safety. Admitted to . CV. Work with treatment team to do collateral Discharge planning diagnostic restart on home meds with plan to titrate up to therapeutic dose. Monitor for side effects and effectiveness. 09/26/25: Wellbutrin XL 150mg daily for depression Zyprexa 10mg at HS for psychosis/mood. PRN for anxiety/insomnia/agitation/pain available. 09/28: no changes today 09/29: Laying in bed. keeping to self. Patient reports feeling depressed , however declined to get into detail; pt stated, I don't like talking about it because it's the past . denies SI/HI/VH/AH. He reports his sleep has improved. encouraged to attend groups. Continue tx plan. 09/30: Active on unit. keeping to self. Patient reports feeling a little depressed today but better ; denies SI/HI/VH/AH. He reports his sleep has improved; per nursing, pt slept 8 hours. Encouraged to attend groups. Plan to discharge on ; pt aware. Continue tx plan. Patient educated on: diagnosis, medication risk/benefits and therapeutic strategies Reason for continued inpatient stay Substantial Risk for: med/psych decompensation Time Spent With Patient Time: Total time managing care of this patient today _20___ minutes.
[2025-09-30 20:00] VITALS: BP 124/73; PULSE 82; RESP 16; TEMP 36.6; O2SAT 97
[2025-10-01 08:00] VITALS: BP 126/87; PULSE 82; RESP 20; TEMP 37; O2SAT 96
[2025-10-01] MEDS: buPROPion HCl XL 150 MG TAB.ER.24H PO (08:38)
--- NOTE | 2025-10-01 09:06 | HO.PSYCHPN ---
Subjective Subjective Date of Service: 10/01/25 Reason For Visit: SI Subjective Notes: Conditional Voluntary Interim History: Active on unit. keeping to self. Patient reports feeling better today; he is focused on discharge tomorrow and plans on returning to residential. Patient denies SI/HI/VH/AH. Patient reports he plans on following up with [facility] for refills on his medications. Per nursing, slept 8 hours. Continue tx plan. Medication Compliance: Yes Side effects from medications: No Attending Groups: Intermittent Mental Status Exam Mental Status Exam Narrative: Pt is alert and oriented; behavior is cooperative and calm; dressed in casual attire; mood is described as better ; eye contact appropriate; Speech is normal rate, volume and not pressured; thought process is organized; Thought content is on discharge; denies SI/HI/VH/AH. Diagnostics Vital Signs (24Hr): Vital Signs - 24 hr 09/30/25 20:00 10/01/25 08:00 Temperature 98 F 98.6 F Pulse Rate 82 82 Respiratory Rate 16 20 Blood Pressure 124/73 126/87 Pulse Oximetry 97 96 Oxygen Delivery Method Room Air Room Air BMI result Body Mass Index 30.1 Labs 09/26/25 14:09 09/27/25 07:52 Medications Medications Current Medications Acetaminophen (Acetaminophen 325 Mg Tablet) 650 mg PO Q6H PRN PRN Reason: Headache/Pain, Scale 1-10 Al Hydroxide/Mg Hydroxide (Magnesium Hydrox/Alum Hydrox 30 Ml Oral.Susp) 30 ml PO Q6H PRN PRN Reason: Heartburn/Nausea Bupropion HCl (Bupropion Hcl Xl 150 Mg Tab.Er.24h) 150 mg PO DAILY [facility] Last Admin: 10/01/25 08:38 Dose: 150 mg Hydroxyzine HCl (Hydroxyzine Hcl 25 Mg Tablet) 25 mg PO Q6H PRN PRN Reason: mild anxiety Last Admin: 09/30/25 20:22 Dose: 25 mg Magnesium Hydroxide (Milk Of Magnesia 30 Ml Oral.Susp) 30 ml PO DAILY PRN PRN Reason: Constipation Melatonin (Melatonin 3 Mg Tablet) 3 mg PO BEDTIME [facility] Last Admin: 09/30/25 20:23 Dose: 3 mg Melatonin (Melatonin 3 Mg Tablet) 3 mg PO BEDTIME PRN PRN Reason: continued Insomnia Nicotine Polacrilex (Nicotine Polacrilex 2 Mg Gum) 4 mg BUCCAL Q2H PRN PRN Reason: Nicotine Cravings Olanzapine (Olanzapine 10 Mg Tablet) 10 mg PO BEDTIME [facility] Last Admin: 09/30/25 20:23 Dose: 10 mg Olanzapine (Olanzapine 5 Mg Tablet) 5 mg PO Q4H PRN PRN Reason: agitation Allergies Allergies Allergy/AdvReac Type Severity Reaction Status Date / Time paliperidone (From [employer]) AdvReac liver Verified 09/26/25 13:57 trazodone AdvReac Mild dizzy Uncoded 09/26/25 13:57 Assessment & Plan Assessment & Plan (1) Schizoaffective disorder, depressive type: Status: Acute Code(s): F25.1 - Schizoaffective disorder, depressive type (2) Cocaine abuse: Status: Acute Code(s): F14.10 - Cocaine abuse, uncomplicated (3) Alcohol abuse: Status: Acute Code(s): F10.10 - Alcohol abuse, uncomplicated Plan Patient is a 55 year old, single, Bilingual, male who presented to the ED today via ambulance reporting auditory hallucinations, suicidal ideation with a plan to jump off a bridge and worsening depression. Patient is well known to the CARE Team and behavioral health through previous admissions and assessments. Patient was last admitted to 08/01/25- 08/06/25. Patient reported he has not taken his medications in some time, worsening depression, auditory hallucinations and suicidal ideation. Patient reported I feel not in control of myself. . Patient has been medically cleared. Formulation/clinical reasoning: Esxperience SI and AH, increased/worsening depresion/anxiety/AH in context of medication non compliant or not avaialbe. No OP providers. Being homeless- been at the residential in [place]. Hx of Schizoaffective, depressed type. Given above information, patient would benefit in restrictive environment, re-start on home med/medication management and refer patient to OP psychiatric services/Care Home. Plan: Patient on 15 minute checks for safety. Admitted to . CV. Work with treatment team to do collateral Discharge planning diagnostic restart on home meds with plan to titrate up to therapeutic dose. Monitor for side effects and effectiveness. 09/26/25: Wellbutrin XL 150mg daily for depression Zyprexa 10mg at HS for psychosis/mood. PRN for anxiety/insomnia/agitation/pain available. 09/28: no changes today 09/29: Laying in bed. keeping to self. Patient reports feeling depressed , however declined to get into detail; pt stated, I don't like talking about it because it's the past . denies SI/HI/VH/AH. He reports his sleep has improved. encouraged to attend groups. Continue tx plan. 09/30: Active on unit. keeping to self. Patient reports feeling a little depressed today but better ; denies SI/HI/VH/AH. He reports his sleep has improved; per nursing, pt slept 8 hours. Encouraged to attend groups. Plan to discharge on ; pt aware. Continue tx plan. 10/01: Active on unit. keeping to self. Patient reports feeling better today; he is focused on discharge tomorrow and plans on returning to residential. Patient denies SI/HI/VH/AH. Patient reports he plans on following up with walking clinic for refills on his medications. Per nursing, slept 8 hours. Continue tx plan. Patient educated on: diagnosis and medication risk/benefits Reason for continued inpatient stay Substantial Risk for: stable for discharge Time Spent With Patient Time: Total time managing care of this patient today _20___ minutes.
[2025-10-01 19:07] VITALS: BP 126/61; PULSE 86
[2025-10-01 20:00] VITALS: BP 129/67; PULSE 84; RESP 16; TEMP 36.9; O2SAT 96
[2025-10-02 08:10] VITALS: BP 120/70; PULSE 75; RESP 16; TEMP 36.4; O2SAT 97
[2025-10-02] MEDS: buPROPion HCl XL 150 MG TAB.ER.24H PO (08:14)
[2025-10-02] MEDS: Naloxone HCl Nasal TAKE HOME 4 MG SPRAY 8 MG NOSTRILALT (08:14)
--- NOTE | 2025-10-02 08:58 | P.DS_ITS ---
DS: Providers Provider Date of admission: 09/26/25 15:47 Date of discharge: 10/02/25 Primary care physician: Unknown Physician Admitting clinician: Luna Cline Attending physician on admission: Marshall Draper Attending physician on discharge: Marshall Draper Discharging clinician: Sonja Hunt DS: Diagnosis Discharge Diagnosis (1) Schizoaffective disorder, depressive type: Status: Acute (2) Cocaine abuse: Status: Acute (3) Alcohol abuse: Status: Acute DS: Medications Discharge Medications Home Medications: Previous Rx's ?Medication ?Instructions ?Recorded bupropion HCl 150 mg 24 hr tablet, 150 mg PO DAILY 30 days #30 tabs 10/01/25 extended release olanzapine 10 mg tablet 10 mg PO BEDTIME 30 days #30 tabs 10/01/25 Mental Status Exam Mental Status Exam Narrative: Pt is alert and oriented; behavior is cooperative and calm; dressed in casual attire; mood is described as good ; eye contact appropriate; Speech is normal rate, volume and not pressured; thought process is organized; Thought content is on discharge; denies SI/HI/VH/AH. Data Data Completed and Pending Completed studies during hospitalization [Text1]: 09/26/25 09/27/25 14:09 07:52 WBC 12.4 H RBC 5.28 Hgb 17.1 Hct 47.9 MCV 90.7 MCH 32.4 MCHC 35.7 RDW 12.3 Plt Count 246 MPV 9.7 Immature Gran % (Auto) 0.4 Neut % (Auto) 78.7 H Lymph % (Auto) 15.7 L Russell % (Auto) 4.4 Eos % (Auto) 0.4 Baso % (Auto) 0.4 Lymph # (Auto) 1.9 Russell # (Auto) 0.6 Eos # (Auto) 0.1 Baso # (Auto) 0.1 Abs Immat Gran (auto) 0.05 H Absolute Neuts (auto) 9.7 H Absolute Nucleated RBC 0.000 Nucleated RBC % (auto) 0.0 Sodium 136 141 Potassium 4.2 4.2 Chloride 101 106 Carbon Dioxide 28 28 Anion Gap 11 L 11 L BUN 10 18 H Creatinine 0.83 0.89 Estim Creat Clear Calc 117.8 109.9 Estimated GFR > 60 > 60 Random Glucose 86 80 Estimat Average Glucose 105 Hemoglobin A1c % 5.3 Calcium 9.9 D 9.4 Total Bilirubin 0.5 0.6 AST 33 29 ALT 26 26 Alkaline Phosphatase 77 66 Total Protein 8.0 6.9 Albumin 5.1 H 4.5 Triglycerides 101 Cholesterol 144 LDL Cholesterol, Calc 74 HDL Cholesterol 50 Urine Color Yellow Urine Appearance Clear Urine pH 5.5 Ur Specific [place] <= 1.005 Urine Protein Negative Urine Glucose (UA) Negative Urine Ketones Negative Urine Blood Small (1+) H Urine Nitrite Negative Ur Leukocyte Esterase Negative Urine RBC 0-2 Urine WBC 0-5 Ur Squamous Epith Cells 0-2 Urine Bacteria None Seen Hyaline Casts 0-2 Urine Opiates Screen Not Detected Ur Buprenorphine Scrn Not Detected Ur Oxycodone Screen Not Detected Urine Methadone Screen Not Detected Urine Fentanyl Screen Not Detected Ur Barbiturates Screen Not Detected Ur Phencyclidine Scrn Not Detected Ur Amphetamines Screen Not Detected U Benzodiazepines Scrn Not Detected Urine Cocaine Screen POSITIVE H U Marijuana (THC) Screen Not Detected Ethyl Alcohol 91 DS: Summary Hospital Course Hospital Course: Patient is a 55 year old, single, Bilingual, male who presented to the ED today via ambulance reporting auditory hallucinations, suicidal ideation with a plan to jump off a bridge and worsening depression. Patient is well known to the CARE Team and behavioral health through previous admissions and assessments. Patient was last admitted to 08/01/25- 08/06/25. Patient reported he has not taken his medications in some time, worsening depression, auditory hallucinations and suicidal ideation. Patient reported I feel not in control of myself. . Patient has been medically cleared. Meet with patient in assigned room [facility] in ED pod for psychiatric assessment. Report that he talked to staff in at the senior living and they advised him to seek out for help. Report he has been crying, feeling stress and emotional d/t a lot of things , especially housing and financial issues. Report that he is in his 50s but still being homeless. Report he took medication after discharged and did not get it refilled as he does not have OP provider. Denies current OP psychiatrist/therapist/ or PCP. Denies SI/SIB/HI/AVH at this current time, but report sleep has been terrible . No change in appetite. Report he heard voices a couple months ago and I talk to myself when i am in a bad mood - I think out loud .Report SI was cross my mind but denies plan or intent. Denies suicide attempts hx. His goal is to stay out of the hospital and he has tried so bad but he still ends up being back here again. Goal is to back on meds and return to community/senior living. Trauma hx: denies Substance use: denies. Report drinking alcohol here and there but not daily. Report not using GLADIS more than 6 years. Report last weed use was last week. Report increased in Cig use and smoke for 1/2 PPD. Utox +GLADIS and BAL is 97 on admission. Family hx: Denies. Trauma: denies but being homeless traumatizes to him Patient is A+O x3, wearing hospital attire, no ADL's issues. Appear very depressed and anxious but pleasant and cooperative. Soft spoken, sometimes it is hard to understand him. Appear to minimize psychotic symptoms and substance use. Denies substance use but BAL was 97 and Utox +GLADIS. Thought process is somewhat disorganized,. Thought process is with treatment and future oriented. No SI/SIB/HI/AVH but can be psychotic with possible AH. Poor judgment and insight. Will re-start on home meds. Formulation/clinical reasoning: Esxperience SI and AH, increased/worsening depresion/anxiety/AH in context of medication non compliant or not avaialbe. No OP providers. Being homeless- been at the senior living in [place]. Hx of Schizoaffective, depressed type. Given above information, patient would benefit in restrictive environment, re-start on home med/medication management and refer patient to OP psychiatric services/[facility]. Plan: Patient on 15 minute checks for safety. Admitted to . CV. Work with treatment team to do collateral Discharge planning diagnostic restart on home meds with plan to titrate up to therapeutic dose. Monitor for side effects and effectiveness. Wellbutrin XL 150mg daily for depression Zyprexa 10mg at HS for psychosis/mood. PRN for anxiety/insomnia/agitation/pain available. Laying in bed. keeping to self. Patient reports feeling depressed , however declined to get into detail; pt stated, I don't like talking about it because it's the past . denies SI/HI/VH/AH. He reports his sleep has improved. encouraged to attend groups. Continue tx plan. Active on unit. keeping to self. Patient reports feeling a little depressed today but better ; denies SI/HI/VH/AH. He reports his sleep has improved; per nursing, pt slept 8 hours. Encouraged to attend groups. Plan to discharge on ; pt aware. Continue tx plan. Active on unit. keeping to self. Patient reports feeling better today; he is focused on discharge tomorrow and plans on returning to senior living. Patient denies SI/HI/VH/AH. Patient reports he plans on following up with walking clinic for refills on his medications. Per nursing, slept 8 hours. Continue tx plan. Patient reports feeling good and ready to go ; denies SI/HI/VH/AH. Patient reports he plans on following up with outpatient providers. Status at Discharge Cognitive/behavioral status at discharge: Patient has insight and demonstrates good judgment in terms of wanting to pursue treatment. Patient has a safety plan that includes presenting to the closest ER or calling 911 if feeling unsafe. Functional status at discharge: independent ambulation Overall status at discharge: patient is back to baseline Time Spent with Patient Time attestation: Total time managing care of this patient today _20___ minutes. Time spent: Less than 30 minutes Discharge Plan Discharge Anticipated Discharge Date/Time: 10/02/25 10:00 Patient Disposition: Home, Self-Care Discharge Diagnosis: Schizoaffective d/o, Cocaine use d/o, Alcohol use d/o Referrals: Therapy & Psychiatry [Other] - 1 Week Referral Note: *You can present to the clinic above, Monday through Monday between the hours of 10am and 12pm, in order to obtain outpatient mental health providers. [facility] [Provider Group] - 1 Week Referral Note: 10-02-25 [facility] was added to patients chart. Please call [phone] or your primary care provider to schedule a follow up appt within 7-10 days of discharge. No release or PCP on file. Discharge Medications: Continued olanzapine 10 mg Tablet 10 mg PO BEDTIME 30 Days Qty: 30 0RF bupropion HCl 150 mg Tablet Extended Release 24 Hr 150 mg PO DAILY 30 Days Qty: 30 0RF Discharge Orders: Discharge Order (Routine); Ordered 10/02/25 Ordered By: Sonja Hunt Diet: Regular diet Activity on Discharge: As tolerated Stand Alone Forms: Patient Portal Discharge page, Community Support Print Language: Maori Care Plan Goals: Maintain mood and safe behaviors Take medications as prescribed Continue to pursue sobriety Practice coping skills Continue with outpatient providers and reach out to them as needed Health Concerns: Mood stability and behaviors Sobriety Plan of Treatment: Follow up with your PCP, psychiatric provider and other outpatient providers regarding above concerns Take medications as prescribed Assessment: Patient has insight and demonstrates good judgment in terms of wanting to pursue treatment. Patient has a safety plan that includes presenting to the closest ER or calling 911 if feeling unsafe.
== END 2025-10-02 09:43 | disposition home or self-care (01) | DRG 885 ==
LOC: HO.ED 14:35 → HO.PADLT16 16:41
PROVIDERS: Admitting Provider Registered Nurse; Emergency Provider Emergency Medicine; Responsible Provider Registered Nurse; Visit Provider Psychiatry & Neurology Psychiatry
DX: F25.1 Schizoaffective disorder, depressive type (principal); Z59.02 Unsheltered homelessness; R45.851 Suicidal ideations; Y90.4 Blood alcohol level of 80-99 mg/100 ml; F17.210 Nicotine dependence, cigarettes, uncomplicated; Z71.6 Tobacco abuse counseling; F14.10 Cocaine abuse, uncomplicated; F10.10 Alcohol abuse, uncomplicated; Z79.899 Other long term (current) drug therapy
CPT/HCPCS: 36415; 80053; 80061; 80307; 81001; 83036; 85025; 93005; 99285; S9485

== ENCOUNTER → 2025-09-26 15:16 | Outpatient (BNV) | payer MEDICARE, MEDICAID, SELFPAY | PROVIDERS: Admitting Provider Registered Nurse; Emergency Provider Emergency Medicine; Visit Provider Internal Medicine Cardiovascular Disease | DX: R00.0 Tachycardia, unspecified (principal) | CPT/HCPCS: 93010 ==

== ENCOUNTER → 2025-09-26 15:47 | Outpatient (BNV) | payer MEDICARE, MEDICAID, SELFPAY | PROVIDERS: Admitting Provider Registered Nurse; Emergency Provider Emergency Medicine; Visit Provider Psychiatry & Neurology Psychiatry | DX: F25.1 Schizoaffective disorder, depressive type (principal); F14.10 Cocaine abuse, uncomplicated; F10.10 Alcohol abuse, uncomplicated | CPT/HCPCS: 90792; 99231; 99232 ==